=== PATIENT | male | born 1995 | race Caucasian/White ===

== ENCOUNTER 2022-05-09 13:51 | Inpatient (IN) | payer BC, SELFPAY ==
[2022-05-09 13:54] VITALS: BP 152/106; PULSE 108; RESP 16; TEMP 36.7; O2SAT 98; BMI 32.5
--- NOTE | 2022-05-09 14:08 | CM.ED ---
SW Note Referral Reason: RAMP Referral Source: Case Find SW met with patient to discuss the RAMP program. Patient reports they are detoxing from alcohol. Patient said that on days that he works he drinks between 8-12 beers and on his days off he drinks 20 beers. Patient said that he has had 5 days off recently. Patient said that in the past he went to [place] ED for detox and was releasedwith folow up with a specialist in [place] who gave me medication for high blood pressure and anxiety.Patient unable to name the name of the provider in [place] who he had seen for alcohol withdrawl.. Patient is not linked with outpatient AOD provider. Patient was advised that the RAMP program includes no outside food or visitors, no phone access and all personal items are secured. SW called Treatment Navigator and updated her regarding patient?s admission to RAMP. Plan: DADA ESPINOSA
--- NOTE | 2022-05-09 14:46 | EX.ED.SAOD ---
HPI History of Present Illness Chief Complaint: Substance Abuse Detail of Chief Complaint: Requesting detox for alcohol abuse. Informant: patient Onset/Context/Timing Onset: Month(s) Context: Gradual Onset Timing: Continuous Current Severity: Mild Maximum Severity: Mild Associated Symptoms Associated Symptoms: Positive for vomiting* Narrative Narrative: 27-year-old male history of alcoholism. Denies prior detox. No significant medical history. Currently on no medications. States when he works he drinks about 10 beers a night. He has been off the last week or so has been drinking 20 beers a day and some shots. Denies recent illness other than some nausea vomiting and diarrhea times. Denies any recent hospitalization. Requesting inpatient detox. Prior similar symptoms: Yes Recent Illness/Hospitalization: No PFSH PFSH Medical History Eczema Home Medications hydrocortisone 0.5 % topical cream 1 applic topical BID PRN ECZEMA 05/09/22 [History Last Taken 1 Week Ago ~05/02/22] Allergy/AdvReac Type Severity Reaction Status Date / Time No Known Allergies Allergy Verified 05/09/22 13:54 Social History Smoking Status: Never smoker ROS ROS ED ROS Narrative Nausea, vomiting and diarrhea. Review of Systems ROS Unobtainable: Denies due to encephalopathy Constitutional Constitutional ED: Denies chills or fever(s) Eyes Eyes: Denies blurry vision ENT ENT ED: Denies ear pain Cardiovascular Cardiovascular: Denies chest pain Respiratory/Chest Respiratory/Chest: Denies cough or dyspnea Gastrointestinal Gastrointestinal: Reports diarrhea, nausea and vomiting; Denies abdominal pain, constipation or melena Genitourinary Genitourinary ED: Denies dysuria Musculoskeletal Musculoskeletal: Denies arthralgias Integumentary Denies abscess Neurologic Neurologic: Denies headache(s) Psychiatric Psychiatric: Denies anxiety Endocrine Endocrinology: Denies cold intolerance Hematologic/Lymphatic Hematologic/Lymphatic: Denies easy bleeding Allergic/Immunologic Allergic/Immunologic ED: Denies mouth swelling or tongue swelling EXAM Physical Exam Narrative Exam Narrative: 18-year-old male no acute distress. Vital signs stable afebrile. H EENT exam unremarkable. Moist Riis membranes. No trauma. Neck nontender. No lymphadenopathy. Lungs clear to auscultation bilaterally. Heart tachycardic rate about 110 no murmur. Abdomen soft nontender. Normal bowel sounds. Moving all 4 extremities. Calves are nontender no edema or cords. Back nontender. Neurologically is awake alert with no focal motor deficits. Const Vital Signs: 05/09/22 13:54 05/09/22 14:59 Temperature 98.1 F 97.1 F L Temperature Source Temporal Temporal Pulse Rate 108 H 100 Respiratory Rate 16 16 Blood Pressure 152/106 H 136/77 H Blood Pressure Mean 121 96 Pulse Ox 98 99 Oxygen Delivery Method Room Air Room Air Positive well nourished, well developed and obese; Negative for cachectic, contractures or unkempt General Appearance ED: well developed and NAD; Negative for unkempt, cachectic, contractures or pallor Nutritional Appearance: obese; Negative for cachectic HEENT Reports moist mucous membranes; Denies dry mucous membranes atraumatic; Negative for trauma or tenderness Mouth ED: No dry mucous membranes Mouth: No dry mucous membranes Eyes PERRL and EOMs intact bilaterally General Eye ED: Negative for pale conjunctiva or scleral icterus Neck no lymphadenopathy, supple and no JVD Thyroid: Negative for tender Lymph Lymphatic: no lymphadenopathy noted and lymphadenopathy; Negative for other Chest Wall inspection of chest normal and palpation of chest normal Resp normal respiratory effort and clear to auscultation bilaterally Effort and Inspection: Negative for retractions Auscultation: Negative for rales, rhonchi or wheezes Cardio regular rate, regular rhythm, S1 normal heart sound, S2 normal heart sound and no murmurs Rate: Negative for bradycardia or tachycardic Rhythm: Negative for abnormal rhythm Bruits: Negative for other GI soft to palpation, non-tender, non-distended and no masses Inspection: Negative for abdominal distention Auscultation: Negative for hyperactive bowel sounds Palpation: Negative for tender or guarding Back/Spine no CVA tenderness General Back: Negative for CVA tenderness Cervical Spine: Negative for cervical spine tenderness Thoracic Spine / Upper Back: Negative for thoracic spinal tenderness Lumbar Spine / Lower Back: Negative for lumbar spinal tenderness Coccyx: Negative for swelling Extremity General Extremety ED: Negative for edema or tenderness General Extremity: Negative for edema Neuro oriented x3 and CN's II-XII intact bilaterally Sensorium / Orientation: alert, oriented to person, oriented to place and oriented to time; Negative for confused, lethargic or stuporous Speech: speech normal Motor Exam: strength 5/5 throughout Psych mental status grossly normal and thought process normal Appearance: Negative for unkempt Attitude: No belligerent Mood & Affect: Negative for depressed, anxious or tearful Skin General Skin Exam: Negative for jaundice or pallor Lesions: no lesions Rashes: no rashes Trauma: Negative for abrasion or laceration MDM MDM MDM Narrative Medical decision making narrative: 27-year-old male requesting inpatient detox for alcohol abuse. Screening labs for detox being sent. Lab Data Attestation: I reviewed the patient's lab results. Lab results narrative: CBC unremarkable. White count 7.5. H&H of 7.4 and 49. Platelets 248. Chemistries unremarkable gap of 12 normal BUN 11 creatinine of 1. Glucose 114. Liver enzymes unremarkable ALT 177. ) X2. Intact. Unremarkable appendix. Labs: Laboratory Results - last 24 hr 05/09/22 05/09/22 05/09/22 14:20 14:20 14:20 WBC 7.5 RBC 5.48 Hgb 17.4 H Hct 49.7 MCV 90.7 MCH 31.8 MCHC 35.0 RDW Std Deviation 42.3 RDW Coeff of Phyllis 12.9 Plt Count 248 MPV 8.7 Immature Gran % (Auto) 0.400 Neut % (Auto) 50.0 Lymph % (Auto) 39.7 [place] % (Auto) 8.3 Eos % (Auto) 0.8 Baso % (Auto) 0.8 Absolute Neuts (auto) 3.7 Absolute Lymphs (auto) 2.97 Nucleated RBC % 0 Sodium 141 Potassium 3.7 Chloride 102 Carbon Dioxide 27.0 Anion Gap 12 BUN 11 Creatinine 1.02 Estim Creat Clear Calc 127.72 Est GFR (MDRD) Af Amer 111 Est GFR (MDRD) Non-Af 92 BUN/Creatinine Ratio 10.8 Glucose 114 H Calcium 9.1 Total Bilirubin 0.40 AST 96 H ALT 177 H Alkaline Phosphatase 69 Total Protein 8.5 H Albumin 4.8 Globulin 3.7 Albumin/Globulin Ratio 1.3 Urine Opiates Screen NEGATIVE Urine Methadone Screen NEGATIVE Ur Barbiturates Screen NEGATIVE Ur Phencyclidine Scrn NEGATIVE Ur Amphetamines Screen NEGATIVE MDMA (Ecstasy) Screen NEGATIVE U Benzodiazepines Scrn NEGATIVE Urine Cocaine Screen NEGATIVE U Cannabinoids Screen NEGATIVE Ur Drug Screen Comment Discharge Plan Dx/Rx/DC Orders Clinical Impression: Alcohol abuse, Admitted to alcohol detoxification center Disposition Disposition: Acute Care Hospital [facility]
[2022-05-09 14:55] LABS: Absolute Lymphocyte Count 2.97 X10^3/uL (0.83-4.51); Absolute Neutrophil Count 3.7 X10^3/uL (2.0-7.7); Basophil# 0.06 X10^3/uL; Basophil% 0.8 % (0-1); Eosinophil# 0.06 X10^3/uL; Eosinophils% 0.8 % (0-5); Hematocrit 49.7 % (40-54); Hemoglobin 17.4 g/dL (13.0-16.5); Lymphocyte # 2.97 X10^3/ul (0.83-4.51); Lymphocyte % 39.7 % (19-41); Mean Corpuscular Hgb 31.8 pg (27.0-32.0); Mean Corpuscular Volume 90.7 fL (80-94); Mean Platelet Vol. 8.7 fl (6.2-12.0); Monocyte# 0.62 X10^3/uL; Monocyte% 8.3 % (0-10); NRBC Flagged by Analyzer 0 % (0-5); Neutrophil # 3.74 X10^3/uL (2.7-7.7); Platelet Count 248 K/mm3 (150-450); RBC Distribution Width CV 12.9 % (11.6-14.6); RBC Distribution Width SD 42.3 fl (35.1-43.9); Red Blood Count 5.48 M/mm3 (4.6-6.2); White Blood Count 7.5 K/mm3 (4.4-11.0)
--- NOTE | 2022-05-09 14:56 | HP.PCM.HOS_ITS ---
HPI - General General Date of Admission: 05/09/22 Date of Service: 05/09/22 Chief Complaint: alcohol withdrawal HPI Narrative SOHAIL LI, is a 27 M with a PMH as outlined who presents via the ED on 05/09/2022 for acute alcohol withdrawal. HE drinks about 10 beers every night when he's working, and ! 20 beers daily when not working. His last drink was earlier today. He denied any tremors but admitted to nausea and vomiting. He has never undergone detox before. Review of systems was otherwise negative. Vitals wre Bp of 152/106, SD of 108, RR of 16 and temp of 98.1F; he was saturating at 98% on room air. CBC was only remarkable for hb of 17.4, chemistry and urine tox were pending. Serum alcohol level was also pending. He is being admitted to be managed for acute alcohol withdrawal. [facility] Medical History Eczema Home Medications hydrocortisone 0.5 % topical cream 1 applic topical BID PRN ECZEMA 05/09/22 [History Last Taken 1 Week Ago ~05/02/22] Allergy/AdvReac Type Severity Reaction Status Date / Time No Known Allergies Allergy Verified 05/09/22 13:54 Social History Smoking Status: Never smoker ROS Constitutional Constitutional: Denies chills, fatigue, fever(s), malaise or weakness Eyes Eyes: Denies change in vision ENT HEENT: Denies dysphagia, headache(s), nasal congestion or sore throat Cardiovascular Cardiovascular: Denies chest pain, dyspnea on exertion, edema, lightheadedness, orthopnea, palpitations, rapid heart rate or syncope Respiratory/Chest Respiratory/Chest: Denies cough, productive cough, shortness of breath at rest or shortness of breath with exertion Gastrointestinal Gastrointestinal: Denies abdominal pain, diarrhea, nausea or vomiting Genitourinary Genitourinary: Denies burning urination, dysuria or hematuria Musculoskeletal Musculoskeletal: Denies arthralgias, back pain or myalgias Neurologic Neurologic: Denies confusion, dizziness, focal weakness, headache(s), seizures or syncope Psychiatric Psychiatric: Reports anxiety Hematologic/Lymphatic Hematologic/Lymphatic: Denies anemia Vital Signs Vital Signs Vital Signs: 05/09/22 13:54 Temperature 98.1 F Temperature Source Temporal Pulse Rate 108 H Respiratory Rate 16 Blood Pressure 152/106 H Blood Pressure Mean 121 Pulse Ox 98 Oxygen Delivery Method Room Air Weight Weight: 260 lb 9.382 oz Body Mass Index (BMI) 32.5 Physical Exam Const alert, oriented x3 and no apparent distress General Appearance: cooperative HEENT normocephalic, head/scalp atraumatic, hearing grossly normal bilaterally and moist oral mucous membranes Mouth: oral and palatal mucosa normal Eyes PERRL, EOMs intact bilaterally and conjunctivae normal Neck no lymphadenopathy, supple and no JVD Resp normal respiratory effort, no retractions, no use of accessory muscles and clear to auscultation bilaterally Cardio regular rate, regular rhythm, S1 normal heart sound, S2 normal heart sound and no murmurs GI normal to inspection, nondistended, normoactive bowel sounds, soft to palpation, non-tender and non-distended Extremity normal to inspection, full ROM and no clubbing, cyanosis or edema Neuro oriented x3, CN's II-XII intact bilaterally and moves all extremities Sensorium / Orientation: awake and alert Speech: speech normal Motor Exam: strength 5/5 throughout Psych affect normal Results Lab / Micro Data Result Diagrams: 05/09/22 14:20 05/09/22 14:20 Labs: Laboratory Results - last 24 hr 05/09/22 14:20: Ur Drug Screen Comment Assessment & Plan Assessment/Plan (1) Alcohol abuse: (2) Alcohol withdrawal: PLAN: Plan #Acute alcohol withdrawal * admit to med surg * start on alcohol withdrawal protocol with phenobarbital * thiamine, folic acid and multivites * monitor CIWA score * adjunctive meds for symptomatic relief * #Elevated BP; no known diagnosis for hypertension. May be due to alcohol withdrawal. Will monitor for now. DVT prophylaxis: low risk. Encourage ambulation. Charges/Coding Visit Charges Inpatient E&M: 33011 Init Hosp L3
[2022-05-09 14:59] VITALS: BP 136/77; PULSE 100; RESP 16; TEMP 36.2; O2SAT 99
[2022-05-09 15:00] VITALS: PULSE 100; RESP 16; O2SAT 99
[2022-05-09 15:14] LABS: Amphetamine Urine VISTA NEGATIVE (<1000 ng/mL); Barbiturate Urine VISTA NEGATIVE (< 200 ng/mL); Benzodiazepine Urine VISTA NEGATIVE (< 200 ng/mL); Cocaine Urine VISTA NEGATIVE (< 300 ng/mL); Ecstacy Urine VISTA NEGATIVE (< 500 ng/mL); Methadone Urine VISTA NEGATIVE (< 300 ng/mL); PCP Urine VISTA NEGATIVE (< 25 ng/mL); THC Urine VISTA NEGATIVE (< 50 ng/mL); Vista UDS pH Range 6
[2022-05-09 15:29] LABS: ALB/GLOB Ratio 1.3 RATIO (0.9-2.4); AST(SGOT) 96 U/L (15-37); Alanine Aminotransfer ALT/SGPT 177 U/L (16-61); Albumin, Serum 4.8 g/dL (3.2-5.0); Alkaline Phosphatase 69 U/L (45-117); Anion Gap 12 (5-15); BUN 11 mg/dL (7-18); BUN/Creat Ratio 10.8 RATIO (10-20); Calcium,Total 9.1 mg/dL (8.5-10.1); Chloride 102 mmol/L (98-107); Creatinine, Serum 1.02 mg/dL (0.70-1.30); EST Glomerular Filtration Rate 92 mL/min (>60); Est Glom Filt Rate - Afr Amer 111 mL/min (>60); Estimated Creatinine Clearance 127.72 ml/min; Globulin 3.7 g/dL (2.2-4.2); Glucose 114 mg/dL (74-106); Potassium 3.7 mmol/L (3.5-5.1); Protein, Total 8.5 g/dL (6.4-8.2); Sodium Level 141 mmol/L (136-145)
--- NOTE | 2022-05-09 15:39 | CM.ED ---
ABRAHAN noted on patient's registration he has no PCP. However, SW met with patient and he stated he has a PCP but can not recall her name. No further SW needs at this time. Jordana ESPINOSA
[2022-05-09 16:43] VITALS: BMI 32.5
[2022-05-09 16:54] VITALS: BP 143/98; PULSE 90; RESP 16; TEMP 36.9; O2SAT 96
[2022-05-09] MEDS: Phenobarbital 32.4 MG Tablet 64.8 MG PO ×2 (18:02→21:42)
[2022-05-09] MEDS: Acetaminophen 325 MG Tablet 650 MG PO (18:34)
--- NOTE | 2022-05-09 19:03 | CM.ED ---
ABRAHAN called front worker navigator for [facility], Franci, and requested patient be seen. Franci will follow up on 05/10/22. Jordana ESPINOSA
[2022-05-09] MEDS: hydrOXYzine PAM 25 MG Capsule 50 MG PO (20:07)
[2022-05-09] MEDS: Gabapentin 300 MG Capsule PO (20:07)
[2022-05-09] MEDS: traZODone 100 MG Tablet PO (20:07)
[2022-05-09 20:10] VITALS: BP 155/84; PULSE 80; RESP 16; TEMP 36.5; O2SAT 100
[2022-05-10] MEDS: Phenobarbital 32.4 MG Tablet 64.8 MG PO ×6 (01:15→21:44)
[2022-05-10 01:16] VITALS: BP 98/46; PULSE 105; RESP 16; TEMP 36.4; O2SAT 97
[2022-05-10 05:13] VITALS: BP 112/75; PULSE 102; RESP 16; TEMP 36.5; O2SAT 96
[2022-05-10] MEDS: 0.9% Saline Lock 10 ML Syringe IV ×2 (05:24→08:43)
[2022-05-10] MEDS: Acetaminophen 325 MG Tablet 650 MG PO ×2 (05:24→14:22)
[2022-05-10] MEDS: hydrOXYzine PAM 25 MG Capsule 50 MG PO (05:24)
[2022-05-10] MEDS: Dicyclomine 10 MG Capsule 20 MG PO ×2 (08:39→18:36)
[2022-05-10] MEDS: Gabapentin 300 MG Capsule PO ×2 (08:40→18:32)
[2022-05-10] MEDS: Folic Acid 1 MG Tablet PO (08:40)
[2022-05-10] MEDS: Thiamine Hydrochloride 100 MG Tablet PO (08:40)
[2022-05-10 09:25] VITALS: BP 148/84; PULSE 86; RESP 18; TEMP 36.8; O2SAT 98
--- NOTE | 2022-05-10 11:39 | PCM.PN.HOSP ---
Objective Data Objective Data Vital Signs: Vital Signs Temp Pulse Resp BP Pulse Ox O2 Del Method 98.3 F 86 18 148/84 H 98 Room Air 05/10/22 09:25 05/10/22 09:25 05/10/22 09:25 05/10/22 09:25 05/10/22 09:25 05/10/22 09:25 Oxygen Delivery Method Room Air Weight: 260 lb 9.382 oz Body Mass Index (BMI) 32.5 Lab / Micro Data Result Diagrams: 05/09/22 14:20 05/09/22 14:20 Labs: Laboratory Results - last 24 hr 05/09/22 14:20: WBC 7.5, RBC 5.48, Hgb 17.4 H, Hct 49.7, MCV 90.7, MCH 31.8, MCHC 35.0, RDW Std Deviation 42.3, RDW Coeff of Phyllis 12.9, Plt Count 248, MPV 8.7, Immature Gran % (Auto) 0.400, Neut % (Auto) 50.0, Lymph % (Auto) 39.7, [place] % (Auto) 8.3, Eos % (Auto) 0.8, Baso % (Auto) 0.8, Absolute Neuts (auto) 3.7, Absolute Lymphs (auto) 2.97, Nucleated RBC % 0 05/09/22 14:20: Sodium 141, Potassium 3.7, Chloride 102, Carbon Dioxide 27.0, Anion Gap 12, BUN 11, Creatinine 1.02, Estim Creat Clear Calc 127.72, Est GFR (MDRD) Af Amer 111, Est GFR (MDRD) Non-Af 92, BUN/Creatinine Ratio 10.8, Glucose 114 H, Calcium 9.1, Total Bilirubin 0.40, AST 96 H, ALT 177 H, Alkaline Phosphatase 69, Total Protein 8.5 H, Albumin 4.8, Globulin 3.7, Albumin/Globulin Ratio 1.3 05/09/22 14:20: Ethyl Alcohol 296.0 05/09/22 14:20: Urine Opiates Screen NEGATIVE, Urine Methadone Screen NEGATIVE, Ur Barbiturates Screen NEGATIVE, Ur Phencyclidine Scrn NEGATIVE, Ur Amphetamines Screen NEGATIVE, MDMA (Ecstasy) Screen NEGATIVE, U Benzodiazepines Scrn NEGATIVE, Urine Cocaine Screen NEGATIVE, U Cannabinoids Screen NEGATIVE, Ur Drug Screen Comment Physical Exam Narrative Seen and examined. Patient having mild anxiety and restlessness. Physical exam General: Alert, Oriented x3, Cooperative HEENT: Atraumatic, PERRLA, EOMI, Normocephalic Oral: Oral mucosa moist. No Gingival or Mucosal Lesions/ Ulcerations Neck: Supple, No JVD, Negative Carotid Bruits Lungs: Air entry diminished in bilateral lung bases. No crepitation/rhonchi Cardiovascular: Regular rate, Regular Rhythm, Normal S1, Normal S2, No murmurs Abdomen: Bowel Sounds Present, Soft, Non Tender, Non-Distended : No renal angle tenderness. No suprapubic tenderness. Extremities: No edema, Capillary Refill Less than 3 Seconds Skin: No rashes, No breakdown Musculoskeletal: No Tenderness to Palpation of Joints or Extremities Neurological: Cranial nerves II-XII grossly intact, DTR 2+/4 and Symmetrical, Neuro grossly intact Psych/Mental Status: Flat affect, anxiety. Assessment & Plan Assessment/Plan (1) Alcohol abuse: (2) Alcohol withdrawal: PLAN: Plan #Acute alcohol withdrawal syndrome with history of chronic alcohol use disorder with dependence and tolerance: Patient admitted to MedSurg floor. Patient on phenobarbital based order set along with other adjunctive medications as needed for alcohol withdrawal symptom control. CIWA monitor. 180 degree human services case manager consult. On thiamine folic acid multivitamin. #Elevated BP; no known diagnosis for hypertension. May be due to alcohol withdrawal. BP fluctuates. 155/74-98/46. DVT prophylaxis: low risk. Encourage ambulation. Charges/Coding Visit Charges Inpatient E&M: 80136 Subs Hosp L2
[2022-05-10 13:25] VITALS: BP 138/76; PULSE 84; RESP 18; TEMP 36.8; O2SAT 98
[2022-05-10 17:25] VITALS: BP 148/95; PULSE 82; RESP 18; TEMP 36.6; O2SAT 95
--- NOTE | 2022-05-10 18:07 | NURSING ---
RAMP navigator in to see pt - see hard chart for information
[2022-05-10 21:41] VITALS: BP 139/92; PULSE 74; RESP 18; TEMP 36.7; O2SAT 97
[2022-05-10] MEDS: traZODone 100 MG Tablet PO (21:43)
[2022-05-11] MEDS: Phenobarbital 32.4 MG Tablet 64.8 MG PO ×6 (02:34→21:11)
[2022-05-11 02:35] VITALS: BP 142/86; PULSE 74; RESP 18; TEMP 36.5; O2SAT 97
[2022-05-11 08:35] VITALS: BP 148/86; PULSE 88; RESP 18; TEMP 36.6; O2SAT 96
[2022-05-11] MEDS: Thiamine Hydrochloride 100 MG Tablet PO (08:55)
[2022-05-11] MEDS: Folic Acid 1 MG Tablet PO (08:55)
[2022-05-11] MEDS: 0.9% Saline Lock 10 ML Syringe IV (09:06)
--- NOTE | 2022-05-11 14:16 | PCM.PN.HOSP ---
Subjective Subjective Patient symptoms of tremors shaking better. Anxiety is better. No nausea or vomiting. Objective Data Objective Data Vital Signs: Vital Signs Temp Pulse Resp BP Pulse Ox O2 Del Method 97.8 F 88 18 148/86 H 96 Room Air 05/11/22 08:35 05/11/22 08:35 05/11/22 08:35 05/11/22 08:35 05/11/22 08:35 05/11/22 09:01 Oxygen Delivery Method Room Air Weight: 260 lb 9.382 oz Body Mass Index (BMI) 32.5 Lab / Micro Data Result Diagrams: 05/09/22 14:20 05/09/22 14:20 Physical Exam Narrative Seen and examined. Blood pressure is Elevated 142/86, 148/76. Physical exam General: Alert, Oriented x3, Cooperative HEENT: Atraumatic, PERRLA, EOMI, Normocephalic Oral: Oral mucosa moist. No Gingival or Mucosal Lesions/ Ulcerations Neck: Supple, No JVD, Negative Carotid Bruits Lungs: Air entry diminished in bilateral lung bases. No crepitation/rhonchi Cardiovascular: Regular rate, Regular Rhythm, Normal S1, Normal S2, No murmurs Abdomen: Bowel Sounds Present, Soft, Non Tender, Non-Distended : No renal angle tenderness. No suprapubic tenderness. Extremities: No edema, Capillary Refill Less than 3 Seconds Skin: No rashes, No breakdown Musculoskeletal: No Tenderness to Palpation of Joints or Extremities Neurological: Cranial nerves II-XII grossly intact, DTR 2+/4 and Symmetrical, Neuro grossly intact Psych/Mental Status: Flat affect, anxiety. Assessment & Plan Assessment/Plan (1) Alcohol abuse: (2) Alcohol withdrawal: PLAN: Plan #Acute alcohol withdrawal syndrome with history of chronic alcohol use disorder with dependence and tolerance: Patient admitted to MedSur floor. Patient on phenobarbital based order set along with other adjunctive medications as needed for alcohol withdrawal symptom control. CIWA monitor. 180 degree sample case porter consult. On thiamine folic acid multivitamin. 05/11: Anxiety level and panic attack is better controlled. Tremors and shaking better. Patient had good sleep.No hallucinations. CIWA score 4. #Elevated BP; no known diagnosis for hypertension. May be due to alcohol withdrawal. BP fluctuates. 155/74-98/46. 05/11: Systolic blood pressure in 140s. Monitor blood pressure. DVT prophylaxis: low risk. Encourage ambulation. Charges/Coding Visit Charges Inpatient E&M: 23592 Subs Hosp L2
[2022-05-11 14:30] VITALS: BP 139/80; PULSE 91; RESP 17; TEMP 36.8; O2SAT 96
[2022-05-11 21:09] VITALS: BP 146/93; PULSE 83; RESP 18; TEMP 37.3; O2SAT 97
[2022-05-11] MEDS: traZODone 100 MG Tablet PO (21:11)
[2022-05-11] MEDS: Acetaminophen 325 MG Tablet 650 MG PO (21:11)
[2022-05-11] MEDS: Hydrocortisone 2.5% Ointment 20 gm tube 1 APPLIC TOPICAL (21:56)
[2022-05-12] MEDS: Phenobarbital 32.4 MG Tablet 64.8 MG PO ×2 (02:46→07:30)
[2022-05-12 02:47] VITALS: BP 128/85; PULSE 87; RESP 18; TEMP 36.6; O2SAT 97
[2022-05-12 07:50] VITALS: BP 138/102; PULSE 72; RESP 18; TEMP 36.8; O2SAT 98
[2022-05-12] MEDS: Folic Acid 1 MG Tablet PO (07:56)
[2022-05-12] MEDS: Thiamine Hydrochloride 100 MG Tablet PO (07:56)
--- NOTE | 2022-05-12 09:04 | DCINST_ITS ---
Discharge Instructions Diet Discharge Diet: No restrictions Activity Discharge Activity: Return to Normal Activity Weight Bearing Status: Weight bearing as tolerated Dressing / Incision Call your doctor if you observe: Fever of 101 or Higher, Coldness, Increased Pain, Numbness or Tingling, Change in Color, Inability to urinate, Inability to have a bowel movement, Shortness of breath, Dizziness, Fainting spells, Swelling in the ankles, Chest pain, Prolonged hiccupping, Increased palpitations (irregular heartbeat) and Calf discomfort Follow Up Care When: IN 2 WEEKS Test Results: Test results from this visit will be discussed in further detail at your follow- up appointment, if applicable. Discharge Plan Admission Admit Date/Time: 05/09/22 15:02 Primary Reason for Your Visit: Acute alcohol withdrawal syndrome Attending Provider: Sreedhar Smith Primary Care Provider: Sanjeev Damon,[place] Primary Consulting Providers: Meyrl Bean Instructions Additional Instructions / Restrictions: Follow-up outpatient alcohol rehab as set up by 180 Discharge Orders/Prescriptions Prescriptions: New thiamine HCl (vitamin B1) [Vitamin B-1] 100 mg Tablet 100 mg PO DAILYCM Qty: 30 2RF folic acid 1 mg Tablet 1 mg PO DAILY@0800 Qty: 30 2RF Continued hydrocortisone 0.5 % Cream 1 applic TOPICAL BID PRN (Reason: ECZEMA) Referrals / Follow Up: Care Physician,No Primary [Primary Care Provider] - Abena Mcdonald DO [Med Staff - Consulting] - Within 2 Weeks Disposition Disposition (needs filled in before D/C Order can be placed): Home, Self Care
--- NOTE | 2022-05-12 09:07 | DS.PCM_ITS ---
Providers Date of Admission: 05/09/22 Date of Discharge: 05/12/22 Primary Care Physician: No Primary Care Phys Reason For Visit: ACUTE ALCOHOL WITHDRAWAL Diagnosis Discharge Diagnosis (1) Alcohol abuse: Status: Acute Code(s): F10.10 - Alcohol abuse, uncomplicated (2) Alcohol withdrawal: Status: Acute Code(s): F10.939 - Alcohol use, unspecified with withdrawal, unspecified Plan This 27-year-old gentleman is being admitted for acute alcohol withdrawal syndrome. Patient drinks 10 beers every night when he is working and 20 beers on off days. Patient was admitted with nausea vomiting but did not had significant tremors. #Acute alcohol withdrawal syndrome with history of chronic alcohol use disorder with dependence and tolerance: Patient admitted to [facility] floor. Patient on phenobarbital based order set along with other adjunctive medications as needed for alcohol withdrawal symptom control. CIWA monitor. 180 degree home health care case manager consult. On thiamine folic acid multivitamin. 05/11: Anxiety level and panic attack is better controlled. Tremors and shaking better. Patient had good sleep.No hallucinations. CIWA score 4. 05/12: CIWA score 1. Patient is ready to go home. Discharged home later on. #Elevated BP; no known diagnosis for hypertension. May be due to alcohol withdrawal. BP fluctuates. 155/74-98/46. 05/11: Systolic blood pressure in 140s. Monitor blood pressure. DVT prophylaxis: low risk. Encourage ambulation. Discharge medication reconciliation done. Discharge follow-up instructions completed. Discharge process discussed with the patient and all questions were answered to patient's satisfaction. Total time spent, exact 35 minutes on discharge meds reconciliation, exam ination, coordination of care with nurses and ancillary staff, review of imaging and blood test and discussion with the patient on follow-up instructions. Medications at Discharge Home Medications hydrocortisone 0.5 % topical cream 1 applic topical BID PRN ECZEMA 05/09/22 folic acid 1 mg tablet 1 mg PO DAILY@0800 #30 tabs 05/12/22 thiamine HCl (vitamin B1) 100 mg tablet (Vitamin B-1) 100 mg PO DAILYCM #30 tabs 05/12/22 Physical Exam Narrative Seen and examined. Blood pressure is controlled 128/35 but is still fluctuates. Will need outpatient home BP monitoring. Physical exam General: Alert, Oriented x3, Cooperative HEENT: Atraumatic, PERRLA, EOMI, Normocephalic Oral: Oral mucosa moist. No Gingival or Mucosal Lesions/ Ulcerations Neck: Supple, No JVD, Negative Carotid Bruits Lungs: Air entry diminished in bilateral lung bases. No crepitation/rhonchi Cardiovascular: Regular rate, Regular Rhythm, Normal S1, Normal S2, No murmurs Abdomen: Bowel Sounds Present, Soft, Non Tender, Non-Distended : No renal angle tenderness. No suprapubic tenderness. Extremities: No edema, Capillary Refill Less than 3 Seconds Skin: No rashes, No breakdown Musculoskeletal: No Tenderness to Palpation of Joints or Extremities Neurological: Cranial nerves II-XII grossly intact, DTR 2+/4 and Symmetrical, Neuro grossly intact Psych/Mental Status: Flat affect, anxiety. Weight / BMI Weight Weight: 260 lb 9.382 oz Body Mass Index (BMI) 32.5 ABG / Lab / Microbiology Data Result Diagrams: 05/09/22 14:20 05/09/22 14:20 D/C Instructions Discharge Diet: No restrictions Weight Bearing Status: Weight bearing as tolerated Call your doctor if you observe: Fever of 101 or Higher, Coldness, Increased Pain, Numbness or Tingling, Change in Color, Inability to urinate, Inability to have a bowel movement, Shortness of breath, Dizziness, Fainting spells, Swelling in the ankles, Chest pain, Prolonged hiccupping, Increased palpitations (irregular heartbeat) and Calf discomfort When: IN 2 WEEKS Meaningful Use Info Meaningful Use Diagnoses (Choose all that apply): None applicable Discharge Plan Admission Admit Date/Time: 05/09/22 15:02 Primary Reason for Your Visit: Acute alcohol withdrawal syndrome Attending Provider: Sreedhar Smith Primary Care Provider: Care Physician,No Primary Consulting Providers: Meryl Bean Instructions Additional Instructions / Restrictions: Follow-up outpatient alcohol rehab as set up by 180 Discharge Orders/Prescriptions Prescriptions: New thiamine HCl (vitamin B1) [Vitamin B-1] 100 mg Tablet 100 mg PO DAILYCM Qty: 30 2RF folic acid 1 mg Tablet 1 mg PO DAILY@0800 Qty: 30 2RF Continued hydrocortisone 0.5 % Cream 1 applic TOPICAL BID PRN (Reason: ECZEMA) Referrals / Follow Up: Abena Mcdonald DO [Med Staff - Consulting] - Within 2 Weeks Care Physician,No Primary [Primary Care Provider] - Disposition Disposition (needs filled in before D/C Order can be placed): Home, Self Care Charges/Coding Visit Charges Inpatient E&M: 86904 Disch Hosp >30min
--- NOTE | 2022-05-12 12:34 | CHAPLAIN ---
Type of Pastoral Visit _x__ Initial Visit ___ Follow-up Visit ___ On-call Visit ___ General Patient Visit ___ Spiritual Assessment ___ Family Conference ___ Bereavement ___ Rapid Response ___ Code Blue ___ Other (describe below) Pastoral Care Referral From _x__ Patient ___ Family ___ Nurse ___ Physician ___ Mechanic Welder Truck Driver ___ Cylinder Sander Operator ___ Other (describe below) Sacrament/Intervention _x__ Active listening ___ Anointing ___ Episcopal ___ Bereavement ___ Communion _x__ Lexi exploration ___ _x__ Life review _x__ Prayer ___ Reconciliation ___ Sacrament of Sick _x__ Supportive presence ___ Wedding ___ Other (describe below) Pastoral Comments 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
== END 2022-05-12 13:30 | disposition home or self-care (01) | DRG 897 ==
LOC: ED 15:00 → MS3 15:57
PROVIDERS: Admitting Provider Student in an Organized Health Care Education/Training Program; Emergency Provider Emergency Medicine; Visit Provider Internal Medicine
DX: F10.239 Alcohol dependence with withdrawal, unspecified (principal); F41.0 Panic disorder [episodic paroxysmal anxiety]; R03.0 Elevated blood-pressure reading, without diagnosis of hypertension
CPT/HCPCS: 80053; 80307; 82077; 85025; 99284; A4216

== ENCOUNTER 2023-12-29 23:57 | Emergency (ER) | payer BC, SELFPAY ==
[2023-12-29 23:58] VITALS: BP 151/92; PULSE 102; RESP 18; TEMP 36.6; O2SAT 99; BMI 29.5
--- NOTE | 2023-12-30 00:12 | EKG12_ITS ---
Test Reason : SUICIDAL Blood Pressure : / mmHG Vent. Rate : 093 BPM Atrial Rate : 093 BPM P-R Int : 158 ms QRS Dur : 084 ms QT Int : 356 ms P-R-T Axes : 030 034 036 degrees QTc Int : 442 ms Normal sinus rhythm Normal ECG Confirmed by Avery Silvestre ([id number]), supervising editor news reel MANDA MORFIN ([id number]) on 01/04/2024 10:39:47 AM Referred By: RYAN Confirmed By:Avery Silvestre
--- NOTE | 2023-12-30 00:25 | EDS_ITS ---
HPI History of Present Illness Chief Complaint: Suicidal Informant: patient and friend Narrative Narrative: Patient is a 28-year-old male with past medical history of alcohol abuse. He states that he was drinking daily for approximately 10 years and then roughly 3 months ago was admitted to a psychiatric hospital and underwent detox and had been sober for 3-month. He reports that he has been having difficulty in his social life with his ex-girlfriend and son and he denies any individual stressor but states that the stress of life worsened by this relationship led him to start drinking again on Thursday. He denies any suicidal plan and he denies any illicit drug use or suicide attempt but with his worsening suicidal ideation he was brought in for evaluation. [facility] Medical History Admitted to alcohol detoxification center Alcohol abuse Eczema Home Medications ?Medication ?Instructions ?Recorded ?Last Taken ?Type buspirone 10 mg tablet 10 mg PO DAILY 12/30/23 Unknown History fluoxetine 20 mg capsule 20 mg PO DAILY 12/30/23 Unknown History hydroxyzine HCl 25 mg tablet 25 mg PO QHS 12/30/23 Unknown History trazodone 50 mg tablet 50 mg PO QHS PRN PRN insomnia 12/30/23 Unknown History Allergy/AdvReac Type Severity Reaction Status Date / Time No Known Allergies Allergy Verified 12/29/23 23:58 Social History Smoking Status: Never smoker ROS ROS ED Constitutional Constitutional ED: Denies chills or fever(s) Eyes Eyes: Denies blurry vision or change in vision ENT ENT ED: Denies sore throat Cardiovascular Cardiovascular: Denies chest pain Respiratory/Chest Respiratory/Chest: Denies cough or dyspnea Gastrointestinal Gastrointestinal: Denies abdominal pain, diarrhea, nausea or vomiting Genitourinary Genitourinary ED: Denies dysuria Musculoskeletal Musculoskeletal: Denies myalgias Integumentary Denies rash Neurologic Neurologic: Denies headache(s) Psychiatric Psychiatric: Reports depression and suicidal thoughts Hematologic/Lymphatic Hematologic/Lymphatic: Denies easy bleeding or easy bruising EXAM Physical Exam Const Vital Signs: 12/29/23 23:58 Temperature 97.9 F Temperature Source Temporal Pulse Rate 102 H Respiratory Rate 18 Blood Pressure 151/92 H Blood Pressure Mean 111 Pulse Ox 99 Oxygen Delivery Method Room Air Positive well nourished and well developed General Appearance ED: well developed; Negative for pallor HEENT HEENT Narrative: Normocephalic atraumatic Eyes PERRL and EOMs intact bilaterally General Eye ED: Negative for scleral icterus Neck supple Resp normal respiratory effort and clear to auscultation bilaterally Cardio regular rate and regular rhythm GI normal to inspection, nondistended, normoactive bowel sounds, non-tender, non- distended and no masses Auscultation: normoactive bowel sounds Palpation: soft Extremity normal to inspection Neuro oriented x3, CN's II-XII intact bilaterally and no sensory deficits noted Sensorium / Orientation: alert Motor Exam: strength 5/5 throughout Psych Psych Narrative: Patient has depressed/flat affect with suicidal ideation Skin no rashes or lesions noted General Skin Exam: Negative for jaundice or pallor MDM MDM MDM Narrative Medical decision making narrative: Patient arrived to the ER hypertensive otherwise with stable vitals. He reported that he was a daily beer drinker for approximately 10 years and then 3 months ago and he was admitted to the psychiatric center he underwent detox as well and had been sober for 3 months. He has had increase social stressors with his ex-girlfriend and potential custody issues with his son which have led to increased depression and relapse to where he has now been drinking for the past 3 days. With the increased stress and return to drinking he also has suicidal ideation. The patient is of moderate risk to attempt self-harm based on his alcohol use and recent admission for similar event. Secondary to this risk factor a medical screening exam was performed. Workup revealed no clinically significant findings other than his elevated alcohol value. Therefore he was watched in the emergency department until his alcohol value was below 100 and then psychiatry was consulted. The patient's best friend had accompanied him to the emergency department and he did pull me aside stating that the patient lives alone and has exposure/access to multiple firearms. He also reports that he consistently downplays his symptoms. I do feel that with the patient's alcohol use access to weapons and the fact that his symptoms are stemming from increased life stressors that did require recent admission that he is at high risk for attempting self-harm. Therefore the patient will be pink slipped to ensure that he remains in a safe environment. Also as the patient has only been using alcohol for the past 3 days my concern for him progressing to withdrawal and delirium tremens is low and I do not necessarily feel there will be need for placement in a medical hospital but more so psychiatric. As the patient is still pending evaluation by crisis center as well as potential placement he will be signed out to the day physician Dr. Brown The patient has been medically cleared from an emergency room standpoint for transfer/placement to a psychiatric hospital History & Record Review Discussion w/independent historian: Patient and Friend Lab Data Attestation: I reviewed the patient's lab results. Labs: Laboratory Results - last 24 hr 12/30/23 12/30/23 00:00 00:32 WBC 9.2 RBC 5.32 Hgb 15.6 Hct 45.5 MCV 85.5 MCH 29.3 MCHC 34.3 RDW Std Deviation 42.5 RDW Coeff of Phyllis 13.6 Plt Count 239 MPV 8.6 Immature Gran % (Auto) 0.300 Neut % (Auto) 80.2 H Lymph % (Auto) 14.1 L [place] % (Auto) 4.6 Eos % (Auto) 0.1 Baso % (Auto) 0.7 Absolute Neuts (auto) 7.3 Absolute Lymphs (auto) 1.29 Nucleated RBC % 0 Sodium 135 L Potassium 3.5 Chloride 98 Carbon Dioxide 26.0 Anion Gap 11 BUN 8 Creatinine 1.28 Estim Creat Clear Calc 111.69 Est GFR (MDRD) Af Amer 84 Est GFR (MDRD) Non-Af 70 BUN/Creatinine Ratio 6.2 L Glucose 113 H Calcium 9.3 Total Bilirubin 0.50 Direct Bilirubin 0.17 AST 22 ALT 29 Alkaline Phosphatase 65 Total Protein 8.1 Albumin 4.7 Globulin 3.4 Urine Opiates Screen NEGATIVE Urine Methadone Screen NEGATIVE Ur Barbiturates Screen NEGATIVE Ur Phencyclidine Scrn NEGATIVE Ur Amphetamines Screen NEGATIVE MDMA (Ecstasy) Screen NEGATIVE U Benzodiazepines Scrn NEGATIVE Urine Cocaine Screen NEGATIVE U Cannabinoids Screen NEGATIVE Ur Drug Screen Comment Ethyl Alcohol 285.0 Discharge Plan Triage Chief Complaint: Suicidal ED Provider: Enoc Elizabeth Dx/Rx/DC Orders Clinical Impression: Alcohol abuse, Depression with suicidal ideation Prescriptions: No Action trazodone 50 mg tablet 50 mg PO QHS PRN PRN (Reason: insomnia) buspirone 10 mg tablet 10 mg PO DAILY hydroxyzine HCl 25 mg tablet 25 mg PO QHS fluoxetine 20 mg capsule 20 mg PO DAILY Primary Care Provider: Care Physician,No Primary Referrals: Care Physician,No Primary [Primary Care Provider] - Print Language: Guamanian Disposition Disposition: Psychiatric Hospital or Unit
[2023-12-30 00:40] LABS: Absolute Lymphocyte Count 1.29 X10^3/uL (0.83-4.51); Absolute Neutrophil Count 7.3 X10^3/uL (2.0-7.7); Basophil# 0.06 X10^3/uL; Basophil% 0.7 % (0-1); Eosinophil# 0.01 X10^3/uL; Eosinophils% 0.1 % (0-5); Hematocrit 45.5 % (40-54); Hemoglobin 15.6 g/dL (13.0-16.5); Lymphocyte # 1.29 X10^3/ul (0.83-4.51); Lymphocyte % 14.1 % (19-41); Mean Corp Hgb Conc 34.3 g/dL (32-36); Mean Corpuscular Hgb 29.3 pg (27.0-32.0); Mean Corpuscular Volume 85.5 fL (80-94); Mean Platelet Vol. 8.6 fl (6.2-12.0); Monocyte# 0.42 X10^3/uL; Monocyte% 4.6 % (0-10); NRBC Flagged by Analyzer 0 % (0-5); Neutrophil # 7.34 X10^3/uL (2.7-7.7); Neutrophil % 80.2 % (47-70); Platelet Count 239 K/mm3 (150-450); RBC Distribution Width CV 13.6 % (11.6-14.6); RBC Distribution Width SD 42.5 fl (35.1-43.9); Red Blood Count 5.32 M/mm3 (4.6-6.2); White Blood Count 9.2 K/mm3 (4.4-11.0)
--- NOTE | 2023-12-30 00:52 | ED.RN ---
PATIENTS FRIEND AND EX GIRLFRIEND IN [facility] ASKING TO SPEAK TO NURSE PRIVATELY. FRIEND AND EX GIRLFRIEND STATES HE WAS RECENTLY HOSPITALIZED IN SEPTEMBER AT A PSYCH FACILITY FOR THE SAME THING. HE IS TRYING TO DOWN PLAY THE SITUATION BECAUSE HE DOESN'T WANTS TO BE HOSPITALIZED AGAIN. HE HAS ACCESS TO GUNS AND HAS THREATENED TO KILL HIMSELF TODAY. WE ARE FAMILIAR WITH THE PROTOCOL AND KNOW HE WON'T BE DISCHARGE OR EVALUATED TONIGHT.
[2023-12-30 00:57] LABS: AST(SGOT) 22 U/L (15-37); Alanine Aminotransfer ALT/SGPT 29 U/L (16-61); Albumin, Serum 4.7 g/dL (3.2-5.0); Alkaline Phosphatase 65 U/L (45-117); Anion Gap 11 (5-15); BUN 8 mg/dL (7-18); BUN/Creat Ratio 6.2 RATIO (10-20); Bilirubin, Direct 0.17 mg/dL (0.00-0.30); Calcium,Total 9.3 mg/dL (8.5-10.1); Chloride 98 mmol/L (98-107); Creatinine, Serum 1.28 mg/dL (0.70-1.30); EST Glomerular Filtration Rate 70 mL/min (>60); Est Glom Filt Rate - Afr Amer 84 mL/min (>60); Estimated Creatinine Clearance 111.69 ml/min; Globulin 3.4 g/dL (2.2-4.2); Glucose 113 mg/dL (74-106); Potassium 3.5 mmol/L (3.5-5.1); Protein, Total 8.1 g/dL (6.4-8.2); Sodium Level 135 mmol/L (136-145)
[2023-12-30 01:22] LABS: Amphetamine Urine VISTA NEGATIVE (<1000 ng/mL); Barbiturate Urine VISTA NEGATIVE (< 200 ng/mL); Benzodiazepine Urine VISTA NEGATIVE (< 200 ng/mL); Cocaine Urine VISTA NEGATIVE (< 300 ng/mL); Ecstacy Urine VISTA NEGATIVE (< 500 ng/mL); Methadone Urine VISTA NEGATIVE (< 300 ng/mL); PCP Urine VISTA NEGATIVE (< 25 ng/mL); THC Urine VISTA NEGATIVE (< 50 ng/mL); Vista UDS pH Range 5
[2023-12-30] MEDS: Acetaminophen 500 MG Tablet 1000 MG PO (02:44)
--- NOTE | 2023-12-30 08:51 | NURSING ---
CALLED [facility]. TALKED TO VIC
--- NOTE | 2023-12-30 08:56 | NURSING ---
FAXED CHART TO [facility]
[2023-12-30 09:14] VITALS: BP 140/82; PULSE 77; RESP 18; O2SAT 98
[2023-12-30 13:13] VITALS: BP 138/74; PULSE 75; RESP 16; TEMP 36.4; O2SAT 99
== END 2023-12-30 13:14 | disposition home or self-care (01) ==
PROVIDERS: Emergency Provider Emergency Medicine; Visit Provider Emergency Medicine
DX: R45.851 Suicidal ideations (principal); F10.10 Alcohol abuse, uncomplicated; F32.A Depression, unspecified; Z79.899 Other long term (current) drug therapy; Z63.0 Problems in relationship with spouse or partner
CPT/HCPCS: 36415; 80048; 80076; 80307; 82077; 85025; 93005; 99283

== ENCOUNTER 2024-12-21 13:46 | Emergency (ER) | payer MEDICAID, SELFPAY ==
[2024-12-21 13:47] VITALS: BP 127/95; PULSE 90; RESP 16; TEMP 36.6; O2SAT 100; BMI 27.8
--- NOTE | 2024-12-21 14:41 | EDS_ITS ---
HPI History of Present Illness Chief Complaint: Substance Abuse Detail of Chief Complaint: Requesting detox from alcohol Informant: patient Narrative Narrative: Patient presents requesting detox from alcohol. Patient states that he has been battling alcoholism for years. He last tried to detox by himself at home about 8 or 9 months ago. He had been clean and was not drinking for about 4 months but started drinking a couple weeks ago. Drinks mostly beer up to 15-20 a day. Last drink was this morning. Had 1 episode of emesis this morning. No prior history of seizures. No other significant medical history. He did have history of an ulcer years ago. He said no hematemesis PFSH PFS Medical History Admitted to alcohol detoxification center Alcohol abuse Eczema Home Medications ?Medication ?Instructions ?Recorded ?Last Taken ?Type buspirone 10 mg tablet 10 mg PO DAILY 12/30/23 Unkn own History fluoxetine 20 mg capsule 20 mg PO DAILY 12/30/23 Unkn own History hydroxyzine HCl 25 mg tablet 25 mg PO QHS 12/30/23 Unk nown History trazodone 50 mg tablet 50 mg PO QHS PRN PRN insomni a 12/30/23 Unknown History Allergy/AdvReac Type Severity Reaction Status Date / Time No Known Allergies Allergy Verified 12/29/23 23:58 Social History Smoking Status: Never smoker ROS ROS ED ROS Narrative Requesting detox from alcohol Review of Systems ROS Unobtainable: other Constitutional Constitutional ED: Reports lethargy; Denies chills, fever(s), sweats or weight loss Eyes Eyes: Denies blurry vision, change in vision or diplopia ENT ENT ED: Denies rhinorrhea or sore throat Cardiovascular Cardiovascular: Denies chest pain, orthopnea or racing heartbeat Respiratory/Chest Respiratory/Chest: Denies cough, dyspnea, dyspnea on exertion, orthopnea or sputum Gastrointestinal Gastrointestinal: Reports nausea and vomiting; Denies abdominal pain or diarrhea Genitourinary Genitourinary ED: Denies dysuria, hematuria or urinary frequency Musculoskeletal Musculoskeletal: Denies arthralgias, back pain, myalgias or neck pain Integumentary Denies abscess, Abrasions or rash Neurologic Neurologic: Denies headache(s) or weakness Psychiatric Psychiatric: Denies anxiety, depression or suicidal thoughts Endocrine Endocrinology: Denies polydipsia, polyphagia or polyuria Hematologic/Lymphatic Hematologic/Lymphatic: Denies easy bleeding, easy bruising or lymphadenopathy Allergic/Immunologic Allergic/Immunologic ED: Denies mouth swelling, tongue swelling or urticaria EXAM Physical Exam Const Vital Signs: 12/21/24 13:47 Temperature 97.8 F Temperature Source Temporal Pulse Rate 90 Respiratory Rate 16 Blood Pressure 127/95 H Blood Pressure Mean 105 Pulse Ox 100 Oxygen Delivery Method Room Air Positive well nourished and well developed General Appearance ED: well developed and NAD HEENT Reports TM's clear and moist mucous membranes normocephalic and atraumatic; Negative for trauma or tenderness Tympanic Membrane ED: Yes TM's clear Eyes PERRL and EOMs intact bilaterally General Eye ED: Negative for pale conjunctiva or scleral icterus Neck no lymphadenopathy, supple and no JVD General: Negative for tenderness Chest Wall inspection of chest normal and palpation of chest normal Chest: Negative for tenderness Resp normal respiratory effort and clear to auscultation bilaterally Effort and Inspection: Negative for respiratory distress or pain with movement Auscultation: Negative for rhonchi, wheezes or diminished lung sounds Cardio regular rate, regular rhythm, S1 normal heart sound, S2 normal heart sound and no murmurs Peripheral Pulses: pulses 2+ throughout GI normal to inspection, nondistended, normoactive bowel sounds, soft to palpation, non-tender, non-distended and no masses Back/Spine no CVA tenderness and no thoracic nor lumbar tenderness Extremity normal to inspection General Extremety ED: Negative for edema General Extremity: Negative for edema Neuro oriented x3, CN's II-XII intact bilaterally, no sensory deficits noted and gait normal Sensorium / Orientation: awake, alert, oriented to person, oriented to place and oriented to time Motor Exam: strength 5/5 throughout and strength abnormal Psych mental status grossly normal Skin no rashes or lesions noted and no wounds MDM MDM MDM Narrative Medical decision making narrative: Patient presents with history of alcoholism requesting detox. Will establish an IV. Will obtain basic labs as well as alcohol level and tox screen. Will treat with Ativan and Zofran symptomatically. Will discuss with hospitalist to evaluate for admission patient was evaluated by hospitalist and admission was placed. Patient decided before going upstairs that he did not want to stay and wants to go home. Patient understands this is a voluntary program. Although I recommended he get help patient would like to be discharged to home. He is discharged home in stable condition. Lab workup was unremarkable Lab Data Attestation: I reviewed the patient's lab results. Discharge Plan Triage Chief Complaint: Substance Abuse ED Provider: Tone Louise Dx/Rx/DC Orders Clinical Impression: Admitted to alcohol detoxification center Instructions: ED Alcohol Abuse Prescriptions: No Action trazodone 50 mg tablet 50 mg PO QHS PRN PRN (Reason: insomnia) buspirone 10 mg tablet 10 mg PO DAILY hydroxyzine HCl 25 mg tablet 25 mg PO QHS fluoxetine 20 mg capsule 20 mg PO DAILY Primary Care Provider: Care Physician,No Primary Referrals: Care Physician,No Primary [Primary Care Provider] - Print Language: Estonian Disposition Disposition: Home, Self Care
[2024-12-21 14:47] VITALS: BP 128/86; PULSE 94; RESP 18; O2SAT 99
[2024-12-21 15:07] LABS: Hematocrit 44.9 % (40-54); Hemoglobin 16.0 g/dL (13.0-16.5); Immature Granulocytes Count 0.010 X10^3/uL (0.0-0.0); Mean Corp Hgb Conc 35.6 g/dL (32-36); Mean Corpuscular Volume 86.3 fL (80-94); Mean Platelet Vol. 8.5 fl (6.2-12.0); NRBC Flagged by Analyzer 0 % (0-5); Platelet Count 204 K/mm3 (150-450); RBC Distribution Width CV 12.5 % (11.6-14.6); RBC Distribution Width SD 39.5 fl (35.1-43.9); Red Blood Count 5.20 M/mm3 (4.6-6.2); White Blood Count 6.5 K/mm3 (4.4-11.0)
--- NOTE | 2024-12-21 15:22 | PCM.HP.STD ---
HPI - General HPI Narrative SOHAIL LI, is a 29 M who presents [facility] Medical History Admitted to alcohol detoxification center Alcohol abuse Eczema Home Medications ?Medication ?Instructions ?Recorded ?Last Taken ?Type buspirone 10 mg tablet 10 mg PO DAILY 12/30/23 Unknown History fluoxetine 20 mg capsule 20 mg PO DAILY 12/30/23 Unknown History hydroxyzine HCl 25 mg tablet 25 mg PO QHS 12/30/23 Unknown History trazodone 50 mg tablet 50 mg PO QHS PRN PRN insomnia 12/30/23 Unknown History Allergy/AdvReac Type Severity Reaction Status Date / Time No Known Allergies Allergy Verified 12/29/23 23:58 Social History Smoking Status: Never smoker Vital Signs Vital Signs Vital Signs: 12/21/24 13:47 Temperature 97.8 F Temperature Source Temporal Pulse Rate 90 Respiratory Rate 16 Blood Pressure 127/95 H Blood Pressure Mean 105 Pulse Ox 100 Oxygen Delivery Method Room Air Weight Weight: 101.151 kg Body Mass Index (BMI) 27.8 Results Lab / Micro Data 12/21/24 14:50 12/21/24 14:50 Labs: Laboratory Results - last 24 hr 12/21/24 14:50: WBC 6.5, RBC 5.20, Hgb 16.0, Hct 44.9, MCV 86.3, MCH 30.8, MCHC 35.6, RDW Std Deviation 39.5, RDW Coeff of Phyllis 12.5, Plt Count 204, MPV 8.5, Immature Gran % (Auto) 0.200, Neut % (Auto) 63.1, Lymph % (Auto) 30.6, [place] % (Auto) 5.0, Eos % (Auto) 0.3, Baso % (Auto) 0.8, Absolute Neuts (auto) 4.1, Absolute Lymphs (auto) 2.00, Nucleated RBC % 0
[2024-12-21 15:31] VITALS: BP 128/86; PULSE 94; RESP 18; TEMP 36.6; O2SAT 99
[2024-12-21 15:43] LABS: Barbiturate Urine NEGATIVE (< 200 ng/mL); Benzodiazepine Urine NEGATIVE (< 200 ng/mL); PCP Urine NEGATIVE (< 25 ng/mL); THC Urine NEGATIVE (< 50 ng/mL)
[2024-12-21 15:45] LABS: Alcohol, Blood (Medical)-Serum 292.0 mg/dL (<=10.0)
[2024-12-21 15:46] LABS: AST(SGOT) 27 U/L (<=37); Alanine Aminotransfer ALT/SGPT 28 U/L (<=46); Albumin, Serum 5.0 g/dL (3.5-5.0); Alkaline Phosphatase 77 U/L (40-129); Anion Gap 17 (5-15); BUN 11 mg/dL (4-19); BUN/Creat Ratio 11.9 RATIO (10-20); Calcium,Total 9.3 mg/dL (7.6-11.0); Carbon Dioxide 25.5 mmol/L (21.0-32.0); Chloride 95 mmol/L (98-108); Estimated Creatinine Clearance 137.55 ml/min (50-250); Globulin 2.8 g/dL (2.2-4.2); Glucose 97 mg/dL (70-99); Potassium 4.1 mmol/L (3.3-5.1)
--- NOTE | 2024-12-21 16:05 | CM.ED ---
Social Work SW met with patient who stated he has been through detox previously so he feels he knows what to expect. Patient shared that he has been sent to residential programs in the past and feels that he may need to attend again. Patient stated he has PTSD and would like a location that is able to help with both his addiction and mental health. Resources were provided to patient and addiction navigator notified of patients admission to [facility]. Valarie Harris, JAVA PORTAL DEVELOPER, RADIO STATION AUDIO ENGINEER
--- NOTE | 2024-12-21 16:30 | ED.RN ---
this rn notes pt and and pts father having a conversation in very close proximity. this rn enters the room and notes that the patient had removed his own iv and was completely dressed in the clothes he came in with. when this rn asks questions what is happening, the patient states that he *made some phone calls* and he believes that the best choice for him is to leave. pts father is visibly upset and telling the patient that the best place he could be is here to help him detox safely. 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 pts father states that the patient had spoken to his air crew officer and they stated *after 3 days of detox be sure to report back to [facility] to his air crew officer.* pts dad states that he took this as he would be going to [facility]. pt tells this patient that he would like to leave right now. this rn asks if the patient can give this rn time to speak with the ed physician in regard to him wanting to leave and if an AMA paper would need to be signed. pt states *im not signing anything- the last thing i need is for you to keep me here against my will. if you make me stay and you call security it will not be good.* this rn informs pt that security will not be called as long as the patient stays civil. this rn also explains that the detox program is voluntary and staff cannot force the patient to stay if he does not want to. this rn just wants to check to see if the paperwork needs to be filed since the patient was already to be admitted to the floor. pt agreeable. dr cruz notified and to go in to speak with the patient. after coming out of the pt room, dr cruz states that no AMA paper would need to be signed and dc papers to be given. this rn goes in to update patient. pt asks for a list of transportation since his father will not give him a ride home. this rn retrieves a list of taxis for patient. prior to patient leaving, this rn asks if there is anything else that can be done for the patient- like outpatient resources. pt agreeable to receive resources. this rn obtains resources from [facility]. when this rn attempts to go back in the pt room to give resources and dc papers, pts father tells this rn *we need a minute.* this rn gives the pt and his father space. when this rn returns to the room, pt was using the restroom. this rn is chatting with the patients father and checks to see if the father needed anything. pts father venting to this rn about the situation and how the pt should stay here. pt returns from the restroom and given resources and dc papers. pt reminded that [facility] is always here if the pt would like to proceed with detox at a later time. pts father then says *well you should just do it while you are here.* pt gets upset and states *ibeth been messing up for 30 years, why change now?* pts father responds with *you were fine thursday when you saw your son.* pt rolls his eyes and leaves the ED in anger. father to follow out the door. dr huitron informed of pts decision to leave as well as charge nurse Josie
--- NOTE | 2024-12-21 17:08 | CM.ED ---
Social Work SW was notified by RN that patient has decided against admitting to the floor for RAMP program. Additional resources for 180 were given to RN to give to patient. Addiction navigator notified of patient deciding to discharge from ED. Valarie Harris, MANAGER [employer], [employer]
--- OUTSIDE RECORDS SUMMARY | 2024-12-21 22:16 | XMS RPT_ITS | CCD ---
Author Organization [facility] CliniSywy Care Team Providers Care Master In Chancery Name Role Phone Joshua Manueln Freddy Unavailable Unavailable Trey Manuel Unavailable Unavailable No Doctor Assigned, Nodr Unavailable Unavail able Ysabel Yanes Unavailable Unavailable Unavailable Ysabel Yanes Unavailable Renetta Talavera Unavailable [phone] Ysabel Yanes MD Primary Care [facility] er Panchito Arroyo MD Unavailable PANCHITO ARROYO Attending Unavailable YSABEL YANES Primary Care PANCHITO Bonner Attending Unavailable YSABEL YANES Primary Care PANCHITO Bonner Attending Unavailable YSABEL YANES Primary Care YSABEL Harrison Attending Unavailab YSABEL Chaves Primary Care Unavailab le YSABEL YANES Primary Care Unavailab SABAS Salinas Attending Unavailable Enoc Elizabeth Attending Unavailable Care Physician, No Primary Primary Care Unava ilYsabel Jacobson MD Primary Care Provider SAGRARIO KRUSE Attending Unavailable ARTIET, EVELIN Primary Care Unavailable EDUARDO BELL Attending Unavailab RENEE Carrillo Primary Care Unavailable ARTIET, EVELIN Primary Care Unavailable WAQAS DYER Attending Unava ilable EDUARDO BELL Attending Unavailab le SALENA, EVELIN Primary Care Unavailable WALLACE GODWIN Admitting Unavailab WALLACE Dunn Consulting Unavailab WALLACE Dunn Attending Unavailab le ARTIET, EVELIN Primary Care Unavailable PANCHITO ARROYO Consulting Unavailable WALLACE GODWIN Admitting Unavailab WALLACE Dunn Attending Unavailab PANCHITO Diaz Consulting Unavailable SWIHART, EVELIN Primary Care Unavailable WALLACE GODWIN Admitting Unavailab WALLACE Dunn Attending Unavailab PANCHITO Diaz Consulting Unavailable SWIHART, EVELIN Primary Care Unavailable YRIS MACKENZIE Admitting Unavailable NADJA ARANDA Attending Unavailable PANCHITO ARROYO Consulting Unavailable SWIHART, EVELIN Primary Care Unavailable Unavailable Primary Care Provider Unavailabl e BISCHOF, DWIGHT Referring Unavailable BISCHOF, DWIGHT Attending Unavailable BISCHOF, DWIGHT Referring Unavailable BISCHOF, DWIGHT Referring Unavailable BISCHOF, DWIGHT Attending Unavailable BISCHOF, DWIGHT Attending Unavailable BISCHOF, DWIGHT Referring Unavailable BISCHOF, DWIGHT Referring Unavailable BISCHOF, DWIGHT Referring Unavailable BISCHOF, DWIGHT Attending Unavailable BISCHOF, DWIGHT Referring Unavailable BISCHOF, DWIGHT Attending Unavailable BISCHOF, DWIGHT Referring Unavailable BISCHOF, DWIGHT Attending Unavailable BISCHOF, DWIGHT Referring Unavailable BISCHOF, DWIGHT Referring Unavailable Care Physician, No Primary Primary Care Provider Unavailable Dr. Tone Louise DO Emergency Provider Medications Current Medications Medication Drug Class(es) Dates Sig (Normalized) Sig (Original) acamprosate calcium 333 mg delayed release oral tablet (2 sources) Start: 05-01-2021 take 1 tablet by mouth three times daily as needed acamprosate (CAMPRAL) 333 mg tablet Take 1 (one) tablet (333 mg total) by mouth 3 (three) times a day as needed (cravings) . 30 tablet 1 05/01/2021 Active aspirin 325 mg oral tablet (12 sources) Platelet Aggregation Inhibitor, Nonsteroidal Anti-inflammatory Drug Start: 07-22-2024 take 1 tablet by mouth once daily Multiple Vitamin (One-Daily Multi-Vitamin) tablet Take 1 tablet by mouth daily. 07/22/2024 Active baclofen 10 mg oral tablet (1 source) gamma-Aminobutyric Acid-ergic Agonist Start: 10-15-2022 take 1 tablet by mouth twice daily baclofen (Lioresal) 10 mg tablet Indications: Muscle spasm Take 1 tablet (10 mg) by mouth 2 times a day. 60 tablet 1 10/15/2022 Active busPIRone hydrochloride 10 mg oral tablet (2 sources) Start: 12-30-2023 take 1 tablet by mouth once daily Buspirone 10 mg tablet Active 10 mg PO DAILY December 30, 2023 12:00am Start: 10-15-2022 take 1 tablet by michelle th twice daily for anxiety busPIRone (Buspar) 10 mg tablet Indications: Anxiety , Alcohol dependence in remission (Multi) TAKE 1 TABLET BY MOUTH TWICE DAILY FOR ANXIETY IN THE MORNING and early evening 180 tablet 1 10/15/2022 Active cloNIDine hydrochloride 0.1 mg oral tablet (2 sources) Central alpha-2 Adrenergic Agonist Start: 05-01-2021 End: 05-31-2021 take 1 tablet by mouth twice daily cloNIDine HCL (CATAPRES) 0.1 MG tablet Take 1 (one) tablet (0.1 mg total) by mouth 2 (two) times a day . 30 tablet 1 05/01/2021 05/31/2021 Active codeine phosphate 2 mg/ml / promethazine hydrochloride 1.25 mg/ml oral solution (1 source) Opioid Agonist, Phenothiazine Start: 09-28-2020 End: 09-30-2020 take 10 mL by mouth every six hours Promethazine with Codeine 6.25 mg-10 mg/5 mL oral syrup ; 10 milliliter(s) orally every 6 hours Quantity: 120 Refills: 0 Ordered: 27-Sep-2020 Renetta Talavera Start: 27-Sep-2020 End: 29-Sep-2020 Generic Substitution Allowed Comments: [employer] law prohibits the transfer of this drug to any person other than the person for whom it was prescribed.May cause drowsiness. Alcohol may intensify this effect. Use care when operating dangerous machinery.Obtain medical advice before taking any non-prescription drugs as some may affect the action of this medication. Comment on above: [employer] law prohibits the transfer of this drug to any person other than the person for whom it was prescribed.May cause drowsiness. Alcohol may intensify this effect. Use care when operating dangerous machinery.Obtain medical advice before taking any non-prescription drugs as some may affect the action of this medication. diclofenac sodium 75 mg delayed release oral tablet (12 sources) Nonsteroidal Anti-inflammatory Drug take 1 tablet by mouth twice daily diclofenac (Voltaren) 75 MG EC tablet Take 75 mg by mouth 2 times daily. Do not crush, chew, or split. Active dicyclomine hydrochloride 20 mg oral tablet (1 source) Anticholinergic Start: 01-04-2024 take 1 tablet by mouth four times daily before mealtime dicyclomine (Bentyl) 20 mg tablet Indications: Epigastric pain Take 1 tablet (20 mg) by mouth 4 times a day before meals. 30 tablet 01/04/2024 Active Start: 01-04-2024 take 1 tablet by michelle th four times daily before mealtime dicyclomine (Bentyl) 20 mg tablet Indications: Epigastric pain Take 1 tablet (20 mg) by mouth 4 times a day before meals. 30 tablet 01/04/2024 Active docusate sodium 100 mg oral capsule (1 source) Start: 12-26-2019 take 1 capsule by mouth twice daily Colace 100 mg oral capsule ; 1 cap(s) orally 2 times a day Quantity: 30 Refills: 1 Ordered: 26-Dec-2019 Mali Cotton Start: 26-Dec-2019 Generic Substitution Allowed Comments: Medication should be taken with plenty of water. Comment on above: Medication should be taken with plenty of water. FLUoxetine 20 mg oral capsule (2 sources) Serotonin Reuptake Inhibitor Start: 10-15-2022 take 1 capsule by mouth once daily Fluoxetine 20 mg capsule Active 20 mg PO DAILY December 30, 2023 12:00am folic acid 1 mg oral tablet (13 sources) Start: 07-25-2024 take 1 tablet by mouth once daily folic acid (Folvite) 1 MG tablet Take 1,000 mcg by mouth daily. 07/25/2024 Active Start: 05-12-2022 End: 12-30-2023 take 1 tablet by mouth once daily Folic Acid 1 mg Tablet Discontinued 1 mg PO DAILY@0800 30 May 12, 2022 1:00am December 30, 2023 12:02am hydrOXYzine hydrochloride 25 mg oral tablet (2 sources) Antihistamine Start: 10-15-2022 take 1 tablet by mouth at bedtime Hydroxyzine Hcl 25 mg tablet Active 25 mg PO AT BEDTIME December 30, 2023 12:00am naltrexone 380 mg injection (17 sources) Opioid Antagonist Start: 09-14-2024 Vivitrol injection 09/14/2024 Active Start: 07-22-2024 take 1 tablet by michelle th once daily naltrexone (Depade) 50 MG tablet Take 50 mg by mouth daily. 07/22/2024 Active Start: 05-01-2021 End: 07-06-2021 take 1 tablet by mouth once daily naltrexone (DEPADE, REVIA) 50 mg tablet Take 1 (one) tablet (50 mg total) by mouth daily for 60 doses . 30 tablet 1 05/07/2021 07/06/2021 Active omeprazole 20 mg delayed release oral capsule (12 sources) Proton Pump Inhibitor Start: 07-22-2024 take 1 capsule by mouth twice daily omeprazole (PriLOSEC) [address] capsule Take 20 mg by mouth 2 times daily. 07/22/2024 Active pantoprazole 40 mg delayed release oral tablet (5 sources) Proton Pump Inhibitor Start: 01-04-2024 End: 01-03-2025 take 1 tablet by mouth once daily before mealtime pantoprazole (ProtoNix) 40 mg EC tablet Indications: Epigastric pain Take 1 tablet (40 mg) by mouth once daily in the morning. Take before meals. Do not crush, chew, or split. 30 tablet 01/04/2024 01/03/2025 Active Start: 01-04-2024 40 mg, intrave nous, Once, On 01/04/24 at 0945, For 1 dose Start: 04-30-2021 End: 05-30-2021 take 1 tablet by mouth once daily pantoprazole (PROTONIX) 40 MG tablet Take 1 (one) tablet (40 mg total) by mouth daily . 30 tablet 0 04/30/2021 05/07/2021 Discontinued (Therapy completed) predniSONE 50 mg oral tablet (1 source) Start: 09-28-2020 End: 10-02-2020 take 1 tablet by mouth once daily at mealtime predniSONE 50 mg oral tablet ; 1 tab(s) orally once a day Quantity: 5 Refills: 0 Ordered: 27-Sep-2020 Renetta Talavera Start: 27-Sep-2020 End: 01-Oct-2020 Generic Substitution Allowed Comments: It is very important that you take or use this exactly as directed. Do not skip doses or discontinue unless directed by your doctor.Obtain medical advice before taking any non-prescription drugs as some may affect the action of this medication.Take with food or milk. Comment on above: It is very important that you take or us e this exactly as directed. Do not skip doses or discontinue unless directed by your doctor.Obtain medical advice before taking any non-prescription drugs as some may affect the action of this medication.Take with food or milk. sucralfate 100 mg/ml oral suspension (2 sources) Aluminum Complex Start: 01-04-2024 End: 02-03-2024 take 10 mL by mouth four times daily sucralfate (Carafate) 100 mg/mL suspension Indications: Epigastric pain Take 10 mL (1 g) by mouth 4 times a day. 1200 mL 01/04/2024 02/03/2024 Active Start: 01-04-2024 End: 01-04-2024 1 g, oral, Once, On Mon 01/03 at 0945, For 1 dose, SHAKE WELL topiramate 25 mg oral tablet (15 sources) Start: 05-01-2021 End: 11-03-2021 take 1 tablet by mouth twice daily topiramate (TOPAMAX) 25 MG tablet Take 1 (one) tablet (25 mg total) by mouth 2 (two) times a day . 60 tablet 5 05/07/2021 11/03/2021 Active take 1 tablet by mouth twice alisha ly topiramate (Topamax) 100 MG tablet Take 100 mg by mouth 2 times daily. Active traZODone hydrochloride 50 mg oral tablet (2 sources) Serotonin Reuptake Inhibitor Start: 10-15-2022 take 1 tablet by mouth at bedtime as needed Trazodone 50 mg tablet Active 50 mg PO AT BEDTIME NEEDED as needed for insomnia December 30, 2023 12:00am Completed/Discontinued Medications Medication Drug Class(es) Dates Sig (Normalized) Sig (Original) [id number] 200 actuat albuterol 0.09 mg/actuat metered dose inhaler (2 sources) beta2-Adrenergic Agonist Start: 10-01-2020 End: 05-01-2021 take 2 puff(s) by inhalation every four hours as needed albuterol 90 mcg/actuation inhaler Inhale 2 puffs every 4 (four) hours as needed . 0 10/01/2020 05/01/2021 Discontinued (Therapy completed) Start: 09-28-2020 End: 10-11-2020 take 2 puff(s) by inhalation every six hours Ventolin HFA 90 mcg/inh inhalation aerosol ; 2 puff(s) inhaled every 6 hours Quantity: 18 Refills: 0 Ordered: 27-Sep-2020 Renetta Talavera Start: 27-Sep-2020 End: 10-Oct-2020 Generic Substitution Allowed Comments: For inhalation only.It is very important that you take or use this exactly as directed. Do not skip doses or discontinue unless directed by your doctor.Obtain medical advice before taking any non-prescription drugs as some may affect the action of this medication.Shake well before use. Comment on above: For inhalation only. It is very important that you take or use this exactly as directed. Do not skip doses or discontinue unless directed by your doctor.Obtain medical advice before taking any non-prescription drugs as some may affect the action of this medication.Shake well before use. azithromycin 500 mg oral tablet (1 source) Macrolide Antimicrobial Start: 10-02-19 End: 05-01-19 22 take 1 tablet by mouth once daily azithromycin (ZITHROMAX) 500 MG tablet Take 1 (one) tablet (500 mg total) by mouth daily . 5 tablet 0 10/01/2020 05/01/2021 Discontinued (Therapy completed) doxycycline hyclate 100 mg oral tablet (2 sources) Tetracycline-class Drug Start: 09-26-19 End: 05-01-19 22 take 1 tablet by mouth twice daily doxycycline hyclate (VIBRA-TABS) 100 MG tablet Take 1 tablet by mouth 2 (two) times a day . 0 09/25/2020 05/01/2021 Discontinued (Therapy completed) Start: 09-25-2020 take 1 tablet by michelle once daily Doxycycline Hyclate 100 MG Oral Tablet TAKE 1 TABLET EVERY 12 HOURS DAILY. Quantity: 20 Refills: 0 Ordered: 25-Sep-2020 Ysabel Yanes MD Start : 25-Sep-2020 Active hydrocortisone 5 mg/ml topical cream (2 sources) Corticosteroid Start: 05-09-2022 End: 12-30-2023 Hydrocortisone 0.5 % Cream Discontinued 1 NMA TOPICAL TWICE A DAY as needed for ECZEMA May 09, 2022 1:00am December 30, 2023 12:02am iohexol (OMNIPaque) 350 mg iodine/mL solution 68 mL (1 source) Start: 01-04-2024 End: 01-04-2024 68 mL, intravenous, Once in imaging, Starting on Thu01/04/24 at 1027, For 1 dose 1 ml morphine sulfate 4 mg/ml prefilled syringe (1 source) Opioid Agonist Start: 01-04-2024 End: 01-04-2024 4 mg, intravenous, Once, On Thu01/04/24 at 0915, For 1 dose 2 ml ondansetron 2 mg/ml injection (4 sources) Serotonin-3 Receptor Antagonist Start: 01-04-2024 End: 01-04-2024 4 mg, intravenous, Once, On Thu01/04/24 at 0915, For 1 dose, When administering via IV Push, administer over 3-5 minutes. Start: 04-30-2021 End: 05-07-2021 take 4 mg by mouth every eight hours as needed for nausea ondansetron (ZOFRAN) 8 MG tablet Take 0.5 (one-half) tablet (4 mg total) by mouth every 8 (eight) hours as needed for nausea . 11 tablet 0 04/30/2021 05/07/2021 Discontinued (Therapy completed) Start: 09-28-2020 End: 10-02-2020 take 1 tablet by mouth four times daily ondansetron 4 mg oral tablet, disintegrating ; 1 tab(s) orally 4 times a day Quantity: 20 Refills: 0 Ordered: 27-Sep-2020 Renetta Talavera Start: 27-Sep-2020 End: 01-Oct-2020 Generic Substitution Allowed oxyCODONE hydrochloride 5 mg oral tablet (1 source) Opioid Agonist Start: 12-26-2019 take 1 tablet by mouth every six hours as needed oxyCODONE 5 mg oral tablet ; 1 tab(s) orally every 6 hours, As Needed Quantity: 10 Refills: 0 Ordered: 26-Dec-2019 Mali Cotton Start: 26-Dec-2019 Generic Substitution Allowed Comments: Caution federal law prohibits the transfer of this drug to any person other than the person for whom it was prescribed.It is very important that you take or use this exactly as directed. Do not skip doses or discontinue unless directed by your doctor.May cause drowsiness. Alcohol may intensify this effect. Use care when operating dangerous machinery.This prescription cannot be refilled.Using more of this medication than prescribed may cause serious breathing problems. Comment on above: Caution federal law prohibits the transfer of this drug to any person other than the person for whom it was prescribed.It is very important that you take or use this exactly as directed. Do not skip doses or discontinue unless directed by your doctor.May cause drowsiness. Alcohol may intensify this effect. Use care when operating dangerous machinery.This prescription cannot be refilled.Using more of this medication than prescribed may cause serious breathing problems. 1000 ml sodium chloride 9 mg/ml injection (1 source) Start: 01-04-2024 End: 01-04-2024 1,000 mL, intravenous, at 999 mL/hr, Administer over 1 Hours, Once, On Thu01/04/24 at 0915, For 1 dose thiamine 100 mg oral tablet (1 source) Start: 05-12-2022 End: 12-30-2023 take 1 tablet by mouth once daily at mealtime Thiamine Hcl (Vitamin B1) (Vitamin B-1) 100 mg Tablet Discontinued 100 mg PO DAILY WITH MEALS 30 May 12, 2022 1:00am December 30, 2023 12:01am Problems Active Problems Problem Classification Problem Date Documented Date Episodic/Chronic Abdominal pain (6 sources) Epigastric pain; Translations: [Abdominal pain, epigastric] Onset: 01-04-2024 Episodic Administrative/social admission (2 sources) Drug therapy finding; Translations: [Other specified counseling] Episodic Alcohol-related disorders (17 sources) 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; Translations: [Alcohol dependence with unspecified alcohol-induced disorder] Onset: 05-01-2021 Chronic Anxiety disorders (4 sources) Anxiety disorder, unspecified; Translations: [Other specified anxiety disorders] Onset: 10-15-2022 Chronic Diabetes mellitus without complication (3 sources) Increased glucose level; Translations: [Other abnormal glucose] Onset: 05-01-2021 Episodic Fever of unknown origin (1 source) Disorder characterized by fever; Translations: [Fever, unspecified] Episodic Gastritis and duodenitis (2 sources) Gastritis, unspecified, without bleeding; Translations: [Gastritis, unspecified, without bleeding] Onset: 04-01-2024 Episodic Influenza (2 sources) Influenza 09-28-2020 Comment on above: FLU SYMPTOMS Mood disorders (5 sources) Major depressive disorder, single episode, moderate; Translations: [Major depressive disorder, single episode, severe without psychotic features] Onset: 10-01-2023 Chronic Mood disorders (2 sources) Mood disorders; Translations: [Depression, unspecified] Onset: 01-06-2024 Other connective tissue disease (2 sources) Other muscle spasm; Translations: [Other muscle spasm] Onset: 10-15-2022 Episodic Other hematologic conditions (3 sources) History of vasculitis; Translations: [Personal history of diseases of skin and subcutaneous tissue] Episodic Other liver diseases (3 sources) Elevated liver enzymes level; Translations: [Abnormal levels of other serum enzymes] Onset: 05-01-2021 Episodic Other lower respiratory disease (1 source) Wheezing; Translations: [Wheezing] 09-28-2020 Episodic Other nervous system disorders (2 sources) Other chronic pain; Translations: [Other chronic pain] Onset: 10-15-2022 Chronic Other nutritional; endocrine; and metabolic disorders (3 sources) Obesity; Translations: [Other obesity due to excess calories] Onset: 05-01-2021 Chronic Residual codes; unclassified (2 sources) Insomnia, unspecified; Translations: [Insomnia, unspecified] Onset: 10-15-2022 Episodic Spondylosis; intervertebral disc disorders; other back problems (15 sources) Lumbar radiculitis; Translations: [Radiculopathy, lumbar region] Onset: 09-01-2024 07-28-2024 Episodic Suicide and intentional self-inflicted injury (1 source) Suicidal ideations; Translations: [Suicidal ideations] Onset: 01-20-2024 Episodic Superficial injury; contusion (2 sources) Abrasion of other part of head, initial encounter; Translations: [Abrasion of other part of head, initial encounter] Onset: 04-21-2024 Episodic Unclassified (1 source) Asthmatic breathing 09-28-2020 Unclassified (1 source) Acute viral syndrome 09-28-2020 Unclassified (4 sources) Admitted to alcohol detoxification center; Translations: [Admitted to alcohol detoxification center] 05-09-2022 Unclassified (1 source) Low back pain, unspecified; Translations: [Low back pain, unspecified] Onset: 10-15-2022 Unclassified (2 sources) Alcohol use, unspecified with withdrawal, unspecified; Translations: [Alcohol use, unspecified with withdrawal, unspecified] Onset: 09-06-2023 Viral infection (1 source) Acute viral disease; Translations: [Unspecified viral infection] 09-28-2020 Episodic Past or Other Problems Problem Classification Problem Date Documented Da te Episodic/Chronic Alcohol-related disorders (2 sources) Alcohol use, unspecified with intoxication, uncomplicated; Translations: [Alcohol use, unspecified with intoxication, uncomplicated] Onset: 01-06-2024 Episodic Unclassified (1 source) Low back pain, unspecified; Translations: [Low back pain, unspecified] Onset: 10-15-2022 Unclassified (2 sources) Alcohol use, unspecified with withdrawal, unspecified; Translations: [Alcohol use, unspecified with withdrawal, unspecified] Onset: 09-06-2023 Results Test Name Value Interpretation Reference Range Facility Absolute lymphocyte countOrd ered By: Tone Louise on 12-21-2024 Lymphocytes Auto (Unsp spec) [#/Vol] 2.00 10*3/uL 0.83-4.51 [facility] Absolute neutrophil countOrd ered By: Tone Louise on 12-21-2024 Neutrophils (Bld) [#/Vol] 4.1 10*3/uL 2.0-7.7 [facility] Amphetamine detection with 1 000 ng/mL as cutoffOrdered By: Tone Louise on 12-21-2024 Amphetamines Screen method >1000 ng/mL Ql (U) Negative < 200 ng/mL [facility] Anion gap in Serum or Plasma Ordered By: Tone Louise on 12-21-2024 Anion gap [Moles/Vol] 17 mmol/L High 5-15 [facility] Automated lymphocyte count a s percentage of total leukocytesOrdered By: Tone Louise on 12-21-2024 Lymphocytes/100 WBC Auto (Unsp spec) 30.6 % 19-41 [facility] BUN/creatinine ratioOrdered By: Tone Louise on 12-21-2024 Urea nitrogen/Creatinine [Mass ratio] 11.9 mg/mg 10-20 [facility] Basophil percentageOrdered B y: Kelsi Aspen on 12-21-2024 Basophils/100 WBC (Bld) 0.8 % 0-1 [facility] Bilirubin, totalOrdered By: Tone Ramirezjoan on 12-21-2024 Bilirubin [Mass/Vol] 0.49 mg/dL 0.00-1.30 [facility] Carbon dioxide, total [Moles /volume] in Central venous bloodOrdered By: Tone Louise on 12-21-2024 CO2 [Moles/Vol] 25.5 mmol/L 21.0-32.0 [facility] Chloride assayOrdered By: Ginger Louise on 12-21-2024 Chloride [Moles/Vol] 95 mmol/L Low 98-108 [facility] Eosinophil percentageOrdered By: Kelsi Aspen on 12-21-2024 Eosinophils/100 WBC (Bld) 0.3 % 0-5 [facility] Erythrocyte distribution wid th ratioOrdered By: Kelsi Aspen on 12-21-2024 Erythrocyte distribution width (RBC) [Ratio] 12.5 % 11.6-14.6 [facility] Erythrocyte distribution wid th standard deviationOrdered By: Kelsi Aspen on 12-21-2024 Erythrocyte distribution width (RBC) [Ratio] 39.5 fl 35.1-43.9 [facility] Glomerular filtration rate ( GFR) estimation/1.73 sq m using serum, plasma, or whole bOrdered By: Tone Louise on 12-21-2024 GFR/1.73 sq M.predicted among non-blacks MDRD (S/P/Bld) [Vol rate/Area] 113 mL/min/{1.73_m2} >60 [facility] Comment on above: mL/min/1.73m2 CKD-EP I Creatinine Equation (2020) Hematocrit Auto (Bld) [Volum e fraction]Ordered By: Tone Louise on 12-21-2024 Hematocrit (Bld) [Volume fraction] 44.9 % 40-54 [facility] Hemoglobin measurementOrdere d By: Tone Louise on 12-21-2024 Hemoglobin (Bld) [Mass/Vol] 16.0 g/dL 13.0-16.5 [facility] Immature granulocytes/100 WB C Auto (Bld)Ordered By: Tone Louise on 12-21-2024 Immature granulocytes/100 WBC (Bld) 0.200 % 0.0-0.9 [facility] Comment on above: IG% - Immature Granu locytes (promyelocytes, myelocytes and metamyelocytes) > 1% indicates that a LEFT SHIFT is Present. Laboratory - Chemistry and C hemistry - challengeOrdered By: Tone Louise on 12-21-2024 AST [Catalytic activity/Vol] 27 U/L <38 [facility] MCV (mean corpuscular volume ) determinationOrdered By: Tone Louise on 12-21-2024 MCV (RBC) [Entitic vol] 86.3 fL 80-94 [facility] Mean corpuscular hemoglobin (MCH) determinationOrdered By: Tone Louise on 12-21-2024 MCH (RBC) [Entitic mass] 30.8 pg 27.0-32.0 [facility] Mean corpuscular hemoglobin concentration (MCHC) determinationOrdered By: Tone Louise on 12-21-2024 MCHC (RBC) [Mass/Vol] 35.6 g/dL 32-36 [facility] Mean platelet volume determi nationOrdered By: Tone Louise on 12-21-2024 Platelet mean volume (Bld) [Entitic vol] 8.5 fL 6.2-12.0 [facility] Monocyte percentageOrdered B y: Tone Louise on 12-21-2024 Monocytes/100 WBC (Bld) 5.0 % 0-10 [facility] Neutrophil percentageOrdered By: Tone Louise on 12-21-2024 Neutrophils/100 WBC (Bld) 63.1 % 47-70 [facility] No Panel InformationOrdered By: Tone Louise on 12-21-2024 Urine Buprenorphine Qualitative Negative < 200 ng/mL [facility] Urine Oxycodone Screen Negative < 100 ng/mL [facility] Nucleated red blood cell per centageOrdered By: Tone Louise on 12-21-2024 Nucleated RBC/100 WBC (Bld) [Ratio] 0 % 0-5 [facility] Platelet countOrdered By: Ginger Louise on 12-21-2024 Platelets (Bld) [#/Vol] 204 10*3/uL 150-450 [facility] Potassium measurement (mass/ volume)Ordered By: Tone Louise on 12-21-2024 Potassium (Unsp spec) [Mass/Vol] 4.1 mmol/L 3.3-5.1 [facility] Quantitative urine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 calculation approach that does not have a coefficient for race that conforms to the NKF-ASN Task Force Recommendations. Performed By: #### 4 6126 #### LAB [address] [place] [address] Thai Hart M.D. [id number] DRUGS OF ABUSE SCREEN, URINE on 04-06-2024 AMPHETAMINE SCREEN, URINE Not detected Normal None Detected [facility] Comment on above: Order Comment: Scree n results should be used for treatment purposes only. Result Comment: Urin e Amphetamine Cutoff: < 1000 ng/mL = None Detected Performed By: #### 4 6965 #### LAB [address] [place] [address] Thai Hart M.D. [id number] BARBITURATE SCREEN URINE Not detected Normal None Detected [facility] Comment on above: Order Comment: Scree n results should be used for treatment purposes only. Result Comment: Urin e Barbiturates Cutoff: < 200 ng/mL = None Detected Performed By: #### 4 6913 ####[facility] LAB [address] [address] Thai Hart M.D. [id number] BENZODIAZEPINE SCREEN, URINE Not detected Normal None Detected [facility] Comment on above: Order Comment: Scree n results should be used for treatment purposes only. Result Comment: Urin e Benzodiazepine Cutoff: < 200 ng/mL = None Detected Performed By: #### 4 6965 #### LAB [address] [place] [address] Thai Hart M.D. [id number] BUPRENORPHINE, URINE Not detected Normal None Detected [facility] Comment on above: Order Comment: Scree n results should be used for treatment purposes only. Result Comment: Urin e Buprenorphine Cutoff: < 5 ng/mL = None Detected Performed By: #### 4 6946 #### LAB [address] [address] Thai Hart M.D. [id number] CANNABINOID SCREEN URINE Not detected Normal None Detected [facility] Comment on above: Order Comment: Scree n results should be used for treatment purposes only. Result Comment: Urin e Cannabinoids Cutoff: < 50 ng/mL = None Detected Performed By: #### 4 6981 #### LAB [address] [place] [address] Thai Hart M.D. [id number] COCAINE, SCREEN URINE Not detected Normal None Detected [facility] Comment on above: Order Comment: Scree n results should be used for treatment purposes only. Result Comment: Urin e Cocaine Cutoff: < 300 ng/mL = None Detected Performed By: #### 4 1363 #### LAB [address] [place] [address] Thai Hart M.D. [id number] FENTANYL, URINE Not detected Normal None Detected [facility] Comment on above: Order Comment: Scree n results should be used for treatment purposes only. Result Comment: Urin e Fentanyl Cutoff: < 1 ng/mL = None Detected Performed By: #### 4 6931 #### LAB [address] [place] [address] Thai Hart M.D. [id number] METHADONE SCREEN, URINE Not detected Normal None Detected [facility] Comment on above: Order Comment: Scree n results should be used for treatment purposes only. Result Comment: Urin e Methadone Cutoff: < 300 ng/mL = None Detected Performed By: #### 4 3242 #### LAB [address] [place] [address] Thai Hart M.D. [id number] OPIATE SCREEN URINE Not detected Normal None Detected [facility] Comment on above: Order Comment: Scree n results should be used for treatment purposes only. Result Comment: Urin e Opiates Cutoff: < 300 ng/mL = None Detected Performed By: #### 4 6965 ####[facility] LAB [address] [address] Thai Hart M.D. [id number] OXYCODONE SCREEN, URINE Not detected Normal None Detected [facility] Comment on above: Order Comment: Scree n results should be used for treatment purposes only. Result Comment: Urin e Oxycodone Cutoff: < 100 ng/mL = None Detected Performed By: #### 4 [id number] ####[facility] LAB [address] [address] Thai Hart M.D. [id number] ED Prov Noteon 04-06-2024 ED Prov Note [facility] EMERGENCY DEPARTMENT CHERYL NOTE: NAME: Artie Li CSN: [id number] 29 y.o. PCP: Evelin Martino CNP History: Chief Complaint: Suicidal HPI: The history was obtained from the patient. Artie is a 29 y.o. male who presents with a chief complaint of psychiatric evaluation. Patient brought per police under pink slip due to statements made to his girlfriend. He advises that the statements that he made were during a phone call conversation. He advises that he mentioned if anything ever happens to him he wants his children to have this this and this. He denies suicidal ideation. He denies homicidal ideation. He denies hallucinations. He does advise of relapsing a few days ago on alcohol which has led him to today's bad day. He does have a history of anxiety, depression, PTSD. He does advise of new medication Lamictal that was started approximately 3 months ago while he was at a PTSD/alcohol treatment program in [place]. He has been admitted here at [facility] for behavioral health concerns in the past. He reports stopping his Lamictal approximately 2 weeks ago. He takes trazodone occasionally to help him sleep. 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 PMHx: Past Medical History: Diagnosis Date Anxiety Depression PTSD (post-traumatic stress disorder) PMSx: Past Surgical History: Procedure Laterality Date APPENDECTOMY FAM. Hx: History reviewed. No pertinent family history. SOC. Hx: Social History Socioeconomic History Marital status: Single Tobacco Use Smoking status: Never Smokeless tobacco: Current Types: Snuff Vaping Use Vaping status: Never Used Substance and Sexual Activity Alcohol use: Yes Alcohol/week: 100.0 standard drinks of alcohol Types: 100 Cans of beer per week Comment: 15-20 beers a day Drug use: Never Sexual activity: Not Currently Social Drivers of Health Financial Resource Strain: Low Risk (06/04/2021) Overall Financial Resource Strain (CARDIA) Difficulty of Paying Living Expenses: Not hard at all Food Insecurity: No Food Insecurity (06/04/2021) Hunger Vital Sign Worried About Running Out of Food in the Last Year: Never true Ran Out of Food in the Last Year: Never true Transportation Needs: No Transportation Needs (06/04/2021) PRAPARE - Transportation Lack of Transportation (Medical): No Lack of Transportation (Non-Medical): No Social Connections: Unknown (06/04/2021) Social Connection and Isolation Panel [NHANES] Frequency of Communication with Friends and Family: More than three times a week Frequency of Social Gatherings with Friends and Family: More than three times a week MEDs: Previous Medications Medication Sig baclofen (LIORESAL) 10 MG tablet Take 1 (one) tablet (10 mg total) by mouth nightly as needed . diphenhydrAMINE (BENADRYL) 25 mg capsule Take 2 (two) capsules (50 mg total) by mouth every 6 (six) hours as needed for itching . hydrOXYzine (ATARAX) 50 MG tablet Take 1 (one) tablet (50 mg total) by mouth 4 (four) times a day as needed . sucralfate (CARAFATE) 1 gram tablet Take 1 (one) tablet (1 g total) by mouth 4 (four) times a day before meals . traZODone (DESYREL) 50 MG tablet Take 1 (one) tablet (50 mg total) by mouth nightly as needed for sleep . aluminum-magnesium hydroxide-simethicone (MAALOX MAX PLUS) 400-400-40 mg/5 mL suspension Take 20 mL by mouth every 6 (six) hours as needed for indigestion . busPIRone (BUSPAR) 10 MG tablet Take 1 (one) tablet (10 mg total) by mouth 2 (two) times a day . (Patient not taking: Reported on 04/06/2024 .) gabapentin (NEURONTIN) 300 MG capsule Take 1 (one) capsule (300 mg total) by mouth 3 (three) times a day . (Patient not taking: Reported on 04/06/2024 .) lamoTRIgine (LAMICTAL) 25 MG tablet Take 1 (one) tablet (25 mg total) by mouth daily . (Patient not taking: Reported on 04/06/2024 .) multivitamin tablet Take 1 (one) tablet by mouth daily . (Patient not taking: Reported on 04/06/2024 .) omeprazole (PRILOSEC OTC) 20 MG tablet Take 1 (one) tablet (20 mg total) by mouth 2 (two) times a day . (Patient not taking: Reported on 04/06/2024 .) omeprazole (PRILOSEC) 20 MG capsule Take 1 (one) capsule (20 mg total) by mouth 2 (two) times a day . (Patient not taking: Reported on 04/06/2024 .) ondansetron (ZOFRAN-ODT) 4 MG disintegrating tablet Dissolve 1 (one) tablet (4 mg total) on top of tongue every 8 (eight) hours as needed for nausea . (Patient not taking: Reported on 04/06/2024 .) ondansetron (ZOFRAN-ODT) 4 MG disintegrating tablet Dissolve 1 (one) tablet (4 mg total) on top of tongue every 8 (eight) hours as needed for nausea . (Patient not taking: Reported on 04/06/2024 .) pantoprazole (PROTONIX) 40 MG tablet Take 1 (one) tablet (40 mg total) by mouth 2 (two) times a day for 7 days . (Patient not taking: Reported on 04/06/2024 .) QUEtiapine (SEROQUEL) 50 MG tablet Take 1 (one) tablet (50 mg total) by mouth 2 (two) times a day . (Antonina (more content not included)... Normal [facility] ED Prov Noteon 04-01-2024 ED Prov Note ED PROVIDER NOTE [facility] EMERGENCY DEPARTMENT NAME: Artie Li AGE: 29 y.o. : 1995 VISIT DATE: 04/01/2024 CSN: [id number] PCP: Evelin Martino CNP Chief Complaint Patient presents with Abdominal Pain Chief complaint abdominal pain History of present illness this is a 29-year-old male who was diagnosed with gastritis has a history of anxiety depression PTSD normal history is of surgeries appendectomy. He is here with midepigastric pain again he was just treated and released from our emergency department today slight nausea no vomiting Past Medical History: Diagnosis Date Anxiety Depression PTSD (post-traumatic stress disorder) Past Surgical History: Procedure Laterality Date APPENDECTOMY History reviewed. No pertinent family history. Social History Socioeconomic History Marital status: Single Tobacco Use Smoking status: Never Smokeless tobacco: Current Types: Snuff Vaping Use Vaping status: Never Used Substance and Sexual Activity Alcohol use: Yes Alcohol/week: 100.0 standard drinks of alcohol Types: 100 Cans of beer per week Comment: 15-20 beers a day Drug use: Never Sexual activity: Not Currently Social Drivers of Health Financial Resource Strain: Low Risk (06/04/2021) Overall Financial Resource Strain (CARDIA) Difficulty of Paying Living Expenses: Not hard at all Food Insecurity: No Food Insecurity (06/04/2021) Hunger Vital Sign Worried About Running Out of Food in the Last Year: Never true Ran Out of Food in the Last Year: Never true Transportation Needs: No Transportation Needs (06/04/2021) PRAPARE - Transportation Lack of Transportation (Medical): No Lack of Transportation (Non-Medical): No Social Connections: Unknown (06/04/2021) Social Connection and Isolation Panel [NHANES] Frequency of Communication with Friends and Family: More than three times a week Frequency of Social Gatherings with Friends and Family: More than three times a week Previous Medications Medication Sig aluminum-magnesium hydroxide-simethicone (MAALOX MAX PLUS) 400-400-40 mg/5 mL suspension Take 20 mL by mouth every 6 (six) hours as needed for indigestion . baclofen (LIORESAL) 10 MG tablet Take 1 (one) tablet (10 mg total) by mouth nightly as needed . busPIRone (BUSPAR) 10 MG tablet Take 1 (one) tablet (10 mg total) by mouth 2 (two) times a day . (Patient not taking: Reported on 04/06/2024 .) diphenhydrAMINE (BENADRYL) 25 mg capsule Take 2 (two) capsules (50 mg total) by mouth every 6 (six) hours as needed for itching . multivitamin tablet Take 1 (one) tablet by mouth daily . (Patient not taking: Reported on 04/06/2024 .) omeprazole (PRILOSEC OTC) 20 MG tablet Take 1 (one) tablet (20 mg total) by mouth 2 (two) times a day . (Patient not taking: Reported on 04/06/2024 .) ondansetron (ZOFRAN-ODT) 4 MG disintegrating tablet Dissolve 1 (one) tablet (4 mg total) on top of tongue every 8 (eight) hours as needed for nausea . (Patient not taking: Reported on 04/06/2024 .) ondansetron (ZOFRAN-ODT) 4 MG disintegrating tablet Dissolve 1 (one) tablet (4 mg total) on top of tongue every 8 (eight) hours as needed for nausea . (Patient not taking: Reported on 04/06/2024 .) pantoprazole (PROTONIX) 40 MG tablet Take 1 (one) tablet (40 mg total) by mouth 2 (two) times a day for 7 days . (Patient not taking: Reported on 04/06/2024 .) sertraline (ZOLOFT) 50 MG tablet Take 1 (one) tablet (50 mg total) by mouth daily Start: 01/13/24. (Patient not taking: Reported on 04/06/2024 .) sucralfate (CARAFATE) 1 gram tablet Take 1 (one) tablet (1 g total) by mouth 4 (four) times a day before meals . thiamine 100 MG tablet Take 2 (two) tablets (200 mg total) by mouth daily in the afternoon . (Patient not taking: Reported on 04/06/2024 .) topiramate (TOPAMAX) 50 MG tablet Take 1 (one) tablet (50 mg total) by mouth 2 (two) times a day . (Patient not taking: Reported on 04/06/2024 .) traZODone (DESYREL) 50 MG tablet Take 1 (one) tablet (50 mg total) by mouth nightly as needed for sleep . No Known Allergies Review of Systems All other systems reviewed and are negative. No data found. Physical Exam Vitals and nursing note reviewed. Exam conducted with a digital marketing associate present. Constitutional: Appearance: He is normal weight. He is not ill-appearing. HENT: Head: Normocephalic and atraumatic. Mouth/Throat: Mouth: Mucous membranes are moist. Pharynx: Oropharynx is clear. Cardiovascular: Rate and Rhythm: Normal rate and regular rhythm. Pulmonary: Effort: Pulmonary effort is normal. Breath sounds: Normal breath sounds. Abdominal: General: Abdomen is flat. There is distension. Tenderness: There is generalized abdominal tenderness and tenderness in the epigastric area. Skin: General: Skin is warm. Capillary Refill: Capillary refill takes less than 2 seconds. Neurological: Mental Status: He is alert. Laboratory & Rad (more content not included)... Normal [facility] POC CBC AND DIFFERENTIALon 1 06-02-2023 BASOPHILS ABSOLUTE COUNT 0.02 K/mcL Normal 0.00-0.30 [facility] Basophils/100 WBC (Bld) 0.3 % Normal [facility] Eosinophils (Bld) [#/Vol] 0.06 10*3/uL Normal 0.00-0.50 [facility] Eosinophils/100 WBC (Bld) 0.9 % Normal [facility] Erythrocyte distribution width (RBC) [Ratio] 14.5 % Normal 11.6-14.8 [facility] Hematocrit (Bld) [Volume fraction] 41.9 % Normal 41.0-53.0 [facility] Hemoglobin (Bld) [Mass/Vol] 14.7 g/dL Normal 13.5-17.5 [facility] IG ABSOLUTE 0.01 K/mcL Normal 0.00-0.30 [facility] IG PERCENT 0.20 % Normal [facility] Comment on above: Result Comment: The IG parameter is the percentage of metamyelocytes, myelocytes and promyelocytes. An immature granulocyte count (IG) of 1% or more suggests the possibility of infection, an IG count of 3% is very likely related to an infection. Lymphocytes (Bld) [#/Vol] 1.70 10*3/uL Normal 0.90-4.00 [facility] Lymphocytes/100 WBC (Bld) 25.7 % Normal [facility] MCH (RBC) [Entitic mass] 30.7 pg Normal 26.0-34.0 [facility] MCV (RBC) [Entitic vol] 87.5 fL Normal 80.0-100.0 [facility] MEAN CORPUSCULAR HEMOGLOBIN CONC 35.1 g/dL Normal 31.0-37.0 [facility] Monocytes (Bld) [#/Vol] 0.51 10*3/uL Normal 0.30-0.90 [facility] Monocytes/100 WBC (Bld) 7.7 % Normal [facility] NEUTROPHILS ABSOLUTE COUNT 4.31 K/mcL Normal 1.70-7.00 [facility] Neutrophils/100 WBC (Bld) 65.2 % Normal [facility] Platelet mean volume (Bld) [Entitic vol] 8.2 fL Low 9.4-12.4 [facility] Platelets (Bld) [#/Vol] 134 10*3/uL Low 150-400 [facility] RBC (Bld) [#/Vol] 4.79 10*6/uL Normal 4.50-5.90 [facility] WBC (Bld) [#/Vol] 6.61 10*3/uL Normal 4.50-11.00 [facility] POC LIVER PANEL PLUS [facility] 04-01-2024 Albumin [Mass/Vol] 3.8 g/dL Normal 3.2-5.2 [facility] ALP [Catalytic activity/Vol] 67 U/L Normal 40-140 [facility] ALT [Catalytic activity/Vol] 99 U/L High 0-40 [facility] Amylase [Catalytic activity/Vol] 50 U/L Normal 25-115 [facility] Amylase [Catalytic activity/Vol] 226 U/L High 11-51 [facility] AST [Catalytic activity/Vol] 112 U/L High 0-45 [facility] Bilirubin [Mass/Vol] 0.7 mg/dL Normal 0.0-1.3 [facility] Protein [Mass/Vol] 7.0 g/dL Normal 6.0-8.0 [facility] ED Prov Noteon 03-31-2024 ED Prov Note HPI: 03/31/2024, Time: @[email or web address]@ Artie Li is a 29 y.o. male presenting to the ED for gradual onset of severe epigastric pain and recent alcohol jolly, beginning specially this evening ago. The complaint has been constant, severe in severity, and worsened by nothing. No alleviating factors. No black or bloody stools and no hematemesis ROS: Pertinent positives and negatives are stated within HPI, all other systems reviewed and are negative. PAST HISTORY Past Medical History: @[facility]@ Past Surgical History: has a past surgical history that includes Appendectomy. Social History: reports that he has never smoked. His smokeless tobacco use includes snuff. He reports current alcohol use of about 100.0 standard drinks of alcohol per week. He reports that he does not use drugs. Family History: family history is not on file. The patient's home medications have been reviewed. Allergies: Patient has no known allergies. -- RESULTS - All laboratory and radiology results have been personally reviewed by myself LABS: Results for orders placed or performed during the hospital encounter of 03/31/24 POC CBC and Differential Collection Time: 03/31/24 8:10 PM Result Value Ref Range WBC 8.23 4.50 - 11.00 K/mcL RBC 5.12 4.50 - 5.90 M/mcL Hemoglobin 15.4 13.5 - 17.5 g/dL Hematocrit 44.9 41.0 - 53.0 % MCV 87.7 80.0 - 100.0 fL MCH 30.1 26.0 - 34.0 pg MCHC 34.3 31.0 - 37.0 g/dL RDW - CV 14.3 11.6 - 14.8 % Platelets 200 150 - 400 K/mcL MPV 8.1 (L) 9.4 - 12.4 fL Neutrophils 47.8 % Lymphocytes 42.0 % Monocytes 7.0 % Eosinophils 2.7 % Basophils 0.4 % IG Percent 0.10 % Neutrophils Abs 3.93 1.70 - 7.00 K/mcL Lymphocytes Abs 3.46 0.90 - 4.00 K/mcL Monocytes Abs 0.58 0.30 - 0.90 K/mcL Eosinophils Abs 0.22 0.00 - 0.50 K/mcL Basophils Abs 0.03 0.00 - 0.30 K/mcL IG Absolute 0.01 0.00 - 0.30 K/mcL POC Basic Metabolic Panel Collection Time: 03/31/24 8:19 PM Result Value Ref Range Glucose 148 (H) 65 - 99 mg/dL BUN 10 8 - 25 mg/dL Creatinine 0.87 0.50 - 1.30 mg/dL GFR 118 >=60 mL/min/1.73 m2 Sodium 141 135 - 145 mmol/L Potassium 3.6 3.5 - 5.1 mmol/L Chloride 99 98 - 108 mmol/L TCO2 29 21 - 32 mmol/L Ionized Calcium 4.0 (L) 4.5 - 5.3 mg/dL RADIOLOGY: Interpreted by Radiologist. No orders to display - NURSING NOTES AND VITALS REVIEWED --- The nursing notes within the ED encounter and vital signs as below have been reviewed. BP (!) 129/99 (BP Location: Left arm, Patient Position: Sitting) Pulse 86 Temp 97.9 degrees F (36.6 degrees C) (Temporal) Resp 18 Ht 6' 3 Wt 106.6 kg (235 lb) SpO2 97% BMI 29.37 kg/m Oxygen Saturation Interpretation: Normal ---PHYSICAL EXAM Constitutional/General: Alert and oriented x3, writhing in pain and begging for pain medicine Head: NC/AT Eyes: PERRL, EOMI Mouth: Oropharynx clear, handling secretions, no trismus Neck: Supple, full ROM, no meningeal signs Pulmonary: Lungs clear to auscultation bilaterally, no wheezes, rales, or rhonchi. Not in respiratory distress Cardiovascular: Regular rate and rhythm, no murmurs, gallops, or rubs. 2+ distal pulses Abdomen: Soft, moderate epigastric tenderness with guarding but no rebound, non distended, Extremities: Moves all extremities x 4. Warm and well perfused Skin: warm and dry without rash Neurologic: GCS 15, Psych: Normal Affect ------ ED COURSE/MEDICAL DECISION MAKING ---- Medications sodium chloride 0.9% (NS) bolus 1,000 mL (1,000 mL Intravenous New Bag 03/31/242008) ondansetron (ZOFRAN) injection 4 mg (4 mg Intravenous Given 03/31/242002) morphine injection 4 mg (4 mg Intravenous Given 03/31/242008) famotidine (PEPCID) Vial 20 mg (20 mg Intravenous Given 03/31/242009) diphenhydrAMINE (BENADRYL) injection 75 mg (75 mg Intravenous Given 03/31/242042) lidocaine viscous 2% 10 mL and maalox plus 30 mL (GI COCKTAIL) 40 mL solution (40 mL Oral Given 03/31/242040) Medical Decision Making: Patient had normal CT scan a few days ago at [place] and normal labs and also normal labs today other than slightly elevated transaminases but normal amylase therefore patient given 1 dose of morphine with minimal relief but did seem to get relief with GI cocktail and 75 mg of Benadryl which made him sleepy Counseling: The emergency provider has spoken with the patient and discussed today's results, in addition to providing specific details for the plan of care and counseling regarding the diagnosis and prognosis. Questions are answered at this time and they are agreeable with the plan. (more content not included)... [facility] POC [facility]ABOL[facility]EL [facility] Chloride [Moles/Vol] 99 mmol/L Normal 98-108 [facility] Comment on above: Order Comment: [facility] has implemented the eGFR calculation approach that does not have a coefficient for race that conforms to the NKF-ASN Task Force Recommendations. CO2 [Moles/Vol] 29 mmol/L Normal 21-32 [facility] Comment on above: Order Comment: [facility] has implemented the eGFR calculation approach that does not have a coefficient for race that conforms to the NKF-ASN Task Force Recommendations. Creatinine [Mass/Vol] 0.87 mg/dL Normal 0.50-1.30 [facility] Comment on above: Order Comment: [facility] has implemented the eGFR calculation approach that does not have a coefficient for race that conforms to the NKF-ASN Task Force Recommendations. Glucose [Mass/Vol] 148 mg/dL High 65-99 [facility] Comment on above: Order Comment: [facility] has implemented the eGFR calculation approach that does not have a coefficient for race that conforms to the NKF-ASN Task Force Recommendations. POC GFR 118 mL/min/1.73 m2 Normal >=60 [facility] Comment on above: Order Comment: [facility] has implemented the eGFR calculation approach that does not have a coefficient for race that conforms to the NKF-ASN Task Force Recommendations. Result Comment: Ronald mated GFR was calculated using the 2020 CKD-EPI creatinine equation. POC IONIZED CALCIUM 4.0 mg/dL Low 4.5-5.3 [facility] Comment on above: Order Comment: [facility] has implemented the eGFR calculation approach that does not have a coefficient for race that conforms to the NKF-ASN Task Force Recommendations. Potassium [Moles/Vol] 3.6 mmol/L Normal 3.5-5.1 [facility] Comment on above: Order Comment: [facility] has implemented the eGFR calculation approach that does not have a coefficient for race that conforms to the NKF-ASN Task Force Recommendations. Sodium [Moles/Vol] 141 mmol/L Normal 135-145 [facility] Comment on above: Order Comment: [facility] has implemented the eGFR calculation approach that does not have a coefficient for race that conforms to the NKF-ASN Task Force Recommendations. Urea nitrogen [Mass/Vol] 10 mg/dL Normal 8-25 [facility] Comment on above: Order Comment: [facility] has implemented the eGFR calculation approach that does not have a coefficient for race that conforms to the NKF-ASN Task Force Recommendations. POC CBC AND DIFFERENTIALon 1 06-01-2023 BASOPHILS ABSOLUTE COUNT 0.03 K/mcL Normal 0.00-0.30 [facility] Basophils/100 WBC (Bld) 0.4 % Normal [facility] Eosinophils (Bld) [#/Vol] 0.22 10*3/uL Normal 0.00-0.50 [facility] Eosinophils/100 WBC (Bld) 2.7 % Normal [facility] Erythrocyte distribution width (RBC) [Ratio] 14.3 % Normal 11.6-14.8 [facility] Hematocrit (Bld) [Volume fraction] 44.9 % Normal 41.0-53.0 [facility] Hemoglobin (Bld) [Mass/Vol] 15.4 g/dL Normal 13.5-17.5 [facility] IG ABSOLUTE 0.01 K/mcL Normal 0.00-0.30 [facility] IG PERCENT 0.10 % Normal [facility] Comment on above: Result Comment: The IG parameter is the percentage of metamyelocytes, myelocytes and promyelocytes. An immature granulocyte count (IG) of 1% or more suggests the possibility of infection, an IG count of 3% is very likely related to an infection. Lymphocytes (Bld) [#/Vol] 3.46 10*3/uL Normal 0.90-4.00 [facility] Lymphocytes/100 WBC (Bld) 42.0 % Normal [facility] MCH (RBC) [Entitic mass] 30.1 pg Normal 26.0-34.0 [facility] MCV (RBC) [Entitic vol] 87.7 fL Normal 80.0-100.0 [facility] MEAN CORPUSCULAR HEMOGLOBIN CONC 34.3 g/dL Normal 31.0-37.0 [facility] Monocytes (Bld) [#/Vol] 0.58 10*3/uL Normal 0.30-0.90 [facility] Monocytes/100 WBC (Bld) 7.0 % Normal [facility] NEUTROPHILS ABSOLUTE COUNT 3.93 K/mcL Normal 1.70-7.00 [facility] Neutrophils/100 WBC (Bld) 47.8 % Normal [facility] Platelet mean volume (Bld) [Entitic vol] 8.1 fL Low 9.4-12.4 [facility] Platelets (Bld) [#/Vol] 200 10*3/uL Normal 150-400 [facility] RBC (Bld) [#/Vol] 5.12 10*6/uL Normal 4.50-5.90 [facility] WBC (Bld) [#/Vol] 8.23 10*3/uL Normal 4.50-11.00 [facility] ALCOHOL, MEDICALon 4 ALCOHOL MEDICAL 321.0 mg/dL High <10.0 [facility] Comment on above: Performed By: #### 4 [id number] #### LAB [address] [address] Thai Hart M.D. [id number] AMYLASEon 03-29-2024 Amylase [Catalytic activity/Vol] 15.2 U/L Normal 13.0-53.0 [facility] Comment on above: Performed By: #### 4 [id number] #### LAB [address] [address] Thai Hart M.D. [id number] CBC WITH AUTO DIFFERENTIALon 03-29-2024 AUTO NRBC 0.0 % Normal [facility] Comment on above: Performed By: #### L [id number] #### LAB [address] [address] Thai Hart M.D. [id number] AUTO NRBC ABS COUNT 0.00 K/mcL Normal 0.00-0.00 [facility] Comment on above: Performed By: #### L [id number] #### LAB [address] [address] Thai Hart M.D. [id number] BASOPHILS ABSOLUTE COUNT 0.06 K/mcL Normal 0.00-0.30 [facility] Comment on above: Performed By: #### L [id number] #### LAB [address] [address] Thai Hart M.D. [id number] Basophils/100 WBC (Bld) 0.6 % Normal [facility] Comment on above: Performed By: #### L [id number] #### LAB [address] [address] Thai Hart M.D. [id number] Eosinophils (Bld) [#/Vol] 0.21 10*3/uL Normal 0.00-0.50 [facility] Comment on above: Performed By: #### L [id number] #### LAB [address] [address] Thai Hart M.D. [id number] Eosinophils/100 WBC (Bld) 1.9 % Normal [facility] Comment on above: Performed By: #### L [id number] #### LAB [address] [address] Thai Hart M.D. [id number] Erythrocyte distribution width (RBC) [Ratio] 14.6 % Normal 11.6-14.8 [facility] Comment on above: Performed By: #### L [id number] #### LAB [address] [address] Thai Hart M.D. [id number] Hematocrit (Bld) [Volume fraction] 48.1 % Normal 41.0-53.0 [facility] Comment on above: Performed By: #### L [id number] #### LAB [address] [address] Thai Hart M.D. [id number] Hemoglobin (Bld) [Mass/Vol] 16.4 g/dL Normal 13.5-17.5 [facility] Comment on above: Performed By: #### L [id number] #### LAB [address] [address] Thai Hart M.D. [id number] IG ABSOLUTE 0.04 K/mcL Normal 0.00-0.30 [facility] Comment on above: Performed By: #### L [id number] #### LAB [address] [address] Thai Hart M.D. [id number] IG PERCENT 0.40 % [facility] Comment on above: Result Comment: The IG parameter is the percentage of metamyelocytes, myelocytes and promyelocytes. An immature granulocyte count (IG) of 1% or more suggests the possibility of infection, an IG count of 3% is very likely related to an infection. Performed By: #### L [id number] #### LAB [address] [place] [address] Thai Hart M.D. [id number] Lymphocytes (Bld) [#/Vol] 4.76 10*3/uL High 0.90-4.00 [facility] Comment on above: Performed By: #### L [id number] #### LAB [address] [place] [address] Thai Hart M.D. [id number] Lymphocytes/100 WBC (Bld) 43.7 % [facility] Comment on above: Performed By: #### L [id number] #### LAB [address] [address] Thia Hart M.D. [id number] MCH (RBC) [Entitic mass] 29.2 pg Normal 26.0-34.0 [facility] Comment on above: Performed By: #### L [id number] #### LAB [address] [place] [address] Thai Hatr M.D. [id number] MCV (RBC) [Entitic vol] 85.6 fL Normal 80.0-100.0 [facility] Comment on above: Performed By: #### L [id number] #### LAB [address] [address] Thai Hart M.D. [id number] MEAN CORPUSCULAR HEMOGLOBIN CONC 34.1 g/dL Normal 31.0-37.0 [facility] Comment on above: Performed By: #### L [id number] #### LAB [address] [place] [address] Thai Hart M.D. [id number] Monocytes (Bld) [#/Vol] 0.65 10*3/uL Normal 0.30-0.90 [facility] Comment on above: Performed By: #### L [id number] ####[facility] LAB [address] [address] Thai Hart M.D. [id number] Monocytes/100 WBC (Bld) 6.0 % Normal [facility] Comment on above: Performed By: #### L [id number] ####[facility] LAB [address] [address] Thai Hart M.D. [id number] NEUTROPHILS ABSOLUTE COUNT 5.17 K/mcL Normal 1.70-7.00 [facility] Comment on above: Performed By: #### L [id number] #### LAB [address] [address] Thai Hart M.D. [id number] Neutrophils/100 WBC (Bld) 47.4 % Normal [facility] Comment on above: Performed By: #### L [id number] ####[facility] LAB [address] [address] Thai Hart M.D. [id number] Platelet mean volume (Bld) [Entitic vol] 8.4 fL Low 9.4-12.4 [facility] Comment on above: Performed By: #### L [id number] #### LAB [address] [address] Thai Hart M.D. [id number] Platelets (Bld) [#/Vol] 237 10*3/uL Normal 150-400 [facility] Comment on above: Performed By: #### L [id number] #### LAB [address] [address] Thai Hart M.D. [id number] RBC (Bld) [#/Vol] 5.62 10*6/uL Normal 4.50-5.90 [facility] Comment on above: Performed By: #### L [id number] #### LAB [address] [id number] Thai Hart M.D. [id number] WBC (Bld) [#/Vol] 10.89 10*3/uL Normal 4.50-11.00 [facility] Comment on above: Performed By: #### L [id number] #### LAB [address] [address] Thai Hart M.D. [id number] COMPREHENSIVE METABOLIC PANE Maurice 03-29-2024 Albumin [Mass/Vol] 4.9 g/dL Normal 3.2-5.2 [facility] Comment on above: Order Comment: [facility] has implemented the eGFR calculation approach that does not have a coefficient for race that conforms to the NKF-ASN Task Force Recommendations. Performed By: #### 4 6126 #### LAB [address] [address] Thai Hart M.D. [id number] ALP [Catalytic activity/Vol] 76 U/L Normal 40-140 [facility] Comment on above: Order Comment: [facility] has implemented the eGFR calculation approach that does not have a coefficient for race that conforms to the NKF-ASN Task Force Recommendations. Performed By: #### 4 6126 #### LAB [address] [address] Thai Hart M.D. [id number] ALT [Catalytic activity/Vol] 27 U/L Normal 0-50 U/L [facility] Comment on above: Order Comment: [facility] has implemented the eGFR calculation approach that does not have a coefficient for race that conforms to the NKF-ASN Task Force Recommendations. Performed By: #### 4 6126 #### LAB [address] [id number] Thai Hart M.D. [id number] Anion gap [Moles/Vol] 21 mmol/L High 10-20 [facility] Comment on above: Order Comment: [facility] has implemented the eGFR calculation approach that does not have a coefficient for race that conforms to the NKF-ASN Task Force Recommendations. Performed By: #### 4 6126 #### LAB [address] [address] Thai Hart M.D. [id number] AST [Catalytic activity/Vol] 30 U/L Normal 0-50 U/L [facility] Comment on above: Order Comment: [facility] has implemented the eGFR calculation approach that does not have a coefficient for race that conforms to the NKF-ASN Task Force Recommendations. Performed By: #### 4 6126 #### LAB [address] [address] Thai Hart M.D. [id number] Bilirubin [Mass/Vol] 0.4 mg/dL Normal 0.0-1.3 [facility] Comment on above: Order Comment: [facility] has implemented the eGFR calculation approach that does not have a coefficient for race that conforms to the NKF-ASN Task Force Recommendations. Performed By: #### 4 6126 #### LAB [address] [address] Thai Hart M.D. [id number] Calcium [Mass/Vol] 9.5 mg/dL Normal 8.4-10.2 [facility] Comment on above: Order Comment: [facility] has implemented the eGFR calculation approach that does not have a coefficient for race that conforms to the NKF-ASN Task Force Recommendations. Performed By: #### 4 6126 #### LAB [address] [address] Thai Hart M.D. [id number] Chloride [Moles/Vol] 99 mmol/L Normal 98-108 [facility] Comment on above: Order Comment: [facility] has implemented the eGFR calculation approach that does not have a coefficient for race that conforms to the NKF-ASN Task Force Recommendations. Performed By: #### 4 6126 #### LAB [address] [address] Thai Hart M.D. [id number] Creatinine [Mass/Vol] 0.97 mg/dL Normal 0.50-1.30 [facility] Comment on above: Order Comment: [facility] has implemented the eGFR calculation approach that does not have a coefficient for race that conforms to the NKF-ASN Task Force Recommendations. Performed By: #### 4 6126 #### LAB [address] [address] Thai Hart M.D. [id number] EGFR 107 mL/min/1.73 m2 Normal >=60 [facility] Comment on above: Order Comment: [facility] has implemented the eGFR calculation approach that does not have a coefficient for race that conforms to the NKF-ASN Task Force Recommendations. Result Comment: Ronald mated GFR was calculated using the 2020 CKD-EPI creatinine equation. Performed By: #### 4 6125 #### LAB [address] [address] Thai Hart M.D. [id number] Glucose [Mass/Vol] 109 mg/dL High 65-99 [facility] Comment on above: Order Comment: [facility] has implemented the eGFR calculation approach that does not have a coefficient for race that conforms to the NKF-ASN Task Force Recommendations. Performed By: #### 4 6126 #### LAB [address] [address] Thai Hart M.D. [id number] HCO3 (Bld) [Moles/Vol] 24 mmol/L Normal 21-32 [facility] Comment on above: Order Comment: [facility] has implemented the eGFR calculation approach that does not have a coefficient for race that conforms to the NKF-ASN Task Force Recommendations. Performed By: #### 4 6126 ####[facility] LAB [address] [address] Thai Hart M.D. [id number] Potassium [Moles/Vol] 3.9 mmol/L Normal 3.5-5.1 [facility] Comment on above: Order Comment: [facility] has implemented the eGFR calculation approach that does not have a coefficient for race that conforms to the NKF-ASN Task Force Recommendations. Performed By: #### 4 6126 ####[facility] LAB [address] [place], [place] [address] Thai Hart M.D. [id number] Protein [Mass/Vol] 8.0 g/dL Normal 6.0-8.0 [facility] Comment on above: Order Comment: [facility] has implemented the eGFR calculation approach that does not have a coefficient for race that conforms to the NKF-ASN Task Force Recommendations. Performed By: #### 4 6126 #### LAB [address] [address] Thai Hart M.D. [id number] Sodium [Moles/Vol] 140 mmol/L Normal 135-145 [facility] Comment on above: Order Comment: [facility] has implemented the eGFR calculation approach that does not have a coefficient for race that conforms to the NKF-ASN Task Force Recommendations. Performed By: #### 4 6126 #### LAB [address] [address] Thai Hart M.D. [id number] Urea nitrogen [Mass/Vol] 11 mg/dL Normal 8-25 [facility] Comment on above: Order Comment: [facility] has implemented the eGFR calculation approach that does not have a coefficient for race that conforms to the NKF-ASN Task Force Recommendations. Performed By: #### 4 6126 #### LAB [address] [address] Thai Hart M.D. [id number] Urea nitrogen/Creatinine [Mass ratio] 11.3 mg/mg Normal 10.0-20.0 [facility] Comment on above: Order Comment: [facility] has implemented the eGFR calculation approach that does not have a coefficient for race that conforms to the NKF-ASN Task Force Recommendations. Performed By: #### 4 6126 ####[facility] LAB [address] [address] Thai Hart M.D. [id number] CT ABDOMEN PELVIS WITH IV CO NTRAST ONLYon 03-29-2024 CT ABDOMEN PELVIS WITH IV CONTRAST ONLY EXAMINATION: CT ABDOMEN PELVIS WITH IV CONTRAST ONLY HISTORY: ORDERING SYSTEM PROVIDED HISTORY: Abdominal pain, acute, nonlocalized, TECHNOLOGIST PROVIDED HISTORY: Illness/Other Reason for exam: Pt to ed for alcohol withdraw. States that his last drink was today at noon. Denies symptoms at this time. Encounter Type: Initial Additional signs and symptoms: Abdominal pain, acute, nonlocalized ORDERING SYSTEM PROVIDED DIAGNOSIS CODES: F10.939 Alcohol withdrawal (HCC) R10.84 Generalized abdominal pain COMPARISON: None TECHNIQUE: CT examination of the abdomen and pelvis following the administration of intravenous contrast. Coronal and sagittal reformations were performed. Dose reduction techniques were achieved by using automated exposure control and/or adjustment of mA and/or kV according to patient size and/or use of iterative reconstruction technique. CONTRAST: IOPAMIDOL 370 MG IODINE/ML (76 %) INTRAVENOUS SOLUTION - 75 mL, FINDINGS: Lung bases:The visualized lung bases are clear. Liver: There is hepatomegaly and diffuse hepatic steatosis. Gallbladder: Unremarkable. Pancreas: Unremarkable. Spleen: Unremarkable. Adrenal glands: Unremarkable. Kidneys: The kidneys enhance symmetrically.There is no hydronephrosis.No focal renal lesions. Bladder: Unremarkable. Bowel: No evidence of bowel obstruction. Status post appendectomy. Retroperitoneum: No lymphadenopathy or mass. Vasculature: The abdominal aorta is normal in caliber. Mesentery: No abdominal ascites or lymphadenopathy. No free air. Pelvis: No pelvic ascites or lymphadenopathy. Body Wall: Unremarkable. Bones: Mild levoscoliosis of the lumbar spine. IMPRESSION: 1. No acute findings in the abdomen or pelvis. 2. Hepatomegaly and diffuse hepatic steatosis. 3. Mild levoscoliosis of the lumbar spine. Workstation ID: [id number] Dictated by: NANDO PORTILLO on ThuMar 29, 2024 7:56:29 PM EST Transcribed by: NANDO PORTILLO on ThuMar 29, 2024 7:56:29 PM EST Finalized by: NANDO PORTILLO on ThuMar 29, 2024 7:56:29 PM EST Normal [facility] Comment on above: Order Comment: Injur y/Trauma or Illness?:Illness/OtherHow long have you had these symptoms (acute/chronic)?:AcuteReason for exam?:Pt to ed for alcohol withdraw. States that his last drink was today at noon. Denies symptoms at this time.Type of Exam?:InitialAdditional signs and symptoms?:Abdominal pain, acute, nonlocalized DRUGS OF ABUSE SCREEN, URINE on 03-29-2024 AMPHETAMINE SCREEN, URINE Not detected Normal None Detected [facility] Comment on above: Order Comment: Scree n results should be used for treatment purposes only. Result Comment: Urin e Amphetamine Cutoff: < 1000 ng/mL = None Detected Performed By: #### 4 6965 #### LAB [address] [address] Thai Hart M.D. [id number] BARBITURATE SCREEN URINE Not detected Normal None Detected [facility] Comment on above: Order Comment: Scree n results should be used for treatment purposes only. Result Comment: Urin e Barbiturates Cutoff: < 200 ng/mL = None Detected Performed By: #### 4 6965 ####[facility] LAB [address] [address] Thai Hart M.D. [id number] BENZODIAZEPINE SCREEN, URINE Not detected Normal None Detected [facility] Comment on above: Order Comment: Scree n results should be used for treatment purposes only. Result Comment: Urin e Benzodiazepine Cutoff: < 200 ng/mL = None Detected Performed By: #### 4 6965 #### LAB [address] [address] Thai Hart M.D. [id number] BUPRENORPHINE, URINE Not detected Normal [facility] [place] Detected [facility] Comment on above: Order Comment: Scree n results should be used for treatment purposes only. Result Comment: Urin e Buprenorphine Cutoff: < 5 ng/mL = None Detected Performed By: #### 4 6965 ####[facility] [address] [address] Thai Hart M.D. [id number] CANNABINOID SCREEN URINE Not detected Normal None Detected [facility] Comment on above: Order Comment: Scree n results should be used for treatment purposes only. Result Comment: Urin e Cannabinoids Cutoff: < 50 ng/mL = None Detected Performed By: #### 4 6975 ####[facility] LAB [address] [place] [address] Thai Hart M.D. [id number] COCAINE, SCREEN URINE Not detected Normal None Detected [facility] Comment on above: Order Comment: Scree n results should be used for treatment purposes only. Result Comment: Urin e Cocaine Cutoff: < 300 ng/mL = None Detected Performed By: #### 4 6965 ####[facility] [address] [address] Thai Hart M.D. [id number] FENTANYL, URINE Not detected Normal None Detected [facility] Comment on above: Order Comment: Scree n results should be used for treatment purposes only. Result Comment: Urin e Fentanyl Cutoff: < 1 ng/mL = None Detected Performed By: #### 4 6965 ####[facility] [address] [address] Thai Hart M.D. [id number] METHADONE SCREEN, URINE Not detected Normal None Detected [facility] Comment on above: Order Comment: Scree n results should be used for treatment purposes only. Result Comment: Urin e Methadone Cutoff: < 300 ng/mL = None Detected Performed By: #### 4 6965 ####[facility] [address] [address] Thai Hart M.D. [id number] OPIATE SCREEN URINE Not detected Normal None Detected [facility] Comment on above: Order Comment: Scree n results should be used for treatment purposes only. Result Comment: Urin e Opiates Cutoff: < 300 ng/mL = None Detected Performed By: #### 4 6965 #### LAB [address] [address] Thai Hart M.D. [id number] OXYCODONE SCREEN, URINE Not detected Normal None Detected [facility] Comment on above: Order Comment: Scree n results should be used for treatment purposes only. Result Comment: Urin e Oxycodone Cutoff: < 100 ng/mL = None Detected Performed By: #### 4 6965 ####[facility] [address] [place] [address] Thai Hart M.D. [id number] ED Prov Noteon 03-29-2024 ED Prov Note ED PROVIDER NOTE [facility] EMERGENCY DEPARTMENT NAME: Artie Li AGE: 29 y.o. : 1995 VISIT DATE: 03/29/2024 CSN: [id number] PCP: Evelin Martino CNP Chief Complaint Patient presents with Withdrawal Patient is a 29-year-old male history of alcoholism presents emergency department for evaluation of alcohol withdrawal. Patient admits to drinking approximately 20 beers a day for the past several days. And last drink was earlier today. Now is also complaining of mid abdominal pain. No other complaints no other concerns. Past Medical History: Diagnosis Date Anxiety Depression PTSD (post-traumatic stress disorder) Past Surgical History: Procedure Laterality Date APPENDECTOMY History reviewed. No pertinent family history. Social History Socioeconomic History Marital status: Single Tobacco Use Smoking status: Never Smokeless tobacco: Current Types: Snuff Vaping Use Vaping status: Never Used Substance and Sexual Activity Alcohol use: Yes Alcohol/week: 100.0 standard drinks of alcohol Types: 100 Cans of beer per week Comment: 15-20 beers a day Drug use: Never Sexual activity: Not Currently Social Drivers of Health Financial Resource Strain: Low Risk (06/04/2021) Overall Financial Resource Strain (CARDIA) Difficulty of Paying Living Expenses: Not hard at all Food Insecurity: No Food Insecurity (06/04/2021) Hunger Vital Sign Worried About Running Out of Food in the Last Year: Never true Ran Out of Food in the Last Year: Never true Transportation Needs: No Transportation Needs (06/04/2021) PRAPARE - Transportation Lack of Transportation (Medical): No Lack of Transportation (Non-Medical): No Social Connections: Unknown (06/04/2021) Social Connection and Isolation Panel [NHANES] Frequency of Communication with Friends and Family: More than three times a week Frequency of Social Gatherings with Friends and Family: More than three times a week Previous Medications Medication Sig baclofen (LIORESAL) 10 MG tablet Take 1 (one) tablet (10 mg total) by mouth nightly as needed . busPIRone (BUSPAR) 10 MG tablet Take 1 (one) tablet (10 mg total) by mouth 2 (two) times a day . (Patient not taking: Reported on 04/06/2024 .) multivitamin tablet Take 1 (one) tablet by mouth daily . (Patient not taking: Reported on 04/06/2024 .) sertraline (ZOLOFT) 50 MG tablet Take 1 (one) tablet (50 mg total) by mouth daily Start: 01/13/24. (Patient not taking: Reported on 04/06/2024 .) thiamine 100 MG tablet Take 2 (two) tablets (200 mg total) by mouth daily in the afternoon . (Patient not taking: Reported on 04/06/2024 .) topiramate (TOPAMAX) 50 MG tablet Take 1 (one) tablet (50 mg total) by mouth 2 (two) times a day . (Patient not taking: Reported on 04/06/2024 .) traZODone (DESYREL) 50 MG tablet Take 1 (one) tablet (50 mg total) by mouth nightly as needed for sleep . No Known Allergies Review of Systems All other systems reviewed and are negative. No data found. Physical Exam Vitals and nursing note reviewed. Constitutional: General: He is not in acute distress. Appearance: Normal appearance. He is not ill-appearing, toxic-appearing or diaphoretic. HENT: Head: Normocephalic and atraumatic. Mouth/Throat: Mouth: Mucous membranes are dry. Eyes: General: Right eye: No discharge. Left eye: No discharge. Conjunctiva/sclera: Conjunctivae normal. Cardiovascular: Rate and Rhythm: Regular rhythm. Tachycardia present. Musculoskeletal: General: No deformity or signs of injury. Cervical back: Normal range of motion and neck supple. Right lower leg: No edema. Pulmonary: Effort: Pulmonary effort is normal. No respiratory distress. Breath sounds: Normal breath sounds. No stridor. Abdominal: Palpations: Abdomen is soft. Comments: Mild tenderness in epigastrium. No rebound or guarding. Skin: General: Skin is warm. Coloration: Skin is not jaundiced. Neurological: Mental Status: He is alert and oriented to person, place, and time. Psychiatric: Comments: Appears anxious, has fine tremor. Laboratory & Radiographic Imaging (if done): Results for orders placed or performed during the hospital encounter of 03/29/24 Lavender Top Result Value Ref Range Extra Tube Hold for add-ons. Mint Green Top Result Value Ref Range Extra Tube Hold for add-ons. Alcohol Level Result Value Ref Range Alcohol (Medical) 321.0 (H) <10.0 mg/dL CMP Result Value Ref Range Sodium 140 135 - 145 mmol/L Potassium 3.9 3.5 - 5.1 mmol/L Chloride 99 98 - 108 mmol/L Bicarbonate 24 21 - 32 mmol/L Anion Gap 21 (H) 10 - 20 mmol/L Glucose 109 (H) 65 - 99 mg/dL BUN 11 8 - 25 mg/dL Creatinine 0.97 0.50 - 1.30 mg/dL eGFR 107 >=60 mL/min/1.73 m2 BUN/Creatinine Ratio 11.3 10.0 - 20.0 Total Protein 8.0 6.0 - 8.0 g/dL Albumin 4.9 3.2 - 5.2 g/dL Calcium 9.5 8.4 - 10.2 mg/dL Alkaline Phosphatase 76 40 - 140 U/L AST 30 (more content not included)... Normal [facility] LIPASEon 03-29-2024 Lipase [Catalytic activity/Vol] 37 U/L Normal 15-65 [facility] Comment on above: Performed By: #### 4 [id number] #### LAB [address] [place], [place] [address] Thai Hart M.D. [id number] PT/INRon 03-29-2024 INR Coag (PPP) [Relative time] 0.9 {INR} Normal 0.8-1.1 [facility] Comment on above: Order Comment: Juliette harry the induction phase of oral anticoagulation, the INR may not reflect the anticoagulation status of the patient. Therapeutic ranges for INR's are:Most clinical situations: INR 2.0-3.0Mechanical Prosthetic Valve: INR 2.5-3.5Critical: INR >5.0 Performed By: #### 4 6391 #### LAB [address] [place], [place] [address] Thai Hart M.D. [id number] PT Coag (PPP) [Time] 12.2 s Normal 11.8-14.3 [facility] Comment on above: Order Comment: Juliette harry the induction phase of oral anticoagulation, the INR may not reflect the anticoagulation status of the patient. Therapeutic ranges for INR's are:Most clinical situations: INR 2.0-3.0Mechanical Prosthetic Valve: INR 2.5-3.5Critical: INR >5.0 Performed By: #### 4 6391 #### LAB [address] [place], [place] [address] Thai Hart M.D. [id number] TROPONINon 03-29-2024 BASELINE TROPONIN T NG/L < Normal <=22 [facility] Comment on above: Performed By: #### 4 6608 ####[facility] [address] [place], [place] [address] Thai Hart M.D. [id number] TROPONIN T INTERPRETATION Normal Normal [facility] Comment on above: Performed By: #### 4 6608 ####[facility] [address] [place] [id number] Thai Hart M.D. [id number] BASELINE TROPONIN T NG/L < Normal <=22 [facility] Comment on above: Performed By: #### 4 6608 ####[facility] [address] [place], [place] [address] Thai Hart M.D. [id number] TROPONIN T INTERPRETATION Normal Normal [facility] Comment on above: Performed By: #### 4 6608 #### LAB [address] [place] [id number] Thai Hart M.D. [id number] URINALYSISon 03-29-2024 BACTERIA, URINE None Seen Normal None Seen [facility] Comment on above: Order Comment: Micro scopic examination is performed on all urinalysis samples and only positive findings are reported. The test for blood on the chemical analytic portion of urinalysis may also be positive due to hemoglobinuria and myoglobinuria and if red blood cells are present they are quantified by microscopic examination. Performed By: #### 4 6625 #### LAB [address] [place] [id number] Thai Hart M.D. [id number] BILIRUBIN, URINE Negative Normal Negative [facility] Comment on above: Order Comment: Micro scopic examination is performed on all urinalysis samples and only positive findings are reported. The test for blood on the chemical analytic portion of urinalysis may also be positive due to hemoglobinuria and myoglobinuria and if red blood cells are present they are quantified by microscopic examination. Performed By: #### 4 6625 ####[facility] [address] [place] [id number] Thai Hart M.D. [id number] BLOOD, URINE Negative Normal Negative [facility] Comment on above: Order Comment: Micro scopic examination is performed on all urinalysis samples and only positive findings are reported. The test for blood on the chemical analytic portion of urinalysis may also be positive due to hemoglobinuria and myoglobinuria and if red blood cells are present they are quantified by microscopic examination. Performed By: #### 4 6625 #### LAB [address] [place] [address] Thai Hart M.D. [id number] Clarity (U) Clear Normal Clear [facility] Comment on above: Order Comment: Micro scopic examination is performed on all urinalysis samples and only positive findings are reported. The test for blood on the chemical analytic portion of urinalysis may also be positive due to hemoglobinuria and myoglobinuria and if red blood cells are present they are quantified by microscopic examination. Performed By: #### 4 6625 #### LAB [address] [place] [address] Thai Hart M.D. [id number] Color (U) Colorless Normal Colorless, Yellow [facility] Comment on above: Order Comment: Micro scopic examination is performed on all urinalysis samples and only positive findings are reported. The test for blood on the chemical analytic portion of urinalysis may also be positive due to hemoglobinuria and myoglobinuria and if red blood cells are present they are quantified by microscopic examination. Performed By: #### 4 6625 #### LAB [address] [place] [address] Thai Hart M.D. [id number] Glucose Ql (U) Negative Normal Negative, >=1000 [facility] Comment on above: Order Comment: Micro scopic examination is performed on all urinalysis samples and only positive findings are reported. The test for blood on the chemical analytic portion of urinalysis may also be positive due to hemoglobinuria and myoglobinuria and if red blood cells are present they are quantified by microscopic examination. Performed By: #### 4 6625 #### LAB [address] [place] [address] Thai Hart M.D. [id number] Ketones Ql (U) Negative Normal Negative [facility] Comment on above: Order Comment: Micro scopic examination is performed on all urinalysis samples and only positive findings are reported. The test for blood on the chemical analytic portion of urinalysis may also be positive due to hemoglobinuria and myoglobinuria and if red blood cells are present they are quantified by microscopic examination. Performed By: #### 4 6625 #### LAB [address] [place] [address] Thai Hart M.D. [id number] Leukocyte esterase Test strip Ql (U) Negative Normal Negative [facility] Comment on above: Order Comment: Micro scopic examination is performed on all urinalysis samples and only positive findings are reported. The test for blood on the chemical analytic portion of urinalysis may also be positive due to hemoglobinuria and myoglobinuria and if red blood cells are present they are quantified by microscopic examination. Performed By: #### 4 6625 #### LAB [address] [place] [address] Thai Hart M.D. [id number] NITRITE, URINE Negative Normal Negative [facility] Comment on above: Order Comment: Micro scopic examination is performed on all urinalysis samples and only positive findings are reported. The test for blood on the chemical analytic portion of urinalysis may also be positive due to hemoglobinuria and myoglobinuria and if red blood cells are present they are quantified by microscopic examination. Performed By: #### 4 6625 #### LAB [address] [place] [address] Thai Hart M.D. [id number] pH (U) 6.5 [pH] Normal 5.0-7.0 [facility] Comment on above: Order Comment: Micro scopic examination is performed on all urinalysis samples and only positive findings are reported. The test for blood on the chemical analytic portion of urinalysis may also be positive due to hemoglobinuria and myoglobinuria and if red blood cells are present they are quantified by microscopic examination. Performed By: #### 4 6625 #### LAB [address] [place] [id number] Thai Hart M.D. [id number] PROTEIN, URINE Negative Normal Negative [facility] Comment on above: Order Comment: Micro scopic examination is performed on all urinalysis samples and only positive findings are reported. The test for blood on the chemical analytic portion of urinalysis may also be positive due to hemoglobinuria and myoglobinuria and if red blood cells are present they are quantified by microscopic examination. Performed By: #### 4 6625 #### LAB [address] [place] [address] Thai Hart M.D. [id number] RBC LM.HPF (Urine sed) [#/Area] 1 /[HPF] Normal 0-3 [facility] Comment on above: Order Comment: Micro scopic examination is performed on all urinalysis samples and only positive findings are reported. The test for blood on the chemical analytic portion of urinalysis may also be positive due to hemoglobinuria and myoglobinuria and if red blood cells are present they are quantified by microscopic examination. Performed By: #### 4 6625 ####[facility] [address] [place] [address] Thai Hart M.D. [id number] Specific gravity (U) [Rel density] > High 1.005-1.025 [facility] Comment on above: Order Comment: Micro scopic examination is performed on all urinalysis samples and only positive findings are reported. The test for blood on the chemical analytic portion of urinalysis may also be positive due to hemoglobinuria and myoglobinuria and if red blood cells are present they are quantified by microscopic examination. Result Comment: Abno rmally high specific gravity results can be the result of the presence of x-ray or radiographic contrast media or mannitol(diuretic) administration or with large amounts of protein, glucose or in cloudy specimens. Performed By: #### 4 6625 #### LAB [address] [place] [address] Thai Hart M.D. [id number] UROBILINOGEN, URINE <2.0 Normal <2.0 [facility] Comment on above: Order Comment: Micro scopic examination is performed on all urinalysis samples and only positive findings are reported. The test for blood on the chemical analytic portion of urinalysis may also be positive due to hemoglobinuria and myoglobinuria and if red blood cells are present they are quantified by microscopic examination. Performed By: #### 4 6625 ####[facility] [address] [place] [address] Thai Hart M.D. [id number] XR CHEST PA/APon 03-29-2024 XR CHEST PA/AP EXAMINATION: ONE VIEW XR CHEST PA/AP, 03/29/2024 COMPARISON: Chest, 10/01/2020. HISTORY: Dx: F10.939 (Alcohol withdrawal (HCC)) Injury/Trauma or Illness?:Illness/Other How long have you had these symptoms (acute/chronic)?:Acute Alcohol withdrawal FINDINGS: The lungs are clear with no acute cardiopulmonary disease. No pulmonary edema, pneumothorax or pleural effusion. The heart, mediastinal structures and visualized bony structures are unremarkable. IMPRESSION: 1. No acute abnormality. [employer] Workstation ID: [id number] Dictated by: LINDA HUGHES on ThuMar 29, 2024 8:08:32 PM EST Transcribed by: ROBERTO CARLOS JULY on ThuMar 29, 2024 8:20:14 PM EST Finalized by: LINDA HUGHES on ThuMar 29, 2024 9:58:28 PM EST Normal [facility] Comment on above: Order Comment: Injur y/Trauma or Illness?:Illness/OtherHow long have you had these symptoms (acute/chronic)?:AcuteReason for exam?:Alcohol withdrawalHistory of cancer?:unknownSurgeries, chemotherapy, or radiation?:unknownType of Exam?:InitialAdditional signs and symptoms?:. CONSULTon 01-08-2024 CONSULT ---- -------- Attestation signed by Washington Mathew MD at 01/10/2024 1:36 PM I did not participate in the care of the patient on 01/08/24 but am cosigning due to [facility] policy. An attending physician was available during the CHERYL evaluation. Washington Mathew MD 01/10/24 -------- [facility] CONSULTATION [place] Patient Name: Artie Li : 1995 MR #: [id number] Admit Date: [id number] Physicians: Evelin Martino CNP (Family); No ref. provider found (Referring) Artie Li is a 28 y.o. male patient of Evelin Martino CNP with history of alcohol abuse, depression who has been admitted to [facility] inpatient behavioral health unit 01/06/2024. [facility] has been consulted by Wallace Godwin, * for medical management. Major depressive disorder Management per primary ETOH abuse Multivitamin, folic acid, thiamine Phenobarb taper ordered by addiction medicine Intermittent back pain Takes PRN baclofen at home, will re-order while admitted Medication Reconciliation: Verified Code Status: Full Code - Unverified Thank you for the consult. We will sign off at this time. Quality Measures DVT Prophylaxis: Ambulatory Kitchen Catheter: Absent Chief Complaint [facility] consulted by Wallace Godwin, * for medical management History of Present Illness Artie Li is a 28 y.o. male patient of Evelin Martino CNP with history of alcohol abuse, depression who has been admitted to [facility] inpatient behavioral health unit 01/06/2024. [facility] has been consulted by Wallace Godwin, * for medical management. Patient confirms past medical history as outlined above. Denies any current medical concerns. Past Medical History Past Medical History: Diagnosis Date Anxiety Depression PTSD (post-traumatic stress disorder) Past Surgical History Past Surgical History: Procedure Laterality Date APPENDECTOMY Family History History reviewed. No pertinent family history. Social History Social History Tobacco Use Smoking Status Never Smokeless Tobacco Current Types: Snuff Social History Substance and Sexual Activity Alcohol Use Yes Alcohol/week: 100.0 standard drinks of alcohol Types: 100 Cans of beer per week Comment: 15-20 beers a day Social History Substance and Sexual Activity Drug Use Never Allergy Information I have reviewed the patient's allergies. Patient has no known allergies. Home Medications Home medications were reviewed. Review Of Systems All relevant systems have been reviewed and are negative except as noted in HPI or below Physical Examination BP (!) 131/95 Pulse 90 Temp 98 degrees F (36.7 degrees C) (Oral) Resp 12 Ht 6' 3 Wt 103.8 kg (228 lb 12.8 oz) SpO2 99% BMI 28.60 kg/m General Appearance: alert, well appearing, and in no acute distress HEENT: Head- normocephalic; Eyes- PERRLA, EOMI; Ears- external auditory canals clear, hearing intact; Nose- no nasal discharge; Throat- oropharynx normal Cardiovascular: regular rate and rhythm; normal S1, S2; no murmurs, rubs, clicks or gallops; no peripheral edema Respiratory: lungs clear to auscultation; without wheezes, rales or rhonchi Neurological: alert, oriented x 3, normal speech; no focal findings or movement disorder noted Cranial Nerves: II: visual adler full. III, IV, : extraocular range intact. V: sensation intact. VII: facial symmetric with 5/5 strength. VIII: hearing intact to voice and finger rub. IX, X: palate elevates symmetrically. XI: shrugs shoulders 5/5 strength bilaterally. XII: tongue protrudes in midline. Sensation -grossly symmetrical. Motor strength 5/5 all over. DTR 2+ in the UE and LE bilaterally. Musculoskeletal: no significant deformity or tenderness to palpation Skin: normal coloration, texture and turgor; no lesions or eruptions Psych: normal mood and affect Laboratory and Additional Data Reviewed Laboratory 01/08/24 10:18 AM Microbiology 01/08/24 10:18 AM Radiology 01/08/24 10:18 AM Cardiology 01/08/24 10:18 AM Medications 01/08/24 10:18 AM Transcriptions 01/08/24 10:18 AM AUTHENTICATED BY WASHINGTON MATHEW, ON 01/10/2024 13:36:36 Normal [facility] ALCOHOL, MEDICALon ALCOHOL MEDICAL 16.1 mg/dL High <10.0 [facility] Comment on above: Performed By: #### 4 [id number] #### LAB [address] [place], [place] [address] Thai Hart M.D. [id number] CONSULTon 01-07-2024 CONSULT ---- -------- Attestation signed by Panchito Arroyo MD at 01/08/2024 5:10 PM Patient discussed before and after being seen by Keri Mccray CNP. He has been battling with alcohol and is now on leave from [facility]. He was pink slipped from Dr. Luis's office and we have adjusted to phenobarb taper and added topiramate and oral naltrexone back to his plan with the goal being him getting back to [facility] [place] for helping with his alcohol and PTSD. Plan implemented in full agreement -------- ADDICTION MEDICINE CONSULT NOTE Patient Name: Artie Li Admit Date: [id number] MR #: [id number] : 1995 Physicians: Evelin Martino CNP (Family); No ref. provider found (referring) Principal Problem: Major depressive disorder, recurrent episode, severe with anxious distress (HCC) Active Problems: Severe major depression (HCC) Assessment and Plan: ALCOHOL USE DISORDER Start phenobarbital taper Can discontinue CIWA after he gets 2nd dose of phenobarb Topiramate 50mg bid Naltrexone 25mg bid prn cravings Reports he is planning to go from hospital to [place] inpatient treatment as he was at recently? Encouraged to continue AOD at [facility], MAT at [facility] in [place] and with Dr Toby Michel method with naltrexone at home to take 50mg on his way home from work. Recommend K+>4 and Mag>2 Assessment Detail: The total time spent for this visit was 70 minutes. Greater than 50% of the time was spent in counseling and coordination of care. Reason for Consult: Medical management of alcohol use disorder. Medical management of alcohol withdrawal symptoms. Linkage to outpatient treatment Linkage to inpatient residential treatment Linkage to follow up treatment Linkage to wrap around services History of Present Illness: Artie Li is a 28 y.o. y/o male presenting with c/o SI/alcohol problem Chief Complaint Patient presents with Alcohol Problem Patient seen in room 3319. States ongoing history of alcoholism. Has been in treatment in the past, mostly recently in [place] for an inpatient program. Reports he was sober for 3 months until a custody issue with his 4-year-old son. Admits to drinking about a case of beer a day when he is not working and about a 12 pack of the day as he does work. States he starts drinking after he gets home from work and on his off days he starts drinking when he wakes up. He states he does not have any cravings currently but states on his way home from work he does have cravings. He has been in treatment with [facility] in the past and did not feel that it helped him. States he felt off when taking Vivitrol so he would drink more so he did not feel that way. He does go to [employer] [facility] for AOD counseling, follows with Dr. Luis for behavioral health is going to meetings and follows with [facility] for primary care in [place]. He plans to go back to [place] for inpatient treatment when he leaves the hospital. Will start phenobarbital taper and add topiramate to help with mood. Will add naltrexone as needed cravings and encouraged him to take on his way home from work when he gets out of rehab. Past Medical History: Diagnosis Date Anxiety Depression PTSD (post-traumatic stress disorder) Past Surgical History: Procedure Laterality Date APPENDECTOMY History reviewed. No pertinent family history. Social History Socioeconomic History Marital status: Single Tobacco Use Smoking status: Never Smokeless tobacco: Current Types: Snuff Vaping Use Vaping status: Never Used Substance and Sexual Activity Alcohol use: Yes Alcohol/week: 100.0 standard drinks of alcohol Types: 100 Cans of beer per week Comment: 15-20 beers a day Drug use: Never Sexual activity: Not Currently Social Determinants of Health Financial Resource Strain: Low Risk (06/04/2021) Overall Financial Resource Strain (CARDIA) Difficulty of Paying Living Expenses: Not hard at all Food Insecurity: No Food Insecurity (06/04/2021) Hunger Vital Sign Worried About Running Out of Food in the Last Year: Never true Ran Out of Food in the Last Year: Never true Transportation Needs: No Transportation Needs (06/04/2021) PRAPARE - Transportation Lack of Transportation (Medical): No Lack of Transportation (Non-Medical): No Social Connections: Unknown (06/04/2021) Social Connection and Isolation Panel [NHANES] Frequency of Communication with Friends and Family: More than three times a week Frequency of Social Gatherings with Friends and Family: More than three times a week AOD History: No problems updated. Substance(s) of Choice alcohol Treatment history: Yes Longest period of sobriety: 3 months most recently Typical withdrawal symptoms: anxiety, restlessness, agitation, nausea, and tremo (more content not included)... Normal [facility] HEPATIC FUNCTION PANELon Albumin [Mass/Vol] 4.6 g/dL Normal 3.2-5.2 [facility] Comment on above: Performed By: #### 4 5866 ####[facility] [address] [place], [place] [address] Thai Hart M.D. [id number] ALP [Catalytic activity/Vol] 63 U/L Normal 40-140 [facility] Comment on above: Performed By: #### 4 5866 ####[facility] [address] [place], [place] [address] Thai Hart M.D. [id number] ALT [Catalytic activity/Vol] 27 U/L Normal 0-50 U/L [facility] Comment on above: Performed By: #### 4 5866 ####[facility] [address] [place], [place] [address] Thai Hart M.D. [id number] AST [Catalytic activity/Vol] 31 U/L Normal 0-50 U/L [facility] Comment on above: Performed By: #### 4 5866 ####[facility] [address] [place] [id number] Thai Hart M.D. [id number] Bilirubin [Mass/Vol] 0.3 mg/dL Normal 0.0-1.3 [facility] Comment on above: Performed By: #### 4 5866 #### LAB [address] [place] [address] Thai Hart M.D. [id number] BILIRUBIN, DIRECT < Normal 0.0-0.4 [facility] Comment on above: Performed By: #### 4 5866 #### LAB [address] [place] [address] Thai Hart M.D. [id number] Protein [Mass/Vol] 7.0 g/dL Normal 6.0-8.0 [facility] Comment on above: Performed By: #### 4 5866 ####[facility] [address] [place] [address] Thai Hart M.D. [id number] ALCOHOL, MEDICALon ALCOHOL MEDICAL 185.0 mg/dL High <10.0 [facility] Comment on above: Performed By: #### 4 5033 #### LAB [address] [place] [address] Thai Hart M.D. [id number] CBC WITH AUTO DIFFERENTIALon 01-06-2024 AUTO NRBC 0.0 % Normal [facility] Comment on above: Performed By: #### L [id number] ####[facility] [address] [place] [id number] Thai Hart M.D. [id number] AUTO NRBC ABS COUNT 0.00 K/mcL Normal 0.00-0.00 [facility] Comment on above: Performed By: #### L [id number] ####[facility] [address] [place] [address] Thai Hart M.D. [id number] BASOPHILS ABSOLUTE COUNT 0.05 K/mcL Normal 0.00-0.30 [facility] Comment on above: Performed By: #### L [id number] #### LAB [address] [place] [address] Thai Hart M.D. [id number] Basophils/100 WBC (Bld) 0.7 % Normal [facility] Comment on above: Performed By: #### L [id number] #### LAB [address] [place] [address] Thai Hart M.D. [id number] Eosinophils (Bld) [#/Vol] 0.04 10*3/uL Normal 0.00-0.50 [facility] Comment on above: Performed By: #### L [id number] #### LAB [address] [place] [address] Thai Hart M.D. [id number] Eosinophils/100 WBC (Bld) 0.6 % Normal [facility] Comment on above: Performed By: #### L [id number] #### LAB [address] [place] [address] Thai Hart M.D. [id number] Erythrocyte distribution width (RBC) [Ratio] 14.0 % Normal 11.6-14.8 [facility] Comment on above: Performed By: #### L [id number] #### LAB [address] [place] [address] Thai Hart M.D. [id number] Hematocrit (Bld) [Volume fraction] 45.6 % Normal 41.0-53.0 [facility] Comment on above: Performed By: #### L [id number] #### LAB [address] [place] [address] Thai Hart M.D. [id number] Hemoglobin (Bld) [Mass/Vol] 15.5 g/dL Normal 13.5-17.5 [facility] Comment on above: Performed By: #### L [id number] #### LAB [address] [place] [address] Thai Hart M.D. [id number] IG ABSOLUTE 0.03 K/mcL Normal 0.00-0.30 [facility] Comment on above: Performed By: #### L [id number] #### LAB [address] [place] [address] Thai Hart M.D. [id number] IG PERCENT 0.40 % Normal [facility] Comment on above: Result Comment: The IG parameter is the percentage of metamyelocytes, myelocytes and promyelocytes. An immature granulocyte count (IG) of 1% or more suggests the possibility of infection, an IG count of 3% is very likely related to an infection. Performed By: #### L [id number] #### LAB [address] [place] [address] Thai Hart M.D. [id number] Lymphocytes (Bld) [#/Vol] 2.18 10*3/uL Normal 0.90-4.00 [facility] Comment on above: Performed By: #### L [id number] #### LAB [address] [place] [address] Thai Hart M.D. [id number] Lymphocytes/100 WBC (Bld) 30.0 % [facility] Comment on above: Performed By: #### L [id number] #### LAB [address] [place] [address] Thai Hart M.D. [id number] MCH (RBC) [Entitic mass] 29.4 pg Normal 26.0-34.0 [facility] Comment on above: Performed By: #### L [id number] #### LAB [address] [place] [address] Thai Hart M.D. [id number] MCV (RBC) [Entitic vol] 86.5 fL Normal 80.0-100.0 [facility] Comment on above: Performed By: #### L [id number] #### LAB [address] [place] [address] Thai Hart M.D. [id number] MEAN CORPUSCULAR HEMOGLOBIN CONC 34.0 g/dL Normal 31.0-37.0 [facility] Comment on above: Performed By: #### L [id number] #### LAB [address] [place] [address] Thai Hart M.D. [id number] Monocytes (Bld) [#/Vol] 0.48 10*3/uL Normal 0.30-0.90 [facility] Comment on above: Performed By: #### L [id number] #### LAB [address] [place] [address] Thai Hart M.D. [id number] Monocytes/100 WBC (Bld) 6.6 % Normal [facility] Comment on above: Performed By: #### L [id number] #### LAB [address] [place] [address] Thai Hart M.D. [id number] NEUTROPHILS ABSOLUTE COUNT 4.48 K/mcL Normal 1.70-7.00 [facility] Comment on above: Performed By: #### L [id number] #### LAB [address] [place] [address] Thai Hart M.D. [id number] Neutrophils/100 WBC (Bld) 61.7 % Normal [facility] Comment on above: Performed By: #### L [id number] #### LAB [address] [place] [address] Thai Hart M.D. [id number] Platelet mean volume (Bld) [Entitic vol] 8.6 fL Low 9.4-12.4 [facility] Comment on above: Performed By: #### L [id number] #### LAB [address] [place] [address] Thai Hart M.D. [id number] Platelets (Bld) [#/Vol] 194 10*3/uL Normal 150-400 [facility] Comment on above: Performed By: #### L [id number] #### LAB [address] [place] [address] Thai Hart M.D. [id number] RBC (Bld) [#/Vol] 5.27 10*6/uL Normal 4.50-5.90 [facility] Comment on above: Performed By: #### L [id number] ####[facility] [address] [place], [place] [address] Thai Hart M.D. [id number] WBC (Bld) [#/Vol] 7.26 10*3/uL Normal 4.50-11.00 [facility] Comment on above: Performed By: #### L [id number] ####[facility] [address] [place] [address] Thai Hart M.D. [id number] COMPREHENSIVE METABOLIC PANE Maurice 01-06-2024 Albumin [Mass/Vol] 4.7 g/dL Normal 3.2-5.2 [facility] Comment on above: Order Comment: [facility] has implemented the eGFR calculation approach that does not have a coefficient for race that conforms to the NKF-ASN Task Force Recommendations. Performed By: #### 4 6126 ####[facility] [address] [place] [address] Thai Hart M.D. [id number] ALP [Catalytic activity/Vol] 63 U/L Normal 40-140 [facility] Comment on above: Order Comment: [facility] has implemented the eGFR calculation approach that does not have a coefficient for race that conforms to the NKF-ASN Task Force Recommendations. Performed By: #### 4 6126 ####[facility] [address] [place] [address] Thai Hart M.D. [id number] ALT [Catalytic activity/Vol] 21 U/L Normal 0-50 U/L [facility] Comment on above: Order Comment: [facility] has implemented the eGFR calculation approach that does not have a coefficient for race that conforms to the NKF-ASN Task Force Recommendations. Performed By: #### 4 6126 ####[facility] [address] [place] [id number] Thai Hart M.D. [id number] Anion gap [Moles/Vol] 21 mmol/L High 10-20 [facility] Comment on above: Order Comment: [facility] has implemented the eGFR calculation approach that does not have a coefficient for race that conforms to the NKF-ASN Task Force Recommendations. Performed By: #### 4 6126 #### LAB [address] [place] [address] Thai Hart M.D. [id number] AST [Catalytic activity/Vol] 26 U/L Normal 0-50 U/L [facility] Comment on above: Order Comment: [facility] has implemented the eGFR calculation approach that does not have a coefficient for race that conforms to the NKF-ASN Task Force Recommendations. Performed By: #### 4 6126 #### LAB [address] [place] [address] Thai Hart M.D. [id number] Bilirubin [Mass/Vol] 0.4 mg/dL Normal 0.0-1.3 [facility] Comment on above: Order Comment: [facility] has implemented the eGFR calculation approach that does not have a coefficient for race that conforms to the NKF-ASN Task Force Recommendations. Performed By: #### 4 6126 #### LAB [address] [place] [address] Thai Hart M.D. [id number] Calcium [Mass/Vol] 8.8 mg/dL Normal 8.4-10.2 [facility] Comment on above: Order Comment: [facility] has implemented the eGFR calculation approach that does not have a coefficient for race that conforms to the NKF-ASN Task Force Recommendations. Performed By: #### 4 6126 #### LAB [address] [place] [address] Thai Hart M.D. [id number] Chloride [Moles/Vol] 96 mmol/L Low 98-108 [facility] Comment on above: Order Comment: [facility] has implemented the eGFR calculation approach that does not have a coefficient for race that conforms to the NKF-ASN Task Force Recommendations. Performed By: #### 4 6126 #### LAB [address] [place] [address] Thai Hart M.D. [id number] Creatinine [Mass/Vol] 0.95 mg/dL Normal 0.50-1.30 [facility] Comment on above: Order Comment: [facility] has implemented the eGFR calculation approach that does not have a coefficient for race that conforms to the NKF-ASN Task Force Recommendations. Performed By: #### 4 6126 #### LAB [address] [place] [address] Thai Hart M.D. [id number] EGFR 110 mL/min/1.73 m2 Normal >=60 [facility] Comment on above: Order Comment: [facility] has implemented the eGFR calculation approach that does not have a coefficient for race that conforms to the NKF-ASN Task Force Recommendations. Result Comment: Ronald mated GFR was calculated using the 2020 CKD-EPI creatinine equation. Performed By: #### 4 6126 #### LAB [address] [place] [address] Thai Hart M.D. [id number] Glucose [Mass/Vol] 101 mg/dL High 65-99 [facility] Comment on above: Order Comment: [facility] has implemented the eGFR calculation approach that does not have a coefficient for race that conforms to the NKF-ASN Task Force Recommendations. Performed By: #### 4 6126 #### LAB [address] [place] [address] Thai Hart M.D. [id number] HCO3 (Bld) [Moles/Vol] 24 mmol/L Normal 21-32 [facility] Comment on above: Order Comment: [facility] has implemented the eGFR calculation approach that does not have a coefficient for race that conforms to the NKF-ASN Task Force Recommendations. Performed By: #### 4 6126 ####[facility] [address] [place] [address] Thai Hatr M.D. [id number] Potassium [Moles/Vol] 3.9 mmol/L Normal 3.5-5.1 [facility] Comment on above: Order Comment: [facility] has implemented the eGFR calculation approach that does not have a coefficient for race that conforms to the NKF-ASN Task Force Recommendations. Performed By: #### 4 6126 #### LAB [address] [place] [address] Thai Hart M.D. [id number] Protein [Mass/Vol] 7.3 g/dL Normal 6.0-8.0 [facility] Comment on above: Order Comment: [facility] has implemented the eGFR calculation approach that does not have a coefficient for race that conforms to the NKF-ASN Task Force Recommendations. Performed By: #### 4 6126 #### LAB [address] [place] [address] Thai Hart M.D. [id number] Sodium [Moles/Vol] 137 mmol/L Normal 135-145 [facility] Comment on above: Order Comment: [facility] has implemented the eGFR calculation approach that does not have a coefficient for race that conforms to the NKF-ASN Task Force Recommendations. Performed By: #### 4 6126 #### LAB [address] [place] [address] Thai Hart M.D. [id number] Urea nitrogen [Mass/Vol] 6 mg/dL Low 8-25 [facility] Comment on above: Order Comment: [facility] has implemented the eGFR calculation approach that does not have a coefficient for race that conforms to the NKF-ASN Task Force Recommendations. Performed By: #### 4 6126 #### LAB [address] [place] [address] Thai Hart M.D. [id number] Urea nitrogen/Creatinine [Mass ratio] 6.3 mg/mg Low 10.0-20.0 [facility] Comment on above: Order Comment: [facility] has implemented the eGFR calculation approach that does not have a coefficient for race that conforms to the NKF-ASN Task Force Recommendations. Performed By: #### 4 6126 #### LAB [address] [place] [address] Thai Hart M.D. [id number] DRUGS OF ABUSE SCREEN, URINE on 01-06-2024 AMPHETAMINE SCREEN, URINE Not detected Normal None Detected [facility] Comment on above: Order Comment: Scree n results should be used for treatment purposes only. Result Comment: Urin e Amphetamine Cutoff: < 1000 ng/mL = None Detected Performed By: #### 4 6965 #### LAB [address] [place] [address] Thai Hart M.D. [id number] BARBITURATE SCREEN URINE Not detected Normal None Detected [facility] Comment on above: Order Comment: Scree n results should be used for treatment purposes only. Result Comment: Urin e Barbiturates Cutoff: < 200 ng/mL = None Detected Performed By: #### 4 6965 #### LAB [address] [place] [address] Thai Hart M.D. [id number] BENZODIAZEPINE SCREEN, URINE Not detected Normal None Detected [facility] Comment on above: Order Comment: Scree n results should be used for treatment purposes only. Result Comment: Urin e Benzodiazepine Cutoff: < 200 ng/mL = None Detected Performed By: #### 4 6965 #### LAB [address] [place] [address] Thai Hart M.D. [id number] BUPRENORPHINE, URINE Not detected Normal None Detected [facility] Comment on above: Order Comment: Scree n results should be used for treatment purposes only. Result Comment: Urin e Buprenorphine Cutoff: < 5 ng/mL = None Detected Performed By: #### 4 6965 #### LAB [address] [place] [address] Thai Hart M.D. [id number] CANNABINOID SCREEN URINE Not detected Normal None Detected [facility] Comment on above: Order Comment: Scree n results should be used for treatment purposes only. Result Comment: Urin e Cannabinoids Cutoff: < 50 ng/mL = None Detected Performed By: #### 4 6929 #### LAB [address] [place] [address] Thai Hart M.D. [id number] COCAINE, SCREEN URINE Not detected Normal None Detected [facility] Comment on above: Order Comment: Scree n results should be used for treatment purposes only. Result Comment: Urin e Cocaine Cutoff: < 300 ng/mL = None Detected Performed By: #### 4 6965 ####[facility] [address] [place] [address] Thai Hart M.D. [id number] FENTANYL, URINE Not detected Normal None Detected [facility] Comment on above: Order Comment: Scree n results should be used for treatment purposes only. Result Comment: Urin e Fentanyl Cutoff: < 1 ng/mL = None Detected Performed By: #### 4 6965 ####[facility] [address] [place] [address] Thai Hart M.D. [id number] METHADONE SCREEN, URINE Not detected Normal None Detected [facility] Comment on above: Order Comment: Scree n results should be used for treatment purposes only. Result Comment: Urin e Methadone Cutoff: < 300 ng/mL = None Detected Performed By: #### 4 6965 ####[facility] [address] [place] [address] Thai Hart M.D. [id number] OPIATE SCREEN URINE Not detected Normal None Detected [facility] Comment on above: Order Comment: Scree n results should be used for treatment purposes only. Result Comment: Urin e Opiates Cutoff: < 300 ng/mL = None Detected Performed By: #### 4 6965 #### LAB [address] [place] [address] Thai Hart M.D. [id number] OXYCODONE SCREEN, URINE Not detected Normal None Detected [facility] Comment on above: Order Comment: Scree n results should be used for treatment purposes only. Result Comment: Urin e Oxycodone Cutoff: < 100 ng/mL = None Detected Performed By: #### 4 6965 ####[facility] [address] [place] [address] Thai Hart M.D. [id number] ED Prov Noteon 01-06-2024 ED Prov Note ED PROVIDER NOTE [facility] NAME: Artie Li AGE: 28 y.o. : 1995 VISIT DATE: 01/06/2024 CSN: [id number] PCP: Evelin Martino CNP Chief Complaint Patient presents with Alcohol Problem Patient is a 28-year-old male history of anxiety, depression, posttraumatic stress disorder and alcoholism sent into emergency department by his psychiatrist for evaluation of depression, impaired judgment and probable alcohol withdrawal. On exam patient is awake, alert. Admits to drink alcohol earlier this morning. He denies any fever or chills, no abdominal pain no nausea no vomiting no other complaints. Past Medical History: Diagnosis Date Anxiety Depression PTSD (post-traumatic stress disorder) Past Surgical History: Procedure Laterality Date APPENDECTOMY History reviewed. No pertinent family history. Social History Socioeconomic History Marital status: Single Tobacco Use Smoking status: Never Smokeless tobacco: Current Types: Snuff Vaping Use Vaping status: Never Used Substance and Sexual Activity Alcohol use: Yes Alcohol/week: 100.0 standard drinks of alcohol Types: 100 Cans of beer per week Comment: 15-20 beers a day Drug use: Never Sexual activity: Not Currently Social Determinants of Health Financial Resource Strain: Low Risk (06/04/2021) Overall Financial Resource Strain (CARDIA) Difficulty of Paying Living Expenses: Not hard at all Food Insecurity: No Food Insecurity (06/04/2021) Hunger Vital Sign Worried About Running Out of Food in the Last Year: Never true Ran Out of Food in the Last Year: Never true Transportation Needs: No Transportation Needs (06/04/2021) PRAPARE - Transportation Lack of Transportation (Medical): No Lack of Transportation (Non-Medical): No Social Connections: Unknown (06/04/2021) Social Connection and Isolation Panel [NHANES] Frequency of Communication with Friends and Family: More than three times a week Frequency of Social Gatherings with Friends and Family: More than three times a week Previous Medications Medication Sig multivitamin tablet Take 1 (one) tablet by mouth daily . No Known Allergies Review of Systems All other systems reviewed and are negative. No data found. Physical Exam Vitals and nursing note reviewed. Constitutional: General: He is not in acute distress. Appearance: Normal appearance. He is not ill-appearing, toxic-appearing or diaphoretic. HENT: Head: Normocephalic and atraumatic. Mouth/Throat: Mouth: Mucous membranes are dry. Eyes: General: Right eye: No discharge. Left eye: No discharge. Conjunctiva/sclera: Conjunctivae normal. Cardiovascular: Rate and Rhythm: Normal rate and regular rhythm. Musculoskeletal: General: No deformity or signs of injury. Cervical back: Normal range of motion and neck supple. Right lower leg: No edema. Left lower leg: No edema. Pulmonary: Effort: No respiratory distress. Breath sounds: No stridor. Skin: General: Skin is warm. Coloration: Skin is not jaundiced. Neurological: Mental Status: He is alert and oriented to person, place, and time. Psychiatric: Comments: Patient is anxious Laboratory & Radiographic Imaging (if done): Results for orders placed or performed during the hospital encounter of 01/06/24 Comprehensive Metabolic Panel Result Value Ref Range Sodium 137 135 - 145 mmol/L Potassium 3.9 3.5 - 5.1 mmol/L Chloride 96 (L) 98 - 108 mmol/L Bicarbonate 24 21 - 32 mmol/L Anion Gap 21 (H) 10 - 20 mmol/L Glucose 101 (H) 65 - 99 mg/dL BUN 6 (L) 8 - 25 mg/dL Creatinine 0.95 0.50 - 1.30 mg/dL eGFR 110 >=60 mL/min/1.73 m2 BUN/Creatinine Ratio 6.3 (L) 10.0 - 20.0 Total Protein 7.3 6.0 - 8.0 g/dL Albumin 4.7 3.2 - 5.2 g/dL Calcium 8.8 8.4 - 10.2 mg/dL Alkaline Phosphatase 63 40 - 140 U/L AST 26 0-50 U/L U/L ALT 21 0-50 U/L U/L Total Bilirubin 0.4 0.0 - 1.3 mg/dL Urinalysis Result Value Ref Range Color, Urine Yellow Colorless, Yellow Clarity, Urine Clear Clear Specific [place] 1.014 1.005 - 1.025 pH, Urine 5.5 5.0 - 7.0 Protein, Urine Negative Negative mg/dL Glucose, Urine Negative Negative mg/dL Ketones, Urine Negative Negative mg/dL Bilirubin, Urine Negative Negative Urobilinogen, Urine <2.0 <2.0 mg/dL Blood, Urine Negative Negative Nitrite, Urine Negative Negative Leukocyte Esterase, Urine Negative Negative WBCs, Urine 1 0 - 5 /hpf Bacteria, Urine None Seen None Seen /hpf Mucus, Urine Rare None Seen, Rare /lpf Alcohol, Medical Result Value Ref Range Alcohol (Medical) 185.0 (H) <10.0 mg/dL Drugs of Abuse Screen, Urine Result Value Ref Range Amphetamine Screen, Urine None Detected None Detected Barbiturate Screen, Urine None Detected None Detected Benzodiazepine Screen, Urine None Detected None Detected Cannabinoid Screen, Urine None Detected None Detected Cocaine, Screen Urine None Detected None Detected Methadone (more content not included)... Normal [facility] URINALYSISon 01-06-2024 BACTERIA, URINE None Seen Normal None Seen [facility] Comment on above: Order Comment: Micro scopic examination is performed on all urinalysis samples and only positive findings are reported. The test for blood on the chemical analytic portion of urinalysis may also be positive due to hemoglobinuria and myoglobinuria and if red blood cells are present they are quantified by microscopic examination. Performed By: #### 4 6625 #### LAB [address] [place] [address] Thai Hart M.D. [id number] BILIRUBIN, URINE Negative Normal Negative [facility] Comment on above: Order Comment: Micro scopic examination is performed on all urinalysis samples and only positive findings are reported. The test for blood on the chemical analytic portion of urinalysis may also be positive due to hemoglobinuria and myoglobinuria and if red blood cells are present they are quantified by microscopic examination. Performed By: #### 4 6625 #### LAB [address] [place] [address] Thai Hart M.D. [id number] BLOOD, URINE Negative Normal Negative [facility] Comment on above: Order Comment: Micro scopic examination is performed on all urinalysis samples and only positive findings are reported. The test for blood on the chemical analytic portion of urinalysis may also be positive due to hemoglobinuria and myoglobinuria and if red blood cells are present they are quantified by microscopic examination. Performed By: #### 4 6625 #### LAB [address] [place], [place] [address] Thai Hart M.D. [id number] Clarity (U) Clear Normal Clear [facility] Comment on above: Order Comment: Micro scopic examination is performed on all urinalysis samples and only positive findings are reported. The test for blood on the chemical analytic portion of urinalysis may also be positive due to hemoglobinuria and myoglobinuria and if red blood cells are present they are quantified by microscopic examination. Performed By: #### 4 6625 #### LAB [address] [place] [address] Thai Hart M.D. [id number] Color (U) Yellow Normal Colorless, Yellow [facility] Comment on above: Order Comment: Micro scopic examination is performed on all urinalysis samples and only positive findings are reported. The test for blood on the chemical analytic portion of urinalysis may also be positive due to hemoglobinuria and myoglobinuria and if red blood cells are present they are quantified by microscopic examination. Performed By: #### 4 6625 #### LAB [address] [place] [address] Thai Hart M.D. [id number] Glucose Ql (U) Negative Normal Negative [facility] Comment on above: Order Comment: Micro scopic examination is performed on all urinalysis samples and only positive findings are reported. The test for blood on the chemical analytic portion of urinalysis may also be positive due to hemoglobinuria and myoglobinuria and if red blood cells are present they are quantified by microscopic examination. Performed By: #### 4 6625 #### LAB [address] [place] [address] Thai Hart M.D. [id number] Ketones Ql (U) Negative Normal Negative [facility] Comment on above: Order Comment: Micro scopic examination is performed on all urinalysis samples and only positive findings are reported. The test for blood on the chemical analytic portion of urinalysis may also be positive due to hemoglobinuria and myoglobinuria and if red blood cells are present they are quantified by microscopic examination. Performed By: #### 4 6625 #### LAB [address] [address] Thai Hart M.D. [id number] Leukocyte esterase Test strip Ql (U) Negative Normal Negative [facility] Comment on above: Order Comment: Micro scopic examination is performed on all urinalysis samples and only positive findings are reported. The test for blood on the chemical analytic portion of urinalysis may also be positive due to hemoglobinuria and myoglobinuria and if red blood cells are present they are quantified by microscopic examination. Performed By: #### 4 6625 #### LAB [address] [id number] Thai Hart M.D. [id number] MUCUS, URINE Rare Normal None Seen, Rare [facility] Comment on above: Order Comment: Micro scopic examination is performed on all urinalysis samples and only positive findings are reported. The test for blood on the chemical analytic portion of urinalysis may also be positive due to hemoglobinuria and myoglobinuria and if red blood cells are present they are quantified by microscopic examination. Performed By: #### 4 6625 #### LAB [address] [address] Thai Hart M.D. [id number] NITRITE, URINE Negative Normal Negative [facility] Comment on above: Order Comment: Micro scopic examination is performed on all urinalysis samples and only positive findings are reported. The test for blood on the chemical analytic portion of urinalysis may also be positive due to hemoglobinuria and myoglobinuria and if red blood cells are present they are quantified by microscopic examination. Performed By: #### 4 6625 #### LAB [address] [id number] Thai Hart M.D. [id number] pH (U) 5.5 [pH] Normal 5.0-7.0 [facility] Comment on above: Order Comment: Micro scopic examination is performed on all urinalysis samples and only positive findings are reported. The test for blood on the chemical analytic portion of urinalysis may also be positive due to hemoglobinuria and myoglobinuria and if red blood cells are present they are quantified by microscopic examination. Performed By: #### 4 6625 #### LAB [address] [id number] Thai Hart M.D. [id number] PROTEIN, URINE Negative Normal Negative [facility] Comment on above: Order Comment: Micro scopic examination is performed on all urinalysis samples and only positive findings are reported. The test for blood on the chemical analytic portion of urinalysis may also be positive due to hemoglobinuria and myoglobinuria and if red blood cells are present they are quantified by microscopic examination. Performed By: #### 4 6625 #### LAB [address] [address] Thai Hart M.D. [id number] Specific gravity (U) [Rel density] 1.014 Normal 1.005-1.025 [facility] Comment on above: Order Comment: Micro scopic examination is performed on all urinalysis samples and only positive findings are reported. The test for blood on the chemical analytic portion of urinalysis may also be positive due to hemoglobinuria and myoglobinuria and if red blood cells are present they are quantified by microscopic examination. Performed By: #### 4 6625 #### LAB [address] [place] [address] Thai Hart M.D. [id number] UROBILINOGEN, URINE <2.0 Normal <2.0 [facility] Comment on above: Order Comment: Micro scopic examination is performed on all urinalysis samples and only positive findings are reported. The test for blood on the chemical analytic portion of urinalysis may also be positive due to hemoglobinuria and myoglobinuria and if red blood cells are present they are quantified by microscopic examination. Performed By: #### 4 6625 #### LAB [address] [place] [address] Thai Hart M.D. [id number] WBC LM.HPF (Urine sed) [#/Area] 1 /[HPF] Normal 0-5 [facility] Comment on above: Order Comment: Micro scopic examination is performed on all urinalysis samples and only positive findings are reported. The test for blood on the chemical analytic portion of urinalysis may also be positive due to hemoglobinuria and myoglobinuria and if red blood cells are present they are quantified by microscopic examination. Performed By: #### 4 6625 #### LAB [address] [place] [address] Thai Hart M.D. [id number] CBC W Auto Differential pane l (Bld)on 01-04-2024 Basophils (Bld) [#/Vol] 0.08 10*3/uL [facility] Basophils/100 WBC (Bld) 0.7 % 0.0 - 2.0 % [facility] Eosinophils (Bld) [#/Vol] 0.04 10*3/uL [facility] Eosinophils/100 WBC (Bld) 0.4 % 0.0 - 6.0 % [facility] Erythrocyte distribution width (RBC) [Ratio] 13.5 % 11.5 - 14.5 % [facility] Hematocrit (Bld) [Volume fraction] 47.0 % 41.0 - 52.0 % [facility] Hemoglobin (Bld) [Mass/Vol] 16.2 g/dL 13.5 - 17.5 g/dL [facility] Immature granulocytes (Bld) [#/Vol] 0.05 10*3/uL [facility] Immature granulocytes/100 WBC (Bld) 0.5 % 0.0 - 0.9 % [facility] Comment on above: Immature Granulocyte Count (IG) includes promyelocytes, myelocytes and metamyelocytes but does not include bands. Percent differential counts (%) should be interpreted in the context of the absolute cell counts (cells/UL). Interpretation and review of laboratory results Abnormal [facility] Lymphocytes (Bld) [#/Vol] 4.84 10*3/uL High [facility] Lymphocytes/100 WBC (Bld) 44.5 % 13.0 - 44.0 % [facility] MCH (RBC) [Entitic mass] 29.7 pg 26.0 - 34.0 pg [facility] MCHC (RBC) [Mass/Vol] 34.5 g/dL 32.0 - 36.0 g/dL [facility] MCV (RBC) [Entitic vol] 86 fL 80 - 100 fL [facility] Monocytes (Bld) [#/Vol] 0.65 10*3/uL [facility] Monocytes/100 WBC (Bld) 6.0 % 2.0 - 10.0 % [facility] Neutrophils (Bld) [#/Vol] 5.21 10*3/uL [facility] Comment on above: Percent differential counts (%) should be interpreted in the context of the absolute cell counts (cells/uL). Neutrophils/100 WBC (Bld) 47.9 % 40.0 - 80.0 % [facility] Nucleated RBC/100 WBC (Bld) [Ratio] 0.0 % [facility] Platelets (Bld) [#/Vol] 258 10*3/uL [facility] RBC (Bld) [#/Vol] 5.46 10*6/uL [facility] WBC (Bld) [#/Vol] 10.9 10*3/uL [facility] Basophils (Bld) [#/Vol] 0.08 x10*3/uL Normal 0.00-0.10 [facility] Comment on above: Performed By: #### 5 7021-8 #### EVA SIERRA ([id number]) [facility] ([facility]) [address] [place] [address]177 Basophils/100 WBC (Bld) 0.7 % Normal 0.0-2.0 [facility] Comment on above: Performed By: #### 5 7021-8 #### EVA SIERRA ([id number]) [facility] ([facility]) [facility] [place] [address] Eosinophils (Bld) [#/Vol] 0.04 x10*3/uL Normal 0.00-0.70 [facility] Comment on above: Performed By: #### 5 7021-8 #### EVA SIERRA ([id number]) [facility] ([facility]) [facility] [place] [address] Eosinophils/100 WBC (Bld) 0.4 % Normal 0.0-6.0 [facility] Comment on above: Performed By: #### 5 7021-8 #### EVA SIERRA ([id number]) [facility] ([facility]) [address] [place] [address] 84549 Erythrocyte distribution width (RBC) [Ratio] 13.5 % Normal 11.5-14.5 [facility] Comment on above: Performed By: #### 5 7021-8 #### EVA SIERRA ([id number]) [facility] ([facility]) [address] [place] [address] 13072 Hematocrit (Bld) [Volume fraction] 47.0 % Normal 41.0-52.0 [facility] Comment on above: Performed By: #### 5 7021-8 #### EVA SIERRA ([id number]) [facility] ([facility]) [address] [place] [address] 86385 Hemoglobin (Bld) [Mass/Vol] 16.2 g/dL Normal 13.5-17.5 [facility] Comment on above: Performed By: #### 5 7021-8 #### EVA SIERRA ([id number]) [facility] ([facility]) [address] [place] [address] 42177 Immature granulocytes (Bld) [#/Vol] 0.05 x10*3/uL Normal 0.00-0.70 [facility] Comment on above: Performed By: #### 5 7021-8 #### EVA SIERRA ([id number]) [facility] ([facility]) [address] [place] [address] 56886 Immature granulocytes/100 WBC (Bld) 0.5 % Normal 0.0-0.9 [facility] Comment on above: Result Comment: Rosy ture Granulocyte Count (IG) includes promyelocytes, myelocytes and metamyelocytes but does not include bands. Percent differential counts (%) should be interpreted in the context of the absolute cell counts (cells/UL). Performed By: #### 5 7021-8 #### EVA SIERRA ([id number]) [facility] ([facility]) [address] [place] [address] 69493 Lymphocytes (Bld) [#/Vol] 4.84 x10*3/uL High 1.20-4.80 [facility] Comment on above: Performed By: #### 5 7021-8 #### EVA SIERRA ([id number]) [facility] ([facility]) [address] [place] [address] 90092 Lymphocytes/100 WBC (Bld) 44.5 % Normal 13.0-44.0 [facility] Comment on above: Performed By: #### 5 7021-8 #### EVA SIERRA ([id number]) [facility] ([facility]) [address] [place] [address] 37895 MCH (RBC) [Entitic mass] 29.7 pg Normal 26.0-34.0 [facility] Comment on above: Performed By: #### 5 7021-8 #### EVA SIERRA ([id number]) [facility] ([facility]) [address] [place] [address] 72787 MCHC (RBC) [Mass/Vol] 34.5 g/dL Normal 32.0-36.0 [facility] Comment on above: Performed By: #### 5 7021-8 #### EVA SIERRA ([id number]) [facility] ([facility]) [address] [place] [address] 47137 MCV (RBC) [Entitic vol] 86 fL Normal 80-100 [facility] Comment on above: Performed By: #### 5 7021-8 #### EVA SIERRA ([id number]) [facility] ([facility]) [address] [place] [address] 63399 Monocytes (Bld) [#/Vol] 0.65 x10*3/uL Normal 0.10-1.00 [facility] Comment on above: Performed By: #### 5 7021-8 #### EVA SIERRA ([id number]) [facility] ([facility]) [address] [place] [address]157 Monocytes/100 WBC (Bld) 6.0 % Normal 2.0-10.0 [facility] Comment on above: Performed By: #### 5 7021-8 #### EVA SIERRA ([id number]) [facility] ([facility]) [address] [place] [address] 94105 Neutrophils (Bld) [#/Vol] 5.21 x10*3/uL Normal 1.20-7.70 [facility] Comment on above: Result Comment: Perc ent differential counts (%) should be interpreted in the context of the absolute cell counts (cells/uL). Performed By: #### 5 7021-8 #### EVA SIERRA ([id number]) [facility] ([facility]) [address] [place] [address] 78240 Neutrophils/100 WBC (Bld) 47.9 % Normal 40.0-80.0 [facility] Comment on above: Performed By: #### 5 7021-8 #### EVA SIERRA ([id number]) [facility] ([facility]) [address] [place] [address] 60272 Nucleated RBC/100 WBC (Bld) [Ratio] 0.0 /100 WBCs Normal 0.0-0.0 [facility] Comment on above: Performed By: #### 5 7021-8 #### EVA SIERRA ([id number]) [facility] ([facility]) [address] [place] [address] 55063 Platelets (Bld) [#/Vol] 258 x10*3/uL Normal 150-450 [facility] Comment on above: Performed By: #### 5 7021-8 #### EVA SIERRA ([id number]) [facility] ([facility]) [address] [place] [address] 87310 RBC (Bld) [#/Vol] 5.46 x10*6/uL Normal 4.50-5.90 [facility] Comment on above: Performed By: #### 5 7021-8 #### EVA SIERRA ([id number]) [facility] ([facility]) [address] [place] [address] 82670 WBC (Bld) [#/Vol] 10.9 x10*3/uL Normal 4.4-11.3 [facility] Comment on above: Performed By: #### 5 7021-8 #### EVA SIERRA ([id number]) [facility] ([facility]) [address] [place] [address] ABDOMEN PELVIS W IV CONTR Alyssa 01-04-2024 CT ABDOMEN PELVIS W IV CONTRAST Interpreted By: Stupin, Aime, STUDY: CT ABDOMEN PELVIS W IV CONTRAST; 01/04/2024 10:26 am INDICATION: Signs/Symptoms:epigastri c pain. COMPARISON: CT abdomen pelvis 12/26/2019 ACCESSION NUMBER(S): [id number] ORDERING CLINICIAN: SABAS BENZ TECHNIQUE: CT of the abdomen and pelvis was performed. Standard contiguous axial images were obtained at 3 mm slice thickness through the abdomen and pelvis. Coronal and sagittal reconstructions at 3 mm slice thickness were performed. of were administered intravenously without immediate complication. FINDINGS: LOWER CHEST: No consolidation or effusion. Stable calcified nodule the right middle lobe peripherally suggestive of old granulomatous disease. ABDOMEN: LIVER: Unremarkable BILE DUCTS: Appearance of or trace intrahepatic biliary dilatation. No obvious common bile duct dilatation. GALLBLADDER: Distended. No obvious calcified gallstones. PANCREAS: Unremarkable SPLEEN: Unremarkable. ADRENAL GLANDS: Unremarkable. KIDNEYS AND URETERS: The bilateral kidneys enhance symmetrically. Appearance of mild right-sided hydroureter. No obstructing calculus is seen. PELVIS: BLADDER: Unremarkable. REPRODUCTIVE ORGANS: No pelvic mass seen. BOWEL: Surgically absent appendix. Decompressed descending and sigmoid colon which limits evaluation for wall thickening. Upper gastrointestinal tract is not adequately distended for evaluation. No pathologic distention of large or small bowel. VESSELS: No evidence of abdominal aortic aneurysm. PERITONEUM/RETROPERITONE UM/LYMPH NODES: No ascites or free air, no fluid collection. No enlarged mesenteric lymph nodes. BONES AND ABDOMINAL WALL: No acute osseous abnormality. Multilevel spondylosis throughout the imaged spine. IMPRESSION: 1. Distended gallbladder with trace intrahepatic biliary dilatation. No obvious calcified gallstones seen. Correlate with liver function tests and consider right upper quadrant ultrasound for further assessment. 2. Appearance of mild right-sided hydroureter without obstructing calcification. Correlate with urinalysis. Signed by: Aime Croft 01/04/2024 10:56 AM Dictation workstation: [id number] [facility] CT Abdomen and Pelvis W cont rast Faina 01-04-2024 1. Distended gallbla dder with trace intrahepatic biliary dilatation. No obvious calcified gallstones seen. Correlate with liver function tests and consider right upper quadrant ultrasound for further assessment. 2. Appearance of mild right-sided hydroureter without obstructing calcification. Correlate with urinalysis. Signed by: Aime Croft 01/04/2024 10:56 AM Dictation workstation: [id number] MMODAL Interpreted By: Aime Hubbard, STUDY: CT ABDOMEN PELVIS W IV CONTRAST; 01/04/2024 10:26 am INDICATION: Signs/Symptoms:epigastri c pain. COMPARISON: CT abdomen pelvis 12/26/2019 ACCESSION NUMBER(S): [id number] ORDERING CLINICIAN: SABAS BENZ TECHNIQUE: CT of the abdomen and pelvis was performed. Standard contiguous axial images were obtained at 3 mm slice thickness through the abdomen and pelvis. Coronal and sagittal reconstructions at 3 mm slice thickness were performed. of were administered intravenously without immediate complication. FINDINGS: LOWER CHEST: No consolidation or effusion. Stable calcified nodule the right middle lobe peripherally suggestive of old granulomatous disease. ABDOMEN: LIVER: Unremarkable BILE DUCTS: Appearance of or trace intrahepatic biliary dilatation. No obvious common bile duct dilatation. GALLBLADDER: Distended. No obvious calcified gallstones. PANCREAS: Unremarkable SPLEEN: Unremarkable. ADRENAL GLANDS: Unremarkable. KIDNEYS AND URETERS: The bilateral kidneys enhance symmetrically. Appearance of mild right-sided hydroureter. No obstructing calculus is seen. PELVIS: BLADDER: Unremarkable. REPRODUCTIVE ORGANS: No pelvic mass seen. BOWEL: Surgically absent appendix. Decompressed descending and sigmoid colon which limits evaluation for wall thickening. Upper gastrointestinal tract is not adequately distended for evaluation. No pathologic distention of large or small bowel. VESSELS: No evidence of abdominal aortic aneurysm. PERITONEUM/RETROPERITONE UM/LYMPH NODES: No ascites or free air, no fluid collection. No enlarged mesenteric lymph nodes. BONES AND ABDOMINAL WALL: No acute osseous abnormality. Multilevel spondylosis throughout the imaged spine. MMODAL Aime Croft MD - 01/04/2024 Interpreted By: Aime Croft, STUDY: CT ABDOMEN PELVIS W IV CONTRAST; 01/04/2024 10:26 am INDICATION: Signs/Symptoms:epigastri c pain. COMPARISON: CT abdomen pelvis 12/26/2019 ACCESSION NUMBER(S): [id number] ORDERING CLINICIAN: SABAS BENZ TECHNIQUE: CT of the abdomen and pelvis was performed. Standard contiguous axial images were obtained at 3 mm slice thickness through the abdomen and pelvis. Coronal and sagittal reconstructions at 3 mm slice thickness were performed. of were administered intravenously without immediate complication. FINDINGS: LOWER CHEST: No consolidation or effusion. Stable calcified nodule the right middle lobe peripherally suggestive of old granulomatous disease. ABDOMEN: LIVER: Unremarkable BILE DUCTS: Appearance of or trace intrahepatic biliary dilatation. No obvious common bile duct dilatation. GALLBLADDER: Distended. No obvious calcified gallstones. PANCREAS: Unremarkable SPLEEN: Unremarkable. ADRENAL GLANDS: Unremarkable. KIDNEYS AND URETERS: The bilateral kidneys enhance symmetrically. Appearance of mild right-sided hydroureter. No obstructing calculus is seen. PELVIS: BLADDER: Unremarkable. REPRODUCTIVE ORGANS: No pelvic mass seen. BOWEL: Surgically absent appendix. Decompressed descending and sigmoid colon which limits evaluation for wall thickening. Upper gastrointestinal tract is not adequately distended for evaluation. No pathologic distention of large or small bowel. VESSELS: No evidence of abdominal aortic aneurysm. PERITONEUM/RETROPERITONE UM/LYMPH NODES: No ascites or free air, no fluid collection. No enlarged mesenteric lymph nodes. BONES AND ABDOMINAL WALL: No acute osseous abnormality. Multilevel spondylosis throughout the imaged spine. IMPRESSION: 1. Distended gallbladder with trace intrahepatic biliary dilatation. No obvious calcified gallstones seen. Correlate with liver function tests and consider right upper quadrant ultrasound for further assessment. 2. Appearance of mild right-sided hydroureter without obstructing calcification. Correlate with urinalysis. Signed by: Aime Croft 01/04/2024 10:56 AM Dictation workstation: [id number] [facility] Work Phone: Radiology Study observation (narrative) [facility] Work Phone: CT Abdomen and Pelvis W cont rast IVOrdered By: Aime Croft on 01-04-2024 [facility] Work Phone: Comprehensive metabolic 2000 panelon 01-04-2024 Albumin BCP dye [Mass/Vol] 4.9 g/dL 3.4 - 5.0 g/dL [facility] ALP [Catalytic activity/Vol] 61 U/L 33 - 120 U/L [facility] ALT With P-5'-P [Catalytic activity/Vol] 22 U/L 10 - 52 U/L [facility] Comment on above: Patients treated wit h Sulfasalazine may generate falsely decreased results for ALT. Anion gap [Moles/Vol] 16 mmol/L 10 - 2 0 mmol/L [facility] AST With P-5'-P [Catalytic activity/Vol] 22 U/L 9 - 39 U/L [facility] Bilirubin [Mass/Vol] 0.4 mg/dL 0.0 - 1 .2 mg/dL [facility] Calcium [Mass/Vol] 8.9 mg/dL 8.6 - 10. 3 mg/dL [facility] Chloride [Moles/Vol] 97 mmol/L Low 98 - 10 7 mmol/L [facility] CO2 [Moles/Vol] 28 mmol/L 21 - 32 mmol/L [facility] Creatinine [Mass/Vol] 0.99 mg/dL 0.50 - 1.30 mg/dL [facility] eGFR - PINF [facility] Comment on above: Calculations of ronald mated GFR are performed using the 2020 CKD-EPI Study Refit equation without the race variable for the IDMS-Traceable creatinine methods. https://jasn.asnjournals.org/content/early//ASN.2020 767489 Glucose [Mass/Vol] 137 mg/dL High 74 - 99 mg/dL [facility] Interpretation and review of laboratory results Abnormal [facility] Potassium [Moles/Vol] 3.6 mmol/L 3.5 - 5.3 mmol/L [facility] Protein [Mass/Vol] 7.6 g/dL 6.4 - 8.2 g/dL [facility] Sodium [Moles/Vol] 137 mmol/L 136 - 145 mmol/L [facility] Urea nitrogen [Mass/Vol] 7 mg/dL 6 - 23 mg/dL [facility] Albumin BCP dye [Mass/Vol] 4.9 g/dL Normal 3.4-5.0 [facility] Comment on above: Performed By: #### 2 4323-8 #### VELASQUEZ RIGO ([id number]) [facility] ([facility]) [address] [place] [address] ALP [Catalytic activity/Vol] 61 U/L Normal 33-120 [facility] Comment on above: Performed By: #### 2 3033-8 #### EVA SIERRA ([id number]) [facility] ([facility]) [address] [place] [address] ALT With P-5'-P [Catalytic activity/Vol] 22 U/L Normal 10-52 [facility] Comment on above: Result Comment: Antonina ents treated with Sulfasalazine may generate falsely decreased results for ALT. Performed By: #### 2 4323-8 #### EVA SIERRA ([id number]) [facility] ([facility]) [address] [place] [address] Anion gap [Moles/Vol] 16 mmol/L Normal 10-20 [facility] Comment on above: Performed By: #### 2 432-8 #### EVA SIERRA ([id number]) [facility] ([facility]) [address] [place] [address] AST With P-5'-P [Catalytic activity/Vol] 22 U/L Normal 9-39 [facility] Comment on above: Performed By: #### 2 432-8 #### EVA SIERRA ([id number]) [facility] ([facility]) [address] [place] [address] Bilirubin [Mass/Vol] 0.4 mg/dL Normal 0.0-1.2 [facility] Comment on above: Performed By: #### 2 4323-8 #### EVA SIERRA ([id number]) [facility] ([facility]) [address] [place] [address] Calcium [Mass/Vol] 8.9 mg/dL Normal 8.6-10.3 [facility] Comment on above: Performed By: #### 2 4323-8 #### EVA SIERRA ([id number]) [facility] ([facility]) [address] [place] [address] 91638 Chloride [Moles/Vol] 97 mmol/L Low 98-107 [facility] Comment on above: Performed By: #### 2 4323-8 #### EVA SIERRA ([id number]) [facility] ([facility]) [address] [place] [address] CO2 [Moles/Vol] 28 mmol/L Normal 21-32 [facility] Comment on above: Performed By: #### 2 4323-8 #### EVA SIERRA ([id number]) [facility] ([facility]) [facility] [place] [address] Creatinine [Mass/Vol] 0.99 mg/dL Normal 0.50-1.30 [facility] Comment on above: Performed By: #### 2 4323-8 #### EVA SIERRA ([id number]) [facility] ([facility]) [address] [place] [address] 01124 GFR/1.73 sq M.predicted MDRD (S/P/Bld) [Vol rate/Area] mL/min/{1.73_m2} Normal >60 [facility] Comment on above: Result Comment: Calc ulations of estimated GFR are performed using the 2020 CKD-EPI Study Refit equation without the race variable for the IDMS-Traceable creatinine methods. https://jasn.asnjournals.org/content/early//ASN.2020 652801 Performed By: #### 2 4323-8 #### EVA SIERRA ([id number]) [facility] ([facility]) [address] [place] [address] 92223 Glucose [Mass/Vol] 137 mg/dL High 74-99 [facility] Comment on above: Performed By: #### 2 4323-8 #### EVA SIERRA ([id number]) [facility] ([facility]) [address] [place] [address] 84578 Potassium [Moles/Vol] 3.6 mmol/L Normal 3.5-5.3 [facility] Comment on above: Performed By: #### 2 4323-8 #### EVA SIERRA ([id number]) [facility] ([facility]) [facility] [place] [address] Protein [Mass/Vol] 7.6 g/dL Normal 6.4-8.2 [facility] Comment on above: Performed By: #### 2 4323-8 #### EVA SIERRA ([id number]) [facility] ([facility]) [address] [place] [address] 63231 Sodium [Moles/Vol] 137 mmol/L Normal 136-145 [facility] Comment on above: Performed By: #### 2 4323-8 #### EVA SIERRA ([id number]) [facility] ([facility]) [address] [place] [address] 49017 Urea nitrogen [Mass/Vol] 7 mg/dL Normal 6- [facility] Comment on above: Performed By: #### 2 4323-8 #### EVA SIERRA ([id number]) [facility] ([facility]) [address] [place] [address] 05866 Lipaseon 01-04-2024 Lipase [Catalytic activity/Vol] 30 U/L U/L [facility] Lipase [Catalytic activity/V ol]on 01-04-2024 Interpretation and review of laboratory results Normal [facility] Venipuncture immedia tely after or during the administration of Metamizole may lead to falsely low results. Testing should be performed immediately prior to Metamizole dosing. [facility] Triacylglycerol lipaseon Lipase [Catalytic activity/Vol] 30 U/L Normal [facility] Comment on above: Order Comment: Venip uncture immediately after or during the administration of Metamizole may lead to falsely low results. Testing should be performed immediately prior to Metamizole dosing. Performed By: #### 3 040-3 #### EVA SIERRA ([id number]) [facility] ([facility]) [address] [place] [address] 20522 Urinalysis complete panel (U )on 01-04-2024 Appearance (U) Clear Clear [facility] Bilirubin (U) [Mass/Vol] Negative NEGATIVE [facility] Color (U) Colorless Abnormal Light-Yello w, Yellow, Dark-Yellow [facility] Glucose Auto test strip (U) [Mass/Vol] Normal Normal mg/dL [facility] Interpretation and review of laboratory results Abnormal [facility] Ketones (U) [Mass/Vol] Negative NEGAT JOHN mg/dL [facility] Leukocyte esterase Auto test strip Ql (U) Negative NEGATIVE [facility] Nitrite Auto test strip Ql (U) Negative NEGATIVE [facility] pH (U) 6.5 [pH] 5.0, 5.5, 6.0, 6.5, 7.0, 7.5, 8.0 [facility] Protein (U) [Mass/Vol] Negative NEGAT JOHN, 10 (TRACE), 20 (TRACE) mg/dL [facility] RBC (U) [#/Vol] Negative NEGATIVE [facility] Specific gravity (U) [Rel density] 1.014 1.005 - 1.035 [facility] Urobilinogen (U) [Mass/Vol] Normal Normal mg/dL [facility] Appearance (U) Clear Normal Clear [facility] Comment on above: Performed By: #### 2 4356-8 #### EVA SIERRA ([id number]) [facility] ([facility]) [address] [place] [address] 52384 Bilirubin (U) [Mass/Vol] Negative Normal NEGATIVE [facility] Comment on above: Performed By: #### 2 4356-8 #### EVA SIERRA ([id number]) [facility] ([facility]) [address] [place] [address] 99823 Color (U) Colorless Normal Light-Yello w, Yellow, Dark-Yellow [facility] Comment on above: Performed By: #### 2 4356-8 #### EVA SIERRA ([id number]) [facility] ([facility]) [address] [place] [address] 02100 Glucose Auto test strip (U) [Mass/Vol] Normal Normal Normal [facility] Comment on above: Performed By: #### 2 4356-8 #### EVA SIERRA ([id number]) [facility] ([facility]) [address] [place] [address] 18081 Ketones (U) [Mass/Vol] Negative Normal [facility] on above: Performed By: #### 2 4356-8 #### EVA SIERRA ([id number]) [facility] ([facility]) [address] [place] [address] 23901 Leukocyte esterase Auto test strip Ql (U) Negative Normal NEGATIVE [facility] Comment on above: Performed By: #### 2 4356-8 #### EVA SIERRA ([id number]) [facility] ([facility]) [address] [place] [address] 74284 Nitrite Auto test strip Ql (U) Negative Normal NEGATIVE [facility] Comment on above: Performed By: #### 2 4356-8 #### EVA SIERRA ([id number]) [facility] ([facility]) [address] [place] [address] pH (U) 6.5 [pH] Normal 5.0, 5.5, 6.0, 6.5, 7.0, 7.5, 8.0 [facility] Comment on above: Performed By: #### 2 4356-8 #### EVA SIERRA ([id number]) [facility] ([facility]) [address] [place] [address] 72055 Protein (U) [Mass/Vol] Negative Normal NEGAT JOHN, 10 (TRACE), 20 (TRACE) [facility] Comment on above: Performed By: #### 2 4356-8 #### EVA SIERRA ([id number]) [facility] ([facility]) [address] [place] [address] 98177 RBC (U) [#/Vol] Negative Normal NEGATIVE [facility] Comment on above: Performed By: #### 2 4356-8 #### EVA SIERRA ([id number]) [facility] ([facility]) [address] [place] [address] 38130 Specific gravity (U) [Rel density] 1.014 Normal 1.005-1.035 [facility] Comment on above: Performed By: #### 2 4356-8 #### EVA SIERRA ([id number]) [facility] ([facility]) [address] [place] [address] 98554 Urobilinogen (U) [Mass/Vol] Normal Normal Normal [facility] Comment on above: Performed By: #### 2 4356-8 #### EVA SIERRA ([id number]) [facility] ([facility]) [address] [place] [address] 12 Lead EKGon 12-30-2023 [address] Lead E[address] [facility] Cardiovascular Services [address] [place] [address] 12 Lead EKG 12/30/23 0025 MR#: [id number] Acct: [id number] Name: SIMBA LI Rep #: [id number] : 1995 28 From: Avery Silvestre MD Attending Dr: Status: DEP ER Ordering Dr: Enoc Elizabeth DO Date: 12/30/23 Location: ED Sex: M C Admitted: Test Reason : SUICIDAL Blood Pressure : / mmHG Vent. Rate : 093 BPM Atrial Rate : 093 BPM P-R Int : 158 ms QRS Dur : 084 ms QT Int : 356 ms P-R-T Axes : 030 034 036 degrees QTc Int : 442 ms Normal sinus rhythm Normal ECG Confirmed by Avery Silvestre ([id number]), editorial project manager MANDA MORFIN ([id number]) on 01/04/2024 10:39:47 AM Referred By: RYAN Confirmed By:Avery Silvestre 01/04/24 1039 Date Avery Silvestre MD CC: Enoc Elizabeth DO; No Primary Care Physician Signed Normal [facility] Alcohol, Blood (Medical)-Ser umon 12-30-2023 SERUM ETOH 96.0 mg/dL Normal [facility] Comment on above: Result Comment: The serum:whole blood ethanol ratio is approximately 1.14 and varies slightly with hematocrit. Medical Alcohol reference interval and critical value in non-tolerant individuals; 50 - 100 Impairment 100 Intoxication 100 - 250 Severe Poisoning 250 - 400 Deep/possible fatal coma Performed By: #### L 501.9100 #### [facility] [address] [facility] [place], [address] SERUM ETOH 285.0 mg/dL Normal [facility] Comment on above: Result Comment: The serum:whole blood ethanol ratio is approximately 1.14 and varies slightly with hematocrit. Medical Alcohol reference interval and critical value in non-tolerant individuals; 50 - 100 Impairment 100 Intoxication 100 - 250 Severe Poisoning 250 - 400 Deep/possible fatal coma Performed By: #### L 500.3400, L501.9100, L100.0100, L505.5000, L500.2500 #### [facility] [address] [place], [address] Basic Metabolic Profile (BMP )on 12-30-2023 BUN/CRE 6.2 RATIO Low 10-20 [facility] Comment on above: Performed By: #### L 500.3400, L501.9100, L100.0100, L505.5000, L500.2500 #### [facility] [address] [place], [address] CA,Total 9.3 mg/dL Normal 8.5-10.1 [facility] Comment on above: Performed By: #### L 500.3400, L501.9100, L100.0100, L505.5000, L500.2500 #### [facility] [address] [place], [address] Chloride [Moles/Vol] 98 mmol/L Normal 98-107 [facility] Comment on above: Performed By: #### L 500.3400, L501.9100, L100.0100, L505.5000, L500.2500 #### [facility] [address] [place], [address] CO2 [Moles/Vol] 26.0 mmol/L Normal 21.0-32.0 [facility] Comment on above: Performed By: #### L 500.3400, L501.9100, L100.0100, L505.5000, L500.2500 #### [facility] [address] [place], [address] Creatinine [Mass/Vol] 1.28 mg/dL Normal 0.70-1.30 [facility] Comment on above: Result Comment: The validity of the calculated GFR GFRAA in patients over 70 years has not been determined. Clinical correlation is essential. Performed By: #### L 500.3400, L501.9100, L100.0100, L505.5000, L500.2500 #### [facility] [address] [place], [address] ECRCL 111.69 ml/min Normal [facility] Comment on above: Performed By: #### L 500.3400, L501.9100, L100.0100, L505.5000, L500.2500 #### [facility] [address] [place], [address] EST GFR - AA 84 mL/min Normal >60 [facility] Comment on above: Result Comment: Afri can [place] GFR Calc Performed By: #### L 500.3400, L501.9100, L100.0100, L505.5000, L500.2500 #### [facility] [address] [place], [address] GAP 11 Normal 5-15 [facility] Comment on above: Performed By: #### L 500.3400, L501.9100, L100.0100, L505.5000, L500.2500 #### [facility] [address] [place], [address] GFR/1.73 sq M.predicted among non-blacks MDRD (S/P/Bld) [Vol rate/Area] 70 mL/min/{1.73_m2} Normal >60 [facility] Comment on above: Result Comment: Non- GFR Calc Performed By: #### L 500.3400, L501.9100, L100.0100, L505.5000, L500.2500 #### [facility] [address] [place], [address] Glucose [Mass/Vol] 113 mg/dL High 74-106 [facility] Comment on above: Result Comment: Fast ing Glucose result from 100 to 125 mg/dL suggests IMPAIRED HOMEOSTASIS per A.D.A. criteria. Performed By: #### L 500.3400, L501.9100, L100.0100, L505.5000, L500.2500 #### [facility] [address] [place], [address] Potassium [Moles/Vol] 3.5 mmol/L Normal 3.5-5.1 [facility] Comment on above: Performed By: #### L 500.3400, L501.9100, L100.0100, L505.5000, L500.2500 #### [facility] [address] [place], [address] Sodium [Moles/Vol] 135 mmol/L Low 136-145 [facility] Comment on above: Performed By: #### L 500.3400, L501.9100, L100.0100, L505.5000, L500.2500 #### [facility] [address] [place], [address] Urea nitrogen [Mass/Vol] 8 mg/dL Normal 7-18 [facility] Comment on above: Performed By: #### L 500.3400, L501.9100, L100.0100, L505.5000, L500.2500 #### [facility] [address] [place], [address] CBC W/Diff, Automatedon 12-12 Absolute Lymph 1.29 X10 3/uL Normal 0.83-4.51 [facility] Comment on above: Performed By: #### L 500.3400, L501.9100, L100.0100, L505.5000, L500.2500 #### [facility] [address] [place], [address] Absolute Neut 7.3 X10 3/uL Normal 2.0-7.7 [facility] Comment on above: Performed By: #### L 500.3400, L501.9100, L100.0100, L505.5000, L500.2500 #### [facility] [address] [place], [address] Basophils/100 WBC (Bld) 0.7 % Normal 0-1 [facility] Comment on above: Performed By: #### L 500.3400, L501.9100, L100.0100, L505.5000, L500.2500 #### [facility] [address] [place], [address] Eosinophils/100 WBC (Bld) 0.1 % Normal 0-5 [facility] Comment on above: Performed By: #### L 500.3400, L501.9100, L100.0100, L505.5000, L500.2500 #### [facility] [address] [place], [address] Erythrocyte distribution width (RBC) [Ratio] 13.6 % Normal 11.6-14.6 [facility] Comment on above: Performed By: #### L 500.3400, L501.9100, L100.0100, L505.5000, L500.2500 #### [facility] [address] [place], [address] Hematocrit (Bld) [Volume fraction] 45.5 % Normal 40-54 [facility] Comment on above: Performed By: #### L 500.3400, L501.9100, L100.0100, L505.5000, L500.2500 #### [facility] [address] [place], [address] Hemoglobin (Bld) [Mass/Vol] 15.6 g/dL Normal 13.0-16.5 [facility] Comment on above: Performed By: #### L 500.3400, L501.9100, L100.0100, L505.5000, L500.2500 #### [facility] [address] [place], [address] IG% 0.300 Normal 0.0-0.9 [facility] Comment on above: Result Comment: IG% - Immature Granulocytes (promyelocytes, myelocytes and metamyelocytes) > 1% indicates that a LEFT SHIFT is Present. Performed By: #### L 500.3400, L501.9100, L100.0100, L505.5000, L500.2500 #### [facility] [address] [facility] [place], [address] Lymphocytes/100 WBC (Bld) 14.1 % Low 19-41 [facility] Comment on above: Performed By: #### L 500.3400, L501.9100, L100.0100, L505.5000, L500.2500 #### [facility] [address] [place], [address] MCH (RBC) [Entitic mass] 29.3 pg Normal 27.0-32.0 [facility] Comment on above: Performed By: #### L 500.3400, L501.9100, L100.0100, L505.5000, L500.2500 #### [facility] [address] [place], [address] MCHC (RBC) [Mass/Vol] 34.3 g/dL Normal 32-36 [facility] Comment on above: Performed By: #### L 500.3400, L501.9100, L100.0100, L505.5000, L500.2500 #### [facility] [address] [place], [address] MCV (RBC) [Entitic vol] 85.5 fL Normal 80-94 [facility] Comment on above: Performed By: #### L 500.3400, L501.9100, L100.0100, L505.5000, L500.2500 #### [facility] [address] [place], [address] Monocytes/100 WBC (Bld) 4.6 % Normal 0-10 [facility] Comment on above: Performed By: #### L 500.3400, L501.9100, L100.0100, L505.5000, L500.2500 #### [facility] [address] [place], [address] Neutrophils/100 WBC (Bld) 80.2 % High 47-70 [facility] Comment on above: Performed By: #### L 500.3400, L501.9100, L100.0100, L505.5000, L500.2500 #### [facility] [address] [place], [address] Nucleated RBC (Bld) [#/Vol] 0 10*3/uL Normal 0-5 [facility] Comment on above: Performed By: #### L 500.3400, L501.9100, L100.0100, L505.5000, L500.2500 #### [facility] [address] [place], [address] Platelet mean volume (Bld) [Entitic vol] 8.6 fL Normal 6.2-12.0 [facility] Comment on above: Performed By: #### L 500.3400, L501.9100, L100.0100, L505.5000, L500.2500 #### [facility] [address] [place], [address] Platelets (Bld) [#/Vol] 239 10*3/uL Normal 150-450 [facility] Comment on above: Performed By: #### L 500.3400, L501.9100, L100.0100, L505.5000, L500.2500 #### [facility] [address] [place], [address] RBC (Bld) [#/Vol] 5.32 10*6/uL Normal 4.6-6.2 [facility] Comment on above: Performed By: #### L 500.3400, L501.9100, L100.0100, L505.5000, L500.2500 #### [facility] [address] [place], [address] RDW SD 42.5 fl Normal 35.1-43.9 [facility] Comment on above: Performed By: #### L 500.3400, L501.9100, L100.0100, L505.5000, L500.2500 #### [facility] [address] [place], [address] WBC (Bld) [#/Vol] 9.2 10*3/uL Normal 4.4-11.0 [facility] Comment on above: Performed By: #### L 500.3400, L501.9100, L100.0100, L505.5000, L500.2500 #### [facility] [address] [place], [address] Emergency Department Summary on 12-30-2023 Emergency Department Summary [facility] Medical Records Department [address] [place] [address] Emergency Department Summary 12/30/23 MR#: [id number] Acct: [id number] Name: SIMBA LI Rep #: [id number] : 1995 28 From: Enoc Elizabeth DO PCP: Care Physician,No Primary Status:REG ER Location: ED ADDENDUM by Dr. Gaurang Brown MD on 12/30/23 at 1309 student worker from crisis center saw patient. She spoke to his therapist and psychiatrist. They are arranging urgent follow-up and daily check-in's. The psychiatrist feels he is safe to go home. Therefore will discharge since they have a plan and close follow-up and personnel checking in with him in person. 12/30/23 1309 Cosigner Signature (if applicable): cc: No Primary Care Physician * Signed HPI History of Present Illness Chief Complaint: Suicidal Informant: patient and friend Narrative Narrative: Patient is a 28-year-old male with past medical history of alcohol abuse. He states that he was drinking daily for approximately 10 years and then roughly 3 months ago was admitted to a psychiatric hospital and underwent detox and had been sober for 3-month. He reports that he has been having difficulty in his social life with his ex-girlfriend and son and he denies any individual stressor but states that the stress of life worsened by this relationship led him to start drinking again on Thursday. He denies any suicidal plan and he denies any illicit drug use or suicide attempt but with his worsening suicidal ideation he was brought in for evaluation. [facility] Medical History Admitted to alcohol detoxification center Alcohol abuse Eczema Home Medications ???Medication ???Instructions ???Recorded ???Last Taken ???Type buspirone 10 mg tablet 10 mg PO DAILY 12/30/23 Unknown History fluoxetine 20 mg capsule 20 mg PO DAILY 12/30/23 Unknown History hydroxyzine HCl 25 mg tablet 25 mg PO QHS 12/30/23 Unknown History trazodone 50 mg tablet 50 mg PO QHS PRN PRN insomnia 12/30/23 Unknown History Allergy/AdvReac Type Severity Reaction Status Date / Time No Known Allergies Allergy Verified 12/29/23 23:58 Social History Smoking Status: Never smoker ROS ROS ED Constitutional Constitutional ED: Denies chills or fever(s) Eyes Eyes: Denies blurry vision or change in vision ENT ENT ED: Denies sore throat Cardiovascular Cardiovascular: Denies chest pain Respiratory/Chest Respiratory/Chest: Denies cough or dyspnea Gastrointestinal Gastrointestinal: Denies abdominal pain, diarrhea, nausea or vomiting Genitourinary Genitourinary ED: Denies dysuria Musculoskeletal Musculoskeletal: Denies myalgias Integumentary Denies rash Neurologic Neurologic: Denies headache(s) Psychiatric Psychiatric: Reports depression and suicidal thoughts Hematologic/Lymphatic Hematologic/Lymphatic: Denies easy bleeding or easy bruising EXAM Physical Exam Const Vital Signs: 12/29/23 23:58 Temperature 97.9 F Temperature Source Temporal Pulse Rate 102 H Respiratory Rate 18 Blood Pressure 151/92 H Blood Pressure Mean 111 Pulse Ox 99 Oxygen Delivery Method Room Air Positive well nourished and well developed General Appearance ED: well developed; Negative for pallor HEENT HEENT Narrative: Normocephalic atraumatic Eyes PERRL and EOMs intact bilaterally General Eye ED: Negative for scleral icterus Neck supple Resp normal respiratory effort and clear to auscultation bilaterally Cardio regular rate and regular rhythm GI normal to inspection, nondistended, normoactive bowel sounds, non-tender, non-distended and no masses Auscultation: normoactive bowel sounds Palpation: soft Extremity normal to inspection Neuro oriented x3, CN's II-XII intact bilaterally and no sensory deficits noted Sensorium / Orientation: alert Motor Exam: strength 5/5 throughout Psych Psych Narrative: Patient has depressed/flat affect with suicidal ideation Skin no rashes or lesions noted General Skin Exam: Negative for jaundice or pallor MDM MDM MDM Narrative Medical decision making narrative: Patient arrived to the ER hypertensive otherwise with stable vitals. He reported that he was a daily beer drinker for approximately 10 years and then 3 months ago and he was admitted to the psychiatric center he underwent detox as well and had been sober for 3 months. He has had increase social stressors with his ex-girlfriend and potential custody issues with his son which have led to increased depression and relapse to where he has now been drinking for the past 3 days. With the increased stress and return to drinking he also has suicidal ideation. The patient is of mod (more content not included)... Normal [facility] Liver Profileon 12-30-2023 Albumin [Mass/Vol] 4.7 g/dL Normal 3.2-5.0 [facility] Comment on above: Performed By: #### L 500.3400, L501.9100, L100.0100, L505.5000, L500.2500 #### [facility] [address] [place], [address] ALK P 65 U/L Normal 45-117 [facility] Comment on above: Performed By: #### L 500.3400, L501.9100, L100.0100, L505.5000, L500.2500 #### [facility] [address] [place], [address] ALT [Catalytic activity/Vol] 29 U/L Normal 16-61 [facility] Comment on above: Performed By: #### L 500.3400, L501.9100, L100.0100, L505.5000, L500.2500 #### [facility] [address] [place], [address] AST [Catalytic activity/Vol] 22 U/L Normal 15-37 [facility] Comment on above: Performed By: #### L 500.3400, L501.9100, L100.0100, L505.5000, L500.2500 #### [facility] [address] [place], [address] Bilirubin [Mass/Vol] 0.50 mg/dL Normal 0.20-1.00 [facility] Comment on above: Result Comment: For patients on eltrombopag therapy, use of [employer] [place] TBIL is not recommended. Performed By: #### L 500.3400, L501.9100, L100.0100, L505.5000, L500.2500 #### [facility] [address] [place], [address] Bilirubin.direct [Mass/Vol] 0.17 mg/dL Normal 0.00-0.30 [facility] Comment on above: Performed By: #### L 500.3400, L501.9100, L100.0100, L505.5000, L500.2500 #### [facility] [address] [place], [address] Globulin (S) [Mass/Vol] 3.4 g/dL Normal 2.2-4.2 [facility] Comment on above: Performed By: #### L 500.3400, L501.9100, L100.0100, L505.5000, L500.2500 #### [facility] [address] [place], [address] T PROT 8.1 g/dL Normal 6.4-8.2 [facility] Comment on above: Performed By: #### L 500.3400, L501.9100, L100.0100, L505.5000, L500.2500 #### [facility] [address] [place], [place], [facility] Urine Drug Screen (VISTA)on 12-30-2023 AMPHETAMINES Negative Normal <1000 ng/mL [facility] Comment on above: Performed By: #### L 500.3400, L501.9100, L100.0100, L505.5000, L500.2500 #### [facility] [address] [place], [address] BARBITIURATES Negative Normal < 200 ng/mL [facility] Comment on above: Performed By: #### L 500.3400, L501.9100, L100.0100, L505.5000, L500.2500 #### [facility] [address] [place], [place], [facility] BENZODIAZIPINE Negative Normal < 200 ng/mL [facility] Comment on above: Performed By: #### L 500.3400, L501.9100, L100.0100, L505.5000, L500.2500 #### [facility] [address] [place], [place], [facility] COCAINE Negative Normal < 300 ng/mL [facility] Comment on above: Performed By: #### L 500.3400, L501.9100, L100.0100, L505.5000, L500.2500 #### [facility] [address] [place], [place], [facility] ECSTACY Negative Normal < 500 ng/mL [facility] Comment on above: Performed By: #### L 500.3400, L501.9100, L100.0100, L505.5000, L500.2500 #### [facility] [address] [place], [address] METHADONE Negative Normal < 300 ng/mL [facility] Comment on above: Performed By: #### L 500.3400, L501.9100, L100.0100, L505.5000, L500.2500 #### [facility] [address] [place], [address] OPIATES Negative Normal < 300 ng/mL [facility] Comment on above: Performed By: #### L 500.3400, L501.9100, L100.0100, L505.5000, L500.2500 #### [facility] [address] [place], [address] PCP Negative Normal < 25 ng/mL [facility] Comment on above: Performed By: #### L 500.3400, L501.9100, L100.0100, L505.5000, L500.2500 #### [facility] [address] [place], [address] THC Negative Normal < 50 ng/mL [facility] Comment on above: Performed By: #### L 500.3400, L501.9100, L100.0100, L505.5000, L500.2500 #### [facility] [address] [place], [address] VISTA UDS PH 5 Normal [facility] Comment on above: Performed By: #### L 500.3400, L501.9100, L100.0100, L505.5000, L500.2500 #### [facility] [address] [place], [address] CONSULTon 10-03-2023 CONSULT ---- -------- Attestation signed by Elicia Rico MD at 10/03/2023 2:29 PM I did not participate in the care of the patient or review their chart during this encounter but am cosigning due to [facility] Policy. A physician from our Practice was continuously available for direct communication with the CHERYL if needed. -------- [facility] CONSULTATION NOTE Patient Name: Artie Li : 1995 MR #: [id number] Admit Date: [id number] Physicians: Evelin Martino CNP (Family); No ref. provider found (Referring) Artie Li is a 28 y.o. male patient of Evelin Martino CNP with history of alcohol abuse presented with suicidal ideations. Suicidal ideations Major depression Management per primary team Alcohol abuse CIWA per protocol, currently asymptomatic Consult addiction medicine Continue multivitamin, folic acid, and thiamine supplement Medication Reconciliation: Verified Code Status: Full Code - Unverified Thank you for the consult. Quality Measures DVT Prophylaxis: Ambulation only Kitchen Catheter: Absent Chief Complaint [facility] consulted by Wallace Godwin, * for medical management and cranial nerve assessment. History of Present Illness matilda Li is a 28 y.o. male patient of Evelin Martino CNP with history of alcohol abuse presented with suicidal ideations. Lab work reviewed, unremarkable with the exception of slightly elevated liver enzymes. Toxicology screen negative. Alcohol level 246. Patient denies any medical needs. Patient denies any withdrawal symptoms. Past Medical History History reviewed. No pertinent past medical history. Past Surgical History Past Surgical History: Procedure Laterality Date APPENDECTOMY Family History History reviewed. No pertinent family history. Social History Social History Tobacco Use Smoking Status Never Smokeless Tobacco Current Types: Snuff Social History Substance and Sexual Activity Alcohol Use Yes Comment: Previously 10-15 beers/day. No drinking since 09/06/23 Social History Substance and Sexual Activity Drug Use Never Allergy Information I have reviewed the patient's allergies. Patient has no known allergies. Home Medications Home medications were reviewed. Review Of Systems All relevant systems have been reviewed and are negative except as noted in HPI or below Physical Examination BP 119/75 (BP Location: Right arm, Patient Position: Sitting) Pulse 76 Temp 98 degrees F (36.7 degrees C) (Oral) Resp 16 Ht 6' 3 Wt 115.6 kg (254 lb 12.8 oz) SpO2 96% BMI 31.85 kg/m General Appearance: alert, well appearing, and in no acute distress HEENT: Head- normocephalic; Eyes- PERRLA, EOMI; Ears- external auditory canals clear, hearing intact; Nose- no nasal discharge; Throat- oropharynx normal Cardiovascular: regular rate and rhythm; normal S1, S2; no murmurs, rubs, clicks or gallops; no peripheral edema Respiratory: lungs clear to auscultation; without wheezes, rales or rhonchi Abdomen: soft, non-tender, non-distended; positive bowel sounds Neurological: alert, oriented x 3, normal speech; no focal findings or movement disorder noted Cranial Nerves: II: visual adler full. III, IV, : extraocular range intact. V: sensation intact. VII: facial symmetric with 5/5 strength. VIII: hearing intact to voice and finger rub. IX, X: palate elevates symmetrically. XI: shrugs shoulders 5/5 strength bilaterally. XII: tongue protrudes in midline. Sensation -grossly symmetrical. Motor strength 5/5 all over. DTR 2+ in the UE and LE bilaterally. Musculoskeletal: no significant deformity or tenderness to palpation Skin: normal coloration, texture and turgor; no lesions or eruptions Psych: normal mood and affect Laboratory and Additional Data Reviewed Laboratory 10/03/23 11:02 AM Microbiology 10/03/23 11:02 AM Pathology 10/03/23 11:02 AM Radiology 10/03/23 11:02 AM Cardiology 10/03/23 11:02 AM Medications 10/03/23 11:02 AM Transcriptions 10/03/23 11:02 AM AUTHENTICATED BY RICKY MEREDITH, ON 10/03/2023 11:10:18 Normal [facility] ALCOHOL, MEDICALon ALCOHOL MEDICAL 22.0 mg/dL High <10.0 [facility] Comment on above: Performed By: #### 4 5033 ####[facility] [address] [address] Thai Hart M.D. [id number] DRUGS OF ABUSE SCREEN, URINE on 10-02-2023 AMPHETAMINE SCREEN, URINE Not detected Normal None Detected [facility] Comment on above: Order Comment: Scree n results should be used for treatment purposes only. Result Comment: Urin e Amphetamine Cutoff: < 1000 ng/mL = None Detected Performed By: #### 4 6965 ####[facility] [address] [address] Thai Hart M.D. [id number] BARBITURATE SCREEN URINE Not detected Normal None Detected [facility] Comment on above: Order Comment: Scree n results should be used for treatment purposes only. Result Comment: Urin e Barbiturates Cutoff: < 200 ng/mL = None Detected Performed By: #### 4 6965 ####[facility] [address] [address] Thai Hart M.D. [id number] BENZODIAZEPINE SCREEN, URINE Not detected Normal None Detected [facility] Comment on above: Order Comment: Scree n results should be used for treatment purposes only. Result Comment: Urin e Benzodiazepine Cutoff: < 200 ng/mL = None Detected Performed By: #### 4 6965 ####[facility] [address] [address] Thai Hart M.D. [id number] BUPRENORPHINE, URINE Not detected Normal None Detected [facility] Comment on above: Order Comment: Scree n results should be used for treatment purposes only. Result Comment: Urin e Buprenorphine Cutoff: < 5 ng/mL = None Detected Performed By: #### 4 6907 ####[facility] [address] [place] [address] Thai Hart M.D. [id number] CANNABINOID SCREEN URINE Not detected Normal None Detected [facility] Comment on above: Order Comment: Scree n results should be used for treatment purposes only. Result Comment: Urin e Cannabinoids Cutoff: < 50 ng/mL = None Detected Performed By: #### 4 6965 #### LAB [address] [place] [address] Thai Hart M.D. [id number] COCAINE, SCREEN URINE Not detected Normal None Detected [facility] Comment on above: Order Comment: Scree n results should be used for treatment purposes only. Result Comment: Urin e Cocaine Cutoff: < 300 ng/mL = None Detected Performed By: #### 4 6965 ####[facility] [address] [address] Thai Hart M.D. [id number] FENTANYL, URINE Not detected Normal None Detected [facility] Comment on above: Order Comment: Scree n results should be used for treatment purposes only. Result Comment: Urin e Fentanyl Cutoff: < 1 ng/mL = None Detected Performed By: #### 4 6965 #### LAB [address] [address] Thai Hart M.D. [id number] METHADONE SCREEN, URINE Not detected Normal None Detected [facility] Comment on above: Order Comment: Scree n results should be used for treatment purposes only. Result Comment: Urin e Methadone Cutoff: < 300 ng/mL = None Detected Performed By: #### 4 6965 #### LAB [address] [place] [address] Thai Hart M.D. [id number] OPIATE SCREEN URINE Not detected Normal None Detected [facility] Comment on above: Order Comment: Scree n results should be used for treatment purposes only. Result Comment: Urin e Opiates Cutoff: < 300 ng/mL = None Detected Performed By: #### 4 6957 ####[facility] [address] [address] Thai Hart M.D. [id number] OXYCODONE SCREEN, URINE Not detected Normal None Detected [facility] Comment on above: Order Comment: Scree n results should be used for treatment purposes only. Result Comment: Urin e Oxycodone Cutoff: < 100 ng/mL = None Detected Performed By: #### 4 6965 #### LAB [address] [place], [place] [address] Thai Hart M.D. [id number] ALCOHOL, MEDICALon ALCOHOL MEDICAL 246.0 mg/dL High <10.0 [facility] Comment on above: Performed By: #### 4 5033 #### LAB [address] [id number] Thai Hart M.D. [id number] ALCOHOL MEDICAL 252.0 mg/dL High <10.0 [facility] Comment on above: Performed By: #### 4 5033 ####[facility] [address] [address] Thai Hart M.D. [id number] BASIC METABOLIC PANELon 09-12 Anion gap [Moles/Vol] 21 mmol/L High [facility] Comment on above: Order Comment: [facility] has implemented the eGFR calculation approach that does not have a coefficient for race that conforms to the NKF-ASN Task Force Recommendations. Performed By: #### 4 6124 #### LAB [address] [address] Thai Hrat M.D. [id number] Calcium [Mass/Vol] 9.7 mg/dL Normal 8.4-10.2 [facility] Comment on above: Order Comment: [facility] has implemented the eGFR calculation approach that does not have a coefficient for race that conforms to the NKF-ASN Task Force Recommendations. Performed By: #### 4 6124 #### LAB [address] [address] Thai Hart M.D. [id number] Chloride [Moles/Vol] 100 mmol/L Normal 98-108 [facility] Comment on above: Order Comment: [facility] has implemented the eGFR calculation approach that does not have a coefficient for race that conforms to the NKF-ASN Task Force Recommendations. Performed By: #### 4 6124 #### LAB [address] [address] Thai Hart M.D. [id number] Creatinine [Mass/Vol] 1.06 mg/dL Normal 0.50-1.30 [facility] Comment on above: Order Comment: [facility] has implemented the eGFR calculation approach that does not have a coefficient for race that conforms to the NKF-ASN Task Force Recommendations. Performed By: #### 4 6124 #### LAB [address] [address] Thai Hart M.D. [id number] EGFR 97 mL/min/1.73 m2 Normal >=60 [facility] Comment on above: Order Comment: [facility] has implemented the eGFR calculation approach that does not have a coefficient for race that conforms to the NKF-ASN Task Force Recommendations. Result Comment: Ronald mated GFR was calculated using the 2020 CKD-EPI creatinine equation. Performed By: #### 4 6124 #### LAB [address] [address] Thai Hart M.D. [id number] Glucose [Mass/Vol] 118 mg/dL High 65-99 [facility] Comment on above: Order Comment: [facility] has implemented the eGFR calculation approach that does not have a coefficient for race that conforms to the NKF-ASN Task Force Recommendations. Performed By: #### 4 6124 #### LAB [address] [address] Thai Hart M.D. [id number] HCO3 (Bld) [Moles/Vol] 21 mmol/L Normal 21-32 [facility] Comment on above: Order Comment: [facility] has implemented the eGFR calculation approach that does not have a coefficient for race that conforms to the NKF-ASN Task Force Recommendations. Performed By: #### 4 6124 #### LAB [address] [address] Thai Hart M.D. [id number] Potassium [Moles/Vol] 4.1 mmol/L Normal 3.5-5.1 [facility] Comment on above: Order Comment: [facility] has implemented the eGFR calculation approach that does not have a coefficient for race that conforms to the NKF-ASN Task Force Recommendations. Performed By: #### 4 6124 #### LAB [address] [address] Thai Hart M.D. [id number] Sodium [Moles/Vol] 138 mmol/L Normal 135-145 [facility] Comment on above: Order Comment: [facility] has implemented the eGFR calculation approach that does not have a coefficient for race that conforms to the NKF-ASN Task Force Recommendations. Performed By: #### 4 6124 #### LAB [address] [address] Thai Hart M.D. [id number] Urea nitrogen [Mass/Vol] 8 mg/dL Normal 8-25 [facility] Comment on above: Order Comment: [facility] has implemented the eGFR calculation approach that does not have a coefficient for race that conforms to the NKF-ASN Task Force Recommendations. Performed By: #### 4 6124 #### LAB [address] [address] Thai Hart M.D. [id number] Urea nitrogen/Creatinine [Mass ratio] 7.5 mg/mg Low 10.0-20.0 [facility] Comment on above: Order Comment: [facility] has implemented the eGFR calculation approach that does not have a coefficient for race that conforms to the NKF-ASN Task Force Recommendations. Performed By: #### 4 6124 #### LAB [address] [address] Thai Hart M.D. [id number] CBC WITH AUTO DIFFERENTIALon 10-01-2023 AUTO NRBC 0.0 % Normal [facility] Comment on above: Performed By: #### L [id number] ####[facility] [address] [address] Thai Hart M.D. [id number] AUTO NRBC ABS COUNT 0.00 K/mcL Normal 0.00-0.00 [facility] Comment on above: Performed By: #### L [id number] #### LAB [address] [address] Thai Hart M.D. [id number] BASOPHILS ABSOLUTE COUNT 0.08 K/mcL Normal 0.00-0.30 [facility] Comment on above: Performed By: #### L [id number] #### LAB [address] [address] Thai Hart M.D. [id number] Basophils/100 WBC (Bld) 1.1 % Normal [facility] Comment on above: Performed By: #### L [id number] #### LAB [address] [address] Thai Hart M.D. [id number] Eosinophils (Bld) [#/Vol] 0.06 10*3/uL Normal 0.00-0.50 [facility] Comment on above: Performed By: #### L [id number] #### LAB [address] [address] Thai Hart M.D. [id number] Eosinophils/100 WBC (Bld) 0.8 % Normal [facility] Comment on above: Performed By: #### L [id number] #### LAB [address] [address] Thai Hart M.D. [id number] Erythrocyte distribution width (RBC) [Ratio] 12.5 % Normal 11.6-14.8 [facility] Comment on above: Performed By: #### L [id number] #### LAB [address] [address] Thai Hart M.D. [id number] Hematocrit (Bld) [Volume fraction] 47.2 % Normal 41.0-53.0 [facility] Comment on above: Performed By: #### L [id number] #### LAB [address] [address] Thai Hart M.D. [id number] Hemoglobin (Bld) [Mass/Vol] 16.8 g/dL Normal 13.5-17.5 [facility] Comment on above: Performed By: #### L [id number] #### LAB [address] [address] Thai Hart M.D. [id number] IG ABSOLUTE 0.02 K/mcL Normal 0.00-0.30 [facility] Comment on above: Performed By: #### L [id number] #### LAB [address] [address] Thai Hart M.D. [id number] IG PERCENT 0.30 % Normal [facility] Comment on above: Result Comment: The IG parameter is the percentage of metamyelocytes, myelocytes and promyelocytes. An immature granulocyte count (IG) of 1% or more suggests the possibility of infection, an IG count of 3% is very likely related to an infection. Performed By: #### L [id number] #### LAB [address] [place] [address] Thai Hart M.D. [id number] Lymphocytes (Bld) [#/Vol] 2.01 10*3/uL Normal 0.90-4.00 [facility] Comment on above: Performed By: #### L [id number] #### LAB [address] [place] [address] Thai Hart M.D. [id number] Lymphocytes/100 WBC (Bld) 27.8 % [facility] Comment on above: Performed By: #### L [id number] #### LAB [address] [address] Thai Hart M.D. [id number] MCH (RBC) [Entitic mass] 31.6 pg Normal 26.0-34.0 [facility] Comment on above: Performed By: #### L [id number] #### LAB [address] [address] Thai Hart M.D. [id number] MCV (RBC) [Entitic vol] 88.9 fL Normal 80.0-100.0 [facility] Comment on above: Performed By: #### L [id number] #### LAB [address] [address] Thai Hart M.D. [id number] MEAN CORPUSCULAR HEMOGLOBIN CONC 35.6 g/dL Normal 31.0-37.0 [facility] Comment on above: Performed By: #### L [id number] #### LAB [address] [address] Thai Hart M.D. [id number] Monocytes (Bld) [#/Vol] 0.42 10*3/uL Normal 0.30-0.90 [facility] Comment on above: Performed By: #### L [id number] #### LAB [address] [address] Thai Hart M.D. [id number] Monocytes/100 WBC (Bld) 5.8 % Normal [facility] Comment on above: Performed By: #### L [id number] #### LAB [address] [address] Thai Hart M.D. [id number] NEUTROPHILS ABSOLUTE COUNT 4.63 K/mcL Normal 1.70-7.00 [facility] Comment on above: Performed By: #### L [id number] #### LAB [address] [address] Thai Hart M.D. [id number] Neutrophils/100 WBC (Bld) 64.2 % Normal [facility] Comment on above: Performed By: #### L [id number] #### LAB [address] [address] Thai Hart M.D. [id number] Platelet mean volume (Bld) [Entitic vol] 9.0 fL Low 9.4-12.4 [facility] Comment on above: Performed By: #### L [id number] #### LAB [address] [address] Thai Hart M.D. [id number] Platelets (Bld) [#/Vol] 300 10*3/uL Normal 150-400 [facility] Comment on above: Performed By: #### L [id number] ####[facility] [address] [place], [place] [address] Thai Hart M.D. [id number] RBC (Bld) [#/Vol] 5.31 10*6/uL Normal 4.50-5.90 [facility] Comment on above: Performed By: #### L [id number] ####[facility] [address] [place], [place] [address] Thai Hart M.D. [id number] WBC (Bld) [#/Vol] 7.22 10*3/uL Normal 4.50-11.00 [facility] Comment on above: Performed By: #### L [id number] ####[facility] [address] [place], [place] [address] Thai Hart M.D. [id number] ED Prov Noteon 10-01-2023 ED Prov Note [facility] - Emergency Medicine Attending Note: NAME: Artie Li 28 y.o. CSN: [id number] PCP: Evelin Martino CNP History: Chief Complaint: Suicidal HPI: The history was obtained from the patient and law enforcement. Artie is a 28 y.o. male who presents with a chief complaint of Suicidal. HPI Patient was pink slip by law enforcement officers today for evaluation of suicidal ideations. Patient did have a handgun on him at the time of their arrival. Patient reports he has been drinking heavily today. ROS: Review of Systems Unable to perform ROS: Psychiatric disorder Positives and pertinent negatives as per HPI. All other systems were reviewed and are negative. Physical Exam: Patient Vitals for the past 24 hrs: BP Temp Temp src Pulse Resp SpO2 10/04/23 0748 105/70 98 degrees F (36.7 degrees C) Oral 67 16 96 % 10/04/23 0500 104/60 -- -- 78 -- -- 10/04/23 0008 102/67 -- -- 68 -- 98 % 10/03/23 1955 117/73 -- -- 62 -- 97 % 10/03/23 1615 128/84 -- -- 79 17 95 % 10/03/23 1208 131/84 -- -- 75 17 97 % Physical Exam Constitutional: General: He is not in acute distress. Appearance: He is ill-appearing (Patient is ill-appearing, but in no acute distress.). He is not diaphoretic. HENT: Head: Normocephalic and atraumatic. Right Ear: External ear normal. Left Ear: External ear normal. Mouth/Throat: Mouth: Mucous membranes are moist. Pharynx: Oropharynx is clear. Eyes: General: No scleral icterus. Extraocular Movements: Extraocular movements intact. Pupils: Pupils are equal, round, and reactive to light. Neck: Vascular: No JVD. Trachea: No tracheal deviation. Cardiovascular: Rate and Rhythm: Regular rhythm. Tachycardia present. Pulses: Normal pulses. Heart sounds: Normal heart sounds. No murmur heard. No friction rub. No gallop. Pulmonary: Effort: Pulmonary effort is normal. No respiratory distress. Breath sounds: Normal breath sounds. No wheezing or rales. Chest: Chest wall: No tenderness. Abdominal: General: There is no distension. Tenderness: There is no abdominal tenderness. Musculoskeletal: General: No deformity. Skin: General: Skin is warm and dry. Neurological: General: No focal deficit present. Mental Status: He is alert and oriented to person, place, and time. Psychiatric: Mood and Affect: Mood normal. Behavior: Behavior normal. Laboratory & Radiological Imaging (if done): Labs Reviewed ALCOHOL, MEDICAL - Abnormal; Notable for the following components: Result Value Alcohol (Medical) 252.0 (*) All other components within normal limits BASIC METABOLIC PANEL - Abnormal; Notable for the following components: Anion Gap 21 (*) Glucose 118 (*) BUN/Creatinine Ratio 7.5 (*) All other components within normal limits Narrative: [facility] has implemented the eGFR calculation approach that does not have a coefficient for race that conforms to the NKF-ASN Task Force Recommendations. ALCOHOL, MEDICAL - Abnormal; Notable for the following components: Alcohol (Medical) 246.0 (*) All other components within normal limits ALCOHOL, MEDICAL - Abnormal; Notable for the following components: Alcohol (Medical) 22.0 (*) All other components within normal limits CBC WITH AUTO DIFFERENTIAL - Abnormal; Notable for the following components: MPV 9.0 (*) All other components within normal limits DRUGS OF ABUSE SCREEN, URINE - Normal Narrative: Screen results should be used for treatment purposes only. CBC AND DIFFERENTIAL Narrative: The following orders were created for panel order CBC and Differential. Procedure Abnormality Status --------- ------ CBC Auto Differential[[id number]] Abnormal Final result Please view results for these tests on the individual orders. No orders to display Procedures: Procedures ED Course / Medical Decision Making: Patient was seen today and evaluated for both medical and psychiatric illnesses. After evaluating this patient, it is my conclusion that the patient is cleared medically and that today's concern will be appropriately managed from a psychosocial perspective. Elli was the manager social with whom I discussed this case and he/she also evaluated the patient. Please see their note. The patient will be admitted to the Mental Health Unit. We discussed the results of the work up in the emergency department. ED MIPS (if empty, not applicable): Coding Elements: Medical Decision Making Clinical Impression: 1. Current severe episode of major depressive disorder without psychotic features, unspecified whether recurrent (HCC) Disposition: hospitalize to Mental Health Unit - medically cleared for admission New Prescriptions This print group is not available in inpatient encounters. Please contact a control systems drafting officer. Alen Arreola M.D. Attending Physician [facility] BEHAVIORAL HEALT (more content not included)... Normal [facility] ED Prov Noteon 09-06-2023 ED Prov Note ED PROVIDER NOTE [facility] EMERGENCY DEPARTMENT NAME: Artie Li AGE: 28 y.o. : 1995 VISIT DATE: 09/06/2023 CSN: [id number] PCP: Renee Hart, BREA Chief Complaint Patient presents with Anxiety Chief complaint anxiety History of present illness this is a 28-year-old male who has a history of alcohol abuse disorder. And has been battling with alcohol chronic stay sober. He was seen by us in the past and went to rehab and was sober for 5 months. He had his last drink today he is feeling well anxious stomach upset nausea and to get a phone call from rehabilitation treatment for spot. For detox he complains of generalized abdominal discomfort he drinks 20 beers a day denies hematemesis medic easier melena History reviewed. No pertinent past medical history. Past Surgical History: Procedure Laterality Date APPENDECTOMY History reviewed. No pertinent family history. Social History Socioeconomic History Marital status: Single Tobacco Use Smoking status: Never Smokeless tobacco: Never Substance and Sexual Activity Alcohol use: Yes Drug use: Never Social Determinants of Health Financial Resource Strain: Low Risk (06/04/2021) Overall Financial Resource Strain (CARDIA) Difficulty of Paying Living Expenses: Not hard at all Food Insecurity: No Food Insecurity (06/04/2021) Hunger Vital Sign Worried About Running Out of Food in the Last Year: Never true Ran Out of Food in the Last Year: Never true Transportation Needs: No Transportation Needs (06/04/2021) PRAPARE - Transportation Lack of Transportation (Medical): No Lack of Transportation (Non-Medical): No Social Connections: Unknown (06/04/2021) Social Connection and Isolation Panel [NHANES] Frequency of Communication with Friends and Family: More than three times a week Frequency of Social Gatherings with Friends and Family: More than three times a week Previous Medications Medication Sig baclofen (LIORESAL) 10 MG tablet Take 1 (one) tablet (10 mg total) by mouth as needed . busPIRone (BUSPAR) 10 MG tablet Take 1 (one) tablet (10 mg total) by mouth once daily . FLUoxetine (PROZAC) 20 MG capsule Take 1 (one) capsule (20 mg total) by mouth every morning . hydrOXYzine (ATARAX) 25 MG tablet Take 1 (one) tablet (25 mg total) by mouth as needed . naltrexone microspheres (VivitroL) Inject 380 (three hundred eighty) mg into the shoulder, thigh, or buttocks every 30 (thirty) days . traZODone (DESYREL) 50 MG tablet Take 1 (one) tablet (50 mg total) by mouth as needed . No Known Allergies Review of Systems All other systems reviewed and are negative. Patient Vitals for the past 24 hrs: BP Temp Temp src Pulse Resp SpO2 Height Weight 09/06/23 2327 (!) 139/92 -- -- 97 16 98 % -- -- 09/06/232038 (!) 157/113 98.8 degrees F (37.1 degrees C) Oral (!) 107 18 96 % 6' 3 108.9 kg (240 lb) Physical Exam Vitals and nursing note reviewed. Exam conducted with a digital marketing associate present. Constitutional: General: He is in acute distress. Appearance: He is normal weight. He is ill-appearing. HENT: Head: Normocephalic and atraumatic. Right Ear: Tympanic membrane normal. Left Ear: Tympanic membrane normal. Nose: Nose normal. Mouth/Throat: Mouth: Mucous membranes are moist. Eyes: Extraocular Movements: Extraocular movements intact. Pupils: Pupils are equal, round, and reactive to light. Cardiovascular: Rate and Rhythm: Normal rate and regular rhythm. Musculoskeletal: General: Normal range of motion. Cervical back: Normal range of motion and neck supple. Pulmonary: Effort: Pulmonary effort is normal. Breath sounds: Normal breath sounds. Abdominal: Tenderness: There is abdominal tenderness. Skin: General: Skin is dry. Capillary Refill: Capillary refill takes 2 to 3 seconds. Neurological: General: No focal deficit present. Mental Status: He is alert. Cranial Nerves: No cranial nerve deficit. Sensory: No sensory deficit. Motor: No weakness. Coordination: Coordination normal. Gait: Gait normal. Deep Tendon Reflexes: Reflexes normal. . Laboratory & Radiographic Imaging (if done): Results for orders placed or performed during the hospital encounter of 09/06/23 POC CBC and Differential Result Value Ref Range WBC 6.62 4.50 - 11.00 K/mcL RBC 5.32 4.50 - 5.90 M/mcL Hemoglobin 17.0 13.5 - 17.5 g/dL Hematocrit 47.7 41.0 - 53.0 % MCV 89.7 80.0 - 100.0 fL MCH 32.0 26.0 - 34.0 pg MCHC 35.6 31.0 - 37.0 g/dL RDW - CV 12.8 11.6 - 14.8 % Platelets 216 150 - 400 K/mcL MPV 8.1 (L) 9.4 - 12.4 fL Neutrophils 47.9 % Lymphocytes 43.1 % Monocytes 7.3 % Eosinophils 0.9 % Basophils 0.6 % IG Percent 0.20 % Neutrophils Abs 3.18 1.70 - 7.00 K/mcL Lymphocytes Abs 2.85 0.90 - 4.00 K/mcL Monocytes Abs 0.48 0.30 - 0.90 K/mcL Eosinophils Abs 0.06 0.00 - 0.50 K/mcL Basophils Abs 0.04 0.00 - 0.30 K/mcL IG Absolute 0.01 0.00 - 0.30 K/mcL POC Bas (more content not included)... Normal [facility] POC BASIC METABOLIC PANEL - Emily 09-06-2023 Chloride [Moles/Vol] 107 mmol/L Normal 98-108 [facility] Comment on above: Order Comment: [facility] has implemented the eGFR calculation approach that does not have a coefficient for race that conforms to the NKF-ASN Task Force Recommendations. CO2 [Moles/Vol] 23 mmol/L Normal 21-32 [facility] Comment on above: Order Comment: [facility] has implemented the eGFR calculation approach that does not have a coefficient for race that conforms to the NKF-ASN Task Force Recommendations. Creatinine [Mass/Vol] 0.86 mg/dL Normal 0.50-1.30 [facility] Comment on above: Order Comment: [facility] has implemented the eGFR calculation approach that does not have a coefficient for race that conforms to the NKF-ASN Task Force Recommendations. Glucose [Mass/Vol] 111 mg/dL High 65-99 [facility] Comment on above: Order Comment: [facility] has implemented the eGFR calculation approach that does not have a coefficient for race that conforms to the NKF-ASN Task Force Recommendations. POC GFR 119 mL/min/1.73 m2 Normal >=60 [facility] Comment on above: Order Comment: [facility] has implemented the eGFR calculation approach that does not have a coefficient for race that conforms to the NKF-ASN Task Force Recommendations. Result Comment: Ronald mated GFR was calculated using the 2020 CKD-EPI creatinine equation. POC IONIZED CALCIUM 4.0 mg/dL Low 4.5-5.3 [facility] Comment on above: Order Comment: [facility] has implemented the eGFR calculation approach that does not have a coefficient for race that conforms to the NKF-ASN Task Force Recommendations. Potassium [Moles/Vol] 3.9 mmol/L Normal 3.5-5.1 [facility] Comment on above: Order Comment: [facility] has implemented the eGFR calculation approach that does not have a coefficient for race that conforms to the NKF-ASN Task Force Recommendations. Sodium [Moles/Vol] 141 mmol/L Normal 135-145 [facility] Comment on above: Order Comment: [facility] has implemented the eGFR calculation approach that does not have a coefficient for race that conforms to the NKF-ASN Task Force Recommendations. Urea nitrogen [Mass/Vol] 9 mg/dL Normal 8-25 [facility] Comment on above: Order Comment: [facility] has implemented the eGFR calculation approach that does not have a coefficient for race that conforms to the NKF-ASN Task Force Recommendations. POC CBC AND DIFFERENTIALon 09-06-2023 BASOPHILS ABSOLUTE COUNT 0.04 K/mcL Normal 0.00-0.30 [facility] Basophils/100 WBC (Bld) 0.6 % Normal [facility] Eosinophils (Bld) [#/Vol] 0.06 10*3/uL Normal 0.00-0.50 [facility] Eosinophils/100 WBC (Bld) 0.9 % Normal [facility] Erythrocyte distribution width (RBC) [Ratio] 12.8 % Normal 11.6-14.8 [facility] Hematocrit (Bld) [Volume fraction] 47.7 % Normal 41.0-53.0 [facility] Hemoglobin (Bld) [Mass/Vol] 17.0 g/dL Normal 13.5-17.5 [facility] IG ABSOLUTE 0.01 K/mcL Normal 0.00-0.30 [facility] IG PERCENT 0.20 % Normal [facility] Comment on above: Result Comment: The IG parameter is the percentage of metamyelocytes, myelocytes and promyelocytes. An immature granulocyte count (IG) of 1% or more suggests the possibility of infection, an IG count of 3% is very likely related to an infection. Lymphocytes (Bld) [#/Vol] 2.85 10*3/uL Normal 0.90-4.00 [facility] Lymphocytes/100 WBC (Bld) 43.1 % Normal [facility] MCH (RBC) [Entitic mass] 32.0 pg Normal 26.0-34.0 [facility] MCV (RBC) [Entitic vol] 89.7 fL Normal 80.0-100.0 [facility] MEAN CORPUSCULAR HEMOGLOBIN CONC 35.6 g/dL Normal 31.0-37.0 [facility] Monocytes (Bld) [#/Vol] 0.48 10*3/uL Normal 0.30-0.90 [facility] Monocytes/100 WBC (Bld) 7.3 % Normal [facility] NEUTROPHILS ABSOLUTE COUNT 3.18 K/mcL Normal 1.70-7.00 [facility] Neutrophils/100 WBC (Bld) 47.9 % Normal [facility] Platelet mean volume (Bld) [Entitic vol] 8.1 fL Low 9.4-12.4 [facility] Platelets (Bld) [#/Vol] 216 10*3/uL Normal 150-400 [facility] RBC (Bld) [#/Vol] 5.32 10*6/uL Normal 4.50-5.90 [facility] WBC (Bld) [#/Vol] 6.62 10*3/uL Normal 4.50-11.00 [facility] POC LIVER PANEL PLUS Emily 09-06-2023 Albumin [Mass/Vol] 4.4 g/dL Normal 3.2-5.2 [facility] ALP [Catalytic activity/Vol] 59 U/L Normal 40-140 [facility] ALT [Catalytic activity/Vol] 53 U/L High 0-40 [facility] Amylase [Catalytic activity/Vol] 46 U/L Normal 25-115 [facility] Amylase [Catalytic activity/Vol] 127 U/L High 11-51 [facility] AST [Catalytic activity/Vol] 51 U/L High 0-45 [facility] Bilirubin [Mass/Vol] 0.6 mg/dL Normal 0.0-1.3 [facility] Protein [Mass/Vol] 8.5 g/dL High 6.0-8.0 [facility] Absolute lymphocyte countOrd ered By: Dr. Edmond on 05-09-2022 Lymphocytes Auto (Unsp spec) [#/Vol] 2.97 10*3/uL 0.83-4.51 [facility] Basophil percentageOrdered B y: Dr. Edmond on 05-09-2022 Basophils/100 WBC (Bld) 0.8 % 0-1 [facility] Bilirubin [Mass/Vol] 0.40 mg/dL 0.20-1.00 [facility] Comment on above: For patients on eltr ombopag therapy, use of Dimension [place] TBIL is not recommended. Chloride [Moles/Vol] 102 mmol/L 98-107 [facility] Eosinophils/100 WBC (Bld) 0.8 % 0-5 [facility] Glucose [Mass/Vol] 114 mg/dL 74-106 [facility] Comment on above: Fasting Glucose resu lt from 100 to 125 mg/dL suggests IMPAIRED HOMEOSTASIS per A.D.A. criteria. Neutrophils (Bld) [#/Vol] 3.7 10*3/uL 2.0-7.7 [facility] Neutrophils/100 WBC (Bld) 50.0 % 47-70 [facility] Potassium [Moles/Vol] 3.7 mmol/L 3.5-5.1 [facility] Protein [Mass/Vol] 8.5 g/dL 6.4-8.2 [facility] Sodium [Moles/Vol] 141 mmol/L 136-145 [facility] WBC (Bld) [#/Vol] 7.5 10*3/uL 4.4-11.0 [facility] Blood erythrocytes count (nu mber/volume)Ordered By: Dr. Edmond on 05-09-2022 RBC (Bld) [#/Vol] 5.48 10*6/uL 4.6-6.2 [facility] Blood hemoglobin measurement (mass/volume)Ordered By: Dr. Edmond on 05-09-2022 Hemoglobin (Bld) [Mass/Vol] 17.4 g/dL 13.0-16.5 [facility] Blood lymphocytes/100 leukoc ytesOrdered By: Dr. Edmond on 05-09-2022 Lymphocytes/100 WBC (Bld) 39.7 % 19-41 [facility] Blood monocytes/100 leukocyt esOrdered By: Dr. Edmond on 05-09-2022 Monocytes/100 WBC (Bld) 8.3 % 0-10 [facility] Blood platelet mean volumeOr dered By: Dr. Edmond on 05-09-2022 Platelet mean volume (Bld) [Entitic vol] 8.7 fL 6.2-12.0 [facility] Determination of erythrocyte mean corpuscular volume (MCV)Ordered By: Dr. Edmond on 05-09-2022 MCV (RBC) [Entitic vol] 90.7 fL 80-94 [facility] Hematocrit Auto (Bld) [Volum e fraction]Ordered By: Dr. Edmond on 05-09-2022 Hematocrit (Bld) [Volume fraction] 49.7 % 40-54 [facility] Laboratory - Chemistry and C hemistry - challengeOrdered By: Dr. Edmond on 05-09-2022 ALP [Catalytic activity/Vol] 69 U/L 45-117 [facility] ALT [Catalytic activity/Vol] 177 U/L 16-61 [facility] CO2 [Moles/Vol] 27.0 mmol/L 21.0-32.0 [facility] Globulin (S) [Mass/Vol] 3.7 g/dL 2.2-4.2 [facility] Urea nitrogen/Creatinine [Mass ratio] 10.8 mg/mg 10-20 [facility] Laboratory - Drug toxicology Ordered By: Dr. Edmond on 05-09-2022 Amphetamines Ql (U) Negative <1000 ng/mL [facility] Benzodiazepines Ql (U) Negative < 200 ng/mL [facility] Cannabinoids Screen Ql (U) Negative < 50 ng/mL [facility] Cocaine Ql (U) Negative < 300 ng/mL [facility] Opiates Ql (U) Negative < 300 ng/mL [facility] Laboratory - Hematology and Cell countsOrdered By: Dr. Edmond on 05-09-2022 Erythrocyte distribution width (RBC) [Entitic vol] 42.3 fL 35.1-43.9 [facility] Erythrocyte distribution width (RBC) [Ratio] 12.9 % 11.6-14.6 [facility] Immature granulocytes/100 WBC (Bld) 0.400 % 0.0-0.9 [facility] Comment on above: IG% - Immature Granu locytes (promyelocytes, myelocytes and metamyelocytes) > 1% indicates that a LEFT SHIFT is Present. MCH (RBC) [Entitic mass] 31.8 pg 27.0-32.0 [facility] Nucleated RBC/100 WBC (Bld) [Ratio] 0 % 0-5 [facility] MCHC Auto (RBC) [Mass/Vol]Or dered By: Dr. Edmond on 05-09-2022 MCHC (RBC) [Mass/Vol] 35.0 g/dL 32-36 [facility] No Panel InformationOrdered By: Dr. Edmond on 05-09-2022 Estimated Creatinine Clearance Calc 127.72 ml/min [facility] Estimated GFR (MDRD) Amer 111 mL/min >60 [facility] Comment on above: GFR Calc Estimated GFR (MDRD) Non-Af Amer 92 mL/min >60 [facility] Comment on above: Non- GFR Calc Ethyl Alcohol Level 296.0 mg/dL [facility] Comment on above: The serum:whole bloo d ethanol ratio is approximately 1.14and varies slightly with hematocrit. Medical Alcohol reference interval and critical value innon-tolerant individuals; 50 - 100 Impairment 100 Intoxication 100 - 250 Severe Poisoning 250 - 400 Deep/possible fatal coma MDMA (Ecstasy) Screen Negative < 500 ng/mL [facility] Urine Barbiturates Screen Negative < 200 ng/mL [facility] Urine Drug Screen Comment [facility] Comment on above: CONFIRMATORY TESTING FOR ALL POSITIVE URINE DRUG SCREENRESULTS WILL ONLY BE SENT OUT UPON PHYSICIAN ORDER. VISTA Urine Drug Screen methods provide only preliminaryanalytical test results. A more specific alternate chemicalmethod must be used in order to obtain a confirmedanalytical result. Gas chromatography/mass spectrometery(GC/MS) is the preferred confirmatory method. Clinicalconsideration and professional judgement should be appliedto any drug of abuse test result, particularly whenpreliminary positive results are used. URINE TCA TESTING MUST BE ORDERED SEPARATELY. USE TESTMNEMONIC: [facility] Urine Methadone Screen Negative < 300 ng/mL [facility] Platelets bldOrdered By: Dr. Edmond on 05-09-2022 Platelets (Bld) [#/Vol] 248 10*3/uL 150-450 [facility] Serum or plasma albumin leonard urement (mass/volume)Ordered By: Dr. Edmond on 05-09-2022 Albumin [Mass/Vol] 4.8 g/dL 3.2-5.0 [facility] Serum or plasma albumin/glob ulin mass ratioOrdered By: Dr. Edmond on 05-09-2022 Albumin/Globulin [Mass ratio] 1.3 {ratio} 0.9-2.4 [facility] Serum or plasma calcium leonard urement (mass/volume)Ordered By: Dr. Edmond on 05-09-2022 Calcium [Mass/Vol] 9.1 mg/dL 8.5-10.1 [facility] Serum or plasma creatinine m easurement (mass/volume)Ordered By: Dr. Edmond on 05-09-2022 Creatinine [Mass/Vol] 1.02 mg/dL 0.70-1.30 [facility] Comment on above: The validity of the calculated GFR & GFRAA in patients over 70 years has not been determined. Clinical correlation is essential. Serum or plasma urea nitroge n measurement (mass/volume)Ordered By: Dr. Edmond on 05-09-2022 Urea nitrogen [Mass/Vol] 11 mg/dL 7-18 [facility] Thin prep Papanicolaou smear with manual screeningOrdered By: Dr. Edmond on 05-09-2022 Thin prep Papanicolaou smear with manual screening 96 U/L 15-37 [facility] Thin prep Papanicolaou smear with manual screening 12 5-15 [facility] Urine phencyclidine (PCP) de tectionOrdered By: Dr. Edmond on 05-09-2022 Phencyclidine Ql (U) Negative < 25 ng/mL [facility] Office Visiton 08-29-2021 Follow-up visit Diagnoses/Problems Acute epigastric pain (789.06,338.19) (R10.13) Provider Impressions F/u if symptoms recur. Chief Complaint stomach pains, severe pain yesterday morning, dull pain since, worried about a stomach ulcer History of Present IllnessHere stating the he got up for work yesterday morning and had epigastric abdominal pain, had some vomiting, did have a little bit of blood after he had been vomiting a few times. He denies previous abdominal pain. He does have some mild pressure today, but nothing like yesterday. He did have some diarrhea yesterday as well. no blood in his stool. He is not currently on any medications. He had been on naltrexone and clonidine - stopped those over a month ago. He has been drinking on and off - the day before this episode he states that he had approx 6 beers. No known fevers, chills. He is feeling much better now. We discussed some possible etiologies including gastritis due to infection, alcohol, ulcer, pancreatitis, gallbladder disease. Since it was short lasting and he is feeling better will hold off on further testing right now. Discussed risks of alcohol use, advised that he may try some pepcid for a couple of weeks to settle the stomach if he has any further mild issues. To er for severe pain or nausea/vomiting to the point of dehydration. Review of Systems Constitutional: Negative except as documented in history of present illness. Respiratory: Negative except as documented in history of present illness. Cardiovascular: Negative except as documented in history of present illness. Active Problems Status post laparoscopic appendectomy (V45.89) (Z90.49) Past Medical History History of Henoch-Schonlein purpura (V13.3) (Z86.2) Surgical History History of Appendectomy History of [place] tooth extraction Social History Coffee Consumes alcohol weekly (V49.89) (Z78.9) Never smoker Allergies No Known Drug Allergies Recorded By: Li Birmingham; 01/12/2020 1:52:12 PM Vitals Vital Signs Recorded: [id number] 02:54PM Heart Rate88 [id number] Ffhooaoed36 Height6 ft Ddcjdh019 lb BMI Malfsnilsx29.28 kg/m2 BSA Calculated2.29 Tobacco Usea) Yes Patient encouraged to stop using tobacco productsYes O2 [id number] Physical Exam General: Alert and oriented, No acute distress. Respiratory: Lungs are clear to auscultation, Respirations are non-labored, Breath sounds are equal. Cardiovascular: Normal rate, Regular rhythm, No murmur. Abdomen: nontender, nondistended, no masses Integumentary: Warm, Dry. Neurologic: Alert, Oriented, No focal deficits. Psychiatric: Cooperative, Appropriate mood AND affect. Signatures Electronically signed by : Ysabel Yanes MD; Aug 30 2021 2:27PM EST (Author) Normal [employer] Tobacco Screening.on 022 Tobacco use status [facility] a) Yes M [facility] Phone: Tobacco Screening. Yes [facility] Phone: Provider Note - ED v2on 09-11 Provider Note - ED v2 Provider Note - ED v2: Chart Review: ED NOTES ED NOTES: 25 yo male arrives ambulatory with concern for intermittent fever for last 2 weeks Patient is a healthy male with no history of lung disease Patient had negative COVID-19 swab 1 week ago at [facility] Had video conference with PCP and prescribed doxycycline which he has had 48 hours of medication T-max is 102 with productive cough of yellow no hemoptysis History of pneumonia Patient reports a tick bite last month with no engorgement No joint pain swelling or rash 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 The historian is the ruthie. Triage Information: Most recent Vital Sign Value Date PAST MEDICAL HISTORY ATTESTATION: I have reviewed and confirmed nurse's/medic's notes for patient's medications, allergies, and medical, surgical, family and social history PSYCHOSOCIAL SCREENING: NO: concerns for safety at home, feelings of depression, feels like hurting others and feels like hurting self CURRENT OR FORMER SUBSTANCE USE: NO: Cigarette/Tobacco, e-Cigarette/Vaping, Alcohol and Street Drugs ALLERGIES/INTOLERANCES: No Known Allergies HEALTH HISTORY: No documented data. OUTPATIENT MEDICATIONS: Home Medications Review Status for Reconciliation: N/A Med Status: Patient Currently Takes Medications Drug Name: oxyCODONE 5 mg oral tablet Instructions: 1 tab(s) orally every 6 hours, As Needed Drug Name: Colace 100 mg oral capsule Instructions: 1 cap(s) orally 2 times a day SIGNIFICANT EVENTS: Clinical Events Description:Surgical Procedure Additional Notes:1. LAPAROSCOPIC APPENDECTOMY REVIEW OF SYSTEMS CONSTITUTIONAL: POSITIVE for: chills, fever, malaise and weakness EYES: Negative for: photophobia ENMT Nose: Negative for: congestion, discharge, nose bleeds, obstruction and sneezing Throat/Neck: Negative for: dysphagia, hoarseness, throat lesions, throat pain, neck lumps, neck pain, neck stiffness and swollen glands CARDIOVASCULAR: Negative for: bradycardia, chest pain, diaphoresis, edema, irregular rhythm, orthopnea, palpitations and tachycardia RESPIRATORY: POSITIVE for: cough and wheezing Negative for: dyspnea, hemoptysis and pleuritic chest pain GASTROINTESTINAL: POSITIVE for: nausea; Negative for: abdominal pain, constipation, diarrhea and vomiting; melena MUSCULOSKELETAL: Negative for: back pain, joint pain, neck pain, pain, sensory deficits, stiffness and weakness INTEGUMENTARY: Negative for: petechiae and rash NEUROLOGICAL: Negative for: altered mental status, dizziness, gait abnormality, headache, loss of consciousness, loss of function and low extremity numbness; HEME/LYMPH: Negative for: easy bleeding ALLERGIC/IMMUNOLOGIC: Negative for: rash RESULTS/VITAL SIGNS VITAL SIGNS: T PRBP SpO2O2(LPM) %FiO2 Method 27-Sep-2020 22:43:[id number] 95 room air, no respiratory support PHYSICAL EXAM CONSTITUTIONAL: Speaks in clear full sentences with no respiratory distress. Hemodynamically stable with no hypoxia. Denies chest pain or shortness of breath CARDIOVASCULAR: Normal rate, regular rhythm. Heart sounds S1, S2. No murmurs, rubs or gallops. PMI non-displaced. RESPIRATORY: Diminished aeration with wheezes throughout but no respiratory distress GASTROINTESTINAL: Abdomen soft, non-distended, no rebound, no guarding. Bowel sounds normal in all 4 quadrants. MUSCULOSKELETAL: Calves are soft with steady gait. No edema Upper and lower extremity pulses are equal NEUROLOGICAL: Alert and oriented, no focal deficits, no motor or sensory deficits. SKIN: Well-hydrated with no rash, joint pain or swelling PSYCHIATRIC: Alert and oriented to person, place, time/situation. normal mood and affect. No apparent risk to self or others. PRESENT ON ARRIVAL: Device or Pressure Ulcer Present on Arrival: no MEDICAL DECISION MAKING/ED COURSE MDM/ED COURSE: Healthy male with 2-week history of intermittent fever with T-max of 102. COVID-19 test 1 week ago negative done at [facility]. Patient placed on doxycycline for cough and wheezing for PCP 48 hours ago via video visit. Patient has not taken her off work at [employer] department. Patient complains of persistent fever controlled with Tylenol, wheezing and nonproductive cough. No chest pain or shortness of breath Patient reports a tick bite 1 month ago with no engorgement or rash. Patient is wheezing. Patient will be given prednisone and Zofran. I asked patient to continue doxycycline as this will cover pneumonia as well as a tick bite or Lyme disease [place] MDI given, reviewed use and dispense spacer I asked patient to take off work rest and good nutrition is a piece of t (more content not included)... Normal [facility] Risk Screen - Adult Emergenc yon 09-28-2020 Risk Screen - Adult Emergency Preferred Language: Preferred Language: Preferred Language for Discussing Health Care (patient/designee)Neel abbott Advanced Directives: Advance Directive/DNRno Family Violence Adult: Abuse Screen: Are you or have you been threatened or abused physically, emotionally, or sexually by anyoneno Learning Assessment (Patient): Learning Assessment (Patient): Patient is Able to be Assessed for Learningyes Factors Influencing Readiness to Learnpain; fever Factors that Impact Ability to Learnnone Devices/Methods Used to Communicatenone Learning Preferenceswritten material Cultural Considerationsnone Developmental Considerationsnone Jehovah'S Witness Considerationsnone Other Learnersnone Learning Assessment (Other Learner): Learning Assessment (Other Learner): Other learner availableno Pressure Injury/TB/Substance: Pressure Injury: Pressure Injury Present on Admissionno Do you have a coughyes... Has your cough lasted longer than 2 weeksno Substance Use Current or Former Historynever: Cigarette/Tobacco, e-Cigarette/Vaping, Alcohol, Street Drugs Admission Risk Screen: Significant IndicatorsComplete CAGE: CAGE: Is this an injured [place] a [place] Center [place] [place] no Electronic Signatures: Vanessa Alicea (SUPV) (Signed 27-Sep-2020 23:08) Authored: Preferred Language, Advanced Directives, Family Violence Adult, Learning Assessment (Patient), Learning Assessment (Other Learner), Pressure Injury/TB/Substance, Pressure Injury, CAGE Last Updated: 27-Sep-2020 23:08 by Vanessa Alicea (SUPV) [facility] Triage - EDon 09-28-2020 Triage - ED Quick Triage: The patient and/or guardian verbally acknowledges placement for services into the following (when Urgent Care Service hours are operating):emergency department Chart Review: ARRIVAL INFORMATION Mode of Arrival: private vehicle CHIEF COMPLAINT SIMBA LI is a Male patient with a chief complaint of fever (States fever and cough and nausea for several days. Tested for COVID and seen PCP and on Doxy for 2 days. Took 1000 mg Tylenol at 1830 for Headache.). Onset of the Complaint: 24-Sep-2020 Triage Date/Time: 27-Sep-2020 22:43 BRANDAN: 3 Pain Rating (0-10): 3 = Mild Vital Signs: Temperature: 100.5F ( 38.0C) taken oral Blood Pressure: 137/98 Mean: Heart Rate: 100 Respiratory Rate: 20 Pulse Oximetry: 95% on room air, no respiratory support. [place] Coma Scale: Best Eye Response: (E4) spontaneous Best Motor Response: (M6) obeys commands Best Verbal Response: (V5) oriented [place] Score: 15 Cough lasting greater than 3 weeks: no Patient immunocompromised related to: N/A Allergies: no Patient has homicidal thoughts: no Risk Screens Suicide Risk Screen In the Past Month: Have you wished you were or wished you could go to sleep and not wake up no In the Past Month: Have you had any actual thoughts of killing yourself no In Your Lifetime: Have you ever done anything, started to do anything, or prepared to do anything to end your life no Ayala Fall Scale Screening Has the patient fallen before (or is the patient in the ED as a result of a fall) has not had a fall Does the patient have an impaired gait does not have impaired gait Is the patient cognitively impaired not cognitively impaired Interventions: Ayala Fall Interventions: LOW INTERVENTIONS: *patient oriented to surroundings and call system, * patient/family falls education completed and documented, *patients fall status communicated during bedside handoff, *whiteboard updated, *mode of toileting discussed with patient, *bed in low position with brakes locked, *call light in reach, * non-skid footwearlow interventions except: patient oriented to surroundings and call systemlow interventions except: patient/family falls education completed and documentedlow interventions except: patients fall status communicated during bedside handoff, whiteboard updatedlow interventions except: mode of toileting discussed with patientlow interventions except: bed in low position with brakes lockedlow interventions except: call light in reach and low interventions except: non-skid footwear TRAVEL HISTORY Travel History Coronavirus Screening: no exposure or symptoms Travel Exposure History: NO travel to International locations in the past 30 days PAIN Pain Scale Used: DEANDRE Pain Rating (0-10): 3 = Mild Past Medical History: Past Medical History Reviewedno Electronic Signatures: Vanessa Alicea (RICHELLE) (Signed 27-Sep-2020 22:48) Authored: Quick Triage, Risk Screens, Pain, Travel History, Chart Review, Scores, Past Medical History Last Updated: 27-Sep-2020 22:48 by Vanessa Alicea (RICHELLE) [facility] Office Visiton 09-25-2020 Follow-up visit Diagnoses/Problems Febrile illness (780.60) (R50.9) Orders Febrile illness Start: Doxycycline Hyclate 100 MG Oral Tablet; TAKE 1 TABLET EVERY 12 HOURS DAILY Provider Impressions Discussed that ideally we would get some testing - labs, possibly urine testing, stool studies, but given his situation with having fevers and we don?t want him going out will treat empirically with doxycycline and f/u in a couple of weeks, sooner if needed. Chief Complaint An interactive audio and video telecommunication system which permits real time communications between the patient (at the originating site) and provider (at the distant site) was utilized to provide this telehealth service. Verbal consent was requested and obtained from SIMBA BLACKWELLWILLIAM on this date, 09/25/2020 03:20 PM , for a telehealth visit. Establish care today with c/o headache,nausea,102.1 temp,fatigue x1wk History of Present IllnessVirtual visit to get established. He has been having issues with headache, nausea, fever, fatigue for the past week - started last Sun morning. and Thu he was vomiting. He did go to urgent care recently - had a covid test and that was negative. Was told that it was probably a virus. [place] better /Thursday but over the weekend he has been having more headaches, some nausea. Still had a fever this morning - took some tylenol and it was down to 99. He is trying to drink lots of water - has been urinating a little more frequently, no burning. He does have diarrhea, no specific pain in his abdomen. He did have a tick bite about a month ago. Review of Systems Constitutional: Negative except as documented in history of present illness. Respiratory: Negative except as documented in history of present illness. Cardiovascular: Negative except as documented in history of present illness. Active Problems Status post laparoscopic appendectomy (V45.89) (Z90.49) Past Medical History History of Henoch-Schonlein purpura (V13.3) (Z86.2) Surgical History History of Appendectomy History of [place] tooth extraction Social History Coffee Consumes alcohol weekly (V49.89) (Z78.9) Never smoker Allergies No Known Drug Allergies Recorded By: Li Birmingham; 01/12/2020 1:52:12 PM Current Meds Medication NameInstruction No Reported Medications Vitals Vital Signs Recorded: 25Sep2020 02:59PM [id number] F Height6 ft 3 in Tobacco Useb) No Physical Exam General: Alert and oriented, No acute distress. Psychiatric: Cooperative, Appropriate mood AND affect. Signatures Electronically signed by : Ysabel Yanes MD; Sep 25 2020 3:38PM EST (Author) Normal [facility] Tobacco Screening.on 021 Tobacco use status [facility] b) No M [facility] Work Phone: ALCOHOLon 12-26-2019 Ethanol [Mass/Vol] mg/dL Normal [facility] Comment on above: Result Comment: FOR MEDICAL USE ONLY. . REF VALUES <10 Performed By: #### A LC ####[address] [address] CBC AND DIFFERENTIALon 12-25 Basophils (Bld) [#/Vol] 0.00 10*3/uL Normal 0.00 - 0.1 0 [facility] Comment on above: Performed By: #### C BCDF #### [address] [address] Basophils/100 WBC (Bld) 0.4 % Normal 0.0 - 2.0 [facility] Comment on above: Performed By: #### C BCDF #### [address] [address] Eosinophils (Bld) [#/Vol] 0.10 10*3/uL Normal 0.00 - 0.70 [facility] Comment on above: Performed By: #### C BCDF #### [address] [address] Eosinophils/100 WBC (Bld) 0.7 % Normal 0.0 - 6.0 [facility] Comment on above: Performed By: #### C BCDF #### [address] [address] Erythrocyte distribution width (RBC) [Ratio] 14.0 % Normal 11.5 - 14.5 [facility] Comment on above: Performed By: #### C BCDF #### [address] [place] [address] Hematocrit (Bld) [Volume fraction] 44.1 % Normal 41.0 - 52.0 [facility] Comment on above: Performed By: #### C BCDF #### [address] [address] Hemoglobin (Bld) [Mass/Vol] 14.9 g/dL Normal 13.5 - 17.5 [facility] Comment on above: Performed By: #### C BCDF #### [address] [address] Lymphocytes (Bld) [#/Vol] 1.30 10*3/uL Normal 1.20 - 4.80 [facility] Comment on above: Performed By: #### C BCDF #### [address] [address] Lymphocytes/100 WBC (Bld) 10.8 % Normal 13.0 - 44.0 [facility] Comment on above: Performed By: #### C BCDF #### [address] [address] MCHC (RBC) [Mass/Vol] 33.8 g/dL Normal 32.0 - 36.0 [facility] Comment on above: Performed By: #### C BCDF #### [address] [address] MCV (RBC) [Entitic vol] 92 fL Normal 80 - 100 [facility] Comment on above: Performed By: #### C BCDF #### [address] [address] Monocytes (Bld) [#/Vol] 1.20 10*3/uL High 0.10 - 1.0 0 [facility] Comment on above: Performed By: #### C BCDF #### [address] [address] Monocytes/100 WBC (Bld) 10.5 % Normal 2.0 - 10.0 [facility] Comment on above: Performed By: #### C BCDF #### [address] [address] Neutrophils (Bld) [#/Vol] 9.10 10*3/uL High 1.20 - 7.70 [facility] Comment on above: Result Comment: Perc ent differential counts (%) should be interpreted in the context of the absolute cell counts (cells/L). Performed By: #### C BCDF #### [address] [address] Neutrophils/100 WBC (Bld) 77.6 % Normal 40.0 - 80.0 [facility] Comment on above: Performed By: #### C BCDF #### [address] [address] NUCLEATED RBC 0.1 /100 WBC Normal [facility] Comment on above: Performed By: #### C BCDF #### [address] [address] Platelets (Bld) [#/Vol] 193 10*3/uL Normal 150 - 450 [facility] Comment on above: Performed By: #### C BCDF #### [address] [address] RBC 4.78 x10E12/L Normal 4.50 - 5.90 [facility] Comment on above: Performed By: #### C BCDF #### [address] [address] WBC (Bld) [#/Vol] 11.7 10*3/uL High 4.4 - 11.3 [facility] Comment on above: Performed By: #### C BCDF #### [address] [address] COMPREHENSIVE PANELon 2019 Albumin [Mass/Vol] 4.7 g/dL Normal 3.4 - 5.0 [facility] Comment on above: Performed By: #### C MP #### [address] [address] ALP [Catalytic activity/Vol] 48 U/L Normal 33 - 120 [facility] Comment on above: Performed By: #### C MP #### [address] [address] ALT [Catalytic activity/Vol] 39 U/L Normal 10 - 52 [facility] Comment on above: Result Comment: Antonina ents treated with Sulfasalazine may generate falsely decreased results for ALT. Performed By: #### C MP #### [address] [address] Anion gap [Moles/Vol] 12 mmol/L Normal 10 - 20 [facility] Comment on above: Performed By: #### C MP #### [address] [address] AST [Catalytic activity/Vol] 18 U/L Normal 9 - 39 [facility] Comment on above: Performed By: #### C MP #### [address] [address] Bilirubin [Mass/Vol] 0.7 mg/dL Normal 0.0 - 1.2 [facility] Comment on above: Performed By: #### C MP #### [address] [address] Calcium [Mass/Vol] 9.9 mg/dL Normal 8.6 - 10.3 [facility] Comment on above: Performed By: #### C MP #### [address] [address] Chloride [Moles/Vol] 99 mmol/L Normal 98 - 107 [facility] Comment on above: Performed By: #### C MP #### [address] [address] Creatinine [Mass/Vol] 0.99 mg/dL Normal 0.50 - 1.30 [facility] Comment on above: Performed By: #### C MP #### [address] [address] GFR- AM. >60 Normal >60 [facility] Comment on above: Result Comment: CALC ULATIONS OF ESTIMATED GFR ARE PERFORMED USING THE MDRD STUDY EQUATION FOR THE IDMS-TRACEABLE CREATININE METHODS. CLIN CHEM 2007;53:766-72 Performed By: #### C MP #### [address] [address] GFR-NON AM. >60 Normal >60 [facility] Comment on above: Performed By: #### C MP #### [address] [address] Glucose [Mass/Vol] 106 mg/dL High 74 - 99 [facility] Comment on above: Performed By: #### C MP #### [address] [address] HCO3 (Bld) [Moles/Vol] 30 mmol/L Normal 21 - 32 [facility] Comment on above: Performed By: #### C MP #### [address] [address] Potassium [Moles/Vol] 3.6 mmol/L Normal 3.5 - 5.3 [facility] Comment on above: Performed By: #### C MP #### [address] [address] Protein [Mass/Vol] 6.7 g/dL Normal 6.4 - 8.2 [facility] Comment on above: Performed By: #### C MP #### [address] [address] Sodium [Moles/Vol] 137 mmol/L Normal 136 - 145 [facility] Comment on above: Performed By: #### C MP #### [address] [address] Urea nitrogen [Mass/Vol] 15 mg/dL Normal 6 - 23 [facility] Comment on above: Performed By: #### C MP #### [address] [address] CORONAVIRUS 2019 BY PCRon SARS-CoV-2 (COVID-19) RNA RASHMI+probe Ql (Unsp spec) Not detected Normal Not Detected [facility] Comment on above: Result Comment: This assay is designed to detect the N2 and E genes of SARS-CoV-2 via nucleic acid amplification. A Not Detected result does not preclude COVID-19 infection since the adequacy of sample collection and/or low viral burden may result in presence of viral nucleic acids below the clinical sensitivity of this test method. Fact sheet for providers: www.fda.gov/media/429121/download Fact sheet for patients: www.fda.gov/media/869331/download This test has received FDA Emergency Use Authorization (EUA) and has been verified by [facility]. This test is only authorized for the duration of time that circumstances exist to justify the authorization of the emergency use of in vitro diagnostic tests for the detection of SARS-CoV-2 virus and/or diagnosis of COVID-19 infection under section 564(b)(1) of the Act, 21 U.S.C. 360bbb-3(b)(1), unless the authorization is terminated or revoked sooner. [facility] is certified under CLIA-88 as qualified to perform high complexity testing. Testing is performed in the [facility] laboratory located at [address] [place] [address]. Performed By: #### C OV19 #### [place] [address] Lab Specimen Source Nasal, Nasopharyngeal Normal [facility] Comment on above: Performed By: #### C OV19 #### [place] [address] CT ABDOMEN AND PELVIS W IV C ONTRASTon 12-26-2019 CT ABDOMEN AND PELVIS W IV CONTRAST STUDY: CT Abdomen and Pelvis with IV Contrast; 12/26/2019 5:38 AM INDICATION: Right sided abdominal pain. Nausea and vomiting since 1600 on 12/25/19. COMPARISON: None Available. ACCESSION NUMBER(S): [id number] ORDERING CLINICIAN: SAGRARIO ARCHER DO TECHNIQUE: CT of the abdomen and pelvis was performed. Contiguous axial images were obtained at 3 mm slice thickness through the abdomen and pelvis. Coronal and sagittal reconstructions at 3 mm slice thickness were performed. Omnipaque 350 90 mL was administered intravenously. FINDINGS: LOWER CHEST: Cardiac size is normal. No pericardial effusion. Calcified hamartoma or granuloma is seen in the right middle lobe. ABDOMEN: LIVER: No hepatomegaly. Smooth surface contour. Focal fat is seen in the left hepatic lobe adjacent to the falciform ligament. BILE DUCTS: No intrahepatic or extrahepatic biliary ductal dilatation. GALLBLADDER: Gallbladder is unremarkable. STOMACH: No abnormalities identified. PANCREAS: No masses or ductal dilatation. SPLEEN: No splenomegaly or focal splenic lesion. Granulomatous calcifications are seen in the spleen. ADRENAL GLANDS: No thickening or nodules. KIDNEYS AND URETERS: Kidneys are normal in size and location. No renal or ureteral calculi. PELVIS: BLADDER: No abnormalities identified. REPRODUCTIVE ORGANS: No abnormalities identified. BOWEL: The appendix is slightly thick-walled with subtle surrounding inflammatory change, consistent with acute appendicitis. The appendix measures 1 cm in diameter. There is no perforation or abscess identified. Terminal ileum is unremarkable. VESSELS: No abnormalities identified. Abdominal aorta is normal in caliber. PERITONEUM/RETROPERITONE UM/LYMPH NODES: No free fluid. No pneumoperitoneum. Slightly prominent right lower quadrant mesenteric nodes are identified, likely reactive. ABDOMINAL WALL: No abnormalities identified. SOFT TISSUES: No abnormalities identified. BONES: No acute fracture or aggressive osseous lesion. IMPRESSION: Mild wall thickening and inflammatory change of the appendix which measures 1 cm in diameter, consistent with acute appendicitis. No evidence of perforation or abscess. NOTIFICATION: The critical results of the study were discussed with, and acknowledged by Dr. Luis M Archer by telephone on 12/26/2019 at 0555. Signed by Fuentes Pedroza Electronically signed by: FUENTES PEDROZA MD [facility] Consult-Surgeryon 12-26-2019 Consult-Surgery Service: Service: Surgery Consult: Consult requested by (Attending Name): Dr. Archer Reason: Acute appendicitis History of Present Illness: HPI: SIMBA LI is a 24 year old Male who presented to emergency room early this morning with complaints of abdominal pain and found to have acute appendicitis for which surgical consultation is requested by Dr. Archer and a personally discussed my recommendations with him. Patient states that the he started experiencing abdominal pain starting around 6 PM last night. Initially it was generalized throughout his abdomen but then localized to right lower quadrant, sharp in nature, without radiation, associated with nausea. No vomiting. He has had diarrhea for the last couple days. Denies any fevers or chills. No previous abdominal surgeries. PMH: ezcema PSH: no previous surgeries FH: Reviewed and not pertinent to present problem SH: Denies smoking but occasionally chews tobacco. Moderate alcohol use regularly. Denies substance abuse. Works at the [employer]. Review of systems: 10 point review of systems completed and negative except as per history of present illness Allergies: No Known Allergies: Objective: Physical Exam: Constitutional: NAD Head/Neck: NC/AT Respiratory/Thorax: Nonlabored respirations Cardiovascular: RRR Gastrointestinal: soft, non distended, tenderness to palpation right lower quadrant Musculoskeletal: JON x4 Extremities: no edema Neurological: AAO x3 Recent Lab Results: Results: I have reviewed these laboratory results: Coronavirus 2019 by PCR 26-Dec-2019 06:01:00 ResultValue Fluid Source Nasal, Nasopharyngeal Coronavirus 2019,PCR NOT DETECTED Reference Range: Not Detected This assay is designed to detect the N2 and E genes of SARS-CoV-2 via nucleic acid amplification. A Not Detected result does not preclude COVID-19 infection since the adequacy of sample collection and/ Urinalysis with Culture if Indicated 26-Dec-2019 04:55:00 ResultValue Color, Urine Yellow Reference Range: STRAW,YELLOW Appearance, Urine CLEAR Specific [place], Urine 1.017 pH, Urine 7.0 Protein, Urine NEGATIVE Glucose, Urine NEGATIVE Blood, Urine NEGATIVE Ketones, Urine NEGATIVE Bilirubin, Urine NEGATIVE Urobilinogen, Urine <2.0 Nitrite, Urine Negative Leukocyte Esterase, Urine NEGATIVE Complete Blood Count + Differential 26-Dec-2019 04:28:00 ResultValue White Blood Cell Count 11.7 H Nucleated Erythrocyte Count 0.1 Red Blood Cell Count 4.78 HGB 14.9 HCT 44.1 MCV 92 MCHC 33.8 PLT 193 RDW-CV 14.0 Neutrophil % 77.6 Lymphocyte % 10.8 Monocyte % 10.5 Eosinophil % 0.7 Basophil % 0.4 Neutrophil Count 9.10 H Lymphocyte Count 1.30 Monocyte Count 1.20 H Eosinophil Count 0.10 Basophil Count 0.00 Comprehensive Metabolic Panel 26-Dec-2019 04:28:00 ResultValue Glucose, Serum 106 H NA 137 K 3.6 CL 99 Bicarbonate, Serum 30 Anion Gap, Serum 12 BUN 15 CREAT 0.99 GFR-Non >60 GFR- >60 Calcium, Serum 9.9 ALB 4.7 ALKP 48 T Pro 6.7 T Bili 0.7 Alanine Aminotransferase, Serum 39 Aspartate Transaminase, Serum 18 Lactate, Level 26-Dec-2019 04:28:00 ResultValue Lactate, Level 1.0 Lipase, Serum 26-Dec-2019 04:28:00 ResultValue Lipase, Serum 13 Ethanol Level 26-Dec-2019 04:28:00 ResultValue Ethanol Level <10 Radiology Results: Results: Impression: Mild wall thickening and inflammatory change of the appendix which measures 1 cm in diameter, consistent with acute appendicitis. No evidence of perforation or abscess. NOTIFICATION: The critical results of the study were discussed with, and acknowledged by Dr. Luis M Flanagan telephone on 12/26/2019 at 0555. Signed by Fuentes Pedroza CT Abdomen and Pelvis with IV Contrast [Dec 26 2019 6:03AM] Personally reviewed CT abdomen pelvis. Noted dilated appendix with enhancing wall and mesenteric stranding. No abscess or free fluid. Assessment: Impression; acute appendicitis We discussed indications, risks, benefits and alternatives of urgent laparoscopic possible open appendectomy. Patient is agreeable to proceed and consent form was signed. Expected recovery was discussed. We will proceed when OR is available. He received 1 dose of Rocephin and Flagyl in the ED Subcutaneous heparin preop for DVT prophylaxis. Anticipate discharge home after surgery. Electronic Signatures: Mali Cotton) (Signed 26-Dec-2019 08:31) Authored: Service, History of Present Illness, Allergies, Objective, Assessment/Recommendatio ns, Signature/Cosignature/At testation Last Updated: 26-Dec-2019 08:31 by Mali Cotton) Normal [facility] LACTATEon 12-26-2019 Lactate [Moles/Vol] 1.0 mmol/L Normal 0.4 - 2.0 [facility] Comment on above: Result Comment: Evelyn puncture immediately after or during the administration of Metamizole may lead to falsely low results. Testing should be performed immediately prior to Metamizole dosing. Performed By: #### L ACT ####[place] [address] LIPASEon 12-26-2019 Lipase [Catalytic activity/Vol] 13 U/L Normal 9 - 82 [facility] Comment on above: Result Comment: Evelyn puncture immediately after or during the administration of Metamizole may lead to falsely low results. Testing should be performed immediately prior to Metamizole dosing. P-enferx-a-benzoquinone imine (metabolite of Acetaminophen) will generate erroneously low results in samples for patients that have taken toxic doses of acetaminophen. Performed By: #### L IPAS #### [place] [address] Patient Profile - Preop v2on 12-26-2019 Patient Profile - Preop v2 Profile: Initial Info: How to be AddressedJosh Spoken Language PreferredEnglish Are you currently using the Personal Electronic Health Record or ResonateCAREno Are you interested in learning more about [facility] for the management of your healthdeclined Stated Reason for AdmissionAppy Primary Contact Name and NumberAmber [phone] Limitations on Visitors/Phone Callsnone Patient Belongingsremains with patient Patient Belongings Remaining with Patientclothing Medications Brought to Hospitalno General Health: Weight in kg111 kilogram(s) Weight in mjg940.7 pound(s) Weight Methodstated Height in feet6 feet Height in inches3 inch(es) Height in cm190.5 centimeter(s) Height Methodstated BMI (kg/m2)30.586 square meter Patient or Family Member Reaction to Anesthesiano previous reaction Blood Avoidance/Restrictionsno ne Previous Transfusion Reactionno Health Mgmt: Symptoms/Conditions Managed at Homenone Barriers to Managing Healthnone Relationship/Environ: Living Arrangementshouse Lives Withdependent child(elizabeth); significant other Resource/Environmental Concernsnone Anticipated Transition Toneshanic station Services Anticipated at Transitionnone Substance: Current or Former Substance Use never: e-Cigarette/Vaping(1), Street Drugs(1) YES: Cigarette/Tobacco(1), Alcohol(2) Tobacco Cessation Education (provide if tobacco use within the last 12 mos) patient declined Risk Screens: COVID-19 Screening Completedno exposure or symptoms(3) Advance Directive/DNRno Advance Directive Mental Healthnot applicable During the past month, have you often been bothered by feeling down, depressed or hopelessno During the past month, have you often had little interest or pleasure in doing thingsno Have you had any thoughts of harming yourselfno Have you had any thoughts of harming anyone elseno Are you or have you been threatened or abused physically,emotionally or sexually abused by anyoneno Do you feel UNSAFE going back to the place you are livingno Patient is Able to be Assessed for Learningyes Factors Influencing Readiness to Learnmotivation to learn Factors that Impact Ability to Learnnone Devices/Methods Used to Communicatenone Learning Preferenceswritten material; verbal instruction Cultural Considerationsnone Developmental Considerationsnone Jehovah'S Witness Considerationsnone Other learner availableno Falls RiskPatient location auto qualifies him/her for HIGH RISK. Are there any cultural, spiritual, christianity practices/values/needs that are important for us to knowno Do you want a visit/item from Pastoral Careno Would you like your Dot Net Developer/Sail Finisher Hand notifiedno Pain Scalenumerical 0-10 Pain Scale Educationteaching provided Current Pain Level6 = Moderate Acceptable Pain Level3 = Mild Expression of Pain (nonverbal)none Lifestyle Changes/Adaptations in Response to Painno change Chronic Painno Information Review: Allergies, Home Meds and Significant Events have been Reviewed and Verified with Patient/Familyyes Allergy, Intolerance, Adverse Event: Allergies: No Known Allergies: Active Electronic Signatures: Marie Noel (RN) (Signed 26-Dec-2019 08:35) Authored: Profile, Additional Information Last Updated: 26-Dec-2019 08:35 by Marie Noel (RN) References: 1. Data Referenced From Risk Screen - Adult Emergency 26-Dec-2019 04:14 2. Data Referenced From Provider Note - ED v2 26-Dec-2019 04:14 3. Data Referenced From Triage - ED 26-Dec-2019 04:10 [facility] Preop Checkliston 12-26-2019 Preop Checklist Preop Checklist: Preop Checklist: Arrival [id number] Arrival Time06:40 Procedure TypeAppendectomy Temperature C36.3 degrees C Temperature F97.3 degrees F Heart Rate79 beats per minute Respiratory Rate18 breath per minute Blood Pressure Ziwamvjg706 mm/Hg Blood Pressure Sdhrwrlox31 mm/Hg NPO [id number] 17:00 ID Band Onyes Allergy Bandno known allergies Consent Signedyes H&P Completeyes Anesthesia Assessment Completedyes EKG Performednot ordered Chest X-Ray Performednot ordered HCG Urine TestN/A Chlorhexadine Bath Givencompleted in pre-op Nasal Antiseptic Appliednot applicable Hair Washednot applicable Soap and water bath with hair shampoo the night before surgerynot applicable Hat placed on infant prior to transportnot applicable SCD's Appliedyes OSMANY Hose Appliednot ordered Denturesnot applicable Prostheticsnot applicable Valuables Securedplaced in locker Glasses / Contactsnot applicable Bowel Prepno Cardiovascular Assessment: Apicalregular Radial Pulsespalpable Pedal Pulsespalpable Extremitieswarm Respiratory Assessment: Respirationsunlabored Air Exchangeequal Breath Soundsclear Neurological Assessment: Level of Consciousnessalert Mobilitymoves all extremities Able to Express Selfyes Age Appropriateyes Emotional Statuscalm Preop Education: Surgical Site Infection Preventionyes Pain Scales and Managementyes Language / Communication: Language / CommunicationEnglish Electronic Signatures: Marie Noel (RN) (Signed 26-Dec-2019 07:55) Authored: Preop Checklist Last Updated: 26-Dec-2019 07:55 by Marie Noel (ANDREW) [facility] Provider Note - ED v2on 12-12 Provider Note - ED v2 Provider Note - ED v2: Chart Review: ED NOTES ED NOTES: 24-year-old male presents with chief complaint of abdominal pain. Patient states approximately 6:00 last night he developed some right-sided abdominal pain. Patient did have some nausea and vomiting. Denies any hematuria or dysuria. Patient also denies any fever with presenting complaint. Patient is in no acute distress when I examined him. Patient was started on IV fluids and given 1 g of Rocephin and 500 mg of Flagyl IV. 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 I have also spoken with the patient and made him aware that he has an acute appendicitis. Patient is resting comfortably at present. The patient ill have same day surgery. HISTORY OF PRESENTING ILLNESS SIMBA is a 24 year old Male and was seen by me at 26-Dec-2019 04:01 for a chief complaint of abdominal pain (c/o right sided abdominal pain after eating hamburger tonight, additional c/o chest pressure, patient states he feels it is indigestion)(1). The historian is the patient. Triage Information: Most recent Vital Sign Value Date Temp (F): 97.3 12-26-2019 04:10 Temp (C): 36.3 12-26-2019 04:10 Heart Rate (beats/min): 88 12-26-2019 04:10 Respirations (breaths/min): 18 12-26-2019 04:10 SpO2 (%): 99 12-26-2019 04:10 BP Systolic (mm Hg): 147 12-26-2019 04:10 BP Diastolic (mm Hg): 91 12-26-2019 04:10 PAST MEDICAL HISTORY ATTESTATION: I have reviewed and confirmed nurse's/medic's notes for patient's medications, allergies, medical history, and surgical history CURRENT OR FORMER SUBSTANCE USE: YES: Alcohol ALLERGIES/INTOLERANCES: No Known Allergies HEALTH HISTORY: No documented data. OUTPATIENT MEDICATIONS: Home Medications Review Status for Reconciliation: N/A Med Status: N/A No documented data. SIGNIFICANT EVENTS: No documented data. REVIEW OF SYSTEMS GASTROINTESTINAL: POSITIVE for: abdominal pain; All other systems reviewed and are negative RESULTS/VITAL SIGNS RESULTS: Recent Lab Results: I have reviewed these laboratory results: Urinalysis with Culture if Indicated 26-Dec-2019 04:55:00 ResultValue Color, Urine Yellow Reference Range: STRAW,YELLOW Appearance, Urine CLEAR Specific [place], Urine 1.017 pH, Urine 7.0 Protein, Urine NEGATIVE Glucose, Urine NEGATIVE Blood, Urine NEGATIVE Ketones, Urine NEGATIVE Bilirubin, Urine NEGATIVE Urobilinogen, Urine <2.0 Nitrite, Urine Negative Leukocyte Esterase, Urine NEGATIVE Complete Blood Count + Differential 26-Dec-2019 04:28:00 ResultValue White Blood Cell Count 11.7 H Nucleated Erythrocyte Count 0.1 Red Blood Cell Count 4.78 HGB 14.9 HCT 44.1 MCV 92 MCHC 33.8 PLT 193 RDW-CV 14.0 Neutrophil % 77.6 Lymphocyte % 10.8 Monocyte % 10.5 Eosinophil % 0.7 Basophil % 0.4 Neutrophil Count 9.10 H Lymphocyte Count 1.30 Monocyte Count 1.20 H Eosinophil Count 0.10 Basophil Count 0.00 Comprehensive Metabolic Panel 26-Dec-2019 04:28:00 ResultValue Glucose, Serum 106 H NA 137 K 3.6 CL 99 Bicarbonate, Serum 30 Anion Gap, Serum 12 BUN 15 CREAT 0.99 GFR-Non >60 GFR- >60 Calcium, Serum 9.9 ALB 4.7 ALKP 48 T Pro 6.7 T Bili 0.7 Alanine Aminotransferase, Serum 39 Aspartate Transaminase, Serum 18 Lactate, Level 26-Dec-2019 04:28:00 ResultValue Lactate, Level 1.0 Lipase, Serum 26-Dec-2019 04:28:00 ResultValue Lipase, Serum 13 Ethanol Level 26-Dec-2019 04:28:00 ResultValue Ethanol Level <10 Radiology Results: Impression: Mild wall thickening and inflammatory change of the appendix which measures 1 cm in diameter, consistent with acute appendicitis. No evidence of perforation or abscess. NOTIFICATION: The critical results of the study were discussed with, and acknowledged by Dr. Luis M Flanagan telephone on 12/26/2019 at 0540. Signed by Fuentes Pedroza CT Abdomen and Pelvis with IV Contrast [Dec 26 2019 6:03AM] VITAL SIGNS: T PRBP SpO2O2(LPM) %FiO2 Method 26-Dec-2019 06:00:[id number] 98 room air, no respiratory support 26-Dec-2019 04:10:[id number]/91 99 EKG INTERPRETATION: EKG Date/Time: 26-Dec-2019 04:05 Rate: 86 Impression: Normal sinus rhythm Indication: Abdominal pain Rhythm: NSR STEMI: no [place]: Normal Prior EKG: no old EKG available PHYSICAL EXAM CONSTITUTIONAL: Well appearing, well nourished, awake, alert, oriented to person, place, time/situation and in no apparent distress. HENMT: Airway patent, ears with clear tympanic membranes bilaterally. Nasal mucosa clear. Mouth with normal mucosa. Throat has no vesicles, no oropharyngeal exudates and uvula is midline. Face with no lymph node enlargement. EYES: Clear bilaterally, pupils equal, round and reactive to light. CARDIOVASCULAR: Normal rate, regular rhythm. Heart manuel (more content not included)... Normal [facility] Risk Screen - Adult Emergenc yon 12-26-2019 Risk Screen - Adult Emergency Preferred Language: Preferred Language: Preferred Language for Discussing Health Care (patient/designee)Neel abbott Advanced Directives: Advance Directive/DNRno Family Violence Adult: Abuse Screen: Are you or have you been threatened or abused physically, emotionally, or sexually by anyoneno Learning Assessment (Patient): Learning Assessment (Patient): Patient is Able to be Assessed for Learningyes Factors Influencing Readiness to Learnacuteness of illness Factors that Impact Ability to Learnnone Devices/Methods Used to Communicatenone Learning Preferencesaudio Cultural Considerationsnone Developmental Considerationsnone Jehovah'S Witness Considerationsnone Learning Assessment (Other Learner): Learning Assessment (Other Learner): Other learner availableno Pressure Injury/TB/Substance: Pressure Injury: Pressure Injury Present on Admissionno Do you have a coughno Substance Use Current or Former Historynever: e-Cigarette/Vaping, Street Drugs YES: Cigarette/Tobacco, Alcohol Smoking Statussmoker, current status unknown Tobacco Cessation Education (provide if tobacco use within the last 12 mos) patient declined Other Tobacco Use Commentschewing tobacco Alcohol Usedaily Admission Risk Screen: Significant IndicatorsComplete CAGE: CAGE: Is this an [place] a [place] [place] no Electronic Signatures: Prasanna Rosenberg (RN) (Signed 26-Dec-2019 04:17) Authored: Preferred Language, Advanced Directives, Family Violence Adult, Learning Assessment (Patient), Learning Assessment (Other Learner), Pressure Injury/TB/Substance, CAGE Last Updated: 26-Dec-2019 04:17 by Prasanna Rosenberg (RN) [facility] Triage - EDon 12-26-2019 Triage - ED Quick Triage: The patient and/or guardian verbally acknowledges placement for services into the following (when Urgent Care Service hours are operating):emergency department Chart Review: ARRIVAL INFORMATION Mode of Arrival: private vehicle CHIEF COMPLAINT SIMBA LI is a Male patient with a chief complaint of abdominal pain (c/o right sided abdominal pain after eating hamburger tonight, additional c/o chest pressure, patient states he feels it is indigestion). Triage Date/Time: 26-Dec-2019 04:10 Pain Rating (0-10): 7 = Severe Vital Signs: Temperature: 97.3F ( 36.3C) Blood Pressure: 147/91 Mean: Heart Rate: 88 Respiratory Rate: 18 Pulse Oximetry: 99% Height: 6 feet 5.00 inches. 195.5 CM Weight: 253.5 pounds. Calculated 115.0 kg. Calculated BMI (kg/m2): 30.088 Calculated BSA (m2) 2.50 Yari Coma Scale: Best Eye Response: (E4) spontaneous Best Motor Response: (M6) obeys commands Best Verbal Response: (V5) oriented Yari Score: 15 Cough lasting greater than 3 weeks: no Allergies: no Mask applied: yes Patient has homicidal thoughts: no BRANDAN: 3 Symptoms Are POSITIVE For: diarrhea. Symptoms Are Negative For: anorexia, constipation, diaphoresis, distention, fever, nausea, rectal blood and vomiting. Risk Screens Suicide Risk Screen In the Past Month: Have you wished you were or wished you could go to sleep and not wake up no In the Past Month: Have you had any actual thoughts of killing yourself no In Your Lifetime: Have you ever done anything, started to do anything, or prepared to do anything to end your life no Ayala Fall Scale Screening Has the patient fallen before (or is the patient in the ED as a result of a fall) has not had a fall Does the patient have an impaired gait does not have impaired gait Is the patient cognitively impaired not cognitively impaired Interventions: Ayala Fall Interventions: LOW INTERVENTIONS: *patient oriented to surroundings and call system, * patient/family falls education completed and documented, *patients fall status communicated during bedside handoff, *whiteboard updated, *mode of toileting discussed with patient, *bed in low position with brakes locked, *call light in reach, * non-skid footwear TRAVEL HISTORY Travel History Coronavirus Screening: no exposure or symptoms PAIN Pain Scale Used: DEANDRE Pain Rating (0-10): 7 = Severe Past Medical History: Past Medical History Reviewedyes Electronic Signatures: Prasanna Rosenberg (ANDREW) (Signed 26-Dec-2019 04:14) Authored: Triage, Past Medical History Last Updated: 26-Dec-2019 04:14 by Prasanna Rosenberg (ANDREW) [facility] Surgical Pathology Depar [facility] 12-26-2019 [facility] Surgical Pathology Department Name SIMBA LI Pathologist: CIRILO HAYES M.D., PhD. Date of Procedure: 12/26/2019 Date Received: 12/26/2019 Date Reported 12/30/2019 Submitting Physician: MALI COTTON MD Location: [facility] Other External # FINAL DIAGNOSIS A. APPENDIX: --APPENDIX WITH ACUTE APPENDICITIS AND ACUTE SEROSITIS Electronically Signed Out By CIRILO HAYES M.D., PhD./WLI By the signature on this report, the individual or group listed as making the Final Interpretation/Diagnosis certifies that they have reviewed this case. Clinical History: Physician Contact Number: [phone] Fixative (A): Formalin Clinical Diagnosis History SIMBA LI is a 24 year old Male who presented to emergency room early this morning with complaints of abdominal pain and found to have acute appendicitis for which surgical consultation is requested by Dr. Archer and a personally discussed my recommendations with him. Patient states that the he started experiencing abdominal pain starting around 6 PM last night. Initially it was generalized throughout his abdomen but then localized to right lower quadrant, sharp in nature, without radiation, associated with nausea. No vomiting. He has had diarrhea for the last couple days. Denies any fevers or chills. No previous abdominal surgeries. PMH: ezcema PSH: no previous surgeries FH: Reviewed and not pertinent to present problem SH: Denies smoking but occasionally chews tobacco. Moderate alcohol use regularly. Denies substance abuse. Works at the [employer]. Review of systems: 10 point review of systems completed and negative except as per history of present illness Specimens Submitted As: A: APPENDIX Gross Description: Received in formalin, labeled with the patient's name and hospital number and appendix, is an appendectomy specimen, 6.8 x 0.9 x 0.8 cm. A mesoappendix is present and measures 5.8 cm in length. The serosal surface is pink-islas, smooth, and glistening with a focal white-islas fibrinous exudate. Cross sections reveal a proximally dilated lumen, measuring up to 0.4 cm. Purulent material is present. Fecaliths or stones are not identified. No gross lesions are identified. Admissions Director sections are submitted in 2 cassettes. N Summary of Cassettes: Specimen Label Site A 1 perpendicular distal tip, inked proximal line of resection 2 additional cross sections n/12/27/2019 [facility] Department of Pathology [address] [place] [address] Normal [facility] Comment on above: Performed By: #### U HCS #### [facility] Surgical Pathology Department [address] [place] [address] URINALYSIS WITH CULTURE IF I NDICATEDon 12-26-2019 Appearance (U) CLEAR Normal CLEAR [facility] Comment on above: Performed By: #### U ARFX #### [address] [address] Bilirubin Ql (U) Negative Normal NEGATIVE [facility] Comment on above: Performed By: #### U ARFX #### [address] [address] Color (U) Yellow Normal STRAW,YELLO W [facility] Comment on above: Performed By: #### U ARFX #### [address] [address] Glucose Ql (U) Negative Normal NEGATIVE [facility] Comment on above: Performed By: #### U ARFX #### [address] [address] Hemoglobin Ql (U) Negative Normal NEGATIVE [facility] Comment on above: Performed By: #### U ARFX #### [address] [address] Ketones Ql (U) Negative Normal NEGATIVE [facility] Comment on above: Performed By: #### U ARFX #### [address] [address] Leukocyte esterase Test strip Ql (U) Negative Normal NEGATIVE [facility] Comment on above: Performed By: #### U ARFX #### [address] [address] Nitrite Ql (U) Negative Normal NEGATIVE [facility] Comment on above: Performed By: #### U ARFX #### [place] [address] pH (U) 7.0 [pH] Normal 5.0 - 8.0 [facility] Comment on above: Performed By: #### U ARFX #### [place] [address] Protein Ql (U) Negative Normal NEGATIVE [facility] Comment on above: Performed By: #### U ARFX #### [address] [address] Specific gravity (U) [Rel density] 1.017 Normal 1.005 - 1.035 [facility] Comment on above: Performed By: #### U ARFX #### [address] [address] Urobilinogen (U) [Mass/Vol] mg/dL Normal 0.0 - 1.9 [facility] Comment on above: Performed By: #### U ARFX #### [address] [address] Lab Specimen Source Normal [facility] Comment on above: Performed By: #### U ARFX #### [place] [id number] Vital Signs Date Time Vital Sign Value Performing Clinician Facility 12-21-2024 15:31-0400 Body temperature 97.8 [degF] No Primary Care Physician [facility] 12-21-2024 15:31-0400 Diastolic blood pressure 86 mm[Hg] No Primary Care Physician [facility] 12-21-2024 15:31-0400 Heart rate 94 /min No Primary Care Physician [facility] 12-21-2024 15:31-0400 Respiratory rate 18 /min No Primary Care Physician [facility] 12-21-2024 15:31-0400 SaO2% (BldA) [Mass fraction] 99 % No Primary Care Physician [facility] 12-21-2024 15:31-0400 Systolic blood pressure 128 mm[Hg] No Primary Care Physician [facility] 12-21-2024 13:47-0400 Body height 190.5 cm No Primary Care Physician [facility] 12-21-2024 13:47-0400 Body mass index (BMI) [Ratio] 27.8 kg/m2 No Primary Care Physician [facility] 12-21-2024 13:47-0400 Body weight 101.15 kg No Primary Care Physician [facility] 07-28-2024 08:39-0400 Body height 190.5 cm Dwight Bischof DO Work Phone: [facility] 07-28-2024 08:39-0400 Body mass index (BMI) [Ratio] 28.75 kg/m2 Dwight Bischof DO Work Phone: [facility] 07-28-2024 08:39-0400 Body weight 104.33 kg Dwight Bischof DO Work Phone: [facility] 07-28-2024 08:39-0400 Diastolic blood pressure 83 mm[Hg] Dwight Bischof DO Work Phone: [facility] 07-28-2024 08:39-0400 Heart rate 63 /min Dwight Bischof DO Work Phone: [facility] 07-28-2024 08:39-0400 Systolic blood pressure 111 mm[Hg] Dwight Bischof DO Work Phone: [facility] 01-04-2024 11:25-0400 Diastolic blood pressure 85 mm[Hg] Sabas Benz DO Work Phone: [facility] 01-04-2024 11:25-0400 Heart rate 79 /min Sabas Benz DO Work Phone: [facility] 01-04-2024 11:25-0400 Respiratory rate 16 /min Sabas Benz DO Work Phone: [facility] 01-04-2024 11:25-0400 SaO2% (BldA) [Mass fraction] 99 % Sabas Benz DO Work Phone: [facility] 01-04-2024 11:25-0400 Systolic blood pressure 136 mm[Hg] Sabas Benz DO Work Phone: [facility] 01-04-2024 09:13-0400 Body mass index (BMI) [Ratio] 28.75 kg/m2 Sabas Benz DO Work Phone: [facility] 01-04-2024 09:13-0400 Body temperature 98.1 [degF] Sabas Benz DO Work Phone: [facility] 01-04-2024 09:13-0400 Body weight 104.33 kg Sabas Benz DO Work Phone: [facility] 05-09-2022 15:00-0500 Heart rate 100 /min [facility] 05-09-2022 15:00-0500 Respiratory rate 16 /min [facility] 05-09-2022 15:00-0500 SaO2% (BldA) [Mass fraction] 99 % [facility] 05-09-2022 14:59-0500 Body temperature 97.1 [degF] [facility] 05-09-2022 14:59-0500 Diastolic blood pressure 77 mm[Hg] [facility] 05-09-2022 14:59-0500 Systolic blood pressure 136 mm[Hg] [facility] 05-09-2022 13:54-0500 Body height 190.5 cm [facility] 05-09-2022 13:54-0500 Body mass index (BMI) [Ratio] 32.5 kg/m2 [facility] 05-09-2022 13:54-0500 Body weight 118.2 kg [facility] 08-29-2021 14:54-0400 Body height 182.88 cm Ysabel Yanes Work Phone: [facility] Work Phone: 08-29-2021 14:54-0400 Body mass index (BMI) [Ratio] 32.28 kg/m2 Ysabel Yanes Work Phone: [facility] Work Phone: 08-29-2021 14:54-0400 Body surface area Derived from formula 2.29 m2 Ysabel Yanes Work Phone: [facility] Work Phone: 08-29-2021 14:54-0400 Body weight 107.96 kg Ysabel Yanes Work Phone: [facility] Work Phone: 08-29-2021 14:54-0400 Diastolic blood pressure 88 mm[Hg] Ysabel Yanes Work Phone: [facility] Work Phone: 08-29-2021 14:54-0400 Heart rate 88 /min Ysabel Yanes Work Phone: [facility] Work Phone: 08-29-2021 14:54-0400 SaO2% (BldA) [Mass fraction] 97 % Ysabel Yanes Work Phone: [facility] Work Phone: 08-29-2021 14:54-0400 Systolic blood pressure 120 mm[Hg] Ysabel Yanes Work Phone: [facility] Work Phone: 05-07-2021 12:40-0500 Diastolic blood pressure 89 mm[Hg] Panchito Arroyo MD Work Phone: [facility] 05-07-2021 12:40-0500 Systolic blood pressure 139 mm[Hg] Panchito Arroyo MD Work Phone: [facility] 05-07-2021 12:39-0500 Body height 190.5 cm Panchito Arroyo MD Work Phone: [facility] 05-07-2021 12:39-0500 Body mass index (BMI) [Ratio] 30.49 kg/m2 Panchito Arroyo MD Work Phone: [facility]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 body mass index (BMI) of 30.0 to 30.9 in adult MDD (major depressive disorder) Major depressive disorder, recurrent episode, severe with anxious distress (HCC) Severe major depression (HCC) Alcohol abuse Alcohol Intoxication [place] IV: Other psychosocial and environmental problems [place] V: 41-50: Serious symptoms OR any serious impairment in social, occupational, or school functioning * Major depressive disorder, recurrent episode, severe with anxious distress (HCC) Assessment & Plan Artie is a 29-year-old male with a complex psychiatric history, including anxiety, depression, PTSD, and alcohol use disorder, who presents with concerning behavior suggesting potential risk to self, despite his denial of current suicidal ideation. His recent discontinuation of Lamictal, coupled with increased alcohol consumption and a history of medication non-compliance, exacerbates his mental health vulnerabilities. The context of his statements, made under the influence and misunderstood as suicidal by his girlfriend, alongside his father's concerns about safety and access to firearms, underscores the need for close monitoring and intervention. His recent rehabilitation stint and subsequent struggles highlight the challenges in maintaining stability post-treatment. 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 Physical examination Lab testing as appropriate Precautions -suicide PRN medications for agitation Collateral history from family/friends/providers Request/review prior records financial services education consultant assessment/linkage/care coordination Group participation/[facility] Supportive psychotherapy/structured supportive care Monitor for alcohol withdrawal Addiction medicine consult Discuss restarting an antidepressant Aftercare planning once stable Comorbid issues impacting my care plan include non-adherence and substance use. Chief Complaint: from what I said when drinking History of Present Illness: Artie Li is a 29 y.o. male with a history of anxiety, depression, PTSD, and alcohol use disorder who was brought to the hospital's inpatient psychiatric unit by law enforcement under a pink slip for a psychiatric evaluation. The admission was prompted by concerns raised after he made statements to his girlfriend suggesting if anything were to happen to him, he wanted certain arrangements made for his children. Although Artie denies any suicidal or homicidal ideation, the [facility]'s Department reported that he made comments suggesting he was going to kill himself and had plans to use a firearm. Upon admission, Artie was noted to be under the influence of alcohol with a blood alcohol level of 0.277. During his assessment, he was alert and oriented, though mildly irritable, yet calm and cooperative. He expressed that his statements were misunderstood and related to a challenging year rather than any intent to harm himself. He reported that these comments were made while intoxicated and that he does not feel he needed hospitalization. Artie has a history of non-compliance with psychiatric medications, having stopped taking Lamictal approximately two weeks ago, and he has been using trazodone occasionally for sleep. He reports daily alcohol use over the past week, despite claiming he does not typically drink much. He denies any current suicidal ideation, intent, or plan, though acknowledges a history of suicidal thoughts, with the last occurrence several months prior. He also denies any homicidal ideation, hallucinations, or recent issues with mood, anxiety, or activities of daily living. Artie has been linked with [facility] for counseling and he missed several psychiatric appointments due to a three-month rehabilitation program in [place]. His father reports ongoing struggles with mental health since (more content not included)... [facility] 01-12-2024 Note Inpatient Psychiatry Discharge Summary Patient Name: Artie Li MR #: [id number] : 1995 Admit Date: [id number] Discharge Date/Time: 01/12/2024 3:14 PM Clinical Summary Reason for Hospitalization: For safety and stabilization Discharge Diagnoses and Associated Hospital Course: * Major depressive disorder, recurrent episode, severe with anxious distress (HCC) Assessment & Plan Mr. Artie Li, a 28-year-old male with a history of depression, anxiety, PTSD, and alcohol use disorder, is being admitted for inpatient psychiatric care due to significant concerns about his safety and mental health stability. He presents with severe depressive symptoms, recent suicidal ideations, and impaired judgment, exacerbated by his alcohol use and the stress of being unable to see his son. Despite his attempts to minimize the severity of his symptoms, his recent behaviors, including a visit to the ED for alcohol-related issues and an episode of being missing with a firearm while intoxicated, indicate a high risk of self-harm. Immediate hospitalization is necessary to ensure his safety, stabilize his condition, and reassess his treatment plan, including his medication regimen and the need for substance use treatment. His limited insight into his condition and impaired judgment further underscore the need for a controlled environment to prevent potential self-harm and to facilitate a comprehensive treatment approach. Physical examination Lab testing as appropriate Precautions -suicide PRN medications for agitation Collateral history from family/friends/providers Request/review prior records financial services education consultant assessment/linkage/care coordination Group participation/[facility] Supportive psychotherapy/structured supportive care CIWA protocol Alcohol withdrawal protocol and precautions Addiction medicine Start Sertraline 50 mg by mouth daily Start Naltrexone 50 mg by mouth daily Aftercare planning once stable Discharge Summary Reason for Admission: Artie Li, a 28-year-old male, was admitted to the inpatient psychiatric unit for safety and stabilization due to severe depression, anxiety, PTSD, and alcohol use disorder. He presented with significant concerns regarding his mental health and safety, including a high risk of self-harm and potential suicidal behavior. Hospital Course: Upon admission, Mr. Li exhibited signs of severe distress, including tearfulness, a severely depressed mood, and recent suicidal thoughts without a specific plan. His history included intermittent compliance with prescribed mental health medications and a recent visit to the Emergency Department for alcohol-related abdominal pain. Throughout his hospitalization, Mr. Li's treatment plan focused on safety, stabilization, and addressing his alcohol use disorder. He was transitioned from a Lorazepam regimen to a Phenobarbital taper for alcohol withdrawal, which he reported as helpful. His medication regimen was further adjusted to include Sertraline and Naltrexone. Mr. Li consistently expressed frustration about his involuntary hold and his desire to be discharged. Despite this, he complied with his medication regimen and attended group sessions, although he often appeared disinterested. His mood and affect improved over the course of his stay, and he demonstrated logical thought processes with no evidence of suicidal ideation or plans. Family and Social Support: Multiple communications were conducted with Mr. Li's family and his girlfriend, Omayra. These conversations highlighted the shared concern for his alcohol use and the associated risks. It was collectively agreed that intensive treatment for his alcohol use disorder would be the ideal step. However, it was acknowledged that as an adult, Mr. Li could not be forced into treatment. Omayra and Mr. Li's parents committed to monitoring him post-discharge and supporting his recovery. Discharge Plan: Mr. Li denied any suicidal intentions throughout his entire hospitalization. He also denied any symptoms of alcohol withdrawal at the time of discharge. He agreed to attend Alcoholics Anonymous (AA) meetings and to be monitored by his girlfriend, Omayra. Follow-Up: Mr. Li will attend regular follow-up sessions with his outpatient psychiatrist and counselor. He is encouraged to actively participate in AA meetings and seek support from his social network. Omayra and Mr. Li's parents will monitor his behavior and report any concerning changes. Patient Education: Mr. Li was educated on the importance of medication compliance and the risks associated with alcohol use. He was provided with resources for continued support and encouraged to engage in activities that promote his mental health and sobriety. Consults placed Procedures Emergency Department Consult to PSYCH - Show Card Letterer (more content not included)... [facility] 01-11-2024 Note Psychiatry Progress Note Patient Name: Artie Li Admit Date: [id number] [id number] [id number] 1995 Perpetual Assessment Artie Li is a 28 y.o. male with a history of severe depression, anxiety, PTSD, and alcohol use disorder, is being admitted for inpatient psychiatric care due to significant suicidal ideations and impaired judgment, necessitating immediate stabilization and reassessment of his treatment plan. Diagnosis & Plan/Recommendations PRINCIPAL DIAGNOSIS: Major depressive disorder, recurrent episode, severe with anxious distress (HCC) * Major depressive disorder, recurrent episode, severe with anxious distress (HCC) Assessment & Plan Mr. Artie Li, a 28-year-old male with a history of depression, anxiety, PTSD, and alcohol use disorder, is being admitted for inpatient psychiatric care due to significant concerns about his safety and mental health stability. He presents with severe depressive symptoms, recent suicidal ideations, and impaired judgment, exacerbated by his alcohol use and the stress of being unable to see his son. Despite his attempts to minimize the severity of his symptoms, his recent behaviors, including a visit to the ED for alcohol-related issues and an episode of being missing with a firearm while intoxicated, indicate a high risk of self-harm. Immediate hospitalization is necessary to ensure his safety, stabilize his condition, and reassess his treatment plan, including his medication regimen and the need for substance use treatment. His limited insight into his condition and impaired judgment further underscore the need for a controlled environment to prevent potential self-harm and to facilitate a comprehensive treatment approach. Physical examination Lab testing as appropriate Precautions -suicide PRN medications for agitation Collateral history from family/friends/providers Request/review prior records financial services education consultant assessment/linkage/care coordination Group participation/[facility] Supportive psychotherapy/structured supportive care [facility] protocol Alcohol withdrawal protocol and precautions Addiction medicine Start Sertraline 50 mg by mouth daily Start Naltrexone 50 mg by mouth daily Aftercare planning once stable Comorbid issues impacting my care plan include non-adherence and substance use. Following for alcohol use, suicidal concerns, depression, post traumatic stress disorder Interval History: Today, I had an extensive conversation with Mr. Artie Li, who appeared brighter and reported feeling physically better. He has successfully completed his Phenobarbital taper and mentioned feeling less sedated. Mr. Li has been consistently attending group sessions and has been observed to be social with his peers. He has not shown any signs of agitation and has been compliant with his medication regimen. Despite his regular attendance, he has been reported to be disinterested during group activities. Mr. iL vehemently denied having any current intentions of suicide or ending his life but expressed ongoing frustration about being hospitalized and the prospect of being forced to go to residential treatment for his alcohol use disorder. His appearance was brighter, and he was well-groomed and neat. He demonstrated logical thought processes with no evidence of suicidal ideation or plans. He was alert and oriented to person, place, and time, showing improved judgment and some signs of improving insight. Mr. Li's continued improvement both physically and mentally is notable. Completing the Phenobarbital taper has reduced his sedation, allowing him to participate more actively in social activities. His compliance with medication and lack of agitation are positive indicators. However, his disinterest in group activities suggests a need for ongoing engagement and support. His frustration with hospitalization and the prospect of residential treatment highlights the importance of addressing these concerns to ensure his cooperation with the treatment plan. The plan includes maintaining his current inpatient status for safety and stabilization, given the high risk of self-harm and suicidal behavior. We will continue with his current medication regimen, monitoring for any side effects and ensuring compliance. Encouraging active participation in group activities and exploring individual interests to enhance his engagement will be essential. Despite his frustration, it remains crucial to recommend participation in a residential treatment program for his alcohol use disorder. I had the pleasure of speaking with Omayra, a close contact identified by Mr. Li, who expressed shared concerns about his alcohol use and the associated risks. Omayra will monitor Mr. Li post-discharge and report any concerning behavior or relapse. She, along with Mr. Li's parents, supports the plan for residential med (more content not included)... [facility] 01-10-2024 Note Psychiatry Progress Note Patient Name: Artie Li Admit Date: [id number] MR #: [id number] : 1995 Perpetual Assessment Artie Li is a 28 y.o. male with a history of severe depression, anxiety, PTSD, and alcohol use disorder, is being admitted for inpatient psychiatric care due to significant suicidal ideations and impaired judgment, necessitating immediate stabilization and reassessment of his treatment plan. Diagnosis & Plan/Recommendations PRINCIPAL DIAGNOSIS: Major depressive disorder, recurrent episode, severe with anxious distress (HCC) * Major depressive disorder, recurrent episode, severe with anxious distress (HCC) Assessment & Plan Mr. Artie Li, a 28-year-old male with a history of depression, anxiety, PTSD, and alcohol use disorder, is being admitted for inpatient psychiatric care due to significant concerns about his safety and mental health stability. He presents with severe depressive symptoms, recent suicidal ideations, and impaired judgment, exacerbated by his alcohol use and the stress of being unable to see his son. Despite his attempts to minimize the severity of his symptoms, his recent behaviors, including a visit to the ED for alcohol-related issues and an episode of being missing with a firearm while intoxicated, indicate a high risk of self-harm. Immediate hospitalization is necessary to ensure his safety, stabilize his condition, and reassess his treatment plan, including his medication regimen and the need for substance use treatment. His limited insight into his condition and impaired judgment further underscore the need for a controlled environment to prevent potential self-harm and to facilitate a comprehensive treatment approach. Physical examination Lab testing as appropriate Precautions -suicide PRN medications for agitation Collateral history from family/friends/providers Request/review prior records financial services education consultant assessment/linkage/care coordination [facility] Supportive psychotherapy/structured supportive care [facility] protocol Alcohol withdrawal protocol and precautions Addiction medicine Start Sertraline 50 mg by mouth daily Start Naltrexone 50 mg by mouth daily Aftercare planning once stable Comorbid issues impacting my care plan include non-adherence and substance use. Following for alcohol use, suicidal concerns, depression, post traumatic stress disorder Interval History: Charts were reviewed, updates obtained from designated nursing staff and manager social. Patient was interviewed and discussed with team Not isolated today, attended the groups and has been spending more time on the common area. Did have difficulty falling asleep but was able to stay asleep after getting trazodone. Appetite is improving. Patient is denying any withdrawal symptoms today. Still feeling tired and lethargic but states mood is less depressed. He denies any active or passive suicidal ideation. Anxiety distress is about moderate. He is feeling less restless and tense today. Interpersonal issues were discussed: Support was provided Review of Systems: Constitutional:No fever, no weight loss Eyes:No diplopia ENT:No sinus drainage CV:No chest pain. No ankle swelling Resp:No dyspnea. No wheezing GI:No abdominal pain.No abdominal distention :No dysuria Neuro:No headache Integumentary:No skin rash MuscSkel:No arthralgias Endo:No polyuria Heme/lymphatic:No apparent lymphadenopathy Allergic/Immunologic:No hives Physical Examination: Vital Signs: BP 121/82 (Patient Position: Sitting) Pulse 78 Temp 98.1 degrees F (36.7 degrees C) (Oral) Resp 16 Ht 6' 3 Wt 103.8 kg (228 lb 12.8 oz) SpO2 97% BMI 28.60 kg/m Mental Status Evaluation: General Appearance & Behavior: Appears stated age, able to engage, fair eye contact Grooming & Hygiene: street clothes Psychomotor Activity: no psychomotor abnormalities or muscle atrophy noted Gait & Station stable gait Speech: Normal rate, normal tone Flow of Thought: Linear Thought Associations: Intact Content of Thought: Denied any SI or HI Mood: Tired Affect: Restricted Insight: limited Judgment: limited Orientation: alert and oriented to person, place, time, and circumstances Memory: intact recent and remote Attention: Adequate Concentration: Adequate Language: fluent Fund of Knowledge: estimated average intelligence Laboratory and Additional Data Reviewed: Laboratory 01/10/24 2:32 PM Treatment options and alternatives reviewed with patient. Risks, benefits, side effects of all psychiatric medications discussed with patient and informed consent obtained. All questions were answered. Continue medication management as per Dr. Luis's orders. Yumiko Smith MD 01/10/2024 2:32 PM AUTHENTICATED BY YUMIKO SMITH, ON 01/10/2024 14:34:29 [facility] 01-09-2024 Note Psychiatry Progress Note Patient Name: Artie Li Admit Date: 9240517 MR #: [id number] : 1995 Perpetual Assessment Artie Li is a 28 y.o. male with a history of severe depression, anxiety, PTSD, and alcohol use disorder, is being admitted for inpatient psychiatric care due to significant suicidal ideations and impaired judgment, necessitating immediate stabilization and reassessment of his treatment plan. Diagnosis & Plan/Recommendations PRINCIPAL DIAGNOSIS: Major depressive disorder, recurrent episode, severe with anxious distress (HCC) * Major depressive disorder, recurrent episode, severe with anxious distress (HCC) Assessment & Plan Mr. Artie Li, a 28-year-old male with a history of depression, anxiety, PTSD, and alcohol use disorder, is being admitted for inpatient psychiatric care due to significant concerns about his safety and mental health stability. He presents with severe depressive symptoms, recent suicidal ideations, and impaired judgment, exacerbated by his alcohol use and the stress of being unable to see his son. Despite his attempts to minimize the severity of his symptoms, his recent behaviors, including a visit to the ED for alcohol-related issues and an episode of being missing with a firearm while intoxicated, indicate a high risk of self-harm. Immediate hospitalization is necessary to ensure his safety, stabilize his condition, and reassess his treatment plan, including his medication regimen and the need for substance use treatment. His limited insight into his condition and impaired judgment further underscore the need for a controlled environment to prevent potential self-harm and to facilitate a comprehensive treatment approach. Physical examination Lab testing as appropriate Precautions -suicide PRN medications for agitation Collateral history from family/friends/providers Request/review prior records financial services education consultant assessment/linkage/care coordination Group participation/[facility] Supportive psychotherapy/structured supportive care CIWA protocol Alcohol withdrawal protocol and precautions Addiction medicine Start Sertraline 50 mg by mouth daily Start Naltrexone 50 mg by mouth daily Aftercare planning once stable Comorbid issues impacting my care plan include non-adherence and substance use. Following for alcohol use, suicidal concerns, depression, post traumatic stress disorder Interval History: Charts were reviewed, updates obtained from designated nursing staff and manager social. Patient was interviewed and discussed with team Patient seen in his room. Patient is feeling somewhat tired and lethargic today. Slight improvement in his moods reported as compared to the time of hospitalization. Patient is feeling less down and depressed and less hopeless. Endorses passive morbid thoughts. Anxiety distress is moderate. He has started to participate in group activities. He denies any withdrawal symptoms. He denies any ongoing psychosis. Compliant with his medications. Denies any side effects. Appetite is improving. Slept better last night. Not on CIWA protocol anymore. 2 more doses of phenobarbital taper left for today. Interpersonal issues were discussed: Support was provided Review of Systems: Constitutional:No fever, no weight loss Eyes:No diplopia ENT:No sinus drainage CV:No chest pain. No ankle swelling Resp:No dyspnea. No wheezing GI:No abdominal pain.No abdominal distention :No dysuria Neuro:No headache Integumentary:No skin rash MuscSkel:No arthralgias Endo:No polyuria Heme/lymphatic:No apparent lymphadenopathy Allergic/Immunologic:No hives Physical Examination: Vital Signs: BP 106/72 Pulse 66 Temp 97.6 degrees F (36.4 degrees C) (Oral) Resp 14 Ht 6' 3 Wt 103.8 kg (228 lb 12.8 oz) SpO2 96% BMI 28.60 kg/m Mental Status Evaluation: General Appearance & Behavior: Appears stated age, able to engage, improved eye contact Grooming & Hygiene: street clothes Psychomotor Activity: no psychomotor abnormalities or muscle atrophy noted Gait & Station stable gait Speech: Normal rate, normal tone Flow of Thought: concrete Thought Associations: Intact Content of Thought: Passive morbid thoughts Mood: Okay Affect: Flat Insight: limited Judgment: limited Orientation: alert and oriented to person, place, time, and circumstances Memory: intact recent and remote Attention: Adequate Concentration: Adequate Language: fluent Fund of Knowledge: estimated average intelligence Laboratory and Additional Data Reviewed: Laboratory 01/09/24 12:38 PM Treatment options and alternatives reviewed with patient. Risks, benefits, side effects of all psychiatric medications discussed with patient and informed consent obtained. All questions were answered. Continue medication management as per Dr. Luis's orders. Yumiko Smith MD 01/09/2024 12:38 PM A (more content not included)... [facility] 01-08-2024 Note Psychiatry Progress Note Patient Name: Artie Li Admit Date: 9240517 MR #: [id number] : 1995 Perpetual Assessment Artie Li is a 28 y.o. male with a history of severe depression, anxiety, PTSD, and alcohol use disorder, is being admitted for inpatient psychiatric care due to significant suicidal ideations and impaired judgment, necessitating immediate stabilization and reassessment of his treatment plan. Diagnosis & Plan/Recommendations PRINCIPAL DIAGNOSIS: Major depressive disorder, recurrent episode, severe with anxious distress (HCC) * Major depressive disorder, recurrent episode, severe with anxious distress (HCC) Assessment & Plan Mr. Artie Li, a 28-year-old male with a history of depression, anxiety, PTSD, and alcohol use disorder, is being admitted for inpatient psychiatric care due to significant concerns about his safety and mental health stability. He presents with severe depressive symptoms, recent suicidal ideations, and impaired judgment, exacerbated by his alcohol use and the stress of being unable to see his son. Despite his attempts to minimize the severity of his symptoms, his recent behaviors, including a visit to the ED for alcohol-related issues and an episode of being missing with a firearm while intoxicated, indicate a high risk of self-harm. Immediate hospitalization is necessary to ensure his safety, stabilize his condition, and reassess his treatment plan, including his medication regimen and the need for substance use treatment. His limited insight into his condition and impaired judgment further underscore the need for a controlled environment to prevent potential self-harm and to facilitate a comprehensive treatment approach. Physical examination Lab testing as appropriate Precautions -suicide PRN medications for agitation Collateral history from family/friends/providers Request/review prior records financial services education consultant assessment/linkage/care coordination Group participation/[facility] Supportive psychotherapy/structured supportive care CIWA protocol Alcohol withdrawal protocol and precautions Addiction medicine Start Sertraline 50 mg by mouth daily Start Naltrexone 50 mg by mouth daily Aftercare planning once stable Comorbid issues impacting my care plan include non-adherence and substance use. Following for alcohol use, suicidal concerns, depression, post traumatic stress disorder Interval History: Mr. Artie Li, a 28-year-old male, is currently hospitalized for safety and stabilization due to severe depression, anxiety, PTSD, and alcohol use disorder. He was admitted following significant concerns about his mental health and safety, presenting a high risk of self-harm and potential suicidal behavior. The patient has been expressing frustration and upset feelings about his hospitalization and has repeatedly voiced his desire to be discharged. On examination, Mr. Li appeared ambulatory at the nurse's station, dressed casually, neat, and clean. His affect was dull, flat, and blunted. He participated briefly in a Progressive Muscle Relaxation (PMR) exercise but left shortly after it began, citing a need to use the restroom and did not return. His mood was notably frustrated and upset. His thought process was logical but preoccupied with discharge, and while he admitted to recent suicidal thoughts, he denied having a specific plan. He was alert and oriented to person, place, and time, but demonstrated limited insight and impaired judgment. Mr. Li continues to present significant suicide risks, primarily exacerbated by his severe alcohol use disorder. He has been transitioned from a Lorazepam regimen to a Phenobarbital taper for alcohol withdrawal by the addiction medicine team, which he reports as helpful. Despite the current treatment and safety measures in place, Mr. Li remains highly anxious about his extended stay in the hospital and is eager to enroll in an alcohol treatment program. His frustration with the involuntary hold is evident and impacts his cooperation with the treatment plan. The plan includes continued inpatient admission for safety and stabilization, given the high risk of self-harm and suicidal behavior. Medication management involves the Phenobarbital taper for alcohol withdrawal and initiating Sertraline and Naltrexone, as discussed and agreed upon with the patient. Discharge planning will focus on a timely transfer to an inpatient substance use treatment program in [place], addressing the patient's desire to leave the hospital as soon as it is clinically safe to do so. Review of Systems: Constitutional:No fever, no weight loss Eyes:No diplopia ENT:No sinus drainage CV:No chest pain. No ankle swelling Resp:No dyspnea. No wheezing GI:No abdominal pain.No abdominal distention :No dysuria Neuro:No headache Integumentary:No skin rash MuscSkel:No arth (more content not included)... [facility] 01-07-2024 Note Psychiatry History a nd Physical Patient Name: Artie Li MR #: [id number] : 1995 Admit Date: 9240517 Primary Care Provider: Evelin Martino, WEB DESIGN INSTRUCTOR Assessment Artie Li is a 28 y.o. male with a history of severe depression, anxiety, PTSD, and alcohol use disorder, is being admitted for inpatient psychiatric care due to significant suicidal ideations and impaired judgment, necessitating immediate stabilization and reassessment of his treatment plan. Diagnosis & Plan/Recommendations PRINCIPAL DIAGNOSIS: Major depressive disorder, recurrent episode, severe with anxious distress (HCC) [place] I: major depressive disorder, post traumatic stress disorder; substance induced mood disorder; alcohol use disorder [place] II: Deferred [place] III: Patient Active Problem List Diagnosis Elevated glucose Elevated liver enzymes Alcohol dependence (HCC) Class 1 obesity due to excess calories with body mass index (BMI) of 30.0 to 30.9 in adult MDD (major depressive disorder) Major depressive disorder, recurrent episode, severe with anxious distress (HCC) Severe major depression (HCC) [place] IV: Other psychosocial and environmental problems [place] V: 41-50: Serious symptoms OR any serious impairment in social, occupational, or school functioning * Major depressive disorder, recurrent episode, severe with anxious distress (HCC) Assessment & Plan Mr. Artie Li, a 28-year-old male with a history of depression, anxiety, PTSD, and alcohol use disorder, is being admitted for inpatient psychiatric care due to significant concerns about his safety and mental health stability. He presents with severe depressive symptoms, recent suicidal ideations, and impaired judgment, exacerbated by his alcohol use and the stress of being unable to see his son. Despite his attempts to minimize the severity of his symptoms, his recent behaviors, including a visit to the ED for alcohol-related issues and an episode of being missing with a firearm while intoxicated, indicate a high risk of self-harm. Immediate hospitalization is necessary to ensure his safety, stabilize his condition, and reassess his treatment plan, including his medication regimen and the need for substance use treatment. His limited insight into his condition and impaired judgment further underscore the need for a controlled environment to prevent potential self-harm and to facilitate a comprehensive treatment approach. Physical examination Lab testing as appropriate Precautions -suicide PRN medications for agitation Collateral history from family/friends/providers Request/review prior records financial services education consultant assessment/linkage/care coordination Group participation/[facility] Supportive psychotherapy/structured supportive care CIWA protocol Alcohol withdrawal protocol and precautions Addiction medicine Aftercare planning once stable Comorbid issues impacting my care plan include non-adherence and substance use. Chief Complaint: not doing well History of Present Illness: Artie Li is a 28 y.o. male is being admitted to the inpatient psychiatric unit for safety and stabilization. He was referred by the outpatient office due to significant concerns regarding his mental health and safety. Mr. Li has a history of depression, anxiety, PTSD, and alcohol use disorder. His current presentation is highly concerning for an elevated risk of self-harm and potential suicidal behavior. Mr. Li has been struggling significantly with his mental health and alcohol use. He recently missed a scheduled outpatient appointment but was brought in by his friend and bookkeeping teacher, Ameya. During the outpatient visit, Mr. Li was tearful, distressed, and reported feeling extremely upset about not being able to see his son, which he identifies as the core reason for his drinking. He has been intermittently compliant with his prescribed mental health medications, often missing doses, and believes that the medications exacerbate his condition. Mr. Li has a recent history of visiting the Emergency Department (ED) for abdominal pain related to drinking. He has also missed work at the [employer] for the past week due to his alcohol consumption. He admits to considering himself an alcoholic and acknowledges a desire to continue drinking despite the severe consequences. Per the ED manager social, Mr. Li presented voluntarily for withdrawal but initially minimized his symptoms to avoid hospitalization. He expressed frustration with being placed on an involuntary hold and demonstrated poor insight and judgment. He admitted to recent suicidal thoughts but denied having a specific plan. 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 Mr. Li's personal life is marked by significant stressors. His fianc e left him a year ago due to hi (more content not included)... 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 His current mental health crisis is exacerbated by recent relapse into heavy drinking, interpersonal conflict, and overwhelming guilt related to both his relapse and the recent suicide of a close friend. He experiences frequent flashbacks and reminders of traumatic events from his work, further compounding his symptoms. Immediate psychiatric stabilization is necessary, followed by a structured treatment program to address his mental health and substance use disorders. Physical examination Lab testing as appropriate Precautions -suicide PRN medications for agitation Collateral history from family/friends/providers Request/review prior records financial services education consultant assessment/linkage/care coordination [facility] Supportive psychotherapy/structured supportive care Addiction medicine consult [facility] protocol and monitor for withdrawal symptoms Adjust Buspirone to 10 mg by mouth twice a day Restart Fluoxetine 20 mg by mouth daily Aftercare planning once stable Discharge Summary Artie Li, a 28-year-old male, was admitted to the inpatient psychiatric unit for safety and stabilization due to severe depression and suicidal ideation. He was brought in by [place] police under a pink slip after expressing intent to end his life with a firearm. Mr. Li has a significant history of alcohol use, drinking heavily for the past nine years, and has been attempting to quit. He relapsed following an argument with his son's mother, leading to heavy drinking and suicidal ideation. 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 During his stay, Mr. Li was initially observed to have a severely depressed affect and reported significant guilt, frustration, and suicidal ideation. He acknowledged intermittent struggles with suicidal thoughts, particularly in the context of alcohol intoxication, and recent stressors including his leave from work and conflict with his son's mother. Throughout his hospitalization, Mr. Li engaged in individual and group therapy sessions. He was compliant with his prescribed medications (trazodone, buspirone, and fluoxetine) and reported no side effects, although he did not notice significant improvement in his symptoms initially. Mr. Li demonstrated a proactive approach towards his recovery, including an interest in maintaining sobriety and addressing his grief related to the suicide of his close friend. He reported using the stationary bike for exercise, which he found beneficial, and expressed a strong interest in continuing to live for his 4-year-old son, whom he considers his biggest motivation. On discharge, Mr. Li presented with a significantly brighter affect and denied any suicidal or homicidal ideations. He was future-oriented, expressing a strong desire to continue living for his son. He showed understanding and acceptance of his need for ongoing treatment and support for his substance use disorder and mental health conditions. Mr. Li has been provided with a safety plan, including emergency contact numbers and strategies to manage any future crises. He has agreed to reach out for help if he experiences any return of suicidal ideation or overwhelming distress. Follow-Up Care: Continue with outpatient psychiatric follow-up for medication management and therapy. Engage in individual therapy to address grief related to the suicide of his close friend and ongoing PTSD symptoms. Participate in group therapy sessions, especially those tailored to and law enforcement personnel. Re-engage with the [facility] for comprehensive substance use treatment and support. Implement sleep hygiene strategies to address sleep disturbances. Family Involvement: Mr. Li's father and other supportive family members will continue to be engaged in his treatment plan to provide additional support and reinforce positive progress. Safety Plan: Mr. Li has been provided with a safety plan, including emergency contact numbers and strategies t (more content not included)... [facility] 10-05-2023 Note Psychiatry Progress Note Patient Name: Artie Li Admit Date: [id number] MR #: [id number] : 1995 Perpetual Assessment Artie Li is a 28 y.o. male with severe depression, acute suicidal ideation, and chronic alcohol use, exacerbated by recent relapse, interpersonal conflict, and traumatic work-related experiences, necessitating immediate psychiatric stabilization and comprehensive treatment. 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 His current mental health crisis is exacerbated by recent relapse into heavy drinking, interpersonal conflict, and overwhelming guilt related to both his relapse and the recent suicide of a close friend. He experiences frequent flashbacks and reminders of traumatic events from his work, further compounding his symptoms. Immediate psychiatric stabilization is necessary, followed by a structured treatment program to address his mental health and substance use disorders. Physical examination Lab testing as appropriate Precautions -suicide PRN medications for agitation Collateral history from family/friends/providers Request/review prior records financial services education consultant assessment/linkage/care coordination Group participation/[facility] Supportive psychotherapy/structured supportive care Addiction medicine consult [facility] protocol and monitor for withdrawal symptoms Adjust Buspirone to 10 mg by mouth twice a day Restart Fluoxetine 20 mg by mouth daily Aftercare planning once stable Comorbid issues impacting my care plan include non-adherence and substance use. Following for depression, anxiety, grief, suicidal behavior, alcohol use Interval History: I met with Artie Li today for his daily assessment. Artie presents with a brighter affect and is more engaged in our session compared to previous days. He reported feeling somewhat bored during his stay, having read several books to pass the time. Despite this, he expressed appreciation for the care he is receiving. Artie has been calm and not agitated throughout his stay. He shared his strong interest in continuing to live, stating that his 4-year-old son, whom he considers his biggest and most alexia treasure, is his primary motivation. He expressed feelings of guilt regarding his alcohol use and frustration over his recent relapse. Artie demonstrated a clear understanding of the importance of treatment for his substance use disorder. He remains medication compliant and has been actively participating in group therapy. He denied any suicidal or homicidal ideations and reported no withdrawal symptoms. Given his improved affect, proactive engagement in therapy, and motivation to maintain sobriety, the plan is to continue his current medications (Trazodone, Buspirone, and Fluoxetine) and monitor for any emerging side effects or signs of improvement. We will support his efforts towards sobriety, address his grief related to the suicide of his close friend through individual therapy, and implement sleep hygiene strategies to manage his sleep disturbances. Family involvement, particularly his father's, will be engaged to provide additional support and reinforce positive progress. Regular monitoring of his mood, affect, and suicidal ideation will continue to ensure a safe and supportive environment within the inpatient unit. Review of Systems: Constitutional:No fever, no weight loss Eyes:No diplopia ENT:No sinus drainage CV:No chest pain. No ankle swelling Resp:No dyspnea. No wheezing GI:No abdominal pain.No abdominal distention :No dysuria Neuro:No headache Integumentary:No skin rash MuscSkel:No arthralgias Endo:No polyuria Heme/lymphatic:No apparent lymphadenopathy Allergic/Immunologic:No hives Physical Examination: Vital Signs: BP (!) 140/82 Pulse 72 Temp 98 degrees F (36.7 degrees C) (Oral) Resp 18 Ht 6' 3 Wt 115.6 kg (254 lb 12.8 oz) SpO2 96% BMI 31.85 kg/m Mental Status Evaluation: General Appearance & Behavior: age appropiate Grooming & Hygiene: street clothes Psychomotor Activity: no psychomotor abnormalities or muscle atrophy noted Gait & Station stable gait and ability to rise from bed/chair without assistance Speech: soft spoken Flow of Thought: linear and goal directed Thought Associations: Intact Content of Thought: preoccupations Mood: Alright Affect: brighter Insight: fair Judgment: fair Orientation: alert and oriented to person, place, time, and circumstances Memory: intact recent and remote Attention: intact Conc (more content not included)... [facility] 10-04-2023 Note Psychiatry Progress Note Patient Name: Artie Li Admit Date: 6190517 MR #: [id number] : 1995 Perpetual Assessment Artie Li is a 28 y.o. male with severe depression, acute suicidal ideation, and chronic alcohol use, exacerbated by recent relapse, interpersonal conflict, and traumatic work-related experiences, necessitating immediate psychiatric stabilization and comprehensive treatment. 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 His current mental health crisis is exacerbated by recent relapse into heavy drinking, interpersonal conflict, and overwhelming guilt related to both his relapse and the recent suicide of a close friend. He experiences frequent flashbacks and reminders of traumatic events from his work, further compounding his symptoms. Immediate psychiatric stabilization is necessary, followed by a structured treatment program to address his mental health and substance use disorders. Physical examination Lab testing as appropriate Precautions -suicide PRN medications for agitation Collateral history from family/friends/providers Request/review prior records financial services education consultant assessment/linkage/care coordination Group participation/[facility] Supportive psychotherapy/structured supportive care Addiction medicine consult [facility] protocol and monitor for withdrawal symptoms Adjust Buspirone to 10 mg by mouth twice a day Restart Fluoxetine 20 mg by mouth daily Aftercare planning once stable Comorbid issues impacting my care plan include non-adherence and substance use. Following for depression, anxiety, grief, suicidal behavior, alcohol use Interval History: I met with Artie Li today and observed a slightly brighter affect compared to his previous assessment. He reported feeling somewhat better and expressed an effort to spend more time outside of his room. Artie mentioned using the stationary bike for exercise yesterday, which he found beneficial. 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 He confirmed his compliance with his current medication regimen (trazodone and buspirone and the recently restarted Fluoxetine) and reported no side effects, though he has not noticed any significant improvement in his symptoms yet. Artie denied experiencing any withdrawal symptoms. Given that he had abstained from alcohol for two weeks prior to his recent 3-4 day relapse, we discussed and agreed to discontinue the CIWA protocol due to his low risk for withdrawal. He reported poor sleep quality, with frequent awakenings throughout the night. He also acknowledged that he had not properly grieved the suicide of his close friend and expressed a desire to work on this aspect of his emotional recovery. His recent relapse and subsequent suicidal ideation necessitated inpatient care. Today, he exhibits a slightly improved affect and a proactive approach towards his recovery, including an interest in group therapy and maintaining sobriety. He remains compliant with his medication regimen without side effects but reports no significant improvement in symptoms yet. Sleep disturbances persist, and he acknowledges the need to grieve the loss of his friend, which may be contributing to his current emotional state. The plan is to continue his current medications and monitor for any emerging side effects or signs of improvement. Given his low risk for withdrawal, the CIWA protocol will be discontinued. We will encourage his participation in group therapy sessions and address his grief related to the suicide of his close friend through individual therapy sessions. We will continue to monitor and support his efforts towards sobriety, implement sleep hygiene strategies, and consider adjusting medication or introducing adjunctive treatments if sleep disturbances persist. Regular monitoring of his mood, affect, and suicidal ideation will continue, ensuring a safe and supportive environment within the inpatient unit. Family involvement, especially from his father, will be engaged in the treatment plan to provide additional support and reinforce positive progress. Review of Systems: Constitutional:No fever, no weight loss Eyes:No diplopia ENT:No sinus drainage CV:No chest pain. No ankle swelling Resp:No dyspnea. No wheezing GI:No abd (more content not included)... [facility] 10-03-2023 Note Psychiatry History a nd Physical Patient Name: Artie Li MR #: [id number] : 1995 Admit Date: [id number] Primary Care Provider: Evelin Martino CNP Assessment Artie Li is a 28 y.o. male with severe depression, acute suicidal ideation, and chronic alcohol use, exacerbated by recent relapse, interpersonal conflict, and traumatic work-related experiences, necessitating immediate psychiatric stabilization and comprehensive treatment. Diagnosis & Plan/Recommendations PRINCIPAL DIAGNOSIS: Major depressive disorder, recurrent episode, severe with anxious distress (HCC) [place] I: major depressive disorder; post traumatic stress disorder; Alcohol use disorder [place] II: Deferred [place] III: Patient Active Problem List Diagnosis Date Noted MDD (major depressive disorder) 10/02/2023 Major depressive disorder, recurrent episode, severe with anxious distress (HCC) 10/02/2023 Elevated glucose 05/01/2021 Elevated liver enzymes 05/01/2021 Alcohol dependence (HCC) 05/01/2021 Class 1 obesity due to excess calories with body mass index (BMI) of 30.0 to 30.9 in adult 05/01/2021 [place] IV: Other psychosocial and environmental problems [place] V: 41-50: Serious symptoms OR any serious impairment in social, occupational, or school functioning * Major depressive disorder, recurrent episode, severe with anxious distress (HCC) Assessment & Plan 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 His current mental health crisis is exacerbated by recent relapse into heavy drinking, interpersonal conflict, and overwhelming guilt related to both his relapse and the recent suicide of a close friend. He experiences frequent flashbacks and reminders of traumatic events from his work, further compounding his symptoms. Immediate psychiatric stabilization is necessary, followed by a structured treatment program to address his mental health and substance use disorders. Physical examination Lab testing as appropriate Precautions -suicide PRN medications for agitation Collateral history from family/friends/providers Request/review prior records financial services education consultant assessment/linkage/care coordination Group participation/[facility] Supportive psychotherapy/structured supportive care Addiction medicine consult CIWA protocol and monitor for withdrawal symptoms Adjust Buspirone to 10 mg by mouth twice a day Restart Fluoxetine 20 mg by mouth daily Aftercare planning once stable Comorbid issues impacting my care plan include non-adherence and substance use. Chief Complaint: The suicidal History of Present Illness: Artie Li is a 28 y.o. male who presents to the inpatient psychiatric unit for safety and stabilization, primarily due to severe depression and suicidal ideation. The patient was brought in by [place] police under a pink slip after he was found with a firearm, expressing intent to end his life. He reports a significant history of alcohol use, stating that he has been drinking heavily for the past nine years and has been attempting to quit. Despite a recent attempt at sobriety following his discharge from the [facility], he relapsed after an argument with his son's mother, leading to a night of heavy drinking and subsequent suicidal ideation. The patient describes a profound sense of guilt and frustration over his inability to maintain sobriety and manage his current life stressors. He reports that a very close friend of his completed suicide three months ago, an event that has significantly impacted his mental health, contributing to feelings of guilt and hopelessness. Additionally, the patient experiences recurrent flashbacks and reminders of traumatic events he has witnessed while on duty, exacerbating his anxiety and depressive symptoms. He reported limited recollection of the events leading to his admission, attributing this to the significant amount of alcohol he consumed. He acknowledges intermittent struggles with suicidal ideation, particularly in the context of alcohol intoxication, and recent stressors including his leave from work, conflict with his son's mother, and the need for clearance to return to his job. 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 His most recent admission to the [facility] was earlier this month, but he left after only two weeks of the six-week program. He is currently not engaged in outpatient treatment, although he reports compliance with trazodone and buspirone, but discontinued Prozac last fall. The patient has strong support from his family and friends, with his father expressing significant concern about his s (more content not included)... [facility] 05-09-2022 Discharge summary Note Date/Time May 09, 2022 2:50pm [facility] Medical Records Department [address] [place] [address] Emergency Department Summary 05/09/22 MR#: [id number] Acct: [id number] Name: SIMBA LI Rep #:[id number] : 1995 27 From: Timothy Edmond MD PCP: Care Physician,No Primary Status :REG ER Location: ED HPI History of Present Illness Chief Complaint: Substance Abuse Detail of Chief Complaint: Requesting detox for alcohol abuse. Informant: patient Onset/Context/Timing Onset: Month(s) Context: Gradual Onset Timing: Continuous Current Severity: Mild Maximum Severity: Mild Associated Symptoms Associated Symptoms: Positive for vomiting* Narrative Narrative: 27-year-old male history of alcoholism. Denies prior detox. No significant medical history. Currently on no medications. States when he works he drinks about 10 beers a night. He has been off the last week or so has been drinking 20 beers a day and some shots. Denies recent illness other than some nausea vomiting and diarrhea times. Denies any recent hospitalization. Requesting inpatient detox. Prior similar symptoms: Yes Recent Illness/Hospitalization: No PFSH PFSH Medical History Eczema Home Medications hydrocortisone 0.5 % topical cream 1 applic topical BID PRN ECZEMA 05/09/22 [History Last Taken 1 Week Ago ~05/02/22] Allergy/AdvReac Type Severity Reaction Status Date / Time No Known Allergies Allergy Verified 05/09/22 13:54 Social History Smoking Status: Never smoker ROS ROS ED ROS Narrative Nausea, vomiting and diarrhea. Review of Systems ROS Unobtainable: Denies due to encephalopathy Constitutional Constitutional ED: Denies chills or fever(s) Eyes Eyes: Denies blurry vision ENT ENT ED: Denies ear pain Cardiovascular Cardiovascular: Denies chest pain Respiratory/Chest Respiratory/Chest: Denies cough or dyspnea Gastrointestinal Gastrointestinal: Reports diarrhea, nausea and vomiting; Denies abdominal pain, constipation or melena Genitourinary Genitourinary ED: Denies dysuria Musculoskeletal Musculoskeletal: Denies arthralgias Integumentary Denies abscess Neurologic Neurologic: Denies headache(s) Psychiatric Psychiatric: Denies anxiety Endocrine Endocrinology: Denies cold intolerance Hematologic/Lymphatic Hematologic/Lymphatic: Denies easy bleeding Allergic/Immunologic Allergic/Immunologic ED: Denies mouth swelling or tongue swelling EXAM Physical Exam Narrative Exam Narrative: 18-year-old male no acute distress. Vital signs stable afebrile. H EENT exam unremarkable. Moist Riis membranes. No trauma. Neck nontender. No lymphadenopathy. Lungs clear to auscultation bilaterally. Heart tachycardic rate about 110 no murmur. Abdomen soft nontender. Normal bowel sounds. Movingall 4 extremities. Calves are nontender no edema or cords. Back nontender. Neurologically is awake alert with no focal motor deficits. Const Vital Signs: 05/09/22 13:54 05/09/22 14:59 Temperature 98.1 F 97.1 F L Temperature Source Temporal Temporal Pulse Rate 108 H 100 Respiratory Rate 16 16 Blood Pressure 152/106 H 136/77 H Blood Pressure Mean 121 96 Pulse Ox 98 99 Oxygen Delivery Method Room Air Room Air Positive well nourished, well developed and obese; Negative for cachectic, contractures or unkempt General Appearance ED: well developed and NAD; Negative for unkempt, cachectic, contractures or pallor Nutritional Appearance: obese; Negative for cachectic HEENT Reports moist mucous membranes; Denies dry mucous membranes atraumatic; Negative for trauma or tenderness Mouth ED: No dry mucous membranes Mouth: No dry mucous membranes Eyes PERRL and EOMs intact bilaterally General Eye ED: Negative for pale conjunctiva or scleral icterus Neck no lymphadenopathy, supple and no JVD Thyroid: Negative for tender Lymph Lymphatic: no lymphadenopathy noted and lymphadenopathy; Negative for other Chest Wall inspection of chest normal and palpation of chest normal Resp normal respiratory effort and clear to auscultation bilaterally Effort and Inspection: Negative for retractions Auscultation: Negative for rales, rhonchi or wheezes Cardio regular rate, regular rhythm, S1 normal heart sound, S2 normal heart sound and no murmurs Rate: Negative for bradycardia or tachycardic Rhythm: Negative for abnormal rhythm Bruits: Negative for other GI soft to palpation, non-tender, non-distended and no masses Inspection: Negative for abdominal distention Auscultation: Negative for hyperactive bowel sounds Palpation: Negative for tender or guarding Back/Spine no CVA tenderness General Back: Negative for CVA tenderness Cervical Spine: Negative for cervical spine tenderness Thoracic Spine / Upper Back: Negative for thoracic spinal tenderness Lumbar Spine / Lower Back: Negative for lumbar spinal tenderness Coccyx: Negative for swelling Extremity General Extremety ED: Negative for edema or tenderness General Extremity: Negative for edema Neuro oriented x3 and CN's II-XII intact bilaterally Sensorium / Orientation: alert, oriented to person, oriented to place and oriented to time; Negative for confused, lethargic or stuporous Speech: speech normal Motor Exam: strength 5/5 throughout Psych mental status grossly normal and thought process normal Appearance: Negative for unkempt Attitude: No belligerent Mood & Affect: Negative for depressed, anxious or tearful Skin General Skin Exam: Negative for jaundice or pallor Lesions: no lesions Rashes: no rashes Trauma: Negative for abrasion or laceration MDM MDM MDM Narrative Medical decision making narrative: 27-year-old male requesting inpatient detox for alcohol abuse. Screening labs for detox being sent. Lab Data Attestation: I reviewed the patient's lab results. Lab results narrative: CBC unremarkable. White count 7.5. H&H of 7.4 and 49. Platelets 248. Chemistries unremarkable gap of 12 normal BUN 11 creatinine of 1. Glucose 114. Liver enzymes unremarkable ALT 177. ) X2. Intact. Unremarkable appendix. Labs: Laboratory Results - last 24 hr 05/09/22 05/09/22 05/09/22 14:20 14:20 14:20 WBC 7.5 RBC 5.48 Hgb 17.4 H Hct 49.7 MCV 90.7 MCH 31.8 MCHC 35.0 RDW Std Deviation 42.3 RDW Coeff of Phyllis 12.9 Plt Count 248 MPV 8.7 Immature Gran % (Auto) 0.400 Neut % (Auto) 50.0 Lymph % (Auto) 39.7 [place] % (Auto) 8.3 Eos % (Auto) 0.8 Baso % (Auto) 0.8 Absolute Neuts (auto) 3.7 Absolute Lymphs (auto) 2.97 Nucleated RBC % 0 Sodium 141 Potassium 3.7 Chloride 102 Carbon Dioxide 27.0 Anion Gap 12 BUN 11 Creatinine 1.02 Estim Creat Clear Calc 127.72 Est GFR (MDRD) Af Amer 111 Est GFR (MDRD) Non-Af 92 BUN/Creatinine Ratio 10.8 Glucose 114 H Calcium 9.1 Total Bilirubin 0.40 AST 96 H ALT 177 H Alkaline Phosphatase 69 Total Protein 8.5 H Albumin 4.8 Globulin 3.7 Albumin/Globulin Ratio 1.3 Urine Opiates Screen NEGATIVE Urine Methadone Screen NEGATIVE Ur Barbiturates Screen NEGATIVE Ur Phencyclidine Scrn NEGATIVE Ur Amphetamines Screen NEGATIVE MDMA (Ecstasy) Screen NEGATIVE U Benzodiazepines Scrn NEGATIVE Urine Cocaine Screen NEGATIVE U Cannabinoids Screen NEGATIVE Ur Drug Screen Comment Discharge Plan Dx/Rx/DC Orders Clinical Impression: Alcohol abuse, Admitted to alcohol detoxification center Disposition Disposition: Acute Care Hospital [facility] What to do if you have Problems For any increased pain, shortness of breath, bleeding, nausea or vomiting, chestpain, or any unexpected problems, contact your Primary Care Provider. Call [facility] ([phone]) or report to the closest Emergency Room. Call 911 if necessary. 05/09/22 1539 <Electronically signed by Timothy Edmond MD> Cosigner Signature (if applicable): CC: No Primary Care Physician ~ Signed [facility] Work Phone: [phone] Instructions* Patient Instructions* Panchito Arroyo MD - 05/07/2021 1:03 PM EST BRING BP LOG AND IF TOP NUMBER GOING UNDER 110 THEN CONTACT US. documented in this [id number] History of Present illness Narrative* Panchito Arroyo MD - 05/07/2021 12:48 PM EST [facility] [address] [facility]IMARY [facility] ADDICTION MEDICINE [address] [facility] [id number] Patient Name: Artie Li Date: 05/08/2021 MR #: [id number] Physicians: Ysabel Yanes MD (Family); No ref. provider found (Referring) Subjective: Artie Li is a 26 y.o. male seen in the office today for ADDICTION MEDICINE HPI / ASSESSMENT / PLAN: 05/07/21 - Here for MAT for alcohol. Has not had a drink since last visit. Having some cravings. Hasnot checked into work EAP. Not sure he wants or needs. Will add topiramate as working amd naltrexone daily for now then back to prn. Not taken clonidine today but has been feeling orthostatic lightheadedness at times and will monitor. Does not want his PCP to be involved at this point. States that his girlfriend does see a difference in him in a positive way and this has been reassuring. 05/01/21 -patient is here with his father to discuss his alcohol addiction. 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 Does have girlfriend with which she has a 2 yo son. He has not addressed his alcohol with providers previously and had not known about looking into an EAP. He states he usually drinks when he gets home and we discussed starting naltrexone as he does not want or feel that he needs inpatient at this time. States during this time he has been up to 20 beers per day and usually within 8 to 12 hours he is starting to shake. He was seen at [facility] and the physician and staff got me talking with him and his father and arrange for him to be seen today. They did not have a lot of supportive medications available and and he has not drank since yesterday. Pharmacies were all closed at the time. Currently with sweats and palpitations and shakes. He has never had seizures or DTs. States he would like to try getting supportive meds to get through abstinence and Michel method was also discussed as an option that would be not a failure. Did give some resources for inpatient if he feels this is necessary and I can help arrange. Is very concerned about privacy Discussed plan with topiramate and as needed clonidine and naltrexone at end of his shift until rechecked. He does have some mild liver function abnormalities but fortunately believe he is in good timing. Information was given about groups and also Al-Anon for his father. There is no significant family history but he does have a relative of his girlfriend that has alcohol issues. Encouraged him to get counseling through EAP There are no diagnoses linked to this encounter. Review of Systems All other systems reviewed and are negative. Histories: History reviewed. No pertinent past medical history. Past Surgical History: Procedure Laterality Date APPENDECTOMY History reviewed. No pertinent family history. Social History Tobacco Use Smoking status: Never Smoker Smokeless tobacco: Never Used Substance Use Topics Alcohol use: Yes Drug use: Never Objective: Vital Signs: BP 139/89 Pulse 89 Temp 97.9 F (36.6 C) (Temporal) Ht 6' 3 Wt 110.6 kg (243 lb 14.4 oz) SpO2 98% BMI 30.49 kg/m Wt Readings from Last 3 Encounters: 05/07/21 110.6 kg (243 lb 14.4 oz) 05/01/21 111.8 kg (246 lb 8 oz) 04/30/21 106.6 kg (235 lb) Physical Examination: Physical Exam Vitals and nursing note reviewed. Constitutional: Appearance: Normal appearance. HENT: Head: Normocephalic and atraumatic. Mouth/Throat: Mouth: Mucous membranes are moist. Eyes: General: No scleral icterus. Conjunctiva/sclera: Conjunctivae normal. Pupils: Pupils are equal, round, and reactive to light. Comments: 3mm Cardiovascular: Rate and Rhythm: Normal rate. Pulmonary: Effort: Pulmonary effort is normal. Musculoskeletal: General: Normal range of motion. Cervical back: Normal range of motion. Comments: Mild hand tremors Skin: General: Skin is warm and dry. Neurological: General: No focal deficit present. Mental Status: He is alert and oriented to person, place, and time. Psychiatric: Mood and Affect: Mood normal. Behavior: Behavior normal. Thought Content: Thought content normal. Judgment: Judgment normal. Medications and Allergies: Patient's Medications New Prescriptions No medications on file Previous Medications ACAMPROSATE (CAMPRAL) 333 MG TABLET Take 1 (one) tablet (333 mg total) by mouth 3 (three) times a day as needed (cravings) . CLONIDINE HCL (CATAPRES) 0.1 MG TABLET Take 1 (one) tablet (0.1 mg total) by mouth 2 (two) times a day . Modified Medications Modified Medication Previous Medication NALTREXONE (DEPADE, REVIA) 50 MG TABLET naltrexone (DEPADE, REVIA) 50 mg tablet Take 1 (one) tablet (50 mg total) by mouth daily for 60 doses . Take 1 (one) tablet (50 mg total) by mouth daily for 60 doses . TOPIRAMATE (TOPAMAX) 25 MG TABLET topiramate (TOPAMAX) 25 MG tablet Take 1 (one) tablet (25 mg total) by mouth 2 (two) times a day . Take 1 (one) tablet (25 mg total) by mouth 2 (two) times a day . Discontinued Medications ONDANSETRON (ZOFRAN) 8 MG TABLET Take 0.5 (one-half) tablet (4 mg total) by mouth every 8 (eight) hours as needed for nausea . PANTOPRAZOLE (PROTONIX) 40 MG TABLET Take 1 (one) tablet (40 mg total) by mouth daily . No Known Allergies Labs: No results found for this or any previous visit (from the past 144 hour(s)). MDM Follow Up Ordered: Orders Placed This Encounter topiramate (TOPAMAX) 25 MG tablet Sig: Take 1 (one) tablet (25 mg total) by mouth 2 (two) times a day . Dispense: 60 tablet Refill: 5 naltrexone (DEPADE, REVIA) 50 mg tablet Sig: Take 1 (one) tablet (50 mg total) by mouth daily for 60 doses . Dispense: 30 tablet Refill: 1 Return in about 1 month (around 06/07/2021) for MAT, Follow Up. Patient Instructions BRING BP LOG AND IF TOP NUMBER GOING UNDER 110 THEN CONTACT US. Panchito Arroyo MD This note was dictated using voice-recognition software for expedited communication. Please kindly excuse any typos or mis-recognized words. Depression Screening 05/01/2021 Little interest or pleasure in doing things 0 Feeling down, depressed, or hopeless 0 PHQ-2 Total Score 0 Trouble falling or staying asleep, or sleeping too much 3 Feeling tired or having little energy 1 Poor appetite or overeating 0 Feeling bad about yourself - or that you are a failure or have let yourself or your family down 1 Trouble concentrating on things, such as reading the newspaper or watching television 1 Moving or speaking so slowly that other people could have noticed. Or the opposite - being so fidgety or restless that you have been moving around a lot more than usual 0 Thoughts that you would be better off , or of hurting yourself in some way 0 PHQ-9 Total Score 6 If you checked off any problems, how difficult have these problems made it for you to do your work,take care of things at home, or get along with other people? Not difficult at all Depression Screening 05/01/2021 Little interest or pleasure in doing things 0 Feeling down, depressed, or hopeless 0 PHQ-2 Total Score 0 Trouble falling or staying asleep, or sleeping too much 3 Feeling tired or having little energy 1 Poor appetite or overeating 0 Feeling bad about yourself - or that you are a failure or have let yourself or your family down 1 Trouble concentrating on things, such as reading the newspaper or watching television 1 Moving or speaking so slowly that other people could have noticed. Or the opposite - being so fidgety or restless that you have been moving around a lot more than usual 0 Thoughts that you would be better off , or of hurting yourself in some way 0 PHQ-9 Total Score 6 If you checked off any problems, how difficult have these problems made it for you to do your work,take care of things at home, or get along with other people? Not difficult at all documented in this [id number] Instructions* Patient Instructions* Panchito Arroyo MD - 05/01/2021 1:05 PM EST TAKE THE TOPIRAMATE TWICE A DAY (DRINK LESS AND MOOD) TAKE THE NALTREXONE AT 8 AM UNTIL NEXT VISIT (FEEL ALCOHOL FULL) TAKE THE CAMPRAL ONLY IF CRAVINGS UP TO EVERY 6 TO 8 HOURS USE MELATONIN 5 MG AT BEDTIME AND A VITAMIN DAILY. TAKE THE CLONIDINE UNTIL SEEN AND CHECK YOUR BLOOD PRESSURE AND PULSE AND ALSO RECORD ALCOHOL INTAKE. HOLD IF TOP BLOOD PRESSURE NUMBER 110 OR LESS. documented in this [id number] History of Present illness Narrative* Panchito Arroyo MD - 05/01/2021 12:47 PM EST [facility] [address] [facility]IC[facility] [address] [place] [address] Patient Name: Artie Li Date: 05/02/2021 MR #: [id number] Physicians: Ysabel Yanes MD (Family); No ref. provider found (Referring) Subjective: Artie Li is a 26 y.o. male seen in the office today for ADDICTION MEDICINE (ALCOHOL ) HPI / ASSESSMENT / PLAN: 05/01/21 -patient is here with his father to discuss his alcohol addiction. 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 Does have girlfriend with which she has a 2 yo son. He has not addressed his alcohol with providers previously and had not known about looking into an EAP. He states he usually drinks when he gets home and we discussed starting naltrexone as he does not want or feel that he needs inpatient at this time. States during this time he has been up to 20 beers per day and usually within 8 to 12 hours he is starting to shake. He was seen at [facility] and the physician and staff got me talking with him and his father and arrange for him to be seen today. They did not have a lot of supportive medications available and and he has not drank since yesterday. Pharmacies were all closed at the time. Currently with sweats and palpitations and shakes. He has never had seizures or DTs. States he would like to try getting supportive meds to get through abstinence and Michel method was also discussed as an option that would be not a failure. Did give some resources for inpatient if he feels this is necessary and I can help arrange. Is very concerned about privacy Discussed plan with topiramate and as needed clonidine and naltrexone at end of his shift until rechecked. He does have some mild liver function abnormalities but fortunately believe he is in good timing. Information was given about groups and also Al-Anon for his father. There is no significant family history but he does have a relative of his girlfriend that has alcohol issues. Encouraged him to get counseling through EAP Diagnoses and all orders for this visit: Elevated glucose Elevated liver enzymes Alcohol dependence with unspecified alcohol-induced disorder (HCC) Class 1 obesity due to excess calories with body mass index (BMI) of 30.0 to 30.9 in adult, unspecified whether serious comorbidity present Review of Systems All other systems reviewed and are negative. Histories: History reviewed. No pertinent past medical history. Past Surgical History: Procedure Laterality Date APPENDECTOMY History reviewed. No pertinent family history. Social History Tobacco Use Smoking status: Never Smoker Smokeless tobacco: Never Used Substance Use Topics Alcohol use: Yes Drug use: Never Objective: Vital Signs: BP (!) 140/104 Pulse 96 Temp 98.2 F (36.8 C) (Temporal) Ht 6' 3 Wt 111.8 kg (246 lb 8 oz) SpO2 95% BMI 30.81 kg/m Wt Readings from Last 3 Encounters: 05/01/21 111.8 kg (246 lb 8 oz) 04/30/21 106.6 kg (235 lb) 10/01/20 108.9 kg (240 lb) Physical Examination: Physical Exam Vitals and nursing note reviewed. Constitutional: Appearance: Normal appearance. HENT: Head: Normocephalic and atraumatic. Mouth/Throat: Mouth: Mucous membranes are moist. Eyes: General: No scleral icterus. Conjunctiva/sclera: Conjunctivae normal. Pupils: Pupils are equal, round, and reactive to light. Comments: 3mm Cardiovascular: Rate and Rhythm: Normal rate. Pulmonary: Effort: Pulmonary effort is normal. Musculoskeletal: General: Normal range of motion. Cervical back: Normal range of motion. Comments: Mild hand tremors Skin: General: Skin is warm and dry. Neurological: General: No focal deficit present. Mental Status: He is alert and oriented to person, place, and time. Psychiatric: Mood and Affect: Mood normal. Behavior: Behavior normal. Thought Content: Thought content normal. Judgment: Judgment normal. Medications and Allergies: Patient's Medications New Prescriptions ACAMPROSATE (CAMPRAL) 333 MG TABLET Take 1 (one) tablet (333 mg total) by mouth 3 (three) times a day as needed (cravings) . CLONIDINE HCL (CATAPRES) 0.1 MG TABLET Take 1 (one) tablet (0.1 mg total) by mouth 2 (two) times a day . NALTREXONE (DEPADE, REVIA) 50 MG TABLET Take 1 (one) tablet (50 mg total) by mouth daily for 60 doses . TOPIRAMATE (TOPAMAX) 25 MG TABLET Take 1 (one) tablet (25 mg total) by mouth 2 (two) times a day . Previous Medications ONDANSETRON (ZOFRAN) 8 MG TABLET Take 0.5 (one-half) tablet (4 mg total) by mouth every 8 (eight) hours as needed for nausea . PANTOPRAZOLE (PROTONIX) 40 MG TABLET Take 1 (one) tablet (40 mg total) by mouth daily . Modified Medications No medications on file Discontinued Medications ALBUTEROL 90 MCG/ACTUATION INHALER Inhale 2 puffs every 4 (four) hours as needed . AZITHROMYCIN (ZITHROMAX) 500 MG TABLET Take 1 (one) tablet (500 mg total) by mouth daily . DOXYCYCLINE HYCLATE (VIBRA-TABS) 100 MG TABLET Take 1 tablet by mouth 2 (two) times a day . PANTOPRAZOLE (PROTONIX) 40 MG TABLET Take 1 (one) tablet (40 mg total) by mouth daily . No Known Allergies Labs: Recent Results (from the past 144 hour(s)) POC Liver Panel Plus Collection Time: 04/30/21 7:00 PM Result Value Ref Range Albumin 4.6 3.2 - 5.2 g/dL Alkaline Phosphatase 80 40 - 140 U/L ALT (SGPT) 47 (H) 0 - 40 U/L AST (SGOT) 36 0 - 45 U/L Bilirubin, Total 0.6 0.0 - 1.3 mg/dL Total Protein 8.6 (H) 6.0 - 8.0 g/dL Amylase 42 25 - 115 U/L GGT 81 (H) 11 - 51 U/L POC Basic Metabolic Panel Collection Time: 04/30/21 7:01 PM Result Value Ref Range Glucose 121 (H) 65 - 99 mg/dL BUN 14 8 - 25 mg/dL Creatinine Sodium 141 135 - 145 mmol/L Potassium 3.8 3.5 - 5.1 mmol/L Chloride 103 98 - 108 mmol/L TCO2 28 21 - 32 mmol/L Ionized Calcium 4.3 (L) 4.5 - 5.3 mg/dL EKG 12-lead Collection Time: 04/30/21 7:57 PM Result Value Ref Range Ventricular Rate 111 BPM Atrial Rate 111 BPM P-R Interval 146 ms QRS Duration 80 ms Q-T Interval 338 ms QTC Calculation (Bezet) 459 ms P [place] 21 degrees R [place] 23 degrees T [place] 19 degrees MDM Follow Up Ordered: Orders Placed This Encounter cloNIDine HCL (CATAPRES) 0.1 MG tablet Sig: Take 1 (one) tablet (0.1 mg total) by mouth 2 (two) times a day . Dispense: 30 tablet Refill: 1 topiramate (TOPAMAX) 25 MG tablet Sig: Take 1 (one) tablet (25 mg total) by mouth 2 (two) times a day . Dispense: 60 tablet Refill: 5 naltrexone (DEPADE, REVIA) 50 mg tablet Sig: Take 1 (one) tablet (50 mg total) by mouth daily for 60 doses . Dispense: 30 tablet Refill: 1 acamprosate (CAMPRAL) 333 mg tablet Sig: Take 1 (one) tablet (333 mg total) by mouth 3 (three) times a day as needed (cravings) . Dispense: 30 tablet Refill: 1 No follow-ups on file. Patient Instructions TAKE THE TOPIRAMATE TWICE A DAY (DRINK LESS AND MOOD) TAKE THE NALTREXONE AT 8 AM UNTIL NEXT VISIT (FEEL ALCOHOL FULL) TAKE THE CAMPRAL ONLY IF CRAVINGS UP TO EVERY 6 TO 8 HOURS USE MELATONIN 5 MG AT BEDTIME AND A VITAMIN DAILY. TAKE THE CLONIDINE UNTIL SEEN AND CHECK YOUR BLOOD PRESSURE AND PULSE AND ALSO RECORD ALCOHOL INTAKE. HOLD IF TOP BLOOD PRESSURE NUMBER 110 OR LESS. Panchito Arroyo MD This note was dictated using voice-recognition software for expedited communication. Please kindly excuse any typos or mis-recognized words. Depression Screening 05/01/2021 Little interest or pleasure in doing things 0 Feeling down, depressed, or hopeless 0 PHQ-2 Total Score 0 Trouble falling or staying asleep, or sleeping too much 3 Feeling tired or having little energy 1 Poor appetite or overeating 0 Feeling bad about yourself - or that you are a failure or have let yourself or your family down 1 Trouble concentrating on things, such as reading the newspaper or watching television 1 Moving or speaking so slowly that other people could have noticed. Or the opposite - being so fidgety or restless that you have been moving around a lot more than usual 0 Thoughts that you would be better off , or of hurting yourself in some way 0 PHQ-9 Total Score 6 If you checked off any problems, how difficult have these problems made it for you to do your work,take care of things at home, or get along with other people? Not difficult at all Depression Screening 05/01/2021 Little interest or pleasure in doing things 0 Feeling down, depressed, or hopeless 0 PHQ-2 Total Score 0 Trouble falling or staying asleep, or sleeping too much 3 Feeling tired or having little energy 1 Poor appetite or overeating 0 Feeling bad about yourself - or that you are a failure or have let yourself or your family down 1 Trouble concentrating on things, such as reading the newspaper or watching television 1 Moving or speaking so slowly that other people could have noticed. Or the opposite - being so fidgety or restless that you have been moving around a lot more than usual 0 Thoughts that you would be better off , or of hurting yourself in some way 0 PHQ-9 Total Score 6 If you checked off any problems, how difficult have these problems made it for you to do your work,take care of things at home, or get along with other people? Not difficult at all documented in this [id number] Chief complaint Narrative - Reported* An interactive audio and video telecommunication system which permits real time communications between the patient (at the originating site) and provider (at the distant site) was utilized to providethis telehealth service. * Verbal consent was requested and obtained from SIMBA ROSALVATAMMIEPaulo on this date, 09/25/2020 03:20 PM , for a telehealth visit. * Establish care today with c/o headache,nausea,102.1 temp,fatigue x1wk [email or web address] [facility] Work Phone: [phone]) 937-164706-09-2021 History of Present illness NarrativeVirtual visit to get established. He has been having issues with headache, nausea, fever, fatigue for the past week - started last Sun morning. and Thu he was vomiting. He did go to urgent care recently - had a covid test and that was negative. Was told that it was probably a virus. [place] better Th/Thursday but over the weekend he has been having more headaches, some nausea. Still had a fever this morning - took some tylenol and it was down to 99. He is trying to drink lots of water - has been urinating a little more frequently, no burning. He does have diarrhea, no specific pain in his abdomen. He did have a tick bite about a month ago.[facility] [facility] Work Phone: [phone] 170-313609-14-2020 NotePROCEDURE DETAILS Preoperative Diagnosis: Acute appendicitis Postoperative Diagnosis: Acute appendicitis Surgeon: Mali Cotton Resident/Fellow/Other Bell Ringer: None of these were associated with this case Procedure: 1. LAPAROSCOPIC APPENDECTOMY Anesthesia: GENERAL Estimated Blood Loss: 10 Findings: inflamed dilated appendix Specimens(s) Collected: yes, Complications: none immediate Operative Report: INDICATIONS: Patient is a 24-year-old male who presented with the right lower quadrant pain, onset 1 day ago. He was found to have acute appendicitis on CT scan. HE was given IV antibiotics and brought to the operating room for laparoscopic appendectomy. PROCEDURE NOTE: patient was brought to the operating room and placed on operating room table in supine position. He received DVT prophylaxis with subcutaneous heparin. Patient was already on IV antibiotics. General anesthesia was induced. Abdomen was prepped and draped in standard sterile fashion. A curvilinear infraumbilical incision was made and carried down to the fascia. Fascia was sharply entered and stay stitches were placed on both sides. Peritoneum was bluntly entered and a 12 mm [place] cannula was placed and abdomen was insufflated. Patient tolerated pneumoperitoneum well. Inspection of the abdomen revealed dilated inflamed appendix in right lower quadrant. Two 5 mm ports were then placed under direct vision, one in the left lower quadrant and another one suprapubic. Using careful blunt dissection, first the terminal ileum was cleared off of the appendix and mesoappendix and then the appendix was mobilized off of the sidewall. Once some mobility had been achieved, a window was made in the mesoappendix close to the base of the appendix and base of the appendix was divided using 45 mm Endo MELISSA purple load. The mesoappendix was divided using 45 mm Endo MELISSA islas load. appendix was then placed in the Endobag and retrieved. Right lower quadrant was then irrigated with normal saline and the free fluid from the pelvis was also suctioned out. Hemostasis was adequate including at the staple lines. All ports were removed under direct visualization. The fascia of the infraumbilical port site was closed using interrupted [id number] stitches using 0 Vicryl. Wounds were irrigated and skin for all incisions was closed using 4-0 Monocryl. Dermabond and Steri-Strips were applied. All lap, sponge and instrument counts were correct at end of the case. Patient tolerated the procedure well, was woken up from general anesthesia and taken to recovery room in stable condition. Signatures/Attestation: Note Completion: Attending AttestationI performed the procedure without a resident Electronic Signatures: Mali Cotton) (Signed 26-Dec-2019 10:22) Authored: Post Operative, Signatures/Attestation Last Updated: 26-Dec-2019 10:22 by Mali Cotton)[facility]09-14-2020 NoteThis report has been cancelled.[facility] Evaluation note* Diagnosis Elevated glucose Other abnormal glucose Elevated liver enzymes Other nonspecific abnormal serum enzyme levels Alcohol dependence with unspecified alcohol-induced disorder (HCC) Class 1 obesity due to excess calories with body mass index (BMI) of 30.0 to 30.9 in adult, unspecified whether serious comorbidity present [facility] Diagnosis Alcohol dependence with unspecified alcohol-induced disorder (HCC)- Primary Encounter for medication review and counseling Issue of repeat prescription Issue of repeat prescriptions [facility] Diagnosis Onset Date Resolution Status Admitted to alcohol detoxification center acute Alcohol abuse acute Alcohol withdrawal [facility] Work Phone: Evaluation note* Diagnosis Epigastric pain- Primary Abdominal pain, epigastric documented in this encounter [facility] Work Phone: Evaluation note* Diagnosis Lumbar radiculitis- Primary documented in [facility] encounter [facility]* Diagnosis Lumbar radiculitis [facility] Diagnosis Lumbar radiculitis- Primary documented in this encounter [facility]* Diagnosis Lumbar radiculitis- Primary [facility]* Diagnosis Lumbar radiculitis- Primary [facility]* Diagnosis Lumbar radiculitis- Primary [facility]* Diagnosis Lumbar radiculitis- Primary [facility]* Diagnosis Lumbar radiculitis- Primary documented in [facility] noteNo assessment information availableWGood Samaritan Hospital Work Phone: Hospital Discharge instructions* Attachments The following attachments cannot be sent through Care Everywhere. * Abdominal Pain, Adult ED (Greenlandic) [facility] Work Phone: Reason for referral (narrative)* Consultation (Routine) - Authorized Specialty Diagnoses / Procedures Referred By Adalgisa t Referred To Contact General Surgery Diagnoses Epigastric pain LemSabas landa DO [address] [facility] Department [place] [address] Referral ID Status Reason Start Date Expiration Date Visits Requested Visits Authorized [id number] Authorized Specialty Services Required 01/04/2024 01/03/2025 1 1 * Consultation (Routine) - Authorized Specialty Diagnoses / Procedures Referred By Adalgisa ellison Referred To Contact Family Medicine / Primary Care Diagnoses Epigastric pain Sabas Benz DO [address] [facility] Department [place] [address] Referral ID Status Reason Start Date Expiration Date Visits Requested Visits Authorized [id number] Authorized Specialty Services Required 01/04/2024 01/03/2025 1 1 [facility] Work Phone: Reason for referral (narrative)No reason for referral information availableWGood Samaritan Hospital Work Phone: Reason for visit Narrative* Therapy (Routine) - Authorized Specialty Diagnoses / Procedures Referred By Contraúl t Referred To Contact Physical Therapy Diagnoses Lumbar radiculitis Procedures [place] OFFICE/OUTPATIENT [facility] 60 MINUTES [address] [place], [address] [facility] [address] [place] [address] Phone: tel: fax: [facility] Therapy at [address] [place] [address] Phone: tel: fax: Referral ID Status Reason Start Date Expiration Date Visits Requested Visits Authorized [id number] Authorized Specialty Services Required 07/28/2024 07/28/2025 30 30 [facility] Summary Purpose Family History Unknown Family Member Name Dates Details Family history of malignant neoplasm of brain: Father(V16.8, Z80.8) Status:Active Family history of neoplasm o f brain: Sister(V19.8, Z84.89) Status:Active Unknown Family Member Name Dates Details Family history of malignant neoplasm of brain: Father(V16.8, Z80.8) Status:Active Family history of neoplasm o f brain: Sister(V19.8, Z84.89) Status:Active Unknown Family Member Name Dates Details Family history of malignant neoplasm of brain: Father(V16.8, Z80.8) Status:Active Family history of neoplasm o f brain: Sister(V19.8, Z84.89) Status:Active Advance Directives Documents on File Type Date Recorded Patient Admissions Director Expl anation Advance Directives and Livin g Will 04/30/2021 7:48 PM Advance Directive Response Recorded Date/ Time Living Will No May 09 2:13pm Power of [employer] Team Leader No May 09, 2022 2:13pm Advance Directive Response Recorded Date/ Time Do you have a Healthcare Power of [employer] Team Leader? No December 21, 2024 1:47pm Chief Complaint and Reason for Visit Chief Complaint ACUTE ALCOHOL WITHDR AWAL Reason for Visit Admitted to alcohol detoxification center Alcohol abuse Alcohol withdrawal Chief Complaint Admit Date substance December 21, 2024 1:46pm Additional Source Comments (unrecognized sect ion and content) No Status Records FoundNo Status Records FoundNo Status Records FoundNo Status Records FoundNo Status Records FoundNo Status Records FoundNo Status Records FoundNo Status Records FoundNo Status Records FoundNo Status Records FoundNo Status Records FoundNo Status Records Found INFORMATION SOURCE (unrecogn ized section and content) DATE CREATED AUTHOR 10/02/2017 [facility] DATE CREATED AUTHOR AUTHOR'S ORGANIZ ATION 09/25/2020 [facility] DATE CREATED AUTHOR AUTHOR'S ORGANIZ ATION 10/02/2020 [facility] DATE CREATED AUTHOR AUTHOR'S ORGANIZ ATION 06/05/2021 [facility] DATE CREATED AUTHOR AUTHOR'S ORGANIZ ATION 09/01/2021 [employer] DATE CREATED AUTHOR AUTHOR'S ORGANIZ ATION 10/15/2022 [facility] DATE CREATED AUTHOR AUTHOR'S ORGANIZ ATION 01/05/2024 [facility] DATE CREATED AUTHOR AUTHOR'S ORGANIZ ATION 01/22/2024 [facility] DATE CREATED AUTHOR AUTHOR'S ORGANIZ ATION 04/26/2024 [facility] DATE CREATED AUTHOR AUTHOR'S ORGANIZ ATION 04/26/2024 [facility] DATE CREATED AUTHOR AUTHOR'S ORGANIZ ATION 04/26/2024 [facility] DATE CREATED AUTHOR AUTHOR'S ORGANIZ ATION 11/16/2024 [facility] <item> Privacy Markings (unrecogniz ed section and content) Section Author: Moriah Francis PROHIBITION ON REDISCLOSURE OF CONFIDENTIAL INFORMATION This notice accompanies a disclosure of information concerning a client made to you with the consent of such client. Reason for Visit (unrecogniz ed section and content) Reason Comments ADDICTION MEDICINE ALCOHOL Reason Comments ADDICTION MEDICINE Reason Comments Abdominal Pain Epigastric pain x 1 hour, nausea and vomiting. Reason Comments New Patient Low Back Pain Reason Comments Follow-up Low back pain Reason Comments PT Discharge Care Teams (unrecognized sec tion and content) Master In Chancery Relationship Specialty Start Date End Date Ysabel Yanes MD [address] [place] [address] PCP - General Family Medicine 10/01/20 Panchito Arroyo MD [address] [place] [id number] Consulting Physician Addiction Medicine 05/01/21 Master In Chancery Relationship Specialty Start Date End Date Ysabel Yanes MD [address] [place] [address] PCP - General Family Medicine 10/01/20 Panchito Arroyo MD [address] [place] [id number] Consulting Physician Addiction Medicine 05/01/21 Team Status: Active Member Role Status Dates No Primary Care Physician Primary Care Provider Active Team Status: Active Member Role Status Dates Dr. Timothy Edmond MD Emergency Provider Active No Primary Care Physician Primary Care Provider Active Dr. Meryl Bean MD Admit Provider, Attending Prov ider Active Master In Chancery Relationship Specialty Start Date End Date Ysabel Yanes MD [address] [place] [address] PCP - General Family Medicine 01/04/24 Team Status: Active Member Role/Relationship Status Dates No Primary Care Physician Primary Care Provider Active Team Status: Inactive Member Role/Relationship Status Dates No Primary Care Physician Primary Care Provider Active Start: December 21, 2024 End: December 21, 2024 Dr. Tone Louise DO Emergency Provider Active S tart: December 21, 2024 End: December 21, 2024 Goals (unrecognized section and content) Goals may be documented in a n alternate sectionGoals may be documented in an alternate section Scheduled Active and Recently Administ ered Medications (unrecognized section and content) Medication Order 01/02/2024 01/03/2024 01/04/2024 iohexol (OMNIPaque) 350 mg iodine/mL solution 68 mL (COMPLETED) 68 mL, intravenous, Once in imaging, Starting on Thu01/04/24 at 1027, For 1 dose 1027 (Given - Provid er: Elodia Cornejo) morphine injection 4 mg (COMPLETED) 4 mg, intravenous, Once, On Thu01/04/24 at 0915, For 1 dose 0932 (Given - Provid er: Susan Lacey, ANDREW) ondansetron (Zofran) injection 4 mg (COMPLETED) 4 mg, intravenous, Once, On Thu01/04/24 at 0915, For 1 dose, When administering via IV Push, administer over 3-5 minutes. 0932 (Given - Provid er: Susan Lacey, ANDREW) pantoprazole (ProtoNix) injection 40 mg (COMPLETED) 40 mg, intravenous, Once, On Thu01/04/24 at 0945, For 1 dose 0954 (Given - Provid er: Susan Lacey RN) sodium chloride 0.9 % bolus 1,000 mL (COMPLETED) 1,000 mL, intravenous, at 999 mL/hr, Administer over 1 Hours, Once, On Thu01/04/24 at 0915, For 1 dose 0931 (New Bag - Prov ider: Susan Lacey RN)1030 (Stopped - Provider: Susan Lacey RN) sucralfate (Carafate) suspension 1 g (COMPLETED) 1 g, oral, Once, On Thu01/04/24 at 0945, For 1 dose, SHAKE WELL 0954 (Given - Provid er: Susan Lacey RN) FOR RECORDS PERTAINING TO PATIENTS WHO ARE OR HAVE BEEN ENROLLED IN A CHEMICAL DEPENDENCY/SUBSTANCEABUSE PROGRAM, SOME INFORMATION MAY BE OMITTED. This clinical summary was aggregated from multiple sources. Caution should be exercised in using it in the provision of clinical care. This summary normalizes information from multiple sources, and as a consequence, information in this document may materially change the coding, format and clinical context of patient data. In addition, data may be omitted in some cases. CLINICAL DECISIONS SHOULD BE BASED ON THE PRIMARY CLINICAL RECORDS. [employer] [facility]. provides no warranty or guarantee of the accuracy or completeness of information in this document.
== END 2024-12-21 16:52 | disposition home or self-care (01) ==
PROVIDERS: Emergency Provider Emergency Medicine; Visit Provider Emergency Medicine
DX: F10.20 Alcohol dependence, uncomplicated (principal)
CPT/HCPCS: 80053; 80307; 82077; 85025; 96374; 96375; 99284; A4216; J2405

== ENCOUNTER 2024-12-23 15:57 | Inpatient (IN) | payer MEDICAID, SELFPAY ==
[2024-12-23 16:00] VITALS: BP 135/79; PULSE 90; RESP 18; TEMP 36.6; O2SAT 99; BMI 27.8
--- NOTE | 2024-12-23 16:29 | HP.PCM.HOS_ITS ---
HPI - General General Date of Admission: 12/23/24 Date of Service: 12/23/24 Chief Complaint: Alcohol detox HPI Narrative SOHAIL LI, is a 29 M who presented to [facility] ED on 12/23/2024 for alcohol detox. Patient was seen in the ED on 12/21 for this reason and was going to be admitted, but he left from the ED due to significant anxiety. Has been battling alcoholism for several years and has been through detox in the past. Drinks about 15-20 beers daily. Last drink was this morning. Given desire for detox, hospitalist was contacted for admission. I saw the patient at bedside in the ED, sister was present. Patient was flushed appearing and somewhat anxious appearing, was otherwise sitting back in bed and answering questions appropriately. Noted that he was feeling significantly anxious again and would like to start with the medications for detox as soon as possible. He has tolerated a phenobarbital taper for withdrawal well in the past. No other acute concerns currently, will be admitted for further management. [facility] Medical History (Updated 12/23/24 @ 16:[address] Michael Sánchez, ) Admitted to alcohol detoxification center Alcohol abuse Eczema Home Medications ?Medication ?Instructions ?Recorded ?Last Taken ?Type buspirone 10 mg tablet 10 mg PO DAILY 12/30/23 Unkn own History fluoxetine 20 mg capsule 20 mg PO DAILY 12/30/23 Unkn own History hydroxyzine HCl 25 mg tablet 25 mg PO QHS 12/30/23 Unk nown History trazodone 50 mg tablet 50 mg PO QHS PRN PRN insomni a 12/30/23 Unknown History Allergy/AdvReac Type Severity Reaction Status Date / Time No Known Allergies Allergy Verified 12/23/24 16:00 Social History Smoking Status: Never smoker ROS Constitutional Constitutional: Denies chills, fatigue or fever(s) Cardiovascular Cardiovascular: Denies chest pain Respiratory/Chest Respiratory/Chest: Denies shortness of breath at rest Gastrointestinal Gastrointestinal: Denies abdominal pain Musculoskeletal Musculoskeletal: Denies arthralgias or myalgias Psychiatric Psychiatric: Reports anxiety Vital Signs Vital Signs Vital Signs: 12/23/24 16:00 Temperature 97.9 F Temperature Source Temporal Pulse Rate 90 Respiratory Rate 18 Blood Pressure 135/79 H Blood Pressure Mean 97 Pulse Ox 99 Oxygen Delivery Method Room Air Weight Weight: 101.196 kg Body Mass Index (BMI) 27.8 Physical Exam Const alert, oriented x3, no apparent distress and average body habitus Constitutional Narrative: Young male, flushed and mildly anxious appearing, otherwise sitting back fairly comfortably in bed and answering questions appropriately. General Appearance: cooperative and comfortable HEENT normocephalic, head/scalp atraumatic, hearing grossly normal bilaterally, nasal mucous membranes and turbinates normal and moist oral mucous membranes Eyes PERRL, EOMs intact bilaterally and conjunctivae normal Neck full ROM Chest inspection of chest normal Resp normal respiratory effort, normal air movement, no use of accessory muscles and clear to auscultation bilaterally Cardio regular rate, regular rhythm, no murmurs and peripheral pulses 2+ throughout GI normal to inspection, nondistended, normoactive bowel sounds, soft to palpation, non-tender and non-distended Back/Spine normal ROM Extremity normal to inspection, full ROM and no pedal edema Skin no rashes or lesions noted Psych mental status grossly normal Mood & Affect: anxious Assessment & Plan Assessment/Plan (1) Alcohol abuse: (2) Alcohol withdrawal: (3) Desire for detoxification: PLAN: Plan Patient is a 29-year-old male who presented with ED on 12/23/2024 for alcohol detox. 1. Alcohol abuse with withdrawal and desire for detox ? Admit under inpatient status to [facility]. Case management consulted. Drinks 15-20 beers daily, last drink on morning of admission. Alcohol level pending but on recent ED visit on 12/21 when patient left before being admitted, alcohol level was 292. Has gone through detox in the past and tolerated phenobarbital taper well. Will treat with phenobarbital taper and other as needed medications per alcohol withdrawal order set. Patient unsure about inpatient treatment versus outpatient treatment after discharge, appreciate case management assistance. 2. Anxiety/depression ? Patient has multiple medications at home last including BuSpar, fluoxetine, t razodone and hydroxyzine. States he has not taken any of these medications for over a year and is interested in restarting them now. Will hold these medications and recommend close outpatient follow-up. 3. History of incarceration ? Patient reports recently being in senior care for an unclear reason. 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 He notes there is no issue with him staying over the weekend for detox at this point. DVT prophylaxis: SCDs CODE STATUS: Full code, verified Expected disposition: TBD Total clinical time spent by myself addressing the patient's medical issues, reviewing all the data, and collaborating with patient's care team: 43 minutes. Charges/Coding Visit Charges Inpatient E&M: 40102 Init Hosp L1
--- NOTE | 2024-12-23 16:56 | EDS_ITS ---
HPI History of Present Illness Chief Complaint: ETOH Intox Detail of Chief Complaint: Has 12 to 1612 ounce cans of beer daily Informant: patient Onset/Context/Timing Onset: Month(s) Context: Sudden Onset Timing: Continuous Quality: Drinks daily Location: Not applicable Current Severity: Severe Maximum Severity: Severe Worsened by: Stresses Relieved by: Nothing Associated Symptoms Associated Symptoms: Positive for tremor; Negative for vomiting*, diarrhea*, fever*, rash*, seizure, palpatations, change in mental status, trauma or *HIV Risk Factors:Consider testing if last test > 6 months Narrative Narrative: Patient is a 29-year-old male. He is never been in a formal detox program. He was incarcerated in May and did not drink at that time. He was seen on December 21. He plan was to admit. He became anxious and left. This may have been due to withdrawal symptoms. He presents today with his . He denies drug use. Denies tobacco use. He apparently was with his father on the . The note authored by Dr. Sears was reviewed. The note by Dr. Sánchez was canceled since he left. Prior similar symptoms: Yes Recent Illness/Hospitalization: No [facility] Medical History Admitted to alcohol detoxification center Alcohol abuse Eczema Home Medications ?Medication ?Instructions ?Recorded ?Last Taken ?Type NK 12/23/24 Unknown History Allergy/AdvReac Type Severity Reaction Status Date / Time No Known Allergies Allergy Verified 12/23/24 16:00 Social History (Updated 12/23/24 @ 16:[address] Gaurang Brown MD) household members: spouse Smoking Status: Never smoker ROS ROS ED Constitutional Constitutional ED: Denies chills, fever(s) or sweats Eyes Eyes: Denies blurry vision, change in vision or diplopia ENT ENT ED: Denies rhinorrhea or sore throat Cardiovascular Cardiovascular: Reports palpitations; Denies chest pain Respiratory/Chest Respiratory/Chest: Denies cough, dyspnea or dyspnea on exertion Gastrointestinal Gastrointestinal: Reports nausea; Denies abdominal pain, constipation, diarrhea, melena or vomiting Musculoskeletal Musculoskeletal: Denies arthralgias, back pain or myalgias Integumentary Denies Abrasions or rash Neurologic Neurologic: Denies paresthesias or weakness Psychiatric Psychiatric: Reports depression Endocrine Endocrinology: Denies cold intolerance or heat intolerance Hematologic/Lymphatic Hematologic/Lymphatic: Denies easy bleeding or easy bruising EXAM Physical Exam Const Vital Signs: 12/23/24 16:00 Temperature 97.9 F Temperature Source Temporal Pulse Rate 90 Respiratory Rate 18 Blood Pressure 135/79 H Blood Pressure Mean 97 Pulse Ox 99 Oxygen Delivery Method Room Air Positive well nourished and well developed General Appearance ED: well developed and NAD; Negative for pallor HEENT Reports moist mucous membranes atraumatic Eyes PERRL and EOMs intact bilaterally General Eye ED: Negative for scleral icterus Resp normal respiratory effort and clear to auscultation bilaterally Cardio regular rate, regular rhythm and no murmurs GI soft to palpation, non-tender, non-distended and no masses Extremity Extremity Narrative: There is no clubbing or cyanosis. General Extremety ED: Negative for edema or tenderness General Extremity: Negative for edema Neuro oriented x3 and CN's II-XII intact bilaterally [place] Coma Scale: document GCS findings Spontaneous Obeys Commands Oriented 15 Sensorium / Orientation: alert Psych Mood & Affect: depressed Skin General Skin Exam: Negative for jaundice or pallor Lesions: no lesions Rashes: no rashes MDM MDM MDM Narrative Medical decision making narrative: Case discussed Dr. Sánchez. The only lab that was repeated was alcohol level. He also received 97.2 mg of phenobarb p.o. History & Record Review Additional record(s) reviewed:: Prior ED visit and Prior labs Management Discussion w/another healthcare provider: Hospitalist (Discussed regarding admission and what lab tests needed to be repeated if any.) Discharge Plan Triage Chief Complaint: ETOH Intox ED Provider: Gaurang Brown Dx/Rx/DC Orders Clinical Impression: Alcohol dependence with acute alcoholic intoxication, Admitted to alcohol detoxification center, Desire for detoxification Prescriptions: No Action trazodone 50 mg tablet 50 mg PO QHS PRN PRN (Reason: insomnia) buspirone 10 mg tablet 10 mg PO DAILY hydroxyzine HCl 25 mg tablet 25 mg PO QHS fluoxetine 20 mg capsule 20 mg PO DAILY Primary Care Provider: Care Physician,No Primary Referrals: Care Physician,No Primary [Primary Care Provider] - Print Language: Spanish Disposition Disposition: [facility]
[2024-12-23 17:00] VITALS: BP 134/88; PULSE 89; RESP 16; TEMP 36.9; O2SAT 99
[2024-12-23 17:56] VITALS: BMI 27.5
[2024-12-23 18:21] LABS: Alcohol, Blood (Medical)-Serum 268.0 mg/dL (<=10.0)
[2024-12-23 18:28] VITALS: BP 131/88; PULSE 86; RESP 16; TEMP 36.3; O2SAT 100
[2024-12-23] MEDS: hydrOXYzine PAM 25 MG Capsule 50 MG PO ×2 (18:48→22:25)
[2024-12-23 19:34] VITALS: BP 127/76; PULSE 86; RESP 18; TEMP 36.5; O2SAT 99
[2024-12-23 22:22] VITALS: BP 144/74; PULSE 97; RESP 18; TEMP 36.7; O2SAT 98
[2024-12-23] MEDS: 0.9% Saline Lock 10 ML Syringe IV (22:25)
[2024-12-24 02:12] VITALS: BP 128/70; PULSE 92; RESP 18; TEMP 36.6; O2SAT 97
[2024-12-24 06:11] VITALS: BP 122/69; PULSE 65; RESP 16; TEMP 36.6; O2SAT 98
[2024-12-24] MEDS: hydrOXYzine PAM 25 MG Capsule 50 MG PO ×4 (06:13→18:50)
[2024-12-24 09:44] VITALS: BP 124/73; PULSE 86; RESP 16; TEMP 36.8; O2SAT 100
[2024-12-24] MEDS: Thiamine Hydrochloride 100 MG Tablet PO (09:47)
--- NOTE | 2024-12-24 11:16 | PCM.PN.HOSP ---
Reason for Visit Chief Complaint: Alcohol detox Subjective Subjective Feeling sick with myalgias, nausea. Objective Data Objective Data Vital Signs: Vital Signs Temp Pulse Resp BP Pulse Ox O2 Del Method 36.8 C 86 16 124/73 H 100 Room Air 12/24/24 09:44 12/24/24 09:44 12/24/24 09:44 12/24/24 09:44 12/24/24 09:44 12/24/24 09:44 Oxygen Delivery Method Room Air Weight: 99.79 kg Body Mass Index (BMI) 27.5 Intake & Output: Intake and Output for Last 24 Hours 12/22/24 12/23/24 12/24/24 23:59 23:59 23:59 Intake Total 800 / 800 1800 / 1800 Output Total 200 / 200 Balance 800 / 800 1600 / 1600 Lab / Micro Data Labs: Laboratory Results - last 24 hr 12/23/24 17:05: Ethyl Alcohol 268.0 H Physical Exam Const alert and no apparent distress HEENT head/scalp atraumatic and moist oral mucous membranes Resp normal respiratory effort and no retractions Neuro Sensorium / Orientation: awake and alert Psych affect normal Assessment & Plan Assessment/Plan (1) Alcohol dependence with acute alcoholic intoxication: PLAN: Continue with phenobarbital taper and adjunctive medications Addiction medicine to see. Patient's preference is to go to a residential program as he was previously involved with IOP. Charges/Coding Visit Charges Inpatient E&M: 88304 Subs Hosp L1
--- NOTE | 2024-12-24 14:26 | CASEMGMT ---
Social Work- SW met with pt to complete SDOH assessment. Pt reports no needs or concerns. Pt owns his own home, is up-to-date on mortgage and has some savings to pay mortgage during residential stay. Pt reports no concerns with food, utilities, transportation, or safety. Pt works and reports that his job will be held during inpatient stay. Pt reports that he is on probation currently, but denies needing any letters sent. No resources needed per pt reports. Plan is for 180 residential pending bed availability. CANDE Smith
[2024-12-24 15:15] VITALS: BP 121/84; PULSE 94; RESP 18; TEMP 36.6; O2SAT 98
--- NOTE | 2024-12-24 15:43 | ADDICTION ---
This commercial underwriter met with PT to conduct ASAM, MSE, and AUDIT assessments and to plan for d/c. PT A+Ox4 and participated actively. All assessments completed and placed in PT's chart. PT plans to f/u with in patient treatment services on Tuesday 12/26. TW waiting approval for referrals to [facility] or [facility] in [facility]. PT has been approved to admit to inpatient program at [facility] in [place] on Tuesday 12/26 with transportation provided if not approved for closer placement at [facility] or [facility]. Addiction therapist, Shanon, has been advised and will follow up to secure direct admission for inpatient treatment.
[2024-12-24 22:04] VITALS: BP 126/73; PULSE 77; RESP 16; TEMP 36.7; O2SAT 98
[2024-12-25 02:28] VITALS: BP 128/78; PULSE 66; RESP 16; TEMP 36.6; O2SAT 99
--- NOTE | 2024-12-25 07:28 | PN.HOSP_ITS ---
Reason for Visit Chief Complaint: Alcohol detox Subjective Subjective Feeling better. Objective Data Objective Data Vital Signs: Vital Signs Temp Pulse Resp BP Pulse Ox O2 Del Method 36.6 C 66 16 128/78 H 99 Room Air 12/25/24 02:28 12/25/24 02:28 12/25/24 02:28 12/25/24 02:28 12/25/24 02:28 12/25/24 02:28 Oxygen Delivery Method Room Air Weight: 99.79 kg Body Mass Index (BMI) 27.5 Intake & Output: Intake and Output for Last 24 Hours 12/23/24 12/24/24 12/25/24 23:59 23:59 23:59 Intake Total 800 / 800 2640 / 2640 120 / 120 Output Total 200 / 200 Balance 800 / 800 2440 / 2440 120 / 120 Physical Exam Const alert and no apparent distress Constitutional Narrative: Lying in bed. No acute distress. HEENT head/scalp atraumatic Assessment & Plan Assessment/Plan (1) Alcohol dependence with acute alcoholic intoxication: PLAN: Continue with phenobarbital taper and adjunctive medications Addiction medicine to see. Pt to be admitted to the inpatient program at [facility] on 12/26 Charges/Coding Visit Charges Inpatient E&M: 99608 Subs Hosp L1
[2024-12-25 08:37] VITALS: BP 123/82; PULSE 62; RESP 18; TEMP 36.6; O2SAT 96
[2024-12-25] MEDS: Thiamine Hydrochloride 100 MG Tablet PO (08:40)
[2024-12-25 14:29] VITALS: BP 140/85; PULSE 93; RESP 18; TEMP 36.6; O2SAT 99
[2024-12-25 20:36] VITALS: BP 124/83; PULSE 88; RESP 17; TEMP 37.1; O2SAT 99
[2024-12-26 02:26] VITALS: BP 145/72; PULSE 84; RESP 16; TEMP 36.6; O2SAT 100
[2024-12-26 08:03] VITALS: BP 128/87; PULSE 71; RESP 16; TEMP 36.6; O2SAT 100
[2024-12-26] MEDS: Thiamine Hydrochloride 100 MG Tablet PO (08:12)
--- NOTE | 2024-12-26 08:24 | DS.PCM_ITS ---
Providers Date of Admission: 12/23/24 Date of Discharge: 12/26/24 Primary Care Physician: Haydee Primary Care Phys Reason For Visit: ALCOHOL DETOX Diagnosis Discharge Diagnosis (1) Alcohol dependence with acute alcoholic intoxication: Status: Acute Code(s): F10.229 - Alcohol dependence with intoxication, unspecified Plan Patient is a 29-year-old gentleman with history of chronic alcohol dependence admitted with acute alcohol withdrawal Acute alcohol withdrawal - Patient has been admitted for treatment with phenobarb taper in addition to adjuvant medications including gabapentin, Bentyl, hydroxyzine and clonidine as needed for alcohol withdrawal symptoms. Patient was also placed on thiamine and folic acid. Consultation placed to [facility] counseling services. Plan is for patient to be transferred to an inpatient program at [facility] 12/26/2024 Medications at Discharge Home Medications NK 12/23/24 Hospital Course Summary of Care Provided Minutes Spent on Discharge: 25 Physical Exam Narrative GENERAL: cooperative HEENT: Atraumatic; normocephalic EYES; Anicteric, Normal Conjunctiva NECK; supple, normal thyroid, RESPIRATORY: Diminished to auscultation CARDIOVASCULAR: Regular S1 S2, GI: soft, normoactive bowel sounds, : No Renal angle tenderness; EXTREMITIES: No edema, no clubbing, MUSCULOSKELETAL: no muscle wasting NEURO: Awake; no lateralizing signs. SKIN: No Rash PSYCH; Flat affect Weight / BMI Weight Weight: 99.79 kg Body Mass Index (BMI) 27.5 D/C Instructions Discharge Activity: Return to Normal Activity Call your doctor if you observe: Fever of 101 or Higher, Shortness of breath, Fainting spells and Chest pain DC O2, CPAP, BIPAP Needs Home O2 Discharge instructions: No Meaningful Use Info Meaningful Use Meaningful Use Diagnoses (Choose all that apply): None applicable Discharge Plan Admission Admit Date/Time: 12/23/24 16:29 Attending Provider: Clyde Espinosa Primary Care Provider: Care Physician,No Primary Consulting Providers: Michael Sánchez; Ilia Lane Discharge Orders/Prescriptions Prescriptions: No Action NK Referrals / Follow Up: 180 [Other] Care Physician,No Primary [Primary Care Provider] - Disposition Disposition (needs filled in before D/C Order can be placed): Inpatient Rehab Unit/Facility Charges/Coding Visit Charges Inpatient E&M: 89880 Disch Hosp
--- NOTE | 2024-12-26 11:16 | CASEMGMT ---
Social Work- SW updated by [facility] coordinator Shanon that pt will d/c to [facility] in [place] with pickling drum operator between 13:00-14:00. Pt has no additional SW needs at this time. CANDE Smith
== END 2024-12-26 13:50 | DRG 775 ==
LOC: ED 17:02 → MS3 17:03
PROVIDERS: Admitting Provider Hospitalist; Emergency Provider Emergency Medicine; Visit Provider Internal Medicine
DX: F10.239 Alcohol dependence with withdrawal, unspecified (principal); F10.229 Alcohol dependence with intoxication, unspecified; Y90.8 Blood alcohol level of 240 mg/100 ml or more
CPT/HCPCS: 80053; 80307; 82077; 85025; 96374; 96375; 99283; 99284; A4216; J2405